=== PATIENT | male | born 1950 | race Caucasian/White ===

== ENCOUNTER → 2020-01-01 13:51 | Outpatient (BNVA) | payer MEDICARE, MEDICAID, SELFPAY | PROVIDERS: PCP Internal Medicine; Referring Provider Internal Medicine; Visit Provider Internal Medicine Cardiovascular Disease | DX: I25.10 Atherosclerotic heart disease of native coronary artery without angina pectoris (principal); I10 Essential (primary) hypertension; E78.5 Hyperlipidemia, unspecified; G89.29 Other chronic pain; R07.9 Chest pain, unspecified; Z95.1 Presence of aortocoronary bypass graft | CPT/HCPCS: 99204 ==

== ENCOUNTER → 2020-01-12 10:50 | Outpatient (BNVA) | payer MEDICARE, MEDICAID, SELFPAY | PROVIDERS: PCP Nurse Practitioner Family; Visit Provider Urology | DX: N40.1 Benign prostatic hyperplasia with lower urinary tract symptoms (principal); R35.1 Nocturia | CPT/HCPCS: 51798; 99213 ==

== ENCOUNTER → 2020-01-19 11:35 | Outpatient (REF) | payer MEDICARE, MEDICAID, SELFPAY ==
--- NOTE | 2020-01-19 11:40 | CA_ITS ---
Transthoracic Echocardiogram Patient (Last, First, Middle): Omar Pitts, Gender: Male Date of : 1950 Age: 69 Procedure Date: 01/19/2020 Procedure Type: Transthoracic Echocardiogram Location: OP Height: 177.8 cm Weight: 83.92 kg BSA: 2.02 m2 Heart Rate: bpm BP: 134 / 66 mmHg Airport Operations Officer: Referring MD: Jarvis Brown MD Symptoms: Essential hypertension Study Quality: Good ECG Rhythm: Sinus Conclusions: - The left ventricular systolic function is mildly decreased. The visually estimated ejection fraction is between 45-50%. - There is mildly decreased right ventricular systolic function. - No obvious valvular pathology seen on this study. Findings Left Ventricle Normal left ventricular cavity size. There is normal left ventricular wall thickness. The left ventricular systolic function is mildly decreased. The visually estimated ejection fraction is between 45-50%. There is mild global hypokinesis. E/E prime ratio is between 8 and 15 consistent with indeterminate filling pressures. Evidence suggests grade I (mild) diastolic dysfunction. Right Ventricle Normal right ventricular cavity size. There is mildly decreased right ventricular systolic function. Atria The left atrium is mildly dilated. The right atrium is normal in size. Aortic Valve There is a normal trileaflet aortic valve. There is no aortic valve stenosis. There is no aortic valve regurgitation. Mitral Valve The mitral valve appears normal. There is trace mitral valve regurgitation. There is no mitral valve stenosis. Pulmonic Valve The pulmonic valve was not well visualized. There is trace pulmonic valve regurgitation. Tricuspid Valve Normal tricuspid valve structure. There is mild tricuspid valve regurgitation. The pulmonary artery systolic pressure is normal. Great Vessels The aortic annulus, sinuses of valsalva, and asc aorta are normal in size. Venous The inferior vena cava is normal in size and collapses greater than 50% with inspiration. Pericardium/Pleural There is no evidence of pericardial effusion. Prior Study Comparison No prior study available for comparison. Recommendations, Care & Conclusions No obvious valvular pathology seen on this study. Measurements 2D Linear Measurements RVIDd: 3.67 RVIDd Index: 1.82 IVSd: 0.95 0.6-0.9/0.6-1.0 cm LVIDd: 5.83 3.9-5.3/4.2-5.9 cm LVIDd Index: 2.89 2.4-3.2/2.2-3.1 cm/m2 LVIDs: 4.38 2.0-3.6 cm LVPWd: 1.06 0.7-1.1 cm Ao Root: 4.10 2.1-3.5 cm LA Diam: 4.00 2.7-3.8/3.0-4.0 cm LAIDs Index: 1.98 1.5-2.3 cm/m2 LV Mass: 294.89 67-162/88-224 g LV Mass Index: 145.99 43-95/49-115 g/m2 LVOT Diam: 2.40 3.0+(-)1.3 cm 2D Systolic Function EF 4C: 49.80 >55% EF 2C: 48.90 >55% EF BiP: 50.20 >55% Mitral Valve MV Pk E: 0.76 MV PK A: 0.73 MV Decel Time: 254.00 E/A: 1.00 E'Lateral: 8.51 E'Medial: 7.06 E/E' Med: 10.80 E/E' Lat: 9.00 Aortic Valve AoV Pk Americo: 1.35 AoV Mn Americo: 1.10 AoV VTI: 0.33 AoV Pk Grad: 7.00 Aov Mn Grad: 5.00 DENNIS Cont.VTI: 2.46 LVOT LVOT Pk Americo: 0.73 LVOT Mn Americo: 0.51 LVOT VTI: 0.18 LVOT Pk Grad: 2.00 LVOT Mn Grad: 1.00 LVOT Diam: 2.40 LVOT Area: 4.52 Diastolic Function MV Pk E: 0.76 MV Pk A: 0.73 E/A: 1.00 E'Medial: 7.06 E/E' Med: 10.80 E' Laterial: 8.51 E/E' Lat: 9.00 Tricuspid Valve TR Pk Americo: 2.39 TR Pk Grad: 23.00 RA Press: 3.00 RVSP: 26.00 Great Vessels Aorta Ao Root-2D: 4.10 2.0-3.7 cm Ao Asc: 3.60 2.1-3.4 cm Ao Arch: 3.60 Updated in Other Vendor System with Status of Final Israel Purcell MD electronically signed on 01/21/2020 10:45:45 AM with status of Final
== END ==
LOC: HO.CARD 11:35
PROVIDERS: PCP Internal Medicine; Visit Provider Internal Medicine Cardiovascular Disease
DX: I10 Essential (primary) hypertension (principal)
CPT/HCPCS: 93306

== ENCOUNTER 2020-02-14 12:26 | Outpatient (REF) | payer MEDICARE, MEDICAID, SELFPAY | END 2020-02-14 12:27 | disposition home or self-care (01) | LOC: HO.LAB 12:26 | PROVIDERS: Visit Provider Internal Medicine | DX: Z20.828 Contact with and (suspected) exposure to other viral communicable diseases (principal) | CPT/HCPCS: C9803; U0003 ==

== ENCOUNTER 2020-03-05 12:14 | Outpatient (REF) | payer MEDICARE, MEDICAID, SELFPAY | END 2020-03-05 12:15 | disposition home or self-care (01) | LOC: HO.LAB 12:14 | PROVIDERS: PCP Internal Medicine; Visit Provider Internal Medicine | DX: Z20.828 Contact with and (suspected) exposure to other viral communicable diseases (principal) | CPT/HCPCS: C9803; U0003 ==

== ENCOUNTER → 2020-04-25 08:20 | Outpatient (BNVA) | payer MEDICARE, MEDICAID, SELFPAY | PROVIDERS: PCP Internal Medicine; Visit Provider Orthopaedic Surgery | DX: M17.11 Unilateral primary osteoarthritis, right knee (principal) | CPT/HCPCS: 99212 ==

== ENCOUNTER → 2020-05-06 12:46 | Outpatient (BNVA) | payer MEDICARE, MEDICAID, SELFPAY | PROVIDERS: PCP Internal Medicine; Visit Provider Internal Medicine Cardiovascular Disease | DX: I15.0 Renovascular hypertension (principal); R07.9 Chest pain, unspecified; Z95.1 Presence of aortocoronary bypass graft | CPT/HCPCS: 93005; 99212 ==

== ENCOUNTER → 2020-05-16 13:25 | Outpatient (BNVA) | payer MEDICARE, MEDICAID, SELFPAY | PROVIDERS: PCP Internal Medicine; Visit Provider Surgery Vascular Surgery | DX: I73.9 Peripheral vascular disease, unspecified (principal) | CPT/HCPCS: 99202 ==

== ENCOUNTER 2020-05-23 13:55 | Outpatient (REF) | payer MEDICARE, MEDICAID, SELFPAY ==
--- NOTE | ~2020-05-23 | US_ITS ---
EXAMINATION: US MISHA COMPLETE US BILATERAL LOWER EXTREMITY ARTERIAL DUPLEX CLINICAL INFORMATION: Peripheral vascular disease. COMPARISON: None TECHNIQUE: MISHA. Real-time ultrasound and Doppler techniques (integrating B-mode 2D vascular images, Doppler spectral analysis and color flow Doppler imaging) were utilized to interrogate the lower extremities bilaterally. FINDINGS: Arterial vascular calcifications are present bilaterally. MISHA: Right brachial artery pressure is 161 mmHg with left brachial artery pressure of 151 mmHg. Right posterior tibial artery pressure is 169 mmHg with dorsalis pedis pressure of 202 mmHg. Left posterior tibial artery pressure is 207 mmHg with left dorsalis pedis artery pressure of 205 mmHg. The above findings were given MISHA on the right of 1.25 and on the left of 1.29, however, these are likely artifactually elevated due to noncompressibility from calcified vessels at the ankle. The lower MISHA related to posterior tibial artery pressure in the right leg would give an index of 1.05 which would fall in the normal range. RIGHT LOWER EXTREMITY: Common femoral artery has a triphasic waveform with peak systolic velocity of 96 cm/s. Profunda femoral artery has a biphasic waveform with peak systolic velocity of 73 cm/s. Proximal superficial femoral artery has a biphasic waveform with peak systolic velocity of 86 cm/s. The mid superficial femoral artery has a triphasic waveform with peak systolic velocity of 77 cm/s. The distal superficial femoral artery has a triphasic waveform with peak systolic velocity of 65 cm/s. Popliteal artery has a triphasic waveform with peak systolic velocity 57 cm/s. The proximal peroneal artery has a triphasic waveform with peak systolic velocity of 96 cm/s. The mid and distal peroneal arteries have biphasic waveforms. The mid posterior tibial artery has a biphasic waveform with peak systolic velocity of 200 cm/s. The proximal posterior tibial artery has a biphasic waveform with peak systolic velocity of 48 cm/s. LEFT LOWER EXTREMITY: The common femoral artery has a biphasic waveform with peak systolic velocity of 89 cm/s. The profunda femoral artery has a biphasic waveform with peak systolic velocity of 58 cm/s. The proximal superficial femoral artery has a triphasic waveform with peak systolic velocity of 69 cm/s. The mid superficial femoral artery has a biphasic waveform with peak systolic velocity of 72 cm/s. The distal superficial femoral artery just proximal to what appears to be a metallic stent has a biphasic waveform with peak systolic velocity of 67 cm/s. The proximal popliteal artery has a triphasic waveform with peak systolic velocity of 50 cm/s. The proximal peroneal artery has a biphasic waveform with peak systolic velocity of 70 cm/s. The proximal posterior tibial artery has a biphasic waveform with peak systolic velocity of 49 cm/s. The mid peroneal artery has a biphasic waveform with peak systolic velocity of 76 cm/s. The mid posterior tibial artery has a biphasic waveform with peak systolic velocity of 73 cm/s. US/US arterial duplex LE BI IMPRESSION: Bilateral diffuse calcified plaque within the lower extremity arterial system. Probable inaccurate ABIs related to noncompressibility of the ankle vessels due to calcified vessels. Elevated velocity within the right mid posterior tibial artery consistent with hemodynamically significant stenosis. Biphasic or triphasic waveforms bilaterally as described.
== END 2020-05-23 13:56 | disposition home or self-care (01) ==
LOC: HO.US 13:55
PROVIDERS: PCP Internal Medicine; Visit Provider Surgery Vascular Surgery
DX: I70.213 Atherosclerosis of native arteries of extremities with intermittent claudication, bilateral legs (principal)
CPT/HCPCS: 93923; 93925

== ENCOUNTER → 2020-05-30 10:04 | Outpatient (BNVA) | payer MEDICARE, MEDICAID, SELFPAY | PROVIDERS: PCP Internal Medicine; Visit Provider Orthopaedic Surgery | DX: M17.11 Unilateral primary osteoarthritis, right knee (principal); M17.12 Unilateral primary osteoarthritis, left knee | CPT/HCPCS: 20610; 99212; J1100 ==

== ENCOUNTER → 2020-06-06 13:01 | Outpatient (BNVA) | payer MEDICARE, MEDICAID, SELFPAY | PROVIDERS: Visit Provider Surgery Vascular Surgery | DX: I73.9 Peripheral vascular disease, unspecified (principal) | CPT/HCPCS: 99212 ==

== ENCOUNTER 2020-06-26 11:32 | Outpatient (REF) | payer MEDICARE, MEDICAID, SELFPAY ==
[2020-06-26 13:45] LABS: PSA,Total (Free>4and<10) 0.39 ng/mL (0.00-4.00)
== END 2020-06-26 11:33 | disposition home or self-care (01) ==
LOC: HO.LAB 11:32
PROVIDERS: PCP Nurse Practitioner Family; Visit Provider Urology
DX: N40.1 Benign prostatic hyperplasia with lower urinary tract symptoms (principal); N13.8 Other obstructive and reflux uropathy; Z12.5 Encounter for screening for malignant neoplasm of prostate
CPT/HCPCS: 36415; 84153

== ENCOUNTER → 2020-09-11 12:42 | Outpatient (BNVA) | payer MEDICARE, MEDICAID, SELFPAY | PROVIDERS: PCP Nurse Practitioner Family; Visit Provider Internal Medicine Cardiovascular Disease | DX: Z01.810 Encounter for preprocedural cardiovascular examination (principal); I15.0 Renovascular hypertension; R07.9 Chest pain, unspecified; Z95.1 Presence of aortocoronary bypass graft | CPT/HCPCS: 93005; 99212 ==

== ENCOUNTER → 2020-09-18 12:46 | Outpatient (BNVA) | payer MEDICARE, MEDICAID, SELFPAY | PROVIDERS: PCP Nurse Practitioner Family; Visit Provider Urology ==

== ENCOUNTER 2020-11-13 11:58 | Outpatient (REF) | payer MEDICARE, MEDICAID, SELFPAY ==
--- NOTE | ~2020-11-13 | US_ITS ---
EXAMINATION: COLOR-FLOW DUPLEX IMAGING OF THE BILATERAL LOWER EXTREMITY ARTERIAL SYSTEM. VELOCITY MEASUREMENTS THROUGHOUT THE FEMORAL ARTERIES WITH ANKLE-BRACHIAL PERIPHERAL ARTERIAL TESTING. Interventional Radiologist: Jordi Rowell M.D., F.S.I.R., F.A.C.R. CLINICAL INFORMATION: This is a 70-year-old male with hypertension, hyperlipidemia, diabetes, vascular surgery Comparison: Comparison is made to a previous study dated May 23, 2020 RIGHT FEMORAL RUNOFF VELOCITIES: The right common femoral artery measures 104 cm/s and triphasic. The right profunda femoral artery is 67 cm/s and is biphasic. Right proximal superficial femoral artery measures 100 cm/s and biphasic. Mid superficial femoral artery is 101 cm/s and triphasic. Distal right superficial femoral artery measures 72 cm/s and is triphasic. Right popliteal velocity measures 54 cm/s and is triphasic. The posterior tibial artery velocity measures 101 cm/s and was triphasic. The right ankle-brachial index is 1.35. LEFT FEMORAL RUNOFF VELOCITIES: The left common femoral artery measures 92 cm/s and triphasic. The left profunda femoral artery is 62 cm/s and is biphasic. Left proximal superficial femoral artery measures 82 cm/s and biphasic. Mid superficial femoral artery is 91 cm/s and biphasic. Distal left superficial femoral artery measures 64 cm/s and is biphasic. Left popliteal velocity measures 47 cm/s and is triphasic. The posterior tibial artery velocity measures 60 cm/s and was biphasic. The left ankle-brachial index is 1.28. There is diffuse calcified atherosclerotic disease bilaterally. US/US arterial duplex LE BI IMPRESSION: 1. Normal bilateral peripheral arterial testing without evidence of focal hemodynamically significant stenosis.
== END 2020-11-13 11:59 | disposition home or self-care (01) ==
LOC: HO.US 11:58
PROVIDERS: PCP Nurse Practitioner Family; Visit Provider Surgery Vascular Surgery
DX: I70.213 Atherosclerosis of native arteries of extremities with intermittent claudication, bilateral legs (principal)
CPT/HCPCS: 93925

== ENCOUNTER 2020-11-14 08:24 | Outpatient (REF) | payer MEDICARE, MEDICAID, SELFPAY ==
--- NOTE | ~2020-11-14 | XR_ITS ---
EXAMINATION: XR KNEE AP STANDING CLINICAL INFORMATION: Pain COMPARISON: None TECHNIQUE: AP bilateral standing view of the knees was obtained. FINDINGS: Early medial compartment narrowing of both tibial femoral joint compartments symmetrically. Marginal osteophytes right greater than left. Mild intercondylar spurring. No other focal lesion. Monckeberg calcifications suggesting diabetes. XR/XR knee standing BI IMPRESSION: Osteoarthritis as above.
== END 2020-11-14 08:25 | disposition home or self-care (01) ==
LOC: HO.HOSX 08:24
PROVIDERS: Visit Provider Orthopaedic Surgery
DX: M17.11 Unilateral primary osteoarthritis, right knee (principal)
CPT/HCPCS: 20610; 73565; 99212; J1100

== ENCOUNTER 2020-11-20 09:19 | Outpatient (REF) | payer MEDICARE, MEDICAID, SELFPAY ==
[2020-11-20 09:47] LABS: COVID-19 Test Negative (Negative)
== END 2020-11-20 09:20 | disposition home or self-care (01) ==
LOC: HO.LAB 09:19
PROVIDERS: PCP Nurse Practitioner Family; Visit Provider Internal Medicine
DX: Z20.822 Contact with and (suspected) exposure to COVID-19 (principal)
CPT/HCPCS: 36415; 87635; C9803

== ENCOUNTER → 2020-12-05 12:53 | Outpatient (BNVA) | payer MEDICARE, MEDICAID, SELFPAY | PROVIDERS: PCP Family Medicine; Visit Provider Surgery Vascular Surgery | DX: I73.9 Peripheral vascular disease, unspecified (principal) | CPT/HCPCS: 99212 ==

== ENCOUNTER → 2020-12-11 13:20 | Outpatient (BNVA) | payer MEDICARE, MEDICAID, SELFPAY | PROVIDERS: PCP Nurse Practitioner Family; Referring Provider Family Medicine; Visit Provider Internal Medicine Cardiovascular Disease | DX: R07.9 Chest pain, unspecified (principal); G89.29 Other chronic pain | CPT/HCPCS: 93005; 99212 ==

== ENCOUNTER → 2020-12-27 10:42 | Outpatient (BNVA) | payer MEDICARE, MEDICAID, SELFPAY | PROVIDERS: PCP Nurse Practitioner Family; Visit Provider Nurse Practitioner Family | DX: M54.16 Radiculopathy, lumbar region (principal); M62.838 Other muscle spasm; R07.9 Chest pain, unspecified; G89.29 Other chronic pain | CPT/HCPCS: 99202 ==

== ENCOUNTER → 2021-01-24 13:39 | Outpatient (BNVA) | payer MEDICARE, MEDICAID, SELFPAY | PROVIDERS: Visit Provider Nurse Practitioner Family | DX: M54.16 Radiculopathy, lumbar region (principal); M62.838 Other muscle spasm; G89.29 Other chronic pain; R07.9 Chest pain, unspecified | CPT/HCPCS: 99212 ==

== ENCOUNTER 2021-01-28 09:34 | Outpatient (REF) | payer MEDICARE, MEDICAID, SELFPAY ==
--- NOTE | 2021-01-28 10:44 | ECG_ITS ---
Test Reason : preop Blood Pressure : / mmHG Vent. Rate : 063 BPM Atrial Rate : 063 BPM P-R Int : 192 ms QRS Dur : 092 ms QT Int : 406 ms P-R-T Axes : 056 039 065 degrees QTc Int : 415 ms Normal sinus rhythm Normal ECG No previous ECGs available Referred By: Neptali Wilkinson Electronically Signed By:ZACHERY MIMS MD
[2021-01-28 10:48] LABS: MANUAL DIFF FLAG NO
[2021-01-28 11:11] LABS: Basophils Percent Auto 0.2 % (0-2); Eosinophils Absolute Auto 0.1 X10*3/uL (0.0-0.4); Eosinophils Percent Auto 1.2 % (0-4); Hematocrit 37.8 % (42.0-52.0); Hemoglobin 12.5 g/dl (14.0-18.0); Imm Gran Abs Auto 0.02 X10*3/uL (0.00-0.03); Imm Gran Pct Auto 0.4 % (0.0-0.4); Lymphocytes Absolute Auto 1.7 X10*3/uL (1.2-4.9); Lymphocytes Percent Auto 35.6 % (20-40); Mean Corpuscular HGB Conc 33.1 g/dl (31.0-36.0); Mean Corpuscular Hemoglobin 29.9 pg (27.0-33.0); Mean Corpuscular Volume 90.4 fL (80.0-98.0); Mean Platelet Volume 10.9 fL (9.4-12.4); Monocytes Absolute Auto 0.5 X10*3/uL (0.1-1.2); Neutrophils Absolute Auto 2.52 x10*3/uL (2.0-8.3); Neutrophils Percent Auto 51.6 % (45-73); Platelet Count 174 X10*3/uL (160-400); Red Blood Count 4.18 X10*6/uL (4.60-5.80); Red Cell Distribution Width 14.6 % (11.0-16.0); White Blood Count 4.9 X10*3/uL (4.8-10.8)
[2021-01-28 12:26] LABS: Anion Gap 11 (12-20); Blood Urea Nitrogen 17 mg/dL (9-16); Calcium 8.8 mg/dL (8.4-10.2); Carbon Dioxide 30 mmol/L (22-29); Chloride 106 mmol/L (96-108); Estimated Glomerular Filt Rate > 60; Glucose Random 114 mg/dL (60-115); Potassium 4.9 mmol/L (3.3-5.1); Sodium 142 mmol/L (135-145)
== END 2021-01-28 09:35 | disposition home or self-care (01) ==
LOC: HO.XRAY 09:34
PROVIDERS: PCP Family Medicine; Visit Provider Orthopaedic Surgery
DX: Z01.810 Encounter for preprocedural cardiovascular examination (principal); Z01.812 Encounter for preprocedural laboratory examination
CPT/HCPCS: 36415; 80048; 85025; 93005

== ENCOUNTER → 2021-02-07 09:27 | Outpatient (BNVA) | payer MEDICARE, MEDICAID, SELFPAY | PROVIDERS: PCP Family Medicine; Visit Provider Internal Medicine | DX: R07.89 Other chest pain (principal); G89.18 Other acute postprocedural pain | CPT/HCPCS: 64450; J3300 ==

== ENCOUNTER 2021-02-19 08:00 | Outpatient (RCR) | payer MEDICARE, MEDICAID, SELFPAY ==
--- NOTE | 2021-02-12 16:16 | MHC.PT.EP ---
[facility] [place] Office [place] Office [place] Office [address] Vic Gonzalez [address] [phone] F: [phone] F: [phone] F: [phone] F: [phone] Physical Therapy Plan of Care Date of Evaluation: Date of Surgery: Diagnosis: This is a 70 yo male presenting to skilled PT with a script for R knee prehab, R OA Assessment: This is a 70 yo male presenting to skilled PT with a script for R knee prehab, R OA. This is a 70 yo male presenting to skilled PT with a script for R knee prehab, R OA. He is getting a knee replacement at [facility] on 03/04/21. He reports R sided hip pain and knee ongoing for many years now. He reports that he had a fall and had a lumbar fusion in 2013 which did not resolve his pain. Following this in 2014 he had surgery for R proximal hamstring rupture. Today he comes to [facility] reporting lateral R hip and groin pain, hamstring pain proximal to distal to the knee and medial knee pain. Pain is achy and stabbing. Reports 24-7 constant pain. The patient states that he has an increase in pain with sitting, standing and sleeping but the pain is always there. Due to this he lives a very sedentary lifestyle mainly watching TV in his recliner. He has attempted pain relief with cortisone injections and pain stimulator. Assessment reveals pain that ranges up to an 8/10. He demos decreased knee and hip ROM, decreased gross LE and core strength, impaired gait pattern with decreased full knee extension and heel strike, impaired transfer tolerance with decreased balance noted, impaired patella joint mobility (hypo) as well as gross functional decline with all functional resting postures as well as with walking, stairs and standing. He is a good candidate for skilled PT 2x/wk for 5wks. Frequency and Duration: The patient will be seen 2x/wk for 5wks Short Term Goals: I in HEP Demo understanding of rehab process following total knee Demo understanding of stairs, transfers and ambulation with walker s/p surgery [facility] Goals: Treatment Plan: Modalities to reduce pain, spasms and effusion. Manual therapy to restore motion and function. Therapeutic exercise to improve strength and flexibility. Neuromuscular re-education for posture and balance. Therapeutic activities to return to functional activities of daily living. Electronically signed by: Carlota Mcdermott PT Please sign and return to therapist. Thank you for your referral.
--- NOTE | 2021-02-28 15:44 | MHC.PT.DC ---
[facility] [place] Office [place] Office [place] Office [address] Vic Gonzalez [address] [phone] F: [phone] F: [phone] F: [phone] F: [phone] Physical Therapy Discharge Report Diagnosis: This is a 70 yo male presenting to skilled PT with a script for R knee prehab, R OA Date of Surgery: Date of Evaluation: 02/12/21 Date of Discharge: 02/28/21 Treatments to Date: 2 Cancellations to Date: 0 No Shows to Date: 1 Discharge Status: Achieved Goals Independent with HEP Discharge Summary: Patient educated on HEP prior to surgery. DC at at this time to HEP as patient had total knee replacement. Will evaluate once more when patient returns. DC to HEP Electronically signed by: Carlota Mcdermott PT Please sign and return to therapist. Thank you for your referral.
== END 2021-02-28 15:45 | disposition home or self-care (01) ==
LOC: HO.PTCHIC 08:00
PROVIDERS: PCP Family Medicine; Visit Provider Orthopaedic Surgery
DX: M17.11 Unilateral primary osteoarthritis, right knee (principal)
CPT/HCPCS: 97110; 97162

== ENCOUNTER → 2021-02-27 11:55 | Outpatient (BNVA) | payer MEDICARE, MEDICAID, SELFPAY | PROVIDERS: PCP Family Medicine; Visit Provider Physician Assistant | DX: M17.11 Unilateral primary osteoarthritis, right knee (principal) | CPT/HCPCS: 99212 ==

== ENCOUNTER 2021-03-04 05:55 | Day surgery (SDC) | payer MEDICARE, MEDICAID, SELFPAY ==
[2021-02-27 13:04] VITALS: BP 126/65; PULSE 75; RESP 16; O2SAT 97; BMI 25.1
--- NOTE | 2021-02-27 13:40 | HO.ANESPROP2 ---
Documented by User: America Rolon NP 02/28/21 14:39 HPI - Anesthesia Eval Consult details Narrative: 70yo M for Right Knee Replacement Total PCP Cleared Cardiac cleared: Preop for TKR. Hx CAD, CABG 2017. Has chronic atypical chest wall pain. Last echo 01/19/20 shows EF 45-50%. Reviewed with Dr Purcell. Intermediate cardiac risk to undergo TKR. Avoid fluid overload. Can hold aspirin if needed and restart when clear by surgeon to do so. Continue statin and BB. Call/ consult cardiology if needed Chronic MSK chest pain s/p CABG. Working with Pain clinic for pectoral blocks. [facility] Active Problems Active Problems: All Active Problems (Updated 02/27/21 @ 13:39 by Judy Lara RN) Hypertension (Acute) Chest pain of uncertain etiology (Acute) BPH loc w urin obs/LUTS (Acute) Nocturia (Acute) PAD (peripheral artery disease) (Acute) Preoperative cardiovascular examination (Acute) Lumbar radiculopathy, right (Acute) Muscle spasms of lower extremity (Acute) Chest wall pain following surgery (Acute) Chronic chest pain (Acute) Osteoarthritis of right knee (Acute) Deformity of right hand (Acute) Diabetes mellitus (Acute) Hyperlipidemia (Acute) S/P CABG (coronary artery bypass graft) (Acute) Past Medical History Medical History Barretts esophagus Chronic chest pain Deformity of right hand Diabetes Diabetes mellitus Environmental allergies Hyperlipidemia Hypertension Osteoarthritis of right knee Family History Family History Father Diabetes Hypertension Mother Diabetes Hypertension Son No problems noted. Son No problems noted. Son No problems noted. Daughter No problems noted. Daughter No problems noted. 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 If so, by whom?: No Are you DNR?: No Advance Directives: No Advance Directives Information Provided: Yes Advance Directives on File: No Recently lost weight without trying: No Poor oral hygiene: No Current occupational status: disabled Current occupation: rt handed Narrative Narrative: No recent illness No cardiac CP/SOB Meds Allergies Allergy/AdvReac Type Severity Reaction Status Date / Time naproxen [From Naprosyn] Allergy swelling Verified 02/27/21 13:04 Home Medications Medication Instructions Recorded Confirmed Last Taken Type aspirin 81 mg tablet,delayed 81 mg PO DAILY 01/01/20 02/27/21 Unknown History release (Adult Aspirin Regimen) insulin glargine 100 unit/mL (3 32 - 34 unit SUBCUT BEDTIME ml 04/08/20 02/27/21 Unknown History mL) subcutaneous pen (Lantus Solostar U-100 Insulin) lisinopril 2.5 mg tablet 2.5 mg PO DAILY 09/18/20 02/27/21 03/04/21 History pen needle, diabetic 31 gauge x #1200 ea 09/18/20 02/07/21 Unknown History 08/11 Exam Exam Date and Time: February 27, 2021 1340 Height,Weight and Vital Signs: Height 5 ft 10 in Weight 79.379 kg Last Vital Signs Pulse 75 02/27/21 13:04 Resp 16 02/27/21 13:04 BP 126/65 02/27/21 13:04 Pulse Ox 97 02/27/21 13:04 Pertinent Lab Results Pertinent Lab Results: Laboratory Tests 01/28/21 01/28/21 10:47 10:47 WBC 4.9 Hgb 12.5 L Hct 37.8 L Plt Count 174 Sodium 142 Potassium 4.9 Chloride 106 Carbon Dioxide 30 H BUN 17 H Creatinine 0.84 Calcium 8.8 A1C =6.6 (at pcp) Airway TM Dist: >3cm Neck ROM: Full Partial: Upper and Lower Heart: RRR Lungs: CTAB Assessment and Plan Assessment Anesthesia Assessment: Anesthesia Plan Discussed and PAT Visit Final Anesthetic Review Family History of Problems with Anesthesia: Yes (Mother passed in OR during hip repair, had increased risk based on health, no mention of MH) History of Problems with Anesthesia: No Documented by User: Ann Marie MD 03/04/21 07:48 PMFSH Past Medical History Medical History Barretts esophagus Chronic chest pain Deformity of right hand Diabetes Diabetes mellitus Environmental allergies Hyperlipidemia Hypertension Osteoarthritis of right knee Family History Family History Father Diabetes Hypertension Mother Diabetes Hypertension Son No problems noted. Son No problems noted. Son No problems noted. Daughter No problems noted. Daughter No problems noted. 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 If so, by whom?: No Are you DNR?: No Advance Directives: No Advance Directives Information Provided: Yes Advance Directives on File: No Recently lost weight without trying: No Poor oral hygiene: No Current occupational status: disabled Current occupation: rt handed Meds Allergies Allergy/AdvReac Type Severity Reaction Status Date / Time naproxen [From Naprosyn] Allergy swelling Verified 02/27/21 13:04 Home Medications Medication Instructions Recorded Confirmed Last Taken Type aspirin 81 mg tablet,delayed 81 mg PO DAILY 01/01/20 02/27/21 Unknown History release (Adult Aspirin Regimen) insulin glargine 100 unit/mL (3 32 - 34 unit SUBCUT BEDTIME ml 04/08/20 02/27/21 Unknown History mL) subcutaneous pen (Lantus Solostar U-100 Insulin) lisinopril 2.5 mg tablet 2.5 mg PO DAILY 09/18/20 02/27/21 03/04/21 History pen needle, diabetic 31 gauge x #1200 ea 09/18/20 02/07/21 Unknown History 08/11 Exam Airway Mallampati Class: II Assessment and Plan Final Anesthetic Review ASA Class: III Final Preanesthetic Review: Meds/Allgs Chart Reviewed, Consent Obtained/Reviewed and Anes Risks/Benef Reviewed Patient Risk: Intermediate Procedure Risk: Intermediate Anesthetic Plan Anesthetic Plan: Spinal and Regional Block Disposition: Standard PACU
[2021-02-28 08:53] LABS: MRSA Nasal PCR NEGATIVE (Negative); SA Nasal PCR NEGATIVE (Negative)
[2021-03-04] VITALS (28 sets, daily range): BP systolic 112–164; BP diastolic 53–94; PULSE 57–75; RESP 16–18; TEMP 35.9–36.8; O2SAT 95–100
--- NOTE | ~2021-03-04 | XR_ITS ---
EXAMINATION: XR KNEE, RIGHT CLINICAL INFORMATION: Right TKA COMPARISON: None TECHNIQUE: Four views of the right knee. FINDINGS: There is a total knee arthroplasty with prosthetic components in satisfactory alignment. There are surgical antonino along the anterior and soft tissue gas from surgery. No fracture seen. XR/XR knee RT 2V IMPRESSION: Postoperative changes right knee with total knee prosthesis in satisfactory alignment.
[2021-03-04 06:40] LABS: Glucose, Whole Blood 131 mg/dL (60-115)
[2021-03-04 06:52] LABS: COVID-19 Test Negative (Negative)
[2021-03-04] MEDS: Lactated Ringers 1,000 ML 100 ML IVCONT (07:00)
--- NOTE | 2021-03-04 07:29 | MHC.SHP ---
Pre-Procedural Eval Section A Date of Service: 03/04/21 The patient is an INPATIENT: No Changes since office visit: Yes Patient answered all questions; No Cold of Flu in the past 2 weeks, No New Medical Problems and No Changes in Medication The History & Physical has been completed within 30 days and I have reviewed it.: Yes Section B Chief Complaint: osteoarthritis Allergies: Allergies Allergy/AdvReac Type Severity Reaction Status Date / Time naproxen [From Naprosyn] Allergy swelling Verified 02/27/21 13:04 Plan I have reviewed the history and physical and performed a pertinent physical examination on my patient. No changes have occurred unless specified.
--- NOTE | 2021-03-04 09:08 | PM.OP ---
Brief Operative Note Date of Service: 03/04/21 Pre-op diagnosis: right knee OA Post-op diagnosis: same Procedure: Right TKA Implants: Gamaliel triathalon press fit cruciate retaining Surgeon: Neptali Wilkinson MD Anesthesia: regional and spinal Was an Psychology Department Chair used for this Procedure?: Yes Psychology Department Chair: Vincent Sanders Estimated blood loss (mL): 150 IV fluids (mL): 1,100 Pathology: other Condition: stable Disposition: PACU
--- NOTE | 2021-03-04 09:14 | P.OP_ITS ---
Operative Note Operative Note Date of Service: 03/04/21 Narrative: Pre-op diagnosis: right knee OA Post-op diagnosis: same Procedure: Right TKA Implants: [place] triathalon press fit cruciate retaining Surgeon: Neptali Wilkinson MD Anesthesia: regional and spinal Was an Returned Materials Inspector used for this Procedure?: Yes Returned Materials Inspector: Vincent Sanders Estimated blood loss (mL): 150 IV fluids (mL): 1,100 Pathology: other Condition: stable Disposition: PACU Procedure in detail: The patient was brought to the operating room and prepped and draped in standard sterile fashion. A time-out was called to identify proper site proper procedure proper surgeon and IV antibiotics were administered. 1 g of IV tranexamic acid was administered. On visual inspection he had an 8-10 deg flexion contracture. I began by making a midline incision to the retinaculum and performed a medial parapatellar arthrotomy. The patella was translated laterally and the knee was flexed up. The anterior and medial compartments were eburnated. I performed a small medial peel and resected the infrapatellar fat pad. [place]'s line was then used to drill my intramedullary femoral guide and made a 12mm distal femoral cut in 5 degrees of valgus while protecting the soft tissues. I then measured a # 5 femur and placed my cutting guide and made my anterior posterior and chamfer cuts ion 3 deg of valgus while protecting the soft tissues at all times. Once I was satisfied with my cuts I turned my attention to the tibia. I removed the meniscus and , using an external cutting guide, in line with the tibial crest and the third ray, I made my distal tibial cut in 3 deg slope of while protecting the PCL the posterior soft tissues at all times. An extension block was used to confirm appropriate amount of bony resection. I then sized a #6 tibia and once I was satisfied that there was complete tibial coverage I placed my trial and with the trial femur in place took the knee through range of motion. I was satisfied with the extension and flexion as well as the stability at 0, 30 and 90 degrees. I then turned my attention to the patella where I removed 1 cm from the undersurface of the patella and then trialed a 35a patellar button. Again the knee was taken through range of motion I was satisfied with the tracking. I then returned to the femur and drilled my femoral lug holes and prepared the tibia. A femoral bone plug was placed and the knee was irrigated copiously. I then press fit the patella, tibia and femur in standard fashion. I trialed different inserts until I selected a #9 insert. The final insert was placed and a 3 minutes iodine soak with local TXA was performed. The knee was then closed with a running Quill suture, a 3 0 Vicryl and antonino on the skin. Patient was then placed in sterile dressing and brought to recovery room in stable condition there were no known complications.
[2021-03-04] MEDS: oxyCODONE HCl Immed Release 5 MG TABLET 10 MG PO (12:23)
[2021-03-04] MEDS: Acetaminophen 325 MG TABLET 650 MG PO (12:24)
[2021-03-04] MEDS: fentaNYL citrate/PF 100 MCG/2 ML VIAL 50 MCG IVPUSH ×2 (12:25→15:53)
[2021-03-04] MEDS: Sodium Chloride 0.45 % 1,000 ML 80 ML IVCONT (13:35)
[2021-03-04] MEDS: ceFAZolin Sodium/Dextrose,Iso 2 GM/50 ML PIGGYBACK IV (14:10)
[2021-03-04] MEDS: oxyCODONE HCl Immed Release 5 MG TABLET PO (16:12)
[2021-03-04] MEDS: HYDROmorphone HCl 0.5 MG/0.5 ML SYRINGE 0.25 MG IVPUSH (18:05)
[2021-03-04] MEDS: 0.9 % Sodium Chloride Flush 3 ML SYRINGE IVFLUSH ×2 (18:12→20:43)
[2021-03-04 18:27] LABS: Glucose, Whole Blood 151 mg/dL (60-115)
[2021-03-04] MEDS: Docusate Sodium 100 MG CAPSULE PO (20:42)
[2021-03-04] MEDS: oxyCODONE HCl ER 10 MG TAB.ER.12H PO (20:42)
[2021-03-04 21:44] LABS: Glucose, Whole Blood 166 mg/dL (60-115)
[2021-03-04] MEDS: HYDROmorphone HCl 0.5 MG/0.5 ML SYRINGE IVPUSH (22:13)
[2021-03-05] VITALS (9 sets, daily range): BP systolic 90–143; BP diastolic 51–76; PULSE 68–77; RESP 16–18; TEMP 36.2–36.8; O2SAT 94–98
[2021-03-05] MEDS: oxyCODONE HCl Immed Release 5 MG TABLET 10 MG PO ×4 (01:39→15:42)
[2021-03-05] MEDS: Sodium Chloride 0.45 % 1,000 ML 80 ML IVCONT (01:45)
[2021-03-05] MEDS: HYDROmorphone HCl 0.5 MG/0.5 ML SYRINGE IVPUSH ×4 (02:58→17:07)
[2021-03-05 05:52] LABS: MANUAL DIFF FLAG NO
[2021-03-05] MEDS: ondansetron HCL 4 MG/2 ML VIAL IVPUSH ×2 (06:03→19:48)
[2021-03-05 06:07] LABS: Basophils Percent Auto 0.1 % (0-2); Hematocrit 31.8 % (42.0-52.0); Hemoglobin 10.9 g/dl (14.0-18.0); Imm Gran Abs Auto 0.04 X10*3/uL (0.00-0.03); Imm Gran Pct Auto 0.5 % (0.0-0.4); Lymphocytes Percent Auto 13.6 % (20-40); Mean Corpuscular HGB Conc 34.3 g/dl (31.0-36.0); Mean Corpuscular Hemoglobin 30.1 pg (27.0-33.0); Mean Corpuscular Volume 87.8 fL (80.0-98.0); Mean Platelet Volume 11.3 fL (9.4-12.4); Monocytes Percent Auto 13.2 % (2-11); Neutrophils Absolute Auto 5.5 x10*3/uL (2.0-8.3); Neutrophils Percent Auto 72.6 % (45-73); Platelet Count 166 X10*3/uL (160-400); Red Blood Count 3.62 X10*6/uL (4.60-5.80); White Blood Count 7.6 X10*3/uL (4.8-10.8)
[2021-03-05 06:11] LABS: Anion Gap 12 (12-20); Blood Urea Nitrogen 18 mg/dL (9-16); Calcium 8.4 mg/dL (8.4-10.2); Carbon Dioxide 28 mmol/L (22-29); Chloride 95 mmol/L (96-108); Creatinine Clr Calc Pharmacy 94.7; Estimated Glomerular Filt Rate > 60; Glucose Fasting 223 mg/dL (60-99); Potassium 4.2 mmol/L (3.3-5.1); Sodium 131 mmol/L (135-145)
[2021-03-05] MEDS: Metoprolol Tartrate 50 MG TABLET PO ×2 (07:22→19:48)
[2021-03-05] MEDS: Docusate Sodium 100 MG CAPSULE PO ×2 (07:23→19:48)
[2021-03-05] MEDS: oxyCODONE HCl ER 10 MG TAB.ER.12H PO ×2 (07:23→19:47)
[2021-03-05 07:45] LABS: Glucose, Whole Blood 208 mg/dL (60-115)
[2021-03-05] MEDS: Insulin Lispro 100 UNIT/ML 3 ML VIAL SUBCUT ×4 (07:51→21:22)
--- NOTE | 2021-03-05 08:19 | P.PNOP_ITS ---
Subjective Subjective Date of Service: 03/05/21 Interval history: POD 1 s/p RT TKA No overnight events resting in bed with some pain and also has pain in the back denies palpations , sob, cp Physical Exam Vital Signs: Vital Signs: Last Vital Signs Temp 97.8 F 03/05/21 07:37 Pulse 70 03/05/21 07:37 Resp 17 03/05/21 07:37 BP 143/62 H 03/05/21 07:37 Pulse Ox 97 03/05/21 07:37 BMI result Body Mass Index 25.1 Const: General: cooperative, healthy appearing and no acute distress Resp: Effort & Inspection: normal respiratory effort and able to speak in complete sentences Cardio: Rate: regular rate Peripheral pulses: Peripheral pulses 2+ throughout GI: Palpation (GI): Soft to palpation Skin: General skin exam: no rashes or lesions noted Extrem: Other: bandage clean dry and intact. [place] intact. No erythema or joint effusion. Calf supple nontender. Neurovascularly intact. Procedures Date of Service Date of Service: 03/05/21 Progress Note: A&P Assessment and plan (1) Status post total right knee replacement: Status: Acute Assessment and Plan: * Continue pain mgmnt * Begin Aspirin for dvt ppx * begin PT for RT TKA * Dispo planning-Pending PT eval, pain mgmnt Fall Risk Details Current Medications: Current Medications Acetaminophen (Acetaminophen 325 Mg Tablet) 650 mg PO Q6H PRN PRN Reason: Pain, Mild (Pain Scale 1-3) Aspirin (Aspirin 325 Mg Tablet) 325 mg PO BID [facility] Celecoxib (Celecoxib 200 Mg Capsule) 200 mg PO BID [facility] Dextrose (Dextrose 50 % 25 Gm/50 Ml Vial) 25 gm IVPUSH Q15M PRN; Protocol PRN Reason: per Hypoglycemia Standing Ord. Docusate Sodium (Docusate Sodium 100 Mg Capsule) 100 mg PO BID [facility] Last Admin: 03/05/21 07:23 Dose: 100 mg Documented by: Glucose (Glucose Gel 15 Gm Gel..Gram.) 15 gm PO Q15M PRN; Protocol PRN Reason: per Hypoglycemia Standing Ord. Hydromorphone HCl (Hydromorphone Hcl 0.5 Mg/0.5 Ml Syringe) 0.5 mg IVPUSH Q4H PRN; Protocol PRN Reason: Pain, Severe (Pain Scale 7-10) Last Admin: 03/05/21 07:43 Dose: 0.5 mg Documented by: Sodium Chloride () 1,000 mls @ 80 mls/hr IVCONT .[id number] [facility] Last Admin: 03/05/21 01:45 Dose: 80 mls/hr Documented by: Cefazolin Sodium/Dextrose (Ancef) 2 gm in 50 mls @ 100 mls/hr IV POSTOP [facility] Last Infusion: 03/04/21 18:21 Dose: Infused Documented by: Insulin Human Lispro (Insulin Lispro 100 Unit/Ml 3 Ml Vial) 0 unit SUBCUT QIDACHS [facility]; Protocol Last Admin: 03/05/21 07:51 Dose: 4 unit Documented by: Metoprolol Tartrate (Metoprolol Tartrate 50 Mg Tablet) 50 mg PO BID [facility]; Protocol Last Admin: 03/05/21 07:22 Dose: 50 mg Documented by: Ondansetron HCl (Ondansetron Hcl 4 Mg/2 Ml Vial) 4 mg IVPUSH Q8H PRN PRN Reason: Nausea and Vomiting Last Admin: 03/05/21 06:03 Dose: 4 mg Documented by: Oxycodone HCl (Oxycodone Hcl Immed Release 5 Mg Tablet) 10 mg PO Q4H PRN PRN Reason: Pain, Moderate (Pain Scale 4-6 Last Admin: 03/05/21 05:56 Dose: 10 mg Documented by: Oxycodone HCl (Oxycodone Hcl Er 10 Mg Tab.Er.12h) 10 mg PO BID [facility] Last Admin: 03/05/21 07:23 Dose: 10 mg Documented by: Sodium Chloride (0.9 % Sodium Chloride Flush 3 Ml Syringe) 3 ml IVFLUSH QSHIFT [facility] Last Admin: 03/05/21 07:23 Dose: Not Given Documented by: Time Spent With Patient Time: Total time spent is greater than 50% in coordination of care (as documented) at patient's floor/unit and/or counseling patient: Time with patient: less than 15 minutes Quality Stroke Does the patient have a stroke diagnosis?: No VTE Prior VTE?: No VTE Risk Level:: Surgical - very high VTE Device Contraindication: N/A - Device Ordered VTE Drug Contraindication: N/A - Med Ordered
[2021-03-05] MEDS: Aspirin 325 MG TABLET PO ×2 (09:31→19:48)
[2021-03-05] MEDS: Pregabalin 100 MG CAPSULE PO ×2 (09:31→19:47)
[2021-03-05] MEDS: Celecoxib 200 MG CAPSULE PO ×2 (09:32→19:48)
--- NOTE | 2021-03-05 09:35 | MHC.CM.PN ---
IMM 03/05/21, EMR REVIEWED, PT ADMITTED S/P R TKA, CM MET W/PT AND DTR WHO IS AT BEDSIDE, PT REPORTS HE LIVES W/ AND GDTR, PT IS INDEPENDENT AT BASELINE, HAS DIABETIC SUPPLIES AND TAKES BS EVERY AM. [T HAS NO WALKER OF YET GRAY WOULD NOT FILL SCRIPT FOR WALKER WHEN BROUGHT IN ON WEDNESDAY, PER PT PT/DTR THEY ARE WAITING FOR INSURANCE AUTH. PT VERIFIES PCP JESS KO AND HCP DTR AUSTIN GUAJARDO [phone]. CM SPOKE W/PT WHO RECOMMENDED ACUTE REHAB, PT REPORTS PREFERENCE IS [facility] AND CM HAS GIVEN FAMILY LIST OF SNF'S FOR ADDITIONAL PREFERENCES FEEDBACK FROM ACUTE REHABS HAS BEEN PT DOES NOT MEET FOR [place]. D/C PLAN: STR, SNF TBD, [facility] FOR BLS TRANSPORT
[2021-03-05] MEDS: Acetaminophen 325 MG TABLET 650 MG PO (09:42)
--- NOTE | 2021-03-05 10:52 | P.CONIM_ITS ---
History of Present Illness Data of Consult Service Date: 03/05/21 Primary Care Provider: Britney Henriquez MD HPI Reason for consult: Diabetes Management This is a 70 yo M with a PMH as outlined below who is admitted under the orthopedic services s/p RT TKA. Medical services consulted for management of his diabetes. Patient is seen and examined in his room. His daughter his bedside. He denies any complaints other than knee pain. Denies cp/sob/cough/abd pain/n/v/wang. Review of Systems Review of Systems: negative except HPI [facility] Medical History (Updated 03/05/21 @ 11:06 by Brodie Fisher MD) Barretts esophagus Chronic chest pain Deformity of right hand Diabetes Diabetes mellitus Environmental allergies Hyperlipidemia Hypertension Osteoarthritis of right knee Family History Father Diabetes Hypertension Mother Diabetes Hypertension Son No problems noted. Son No problems noted. Son No problems noted. Daughter No problems noted. Daughter No problems noted. Surgical History H/O neck surgery History of esophagogastroduodenoscopy (EGD) History of hand surgery History of lumbar fusion History of surgery Hx of CABG (~2016) S/P CABG (coronary artery bypass graft) Social History Household Members: Spouse and Family Housing: Apartment Are you a primary medical care evaluation specialist to a significant other at home: Yes ( disabled) Do you presently have visiting nurse or other home services: No Alcohol intake: former Patient Tobacco Use Status: Never used Tobacco Use of substances other than those prescribed or required for medical reasons: No Currently Displaying Signs/Symptoms of Drug Intoxication Withdrawal: No Have you been hit, kicked, punched, or otherwise hurt by someone within the past year? If so, by whom?: No Do you feel safe in your current relationship?: Yes Is there a partner from a previous relationship who is making you feel unsafe now?: No Are you made to feel afraid or neglected: No Spiritual Healthcare Practices: Muslim Are you DNR?: No Advance Directives: No Advance Directives Information Provided: Yes Advance Directives on File: No Do you have thoughts of harming others: None Do you have a plan to hurt others: No Plan Recently lost weight without trying: Yes How much weight loss: 2-13 pounds Eating poorly because of decreased appetite: No Nutrition screen score: 3 Nutrition Risks: No Nutritional Risk Poor oral hygiene: No service: No Current occupational status: disabled Current occupation: rt handed Meds Allergies Allergy/AdvReac Type Severity Reaction Status Date / Time naproxen [From Naprosyn] Allergy swelling Verified 03/04/21 18:28 Active Medications: Current Medications Acetaminophen (Acetaminophen 325 Mg Tablet) 650 mg PO Q6H PRN PRN Reason: Pain, Mild (Pain Scale 1-3) Last Admin: 03/05/21 09:42 Dose: 650 mg Documented by: Aspirin (Aspirin 325 Mg Tablet) 325 mg PO BID [facility] Last Admin: 03/05/21 09:31 Dose: 325 mg Documented by: Atorvastatin Calcium (Atorvastatin Calcium 80 Mg Tablet) 80 mg PO DAILY [facility] Last Admin: 03/05/21 09:34 Dose: Not Given Documented by: Celecoxib (Celecoxib 200 Mg Capsule) 200 mg PO BID [facility] Last Admin: 03/05/21 09:32 Dose: 200 mg Documented by: Dextrose (Dextrose 50 % 25 Gm/50 Ml Vial) 25 gm IVPUSH Q15M PRN; Protocol PRN Reason: per Hypoglycemia Standing Ord. Docusate Sodium (Docusate Sodium 100 Mg Capsule) 100 mg PO BID [facility] Last Admin: 03/05/21 07:23 Dose: 100 mg Documented by: Glucose (Glucose Gel 15 Gm Gel..Gram.) 15 gm PO Q15M PRN; Protocol PRN Reason: per Hypoglycemia Standing Ord. Hydromorphone HCl (Hydromorphone Hcl 0.5 Mg/0.5 Ml Syringe) 0.5 mg IVPUSH Q4H PRN; Protocol PRN Reason: Pain, Severe (Pain Scale 7-10) Last Admin: 03/05/21 07:43 Dose: 0.5 mg Documented by: Sodium Chloride () 1,000 mls @ 80 mls/hr IVCONT .[id number] [facility] Last Admin: 03/05/21 01:45 Dose: 80 mls/hr Documented by: Cefazolin Sodium/Dextrose (Ancef) 2 gm in 50 mls @ 100 mls/hr IV POSTOP [facility] Last Infusion: 03/04/21 18:21 Dose: Infused Documented by: Insulin Glargine (Insulin Glargine,Hum.Rec.Anlog 100 Unit/Ml 10 Ml Vial) 20 unit SUBCUT BEDTIME [facility] Insulin Human Lispro (Insulin Lispro 100 Unit/Ml 3 Ml Vial) 0 unit SUBCUT QIDACHS [facility]; Protocol Last Admin: 03/05/21 07:51 Dose: 4 unit Documented by: Metoprolol Tartrate (Metoprolol Tartrate 50 Mg Tablet) 50 mg PO BID [facility]; Protocol Last Admin: 03/05/21 07:22 Dose: 50 mg Documented by: Omeprazole (Omeprazole 40 Mg Capsule.Dr) 40 mg PO DAILY@0630 [facility] Ondansetron HCl (Ondansetron Hcl 4 Mg/2 Ml Vial) 4 mg IVPUSH Q8H PRN PRN Reason: Nausea and Vomiting Last Admin: 03/05/21 06:03 Dose: 4 mg Documented by: Oxycodone HCl (Oxycodone Hcl Immed Release 5 Mg Tablet) 10 mg PO Q4H PRN PRN Reason: Pain, Moderate (Pain Scale 4-6 Last Admin: 03/05/21 09:42 Dose: 10 mg Documented by: Oxycodone HCl (Oxycodone Hcl Er 10 Mg Tab.Er.12h) 10 mg PO BID [facility] Last Admin: 03/05/21 07:23 Dose: 10 mg Documented by: Pregabalin (Pregabalin 100 Mg Capsule) 100 mg PO BID [facility] Last Admin: 03/05/21 09:31 Dose: 100 mg Documented by: Sodium Chloride (0.9 % Sodium Chloride Flush 3 Ml Syringe) [facility] Last Admin: 03/05/21 07:23 Dose: Not Given Documented by: Tizanidine HCl (Tizanidine Hcl 4 Mg Tablet) 2 mg PO BEDTIME [facility] Home Medications Medication Instructions Recorded Confirmed Last Taken Type aspirin 81 mg tablet,delayed 81 mg PO DAILY 01/01/20 02/27/21 Unknown History release (Adult Aspirin Regimen) insulin glargine 100 unit/mL (3 32 - 34 unit SUBCUT BEDTIME ml 04/08/20 02/27/21 Unknown History mL) subcutaneous pen (Lantus Solostar U-100 Insulin) lisinopril 2.5 mg tablet 2.5 mg PO DAILY 09/18/20 02/27/2103/04/21 History pen needle, diabetic 31 gauge x #1200 ea 09/18/20 03/04/21 Unknown History 08/11 Physical Exam Vital Signs and Narrative: Vital Signs: Last Vital Signs Temp 97.8 F 03/05/21 07:37 Pulse 70 03/05/21 08:34 Resp 17 03/05/21 07:37 BP 143/62 H 03/05/21 08:34 Pulse Ox 97 03/05/21 08:34 BMI result Body Mass Index 25.1 Const: Other: Constitutional - Awake and Alert, No apparent distress Eyes - PERRLA, EOMI Cardiovascular - S1S2, RRR, No edema Respiratory - Normal lung expansion, Normal respiratory effort, No respiratory distress, CTA bilaterally Gastrointestinal - NT / ND; +BS; No rebound or guarding - No CVA tenderness Extremities - no calf tenderness bilaterally, no swelling Musculoskeletal - Normal inspection, normal ROM Skin - Warm/Dry Neurological - Alert & oriented x3, No focal deficit Psychological - Appropriate affect Results Labs CBC and Chem 7: 03/05/21 05:26 03/05/21 05:26 Labs: Laboratory Results - last 24 hr 03/04/21 03/04/21 03/05/21 18:21 21:38 05:26 MCV 87.8 MCH 30.1 MCHC 34.3 RDW 14.0 Plt Count 166 MPV 11.3 Immature Gran % (Auto) 0.5 H Neut % (Auto) 72.6 Lymph % (Auto) 13.6 L [place] % (Auto) 13.2 H Eos % (Auto) 0.0 Baso % (Auto) 0.1 Lymph # (Auto) 1.0 L [place] # (Auto) 1.0 Eos # (Auto) 0.0 Baso # (Auto) 0.0 Abs Immat Gran (auto) 0.04 H Absolute Neuts (auto) 5.5 Absolute Nucleated RBC 0.000 Nucleated RBC % (auto) 0.0 Anion Gap Estim Creat Clear Calc Estimated GFR POC Glucose 151 H 166 H Fasting Glucose Calcium 03/05/21 03/05/21 05:26 07:39 MCV MCH MCHC RDW Plt Count MPV Immature Gran % (Auto) Neut % (Auto) Lymph % (Auto) [place] % (Auto) Eos % (Auto) Baso % (Auto) Lymph # (Auto) [place] # (Auto) Eos # (Auto) Baso # (Auto) Abs Immat Gran (auto) Absolute Neuts (auto) Absolute Nucleated RBC Nucleated RBC % (auto) Anion Gap 12 Estim Creat Clear Calc 94.7 Estimated GFR > 60 POC Glucose 208 H Fasting Glucose 223 H Calcium 8.4 Assessment and Plan (1) Diabetes mellitus: Qualifiers: Diabetes mellitus type: type 2 Diabetes mellitus shelter insulin use: with terminal manager use Diabetes mellitus complication status: with hyperglycemia Qualified Code(s): E11.65 - Type 2 diabetes mellitus with hyperglycemia; Z79.4 - intermediate designer (current) use of insulin Status: Acute 70 yo M with a PMH of CAP - s/p CABG, CMP (Last echo in 12/2019 EF of 45-50), DM who is admitted under the orthopedic services s/p elective R TKA. Medical services consulted for management of his diabetes. 1. DM on Lantus + Truclicity (non-formularly) + Metfromin Lantus ordered - 20 units, uptitrate if sugars uncontrolled Hold trulicity and metformin; use sliding scale Diabetic Diet 2. CAD - s/p CABG continue BB + Statin + aspirin (resume when okay from surgical perspective) 3. HTN continue BB + BRANDY 4. GERD PPI Medical stable. Will sign off. Please reconsult with any questions.
[2021-03-05 11:34] LABS: Glucose, Whole Blood 260 mg/dL (60-115)
--- NOTE | 2021-03-05 12:08 | MHC.CLN ---
Addendum entered by Keyla Shrestha, DEONTE 03/05/21 12:09: REVIEW OF WEIGHT HX SHOWS WEIGHT LOSS X 6 MONTHS -6.4%, NOT A SIGNIFICANT CHANGE. Original Note: NUTRITION DIET CHANGED TO DIABETIC 2000 KCAL, CARDIAC DUE TO DX DM AND HX CARDIAC SURGERY.
--- NOTE | 2021-03-05 15:48 | HO.POSTANES ---
Post Anesthesia Evaluation Post Anesthesia Evaluation Vital Signs: Vital Signs Temp Pulse Resp BP Pulse Ox 03/05/21 15:34 97.1 F 69 18 135/71 97 03/05/21 14:07 68 143/76 H 98 03/05/21 11:31 97.6 F 68 16 143/76 H 98 03/05/21 08:34 70 143/62 H 97 03/05/21 07:37 97.8 F 70 17 143/62 H 97 03/05/21 03:52 97.8 F 75 17 131/65 97 Anesthesia: Spinal and Nerve Block Mental Status: Awake Pain Control: Satisfactory Nausea/Vomiting: None Hydration: Adequate Anesthesia-Related Issues: No Anes. Related Issues
[2021-03-05 16:08] LABS: Glucose, Whole Blood 265 mg/dL (60-115)
[2021-03-05] MEDS: 0.9 % Sodium Chloride Flush 3 ML SYRINGE IVFLUSH ×2 (17:08→19:49)
[2021-03-05] MEDS: Insulin Glargine,Hum.rec.anlog 100 UNIT/ML 10 ML VIAL 20 UNIT SUBCUT (19:48)
[2021-03-05 20:41] LABS: Glucose, Whole Blood 217 mg/dL (60-115)
[2021-03-05] MEDS: TiZANidine HCL 4 MG TABLET 2 MG PO (21:25)
[2021-03-06 04:00] VITALS: BP 117/55; PULSE 73; RESP 17; TEMP 36.6; O2SAT 97
[2021-03-06] MEDS: HYDROmorphone HCl 0.5 MG/0.5 ML SYRINGE IVPUSH (05:26)
[2021-03-06] MEDS: Omeprazole 40 MG CAPSULE.DR PO (05:28)
[2021-03-06 06:20] LABS: MANUAL DIFF FLAG NO
[2021-03-06 06:27] LABS: Eosinophils Percent Auto 0.2 % (0-4); Hematocrit 33.1 % (42.0-52.0); Hemoglobin 11.1 g/dl (14.0-18.0); Imm Gran Abs Auto 0.03 X10*3/uL (0.00-0.03); Imm Gran Pct Auto 0.5 % (0.0-0.4); Lymphocytes Percent Auto 15.2 % (20-40); Mean Corpuscular HGB Conc 33.5 g/dl (31.0-36.0); Mean Corpuscular Hemoglobin 29.6 pg (27.0-33.0); Mean Corpuscular Volume 88.3 fL (80.0-98.0); Mean Platelet Volume 11.2 fL (9.4-12.4); Monocytes Percent Auto 14.3 % (2-11); Neutrophils Absolute Auto 4.7 x10*3/uL (2.0-8.3); Neutrophils Percent Auto 69.8 % (45-73); Platelet Count 164 X10*3/uL (160-400); Red Blood Count 3.75 X10*6/uL (4.60-5.80); Red Cell Distribution Width 14.1 % (11.0-16.0); White Blood Count 6.7 X10*3/uL (4.8-10.8)
[2021-03-06 06:38] LABS: Anion Gap 14 (12-20); Blood Urea Nitrogen 15 mg/dL (9-16); Calcium 8.8 mg/dL (8.4-10.2); Carbon Dioxide 29 mmol/L (22-29); Chloride 98 mmol/L (96-108); Creatinine Clr Calc Pharmacy 87.7; Estimated Glomerular Filt Rate > 60; Glucose Fasting 163 mg/dL (60-99); Potassium 4.9 mmol/L (3.3-5.1); Sodium 136 mmol/L (135-145)
[2021-03-06 07:02] VITALS: BP 126/61; PULSE 75; RESP 18; TEMP 37.6; O2SAT 95
[2021-03-06 07:18] LABS: Glucose, Whole Blood 148 mg/dL (60-115)
[2021-03-06 08:41] VITALS: BP 126/61; PULSE 75; O2SAT 95
[2021-03-06] MEDS: Celecoxib 200 MG CAPSULE PO (08:53)
[2021-03-06] MEDS: Aspirin 325 MG TABLET PO (08:53)
[2021-03-06] MEDS: oxyCODONE HCl ER 10 MG TAB.ER.12H PO (08:53)
[2021-03-06] MEDS: Pregabalin 100 MG CAPSULE PO (08:53)
[2021-03-06] MEDS: Docusate Sodium 100 MG CAPSULE PO (08:53)
[2021-03-06] MEDS: Atorvastatin Calcium 80 MG TABLET PO (08:53)
[2021-03-06 08:54] VITALS: BP 126/61; PULSE 75
[2021-03-06] MEDS: Metoprolol Tartrate 50 MG TABLET PO (08:54)
[2021-03-06] MEDS: 0.9 % Sodium Chloride Flush 3 ML SYRINGE IVFLUSH (08:54)
--- NOTE | 2021-03-06 09:16 | PM.DS ---
DS: Providers Provider Date of Service: 03/06/21 Primary care physician: Britney Henriquez MD Consults: 03/04/21 17:09 Consult to Hospitalist Routine Consulting Provider: Hospitalist Reason For Exam: diabetes management DS: Diagnosis Discharge Diagnosis (1) Status post total right knee replacement: Status: Acute DS: Summary Hospital Course Hospital Course: The patient underwent a successful right total knee arthroplasty, was transferred to PACU and then to the floor to recover. During their stay, their vitals were stable, afebrile at 97.8. Labs were unremarkable, H/H 11.1/33.1. POD 1 he was started on ASA for DVT ppx, they also received services twice a day. Prior to discharge, their dressing was change, incision clean dry and intact, new Aquacel dressing applied and the plan was to be discharged to [facility] Time Spent with Patient Time attestation: Total time spent providing and/or coordinating discharge services: Discharge coordination time: Less than 30 minutes Quality: Stroke Does the patient have a stroke diagnosis?: No Physical Exam Vital Signs: Vital Signs: Last Vital Signs Temp 99.7 F 03/06/21 07:02 Pulse 75 03/06/21 08:54 Resp 18 03/06/21 07:02 BP 126/61 03/06/21 08:54 Pulse Ox 95 03/06/21 08:41 BMI result Body Mass Index 25.1 Extrem: Other: incision clean dry and intact. [place] intact. No erythema or joint effusion. Calf supple nontender. Neurovascularly intact. DS: Data Data Completed and Pending Pending studies at discharge: Pending at discharge 03/04/21 08:58 Surgical [PTH] Routine Labs on day of discharge: Laboratory Results - last 24 hr 03/05/21 03/05/21 03/05/21 11:28 15:41 20:37 WBC RBC Hgb Hct MCV MCH MCHC RDW Plt Count MPV Immature Gran % (Auto) Neut % (Auto) Lymph % (Auto) [place] % (Auto) Eos % (Auto) Baso % (Auto) Lymph # (Auto) [place] # (Auto) Eos # (Auto) Baso # (Auto) Abs Immat Gran (auto) Absolute Neuts (auto) Absolute Nucleated RBC Nucleated RBC % (auto) Sodium Potassium Chloride Carbon Dioxide Anion Gap BUN Creatinine Estim Creat Clear Calc Estimated GFR POC Glucose 260 H 265 H 217 H Fasting Glucose Calcium 03/06/21 03/06/21 03/06/21 05:46 05:46 07:08 WBC 6.7 RBC 3.75 L Hgb 11.1 L Hct 33.1 L MCV 88.3 MCH 29.6 MCHC 33.5 RDW 14.1 Plt Count 164 MPV 11.2 Immature Gran % (Auto) 0.5 H Neut % (Auto) 69.8 Lymph % (Auto) 15.2 L [place] % (Auto) 14.3 H Eos % (Auto) 0.2 Baso % (Auto) 0.0 Lymph # (Auto) 1.0 L [place] # (Auto) 1.0 Eos # (Auto) 0.0 Baso # (Auto) 0.0 Abs Immat Gran (auto) 0.03 Absolute Neuts (auto) 4.7 Absolute Nucleated RBC 0.000 Nucleated RBC % (auto) 0.0 Sodium 136 Potassium 4.9 Chloride 98 Carbon Dioxide 29 Anion Gap 14 BUN 15 Creatinine 0.82 Estim Creat Clear Calc 87.7 Estimated GFR > 60 POC Glucose 148 H Fasting Glucose 163 H Calcium 8.8 Discharge Plan Discharge Patient Disposition: Xfer SNF Referrals: Vernell Sin PA-C [Physician Work Adjustment Instructor] - 2 Weeks (03/17/21 12:45 [facility] Orthopedic Surgeons Vernell Sin PA-C) Discharge Medications: New docusate sodium 100 mg Capsule 100 mg PO BID 14 Days Qty: 28 RF: 0 oxycodone 10 mg tablet 10 mg PO Q4H PRN (Reason: Pain, Moderate (Pain Scale 4-6) 7 Days Qty: 42 RF: 0 celecoxib 200 mg Capsule 200 mg PO BID 30 Days Qty: 60 RF: 0 aspirin 325 mg Tablet 325 mg PO BID 42 Days Qty: 84 RF: 0 acetaminophen 325 mg Tablet 650 mg PO Q6H PRN (Reason: Pain, Mild (Pain Scale 1-3)) 30 Days Qty: 240 RF: 0 Continued omeprazole 40 mg capsule,delayed release(DR/EC) 40 mg PO DAILY 90 Days Qty: 90 RF: 4 (DME) pen needle, diabetic 31 gauge x 3/16 needle See Rx Instructions ea subcut .MEDSUPPLY Qty: 50 RF: 11 pregabalin 100 mg capsule 100 mg PO BID 30 Days Qty: 60 RF: 0 atorvastatin 80 mg tablet 80 mg PO DAILY Qty: 90 RF: 1 metformin 1,000 mg tablet 1,000 mg PO BID Qty: 180 RF: 3 metoprolol tartrate 50 mg tablet 50 mg PO BID 90 Days Qty: 180 RF: 1 dulaglutide 1.5 mg/0.5 mL pen injector 1.5 mg subcut QWEEK 30 Days Qty: 2.5 RF: 11 (DME) walker Misc See Rx Instructions .MEDSUPPLY Qty: 1 RF: 0 Lantus Solostar U-100 Insulin 100 unit/mL (3 mL) insulin pen 32 - 34 unit subcut BEDTIME RF: 0 (DME) pen needle, diabetic 31 gauge x 5/16 needle See Rx Instructions ea subcut .MEDSUPPLY Qty: 1200 RF: 0 lisinopril 2.5 mg tablet 2.5 mg PO DAILY RF: 0 tizanidine 2 mg tablet 2 mg PO BEDTIME Qty: 30 RF: 0 Discontinued aspirin [Adult Aspirin Regimen] 81 mg tablet,delayed release (DR/EC) 81 mg PO DAILY RF: 0 Discharge Orders: Discharge Order (Routine); Ordered 03/06/21 Ordered By: Vincent Sanders Activity Restrictions/Additional Instructions: Physical Therapy for Total knee arthroplasty: gait training, ROM 0-12, quad strength Limit stair climbing No showering, no tub bath-keep dressing clean, dry and intact No driving x6 weeks Continue Aspirin twice a day x 6 weeks Follow up with [facility] Orthopedics in 2 weeks
[2021-03-06 11:12] VITALS: BP 118/62; PULSE 74; RESP 18; TEMP 36.6; O2SAT 97
[2021-03-06 11:41] LABS: Glucose, Whole Blood 219 mg/dL (60-115)
[2021-03-06] MEDS: Insulin Lispro 100 UNIT/ML 3 ML VIAL SUBCUT (11:52)
--- NOTE | 2021-03-06 11:52 | MHC.CM.PN ---
PT DISCHARGING TO [facility] FOR STR W/[facility] FOR BLS TRANSPORT.
== END 2021-03-06 14:05 | disposition skilled nursing facility (03) ==
LOC: HO.SSS 05:55 → HO.S3 16:08
PROVIDERS: Physician Assistant; PCP Family Medicine; Visit Provider Orthopaedic Surgery
PROC: (CPT 27447; principal; 2021-03-04 07:30)
DX: M17.11 Unilateral primary osteoarthritis, right knee (principal); E11.9 Type 2 diabetes mellitus without complications; I10 Essential (primary) hypertension; E78.5 Hyperlipidemia, unspecified; G89.29 Other chronic pain; R07.9 Chest pain, unspecified; Z95.1 Presence of aortocoronary bypass graft; Z79.4 Long term (current) use of insulin; Z79.899 Other long term (current) drug therapy; Z88.8 Allergy status to other drugs, medicaments and biological substances; Z20.822 Contact with and (suspected) exposure to COVID-19
CPT/HCPCS: 27447; 36415; 73560; 80048; 82947; 85025; 86850; 86900; 86901; 87635; 87640; 87641; 88305; 88311; 97110; 97116; 97162; 97165; 97535; C1776; J0131; J0690; J1100; J1170; J2250; J2370; J2405; J3010

== ENCOUNTER → 2021-03-17 13:00 | Outpatient (BNVA) | payer MEDICARE, MEDICAID, SELFPAY | PROVIDERS: PCP Family Medicine; Visit Provider Physician Assistant | DX: Z47.1 Aftercare following joint replacement surgery (principal); Z96.651 Presence of right artificial knee joint | CPT/HCPCS: 99212 ==

== ENCOUNTER → 2021-03-27 12:04 | Outpatient (BNVA) | payer MEDICARE, MEDICAID, SELFPAY | PROVIDERS: PCP Family Medicine; Referring Provider Family Medicine; Visit Provider Internal Medicine Cardiovascular Disease | DX: R07.9 Chest pain, unspecified (principal); G89.29 Other chronic pain | CPT/HCPCS: 99212 ==

== ENCOUNTER → 2021-04-21 12:55 | Outpatient (BNVA) | payer MEDICARE, MEDICAID, SELFPAY | PROVIDERS: PCP Family Medicine; Visit Provider Physician Assistant | DX: Z47.1 Aftercare following joint replacement surgery (principal); Z96.651 Presence of right artificial knee joint | CPT/HCPCS: 99212 ==

== ENCOUNTER 2021-05-12 13:19 | Outpatient (REF) | payer MEDICARE, MEDICAID, SELFPAY ==
--- NOTE | ~2021-05-12 | XR_ITS ---
EXAMINATION: SR KNEES, STANDING AP XR KNEE, RIGHT CLINICAL INFORMATION: M25.569 - Pain in unspecified knee. Follow-up right arthroplasty. COMPARISON: Standing AP knees 11/14/2020, radiographs right knee 03/04/2021. TECHNIQUE: Standing AP view of both knees is performed. Lateral and axial patella views of the right knee are also included. FINDINGS: Right: There is prior total knee arthroplasty. The hardware is intact. There is no fracture or dislocation or destructive process. No osteolysis or periostitis. Probable suprapatellar effusion. There is some fine mineralization lateral side patellofemoral joint. No lateralization or tilting patella appreciated. There are scattered atherosclerotic calcifications vasculature. Left: Degenerative changes medial knee joint compartment with interval joint narrowing since prior exam 11/14/2018. There is borderline secondary genu varus. No erosive change or visible chondrocalcinosis. Normal bony mineralization. No destructive process. There are scattered atherosclerotic changes vasculature. XR/XR knee RT 2V IMPRESSION: Right: -Status post total knee arthroplasty. Hardware intact. -No fracture, dislocation, osteolysis, or destructive process. Left: -Degenerative changes medial compartment with joint narrowing and borderline secondary genu varus. No erosive change.
--- NOTE | ~2021-05-12 | XR_ITS ---
EXAMINATION: SR KNEES, STANDING AP XR KNEE, RIGHT CLINICAL INFORMATION: M25.569 - Pain in unspecified knee. Follow-up right arthroplasty. COMPARISON: Standing AP knees 11/14/2020, radiographs right knee 03/04/2021. TECHNIQUE: Standing AP view of both knees is performed. Lateral and axial patella views of the right knee are also included. FINDINGS: Right: There is prior total knee arthroplasty. The hardware is intact. There is no fracture or dislocation or destructive process. No osteolysis or periostitis. Probable suprapatellar effusion. There is some fine mineralization lateral side patellofemoral joint. No lateralization or tilting patella appreciated. There are scattered atherosclerotic calcifications vasculature. Left: Degenerative changes medial knee joint compartment with interval joint narrowing since prior exam 11/14/2018. There is borderline secondary genu varus. No erosive change or visible chondrocalcinosis. Normal bony mineralization. No destructive process. There are scattered atherosclerotic changes vasculature. XR/XR knee standing BI IMPRESSION: Right: -Status post total knee arthroplasty. Hardware intact. -No fracture, dislocation, osteolysis, or destructive process. Left: -Degenerative changes medial compartment with joint narrowing and borderline secondary genu varus. No erosive change.
== END 2021-05-12 13:20 | disposition home or self-care (01) ==
LOC: HO.HOSX 13:19
PROVIDERS: Visit Provider Physician Assistant
DX: Z47.1 Aftercare following joint replacement surgery (principal); Z96.651 Presence of right artificial knee joint
CPT/HCPCS: 73560; 73565; 99212

== ENCOUNTER → 2021-06-09 13:13 | Outpatient (BNVA) | payer MEDICARE, MEDICAID, SELFPAY | PROVIDERS: Visit Provider Physician Assistant | DX: T84.89XA Other specified complication of internal orthopedic prosthetic devices, implants and grafts, initial encounter (principal); Z96.651 Presence of right artificial knee joint | CPT/HCPCS: 99212 ==

== ENCOUNTER → 2021-07-18 10:43 | Outpatient (BNVA) | payer MEDICARE, MEDICAID, SELFPAY | PROVIDERS: PCP Family Medicine; Visit Provider Orthopaedic Surgery | DX: Z47.1 Aftercare following joint replacement surgery (principal); Z96.651 Presence of right artificial knee joint | CPT/HCPCS: 99212 ==

== ENCOUNTER 2021-07-21 13:00 | Outpatient (REF) | payer MEDICARE, MEDICAID, SELFPAY ==
[2021-07-21 14:04] LABS: Erythrocyte Sedimentation Rate 3 MM/HR (0-15)
[2021-07-21 14:27] LABS: C Reactive Protein 0.03 mg/dL (< or = 0.50)
== END 2021-07-21 13:01 | disposition home or self-care (01) ==
LOC: HO.LAB 13:00
PROVIDERS: PCP Family Medicine; Visit Provider Orthopaedic Surgery
DX: Z96.651 Presence of right artificial knee joint (principal)
CPT/HCPCS: 36415; 85652; 86140

== ENCOUNTER → 2021-08-22 10:28 | Outpatient (BNVA) | payer MEDICARE, MEDICAID, SELFPAY | PROVIDERS: PCP Family Medicine; Visit Provider Nurse Practitioner Family | DX: M25.561 Pain in right knee (principal); Z96.651 Presence of right artificial knee joint | CPT/HCPCS: 99212 ==

== ENCOUNTER 2021-09-05 14:00 | Outpatient (RCR) | payer MEDICARE, OTHER, MEDICAID, SELFPAY ==
--- NOTE | 2021-03-17 16:18 | MHC.PT.EP ---
[facility] [place] [facility] [place] Office [place] Office [address] [phone] F: [phone] F: [phone] F: [phone] F: [phone] Physical Therapy Plan of Care Date of Evaluation: Date of Surgery: 03/04/21 Diagnosis: S/P RIGHT TOTAL KNEE Assessment: VI IS A PLEASANT 70 YO GENTLEMAN WHO PRESENT S/P RIGHT TKA NOW READY FOR OUTPt REHAB. UPON EXAM HE DEMONSTRATES IMPAIRMENTS OF DECREASED ROM AND STRENGTH, ALTERED GAIT AND BALANCE, INCREASED PAIN AND EDEMA. FUNCTIONAL LIMITATIONS INCLUDE DECREASED ABILITY TO PERFORM NORMALIZED GAIT PATTERN, DECREASED ABILITY TO PERFORM TRANSFERS, DECREASED STAIR MANAGEMENT. HE REPORTS HE HAS DIFFICULTY WITH HOIMEMAKING AND ADL TASKS WELL DISRUPTED SLEEP AND DECREASED PARTICIPATION IN COMMUNITY ACTIVITIES. Frequency and Duration: The patient will be seen 2 X WEEK FOR 8 WEEKS Short Term Goals: IN 2 WEEKS INITIATE HEP AND PROMOTE SELF MANAGEMENT OF SYMPTOMS KNEE ROM 0-100 Prison Goals: IN 8 WEEKS: IN 6 WEEKS: TO DEMONSTRATE FULL KNEE ROM, EQUAL VICENTE TO DEMONSTRATE FULL LE STRENGTH, EQUAL VICENTE TO ASCEND AND DESCEND STAIRS WITHOUT PAIN GREATER THAN 2/10 TO AMBULATE AD ALYCE ON LEVEL AND UNEVEN SURFACES FOR FITNESS WITHOUT PAIN GREATER THAN 2/10 TO PERFORM FULL FUNCTIONAL SQUAT WITHOUT SUBSTITUTION Treatment Plan: Modalities to reduce pain, spasms and effusion. Manual therapy to restore motion and function. Therapeutic exercise to improve strength and flexibility. Neuromuscular re-education for posture and balance. Therapeutic activities to return to functional activities of daily living. Electronically signed by: BALDOMERO DUKE PT, DPT Please sign and return to therapist. Thank you for your referral.
== END 2021-10-30 07:40 | disposition home or self-care (01) ==
LOC: HO.PT 14:00
PROVIDERS: Visit Provider Physician Assistant
DX: Z96.651 Presence of right artificial knee joint (principal)
CPT/HCPCS: 97110; 97112; 97140; 97161; 97530

== ENCOUNTER → 2021-09-25 14:11 | Outpatient (BNVA) | payer MEDICARE, MEDICAID, SELFPAY | PROVIDERS: PCP Family Medicine; Visit Provider Orthopaedic Surgery | DX: Z47.1 Aftercare following joint replacement surgery (principal); Z96.651 Presence of right artificial knee joint | CPT/HCPCS: 99212 ==

== ENCOUNTER 2021-10-03 06:58 | Outpatient (REF) | payer MEDICARE, MEDICAID, SELFPAY | END 2021-10-03 06:59 | disposition home or self-care (01) | LOC: HO.RADIR 06:58 | PROVIDERS: Visit Provider Internal Medicine | DX: Z13.89 Encounter for screening for other disorder (principal) ==

== ENCOUNTER 2021-10-08 05:45 | Outpatient (REF) | payer MEDICARE, MEDICAID, SELFPAY | END 2021-10-08 05:46 | disposition home or self-care (01) | LOC: HO.RADIR 05:45 | PROVIDERS: Visit Provider Internal Medicine | DX: M17.11 Unilateral primary osteoarthritis, right knee (principal) | CPT/HCPCS: 64447; J2795; Q9967 ==

== ENCOUNTER → 2021-10-10 09:38 | Outpatient (BNVA) | payer MEDICARE, MEDICAID, SELFPAY | PROVIDERS: PCP Family Medicine; Visit Provider Nurse Practitioner Family | DX: Z96.651 Presence of right artificial knee joint (principal); M25.561 Pain in right knee; M17.11 Unilateral primary osteoarthritis, right knee | CPT/HCPCS: Q3014 ==

== ENCOUNTER → 2021-10-16 14:42 | Outpatient (BNVA) | payer MEDICARE, MEDICAID, SELFPAY | PROVIDERS: PCP Family Medicine; Referring Provider Family Medicine; Visit Provider Nurse Practitioner Family | DX: I25.10 Atherosclerotic heart disease of native coronary artery without angina pectoris (principal); R07.9 Chest pain, unspecified; I42.9 Cardiomyopathy, unspecified; I15.0 Renovascular hypertension; G89.29 Other chronic pain; E78.00 Pure hypercholesterolemia, unspecified; Z95.1 Presence of aortocoronary bypass graft; I10 Essential (primary) hypertension | CPT/HCPCS: 99212 ==

== ENCOUNTER 2021-12-03 06:24 | Outpatient (REF) | payer MEDICARE, MEDICAID, SELFPAY | END 2021-12-03 06:25 | disposition home or self-care (01) | LOC: HO.RADIR 06:24 | PROVIDERS: Visit Provider Internal Medicine | DX: Z13.89 Encounter for screening for other disorder (principal) ==

== ENCOUNTER → 2022-04-01 12:45 | Outpatient (REF) | payer MEDICARE, MEDICAID, SELFPAY ==
--- NOTE | 2022-04-01 12:51 | CA_ITS ---
Transthoracic Echocardiogram Amended Patient (Last, First, Middle): Omar Pitts, Gender: Male Date of : 1950 Age: 71 Procedure Date: 04/01/2022 Procedure Type: Transthoracic Echocardiogram Location: OP Height: 177.8 cm Weight: 83.92 kg BSA: 2.02 m2 Heart Rate: 66 bpm BP: 132 / 70 mmHg Fisheries Specialist: SB Referring MD: Francine Vitla LAB TECHBintaC Symptoms: I42.9 - Cardiomyopathy, unspecified Study Quality: Adequate ECG Rhythm: Sinus Conclusions: - The left ventricular systolic function is normal. The calculated ejection fraction is 56% by biplane method. - In some views, septum appears hypokinetic; basal inferior hypokinesis. - There is mild to moderately decreased right ventricular systolic function. - There is mild dilatation of the sinuses of Valsalva measuring 4.50 cm and no dilatation of the ascending aorta measuring 3.80 cm. Findings Left Ventricle Normal left ventricular cavity size. There is normal left ventricular wall thickness. The left ventricular systolic function is normal. The calculated ejection fraction is 56% by biplane method. Diastolic function is normal for age. In some views, septum appears hypokinetic; basal inferior hypokinesis. Right Ventricle Mildly increased right ventricular cavity size. There is mild to moderately decreased right ventricular systolic function. Atria Both atria are normal in size. Aortic Valve There is a normal trileaflet aortic valve. There is mild calcification of the aortic valve. There is no aortic valve stenosis. There is no aortic valve regurgitation. Mitral Valve The mitral valve appears normal. There is trace mitral valve regurgitation. There is no mitral valve stenosis. Pulmonic Valve The pulmonic valve is likely normal. Tricuspid Valve Normal tricuspid valve structure. There is trace tricuspid valve regurgitation. There is no evidence of pulmonary hypertension. Great Vessels There is mild dilatation of the sinuses of Valsalva measuring 4.50 cm and no dilatation of the ascending aorta measuring 3.80 cm. Venous The inferior vena cava is normal in size and collapses greater than 50% with inspiration. Pericardium/Pleural There is no evidence of pericardial effusion. Prior Study Comparison No significant change compared to prior study dated: 01/19/2020. Wall motion findings probably chronic. See comment on aorta. Measurements 2D Linear Measurements IVSd: 0.90 0.6-0.9/0.6-1.0 cm LVIDd: 5.21 3.9-5.3/4.2-5.9 cm LVIDd Index: 2.58 2.4-3.2/2.2-3.1 cm/m2 LVIDs: 3.79 2.0-3.6 cm LVPWd: 0.67 0.7-1.1 cm LA Diam: 4.30 2.7-3.8/3.0-4.0 cm LAIDs Index: 2.13 1.5-2.3 cm/m2 LV Mass: 177.77 67-162/88-224 g LV Mass Index: 88.01 43-95/49-115 g/m2 LVOT Diam: 2.50 3.0+(-)1.3 cm 2D Volumes LA Vol: 25.90 2D Systolic Function EF 4C: 66.20 >55% EF 2C: 39.40 >55% EF BiP: 56.30 >55% Mitral Valve MV Pk E: 0.69 MV PK A: 0.89 MV Decel Time: 203.00 E/A: 0.80 E'Lateral: 5.77 E'Medial: 6.09 E/E' Med: 11.30 E/E' Lat: 12.00 PHT: 60.00 MVA PHT: 3.67 Decel [place]: 3.39 Aortic Valve AoV Pk Americo: 1.31 AoV Mn Americo: 0.90 AoV VTI: 0.32 AoV Pk Grad: 7.00 Aov Mn Grad: 4.00 DENNIS Cont.VTI: 2.62 LVOT LVOT Pk Americo: 0.72 LVOT Mn Americo: 0.50 LVOT VTI: 0.17 LVOT Pk Grad: 2.00 LVOT Mn Grad: 1.00 LVOT Diam: 2.50 LVOT Area: 4.91 Diastolic Function MV Pk E: 0.69 MV Pk A: 0.89 E/A: 0.80 E'Medial: 6.09 E/E' Med: 11.30 E' Laterial: 5.77 E/E' Lat: 12.00 Right Ventricle TAPSE (mm): 12.90 TVS' Americo: 9.79 Tricuspid Valve TR Pk Americo: 2.35 TR Pk Grad: 22.00 RA Press: 3.00 RVSP: 25.00 Great Vessels Aorta Sinus of Valsalva: 4.50 2.0-3.5 cm Ao Asc: 3.80 2.1-3.4 cm Pulmonary Veins Pulm Vein S/D 1.20 Pulmonary Valve PV Pk Americo: 0.83 Peak PV Grad: 3.00 Updated in Other Vendor System with Status of Final Israel Purcell MD electronically signed on 04/03/2022 2:30:08 PM with status of Final
== END ==
LOC: HO.CARD 12:45
PROVIDERS: Visit Provider Nurse Practitioner Family
DX: I42.9 Cardiomyopathy, unspecified (principal); I10 Essential (primary) hypertension; Z95.1 Presence of aortocoronary bypass graft
CPT/HCPCS: 93306

== ENCOUNTER → 2022-04-16 12:36 | Outpatient (BNVA) | payer MEDICARE, MEDICAID, SELFPAY | PROVIDERS: PCP Family Medicine; Referring Provider Family Medicine; Visit Provider Internal Medicine Cardiovascular Disease | DX: R07.89 Other chest pain (principal); G89.29 Other chronic pain; I25.10 Atherosclerotic heart disease of native coronary artery without angina pectoris; I77.810 Thoracic aortic ectasia; Z95.1 Presence of aortocoronary bypass graft | CPT/HCPCS: 93005; 99212 ==

== ENCOUNTER 2022-04-23 12:09 | Outpatient (REF) | payer MEDICARE, MEDICAID, SELFPAY ==
--- NOTE | ~2022-04-23 | XR_ITS ---
EXAMINATION: XR KNEE AP STANDING, BILATERAL XR KNEE, BILATERAL CLINICAL INFORMATION: Pain in bilateral knee. COMPARISON: None TECHNIQUE: AP bilateral knee 1 view. 2 views each knee. FINDINGS: AP BILATERAL KNEE: There is a total right knee arthroplasty in satisfactory position. There is loss of medial compartment joint space right knee. No bony erosive changes seen. No soft tissue swelling. RIGHT KNEE: There is a total right knee arthroplasty with prosthetic components in satisfactory alignment. No periprosthetic fracture or loose bodies. The soft tissues are normal. LEFT KNEE: There is mild loss of patellofemoral compartment joint space with superior patellar spurring. No loose bodies or joint effusion seen. Mild prepatellar and suprapatellar soft tissue swelling is seen. XR/XR knee standing BI IMPRESSION: 1. Total right knee arthroplasty with prosthetic components in satisfactory alignment. No periprosthetic fracture or loose bodies. 2. Mild degenerative changes medial and patellofemoral compartment left knee. Mild prepatellar and suprapatellar superficial soft tissue swelling.
--- NOTE | ~2022-04-23 | XR_ITS ---
EXAMINATION: XR KNEE AP STANDING, BILATERAL XR KNEE, BILATERAL CLINICAL INFORMATION: Pain in bilateral knee. COMPARISON: None TECHNIQUE: AP bilateral knee 1 view. 2 views each knee. FINDINGS: AP BILATERAL KNEE: There is a total right knee arthroplasty in satisfactory position. There is loss of medial compartment joint space right knee. No bony erosive changes seen. No soft tissue swelling. RIGHT KNEE: There is a total right knee arthroplasty with prosthetic components in satisfactory alignment. No periprosthetic fracture or loose bodies. The soft tissues are normal. LEFT KNEE: There is mild loss of patellofemoral compartment joint space with superior patellar spurring. No loose bodies or joint effusion seen. Mild prepatellar and suprapatellar soft tissue swelling is seen. XR/XR knee LT 2V IMPRESSION: 1. Total right knee arthroplasty with prosthetic components in satisfactory alignment. No periprosthetic fracture or loose bodies. 2. Mild degenerative changes medial and patellofemoral compartment left knee. Mild prepatellar and suprapatellar superficial soft tissue swelling.
--- NOTE | ~2022-04-23 | XR_ITS ---
EXAMINATION: XR KNEE AP STANDING, BILATERAL XR KNEE, BILATERAL CLINICAL INFORMATION: Pain in bilateral knee. COMPARISON: None TECHNIQUE: AP bilateral knee 1 view. 2 views each knee. FINDINGS: AP BILATERAL KNEE: There is a total right knee arthroplasty in satisfactory position. There is loss of medial compartment joint space right knee. No bony erosive changes seen. No soft tissue swelling. RIGHT KNEE: There is a total right knee arthroplasty with prosthetic components in satisfactory alignment. No periprosthetic fracture or loose bodies. The soft tissues are normal. LEFT KNEE: There is mild loss of patellofemoral compartment joint space with superior patellar spurring. No loose bodies or joint effusion seen. Mild prepatellar and suprapatellar soft tissue swelling is seen. XR/XR knee RT 2V IMPRESSION: 1. Total right knee arthroplasty with prosthetic components in satisfactory alignment. No periprosthetic fracture or loose bodies. 2. Mild degenerative changes medial and patellofemoral compartment left knee. Mild prepatellar and suprapatellar superficial soft tissue swelling.
== END 2022-04-23 12:10 | disposition home or self-care (01) ==
LOC: HO.HOSX 12:09
PROVIDERS: Visit Provider Orthopaedic Surgery
DX: M17.12 Unilateral primary osteoarthritis, left knee (principal); Z96.651 Presence of right artificial knee joint
CPT/HCPCS: 20610; 73560; 73565; 99212; J1100

== ENCOUNTER 2022-05-04 09:38 | Outpatient (REF) | payer MEDICARE, MEDICAID, SELFPAY ==
--- NOTE | ~2022-05-04 | CT_ITS ---
EXAMINATION: CT ANGIOGRAM OF THE CHEST WITHOUT AND WITH CONTRAST CLINICAL INFORMATION: Thoracic aortic aneurysm COMPARISON: None. TECHNIQUE: Multidetector volumetric CT imaging of the chest was performed before and after the administration of 70 mL of Omnipaque 300 intravenous contrast without immediate adverse reactions. 3D POSTPROCESSING: Multiple 3-D angiographic images were processed from the initial data set by the medical technologist prn at the modality workstation under concurrent physician supervision. DOSE LOWERING TECHNIQUES: This CT examination was performed using dose optimization techniques as appropriate, variously including the following: - Automated exposure control - Adjustment of mA and/or kV according to patient size (this includes techniques or standardized protocols for targeted exams where dose is matched to indication/reason for exam; i.e. extremities or head) - Use of iterative reconstruction technique DLP: 148 mGy-cm. FINDINGS: VASCULAR: ASCENDING AORTA: The aortic sinuses measure 4.2 x 4.1 cm. The sinotubular junction measures 3.3 x 3.4 cm. The mid segment measures 3.4 x 3.5 cm. AORTIC ARCH: The mid aortic arch 2.7 x 2.4 cm. Three-vessel arch anatomy. The great vessels are patent. Mild atherosclerotic wall calcifications are seen. DESCENDING AORTA: The mid segment measures 2.3 x 2.5 cm. Scattered atherosclerotic wall calcifications ABDOMINAL AORTA: Visualized proximal abdominal aorta is normal in caliber. NONVASCULAR: LUNGS: The lungs are clear with no evidence of inflammation or nodules. MEDIASTINUM: Heart is normal in size. Pericardium is normal. Atherosclerotic calcifications are seen within the coronary arteries. No mediastinal or hilar lymphadenopathy PLEURA: There is no pleural effusion. No pleural mass or thickening. ABDOMINAL VISCERA: Unremarkable OSSEOUS STRUCTURES: Unremarkable. 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 Remainder of the thoracic aorta is normal in caliber with scattered atherosclerotic plaque Atherosclerotic calcifications of the coronary sinus
[2022-05-04 10:37] LABS: Anion Gap 13 (12-20); Blood Urea Nitrogen 19 mg/dL (9-16); Calcium 9.3 mg/dL (8.4-10.2); Carbon Dioxide 31 mmol/L (22-29); Chloride 102 mmol/L (96-108); Estimated Glomerular Filt Rate > 60; Glucose Random 124 mg/dL (60-115); Potassium 4.7 mmol/L (3.3-5.1); Sodium 141 mmol/L (135-145)
[2022-05-04] MEDS: iohexoL 350 MG/ML 75 ML INFUS..BTL 70 ML IV (11:15)
== END 2022-05-04 09:39 | disposition home or self-care (01) ==
LOC: HO.CT 09:38
PROVIDERS: Visit Provider Internal Medicine Cardiovascular Disease
DX: I77.810 Thoracic aortic ectasia (principal); I25.10 Atherosclerotic heart disease of native coronary artery without angina pectoris
CPT/HCPCS: 36415; 71275; 80048; Q9967

== ENCOUNTER → 2022-08-26 12:30 | Outpatient (BNVA) | payer MEDICARE, MEDICAID, SELFPAY | PROVIDERS: PCP Family Medicine; Referring Provider Family Medicine; Visit Provider Internal Medicine Cardiovascular Disease | DX: R07.9 Chest pain, unspecified (principal); I77.810 Thoracic aortic ectasia; I15.0 Renovascular hypertension | CPT/HCPCS: 99212 ==

== ENCOUNTER 2022-09-01 09:05 | Outpatient (REF) | payer MEDICARE, MEDICAID, SELFPAY ==
[2022-09-01 09:19] LABS: MANUAL DIFF FLAG NO
[2022-09-01 09:28] LABS: Basophils Percent Auto 0.4 % (0-2); Eosinophils Absolute Auto 0.1 X10*3/uL (0.0-0.4); Eosinophils Percent Auto 1.1 % (0-4); Hematocrit 39.9 % (42.0-52.0); Hemoglobin 13.1 g/dl (14.0-18.0); Imm Gran Abs Auto 0.02 X10*3/uL (0.00-0.03); Imm Gran Pct Auto 0.4 % (0.0-0.4); Lymphocytes Absolute Auto 1.8 X10*3/uL (1.2-4.9); Mean Corpuscular HGB Conc 32.8 g/dl (31.0-36.0); Mean Corpuscular Hemoglobin 29.5 pg (27.0-33.0); Mean Corpuscular Volume 89.9 fL (80.0-98.0); Mean Platelet Volume 10.7 fL (9.4-12.4); Monocytes Absolute Auto 0.5 X10*3/uL (0.1-1.2); Monocytes Percent Auto 10.3 % (2-11); Neutrophils Absolute Auto 2.8 x10*3/uL (2.0-8.3); Neutrophils Percent Auto 52.8 % (45-73); Platelet Count 187 X10*3/uL (160-400); Red Blood Count 4.44 X10*6/uL (4.60-5.80); Red Cell Distribution Width 14.6 % (11.0-16.0); White Blood Count 5.3 X10*3/uL (4.8-10.8)
[2022-09-01 09:44] LABS: Estimated Average Glucose 154 mg/dL
[2022-09-01 10:00] LABS: Alanine Aminotransferase 19 U/L (0-40); Albumin Level 4.5 g/dL (3.5-5.0); Alkaline Phosphatase 71 U/L (39-117); Anion Gap 12 (12-20); Aspartate Amino Transferase 22 U/L (5-37); Bilirubin Total 0.6 mg/dL (0.0-1.0); Blood Urea Nitrogen 16 mg/dL (9-16); Calcium 9.6 mg/dL (8.4-10.2); Carbon Dioxide 29 mmol/L (22-29); Chloride 104 mmol/L (96-108); Cholesterol 124 mg/dL; Estimated Glomerular Filt Rate > 60; Glucose Fasting 128 mg/dL (60-99); HDL Cholesterol 59 mg/dL; LDL Cholesterol Calculated 56 mg/dl; Sodium 140 mmol/L (135-145); Total Protein 6.8 g/dL (6.5-8.0); Triglycerides 45 mg/dL
[2022-09-01 10:12] LABS: PSA,Total (Free>4and<10) 0.33 ng/mL (0.00-4.00); TSH reflex Free T4 1.11 uIU/mL (0.32-4.0)
== END 2022-09-01 09:06 | disposition home or self-care (01) ==
LOC: HO.LAB 09:05
PROVIDERS: PCP Nurse Practitioner Family; Visit Provider Nurse Practitioner Family
DX: Z13.29 Encounter for screening for other suspected endocrine disorder (principal); Z12.5 Encounter for screening for malignant neoplasm of prostate; Z13.0 Encounter for screening for diseases of the blood and blood-forming organs and certain disorders involving the immune mechanism; E11.9 Type 2 diabetes mellitus without complications; E78.5 Hyperlipidemia, unspecified; I10 Essential (primary) hypertension
CPT/HCPCS: 36415; 80053; 80061; 83036; 84153; 84443; 85025

== ENCOUNTER 2023-03-19 09:38 | Outpatient (AMB) | payer MEDICARE, MEDICAID, SELFPAY ==
--- NOTE | 2023-03-19 09:42 | MHC.OFFVIS ---
Intake Vital Signs 03/19/23 09:43 Height 5 ft 10 in Weight 184 lb BMI 26.4 Intake Visit Reasons: ov- Right knee pain Intake Note: Omar is a 72 year old male who presents today for a follow up of his right knee, he is s/p Right TKA 03/04/21 Allergies naproxen [From Naprosyn] Allergy (Verified 08/26/22 12:46) swelling HPI ov- Right knee pain HPI Details Omar continues to be unhappy with his right knee. He does not have a lot of pain but he can't bend it more than 90 deg and gets very frustrated by this and has pain at night. He feels siomethiung is wrong with his knee. He is upset that the ADORE was cancelled as he had improving motion at that time. His TKA was performed 2 years ago. We have had this conversation many times. [facility] Medical History Environmental allergies Osteoarthritis of right knee Deformity of right hand Diabetes mellitus Barretts esophagus Hyperlipidemia Diabetes Chronic chest pain Hypertension Surgical History H/O right inguinal hernia repair Status post total knee replacement, left History of esophagogastroduodenoscopy (EGD) History of hand surgery History of surgery History of lumbar fusion S/P CABG (coronary artery bypass graft) H/O neck surgery Hx of CABG (~2017) Family History Father Diabetes Hypertension Mother Diabetes Hypertension Son No problems noted. Son No problems noted. Son No problems noted. Daughter No problems noted. Daughter No problems noted. 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) Do you presently have visiting nurse or other home services: No Alcohol intake: former Comment: new ice packs placed Patient Tobacco Use Status: Never used Tobacco service: No Current occupational status: disabled Current occupation: rt handed Cognitive needs: No Hearing needs: No Vision needs: No Physical Exam Vital Signs: BMI result Body Mass Index 26.4 Extrem Other: 0-95 right knee no effusion well healed inc nl gait Assessment & Plan Assessment & Plan (1) Postoperative stiffness of total knee replacement: Code(s): T84.89XA - Other specified complication of internal orthopedic prosthetic devices, implants and grafts, initial encounter; M25.669 - Stiffness of unspecified knee, not elsewhere classified; Z96.659 - Presence of unspecified artificial knee joint Plan: Ongoing displeasure with right TKA. He has seen pain and has had additional opinions. There is no surgical treament indicated in my opinion but he is free to seek alternative opinions. I continue to recommend pain mangement. He does not want a SPRINT device but maybe he should reconsider. He doesn't seem to be in severe pain and it seems that he is more unhappy with the stiffness than with the pain. His exam is notable for flesion stiffness only. He doesn't report functional difficulty ( he can navigate stairs). His pain is at at the end of the day when he is lying down. I have had this identical conversation with Mark at least 5 times. I am unsure of how to help him but am happy to continue to try. A referral to pain was ordered, (2) Status post total right knee replacement: Code(s): Z96.651 - Presence of right artificial knee joint Plan: see above Orders: Referrals Pain Management Referral M25.669 - Stiffness of unspecified knee, not elsewhere classified, T84.89XA - Other specified complication of internal orthopedic prosthetic devices, implants and grafts, initial encounter, Z96.651 - Presence of right artificial knee joint, Z96.659 - Presence of unspecified artificial knee joint Coding Level of Care Code Est Pt Level 4 (51393) Diagnoses Postoperative stiffness of total knee replacement T84.89XA; M25.669; Z96.659 Status post total right knee replacement Z96.651
[2023-03-19 09:43] VITALS: BMI 26.4
== END 2023-03-19 10:21 | disposition home or self-care (01) ==
PROVIDERS: PCP Nurse Practitioner Family; Visit Provider Orthopaedic Surgery
DX: M25.661 Stiffness of right knee, not elsewhere classified (principal); T84.89XA Other specified complication of internal orthopedic prosthetic devices, implants and grafts, initial encounter; Z96.651 Presence of right artificial knee joint
CPT/HCPCS: 99213

== ENCOUNTER → 2023-03-19 09:38 | Outpatient (BNVA) | payer MEDICARE, MEDICAID, SELFPAY | PROVIDERS: PCP Nurse Practitioner Family; Visit Provider Orthopaedic Surgery | DX: T84.89XD Other specified complication of internal orthopedic prosthetic devices, implants and grafts, subsequent encounter (principal); M25.669 Stiffness of unspecified knee, not elsewhere classified; Z96.659 Presence of unspecified artificial knee joint; Z96.651 Presence of right artificial knee joint | CPT/HCPCS: 99212 ==

== ENCOUNTER 2023-04-05 08:47 | Outpatient (AMB) | payer MEDICARE, MEDICAID, SELFPAY ==
[2023-04-05 09:06] VITALS: PULSE 64; RESP 12; O2SAT 97; BMI 27.1
--- NOTE | 2023-04-05 09:06 | MHC.OFFVIS ---
Intake Vital Signs 04/05/23 09:06 Height 5 ft 10 in Weight 189 lb BMI 27.1 Blood Pressure Location Lt brachial Position Sitting Respiration 12 Pulse 64 Pulse Source Pulse Oximeter Pulse Oximetry (%) 97 Oxygen Delivery Method Room Air Intake Visit Reasons: Follow Up/Presence of artificial knee joint/lvm Allergies naproxen [From Naprosyn] Allergy (Verified 04/05/23 09:08) swelling Medication List - Last Reconciled 04/05/23 by Indigo Bermeo LPN aspirin (Adult Low Dose Aspirin) 81 mg PO DAILY atorvastatin 80 mg PO DAILY dulaglutide 1.5 mg (0.5 mL) subcut QWEEK 30 days insulin glargine (Lantus Solostar U-100 Insulin) 34 units subcut DAILY lisinopril 2.5 mg PO DAILY metformin 1,000 mg PO BID metoprolol tartrate 50 mg PO BID 90 days omeprazole 40 mg PO DAILY 90 days pen needle, diabetic As directed pen needle, diabetic As directed pregabalin 100 mg PO BID 30 days walker Folding Front wheeled walker HPI Follow Up/Presence of artificial knee joint/lvm HPI Details 72-year-old male who presents today to the office for a follow-up. The patient reports low back pain. It is rated as 5 to 6/10 in intensity. He states that his pain is localized on right lower back and below the right buttock. He had lumbar spine fusion surgery in the past at [facility]. His right buttock pain is just below the right gluteal muscle. It is rated as 7 to 8/10 in intensity. He reports a previous surgery of some tendon insertion site in that region. He had two injections at [facility], which appear to be caudal epidural steroid injections based on descriptions, which provided minimal relief. He had a TKA performed about two years ago with subsequent knee contracture and inability to flex knee beyond 80 degrees. Past procedures: 02/07/21: Pectoralis plane block, ultrasound guided: No significant relief. 10/08/21: Right adductor canal saphenous nerve block, ultrasound-guided: 50 % relief. [facility] Medical History Environmental allergies Osteoarthritis of right knee Deformity of right hand Diabetes mellitus Barretts esophagus Hyperlipidemia Diabetes Chronic chest pain Hypertension Surgical History H/O right inguinal hernia repair Status post total knee replacement, left History of esophagogastroduodenoscopy (EGD) History of hand surgery History of surgery History of lumbar fusion S/P CABG (coronary artery bypass graft) H/O neck surgery Hx of CABG (~2017) Family History Father Diabetes Hypertension Mother Diabetes Hypertension Son No problems noted. Son No problems noted. Son No problems noted. Daughter No problems noted. Daughter No problems noted. 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 ( disabled) Do you presently have visiting nurse or other home services: No Alcohol intake: former Comment: new ice packs placed Patient Tobacco Use Status: Never used Tobacco service: No Current occupational status: disabled Current occupation: rt handed Cognitive needs: No Hearing needs: No Vision needs: No Review of Systems Const All systems reviewed & are unremarkable except as noted in HPI and below Physical Exam Vital Signs: Last Vital Signs Pulse 64 04/05/23 09:06 Resp 12 04/05/23 09:06 Pulse Ox 97 04/05/23 09:06 Oxygen Delivery Method Room Air 04/05/23 09:06 BMI result Body Mass Index 27.1 General: Appears afebrile. Alert and oriented. Mood and affect appropriate. Follows and participates in conversation appropriately. Respiratory effort is unlabored. Able to transition from sit to stand unassisted. Ambulates with bilaterally normal heel strike and toe off. There is a well-healed scar in the lumbar spine from a prior spinal fusion surgery. A well-healed scar under his right gluteal muscle could be possible from prior right gluteal tendon surgery in the past. There is tenderness to palpation overlying the right thigh scar. SIJ thrust and compression are positive. Moderate tenderness overlying right sacroiliac joint. Unable to perform the SRAVANTHI test due to limited ROM of the knee. Right thigh abduction also reproduces pain in the sacroiliac joint region. Results Reviewed Results Reviewed: No imaging is available for review. Assessment & Plan Assessment & Plan (1) Ischiogluteal bursitis of right side: Code(s): M70.71 - Other bursitis of hip, right hip (2) Postoperative stiffness of total knee replacement: Code(s): T84.89XA - Other specified complication of internal orthopedic prosthetic devices, implants and grafts, initial encounter; M25.669 - Stiffness of unspecified knee, not elsewhere classified; Z96.659 - Presence of unspecified artificial knee joint (3) Sacroiliac joint dysfunction: Code(s): M53.3 - Sacrococcygeal disorders, not elsewhere classified (4) Postlaminectomy syndrome: Code(s): M96.1 - Postlaminectomy syndrome, not elsewhere classified Plan For his low back pain like secondary to the right sacroiliac joint dysfunction, we will schedule him for the right diagnostic sacroiliac joint injection for potential cortisone injections vs. sacroiliac joint fusion vs. cluneal nerve stimulator, depending on the patient?s preference. For the right ischial bursa pain secondary to the prior surgery, I will schedule him for an US exam of the right ischial bursa and potentially do a diagnostic injection based on his response. Symptoms may also be secondary to post-laminectomy syndrome given history of prior lumbar spine surgery. We will target this further if the aforementioned interventions are not successful. Scribed for Dr. Grimaldo by Eliu Colon, electromedical service engineer, on 04/05/2022. I, Dr. Grimaldo, have personally reviewed and agree with the information entered by the scribe. Coding Level of Care Code Est Pt Level 4 (46546) Diagnoses Ischiogluteal bursitis of right side M70.71 Postoperative stiffness of total knee replacement T84.89XA; M25.669; Z96.659 Sacroiliac joint dysfunction M53.3 Postlaminectomy syndrome M96.1
== END 2023-04-05 09:41 | disposition home or self-care (01) ==
PROVIDERS: PCP Internal Medicine; Visit Provider Internal Medicine
DX: M70.71 Other bursitis of hip, right hip (principal); T84.89XA Other specified complication of internal orthopedic prosthetic devices, implants and grafts, initial encounter; M25.669 Stiffness of unspecified knee, not elsewhere classified; Z96.659 Presence of unspecified artificial knee joint; M53.3 Sacrococcygeal disorders, not elsewhere classified; M96.1 Postlaminectomy syndrome, not elsewhere classified
CPT/HCPCS: 99214

== ENCOUNTER → 2023-04-05 08:47 | Outpatient (BNVA) | payer MEDICARE, MEDICAID, SELFPAY | PROVIDERS: PCP Nurse Practitioner Family; Visit Provider Internal Medicine | DX: M25.669 Stiffness of unspecified knee, not elsewhere classified (principal); M53.3 Sacrococcygeal disorders, not elsewhere classified; M96.1 Postlaminectomy syndrome, not elsewhere classified; Z96.659 Presence of unspecified artificial knee joint; T84.89XD Other specified complication of internal orthopedic prosthetic devices, implants and grafts, subsequent encounter | CPT/HCPCS: 99212 ==

== ENCOUNTER 2023-04-12 13:15 | Outpatient (AMB) | payer MEDICARE, MEDICAID, SELFPAY ==
[2023-04-12 13:24] VITALS: BP 160/74; PULSE 67; RESP 12; O2SAT 99; BMI 27.1
--- NOTE | 2023-04-12 13:24 | A.OFFVIS_ITS ---
Intake Vital Signs 04/12/23 13:24 Height 5 ft 10 in Weight 189 lb BMI 27.1 BP 160/74 H Blood Pressure Location Lt brachial Position Sitting Respiration 12 Pulse 67 Pulse Source Pulse Oximeter Pulse Oximetry (%) 99 Oxygen Delivery Method Room Air Intake Visit Reasons: ULTRASOUND EXAM RT ICH BURSA Allergies naproxen [From Naprosyn] Allergy (Verified 04/12/23 13:26) swelling HPI ULTRASOUND EXAM RT ICH BURSA HPI Details 72-year-old male who presents today to t he office for an ultrasound exam of the right ischial bursa. Denies any recent cough, cold, infection, fever or other significant changes in medical history since last office visit. Past procedures: 02/07/21: Pectoralis plane block, ultras ound guided: No significant relief. 10/08/21: Right adductor canal saphenous nerve block, ultrasound-guided: 50 % relief. COUNTS INCLUDE 234 BEDS AT THE [facility] Medical History Environmental allergies Osteoarthritis of right knee Deformity of right hand Diabetes mellitus Barretts esophagus Hyperlipidemia Diabetes Chronic chest pain Hypertension Surgical History H/O right inguinal hernia repair Status post total knee replacement, left History of esophagogastroduodenoscopy (EGD) History of hand surgery History of surgery History of lumbar fusion S/P CABG (coronary artery bypass graft) H/O neck surgery Hx of CABG (~2016) Family History Father Diabetes Hypertension Mother Diabetes Hypertension Son No problems noted. Son No problems noted. Son No problems noted. Daughter No problems noted. Daughter No problems noted. Social History Household Members: Spouse and Family Housing: Apartment Are you a primary md do resident urgent care to a significant other at home: Yes ( disab led) Do you presently have visiting nurse or other home services: No Alcohol intake: former Comment: new ice packs placed Patient Tobacco Use Status: Never used Tobacco service: No Current occupational status: disabled Current occupation: rt handed Cognitive needs: No Hearing needs: No Vision needs: No Review of Systems Const All systems reviewed & are unremarkable except as noted in HPI and below Physical Exam Vital Signs: Last Vital Signs Pulse 67 04/12/23 13:24 Resp 12 04/12/23 13:24 BP 160/74 H 04/12/23 13:24 Pulse Ox 99 04/12/23 13:24 Oxygen Delivery Method Room Air 04/12/23 13:24 BMI result Body Mass Index 27.1 General: Appears afebrile. Alert and oriented. Mood and affect appropriate. Follows and participates in conversation appropriately. Respiratory effort is unlabored. Able to transition from sit to stand unassisted. Ambulates with bilaterally normal heel strike and toe off. No significant tenderness overlying the ischial bursa. No clear fluid collection overlying the ischial bursa on ultrasound exam. Significant tenderness to palpation overlying the right greater trochanter. Office Procedures Injection Trigger Point Multi Pre-procedure diagnosis: Myofascial pain Post-procedure diagnosis: Myofascial pain Site and number of trigger points: Right gluteus medius muscle Solution: Total volume administered 5 ml (5 ml lidocaine 1% + 5 ml bupivacaine 0.25%). The procedure, its benefits, and its risks were explained to the patient and all questions were answered. Prior to the start of the procedure, a ?time out? was performed to confirm correct patient, procedure, and laterality. Trigger points were identified by manual palpation and marked. The skin was cleaned with Chloraprep. A 1.5 inch 25 G needle was used. Each of the trigger points were approximated and elevated in the direction away from the body. Dry needling then took place for five seconds. Approximately 0.5 ml to 1 ml of injectate was delivered to the trigger point followed by dry needling for five seconds. This process was repeated at each trigger point site. The patient tolerated the procedure well. Post-procedure, breath sounds were equal at both sides of the chest. The patient tolerated the procedure well, without complication. The patient denied any numbness, paresthesias, or weakness. Post-procedure vitals were recorded as part of the nursing discharge note in electronic medical record. Following a period of observation, the patient was discharged in stable condition with written discharge instructions. Trigger Point Multiple: 37040- Trigger point injection =/>3 Joint Injection/Drain Joint Injection/Drain Details: Right GTB injection under ultrasound guidance Primary Site: other (Right greater trochanteric bursa) Prep: site was prepped using sterile technique Injected: 40 mg of, Kenalog, with 3 mL of (0.5% ropivacaine) and other (Around the right greater trochanter) Approach Used: other (Lateral approach under ultrasound guidance) Procedure: The patient tolerated the procedure well Coding Details: An ultrasound image of the injection was taken and stored in the permanent record. - Glenohumeral/Tronchanteric Bursa/Intraarticular (ultrasound guided) Procedure code (CPT) selection complete Results Reviewed Results Reviewed: No imaging is available for review. Assessment & Plan Assessment & Plan (1) Postlaminectomy syndrome: Code(s): M96.1 - Postlaminectomy syndrome, not elsewhere classified (2) Sacroiliac joint dysfunction: Code(s): M53.3 - Sacrococcygeal disorders, not elsewhere classified (3) Myofascial pain syndrome: Code(s): M79.18 - Myalgia, other site (4) Greater trochanteric pain syndrome: Code(s): M25.559 - Pain in unspecified hip Plan Patient is status post trigger point injection in the right gluteus medius muscle and a right GTB injection with ultrasound guidance. Patient tolerated procedure well and was discharged home in stable condition with discharge instructions. All questions were answered. We will follow-up in two weeks via telephone or in clinic to assess response to therapy. A follow-up appointment was made during today's visit. Scribed for Dr. Grimaldo by Eliu Colon, medical administrative, on 04/12/2023. I, Dr. Grimaldo, have personally reviewed and agree with the information entered by the scribe. Coding Level of Care Code Est Pt Level 3 (65539) Diagnoses Postlaminectomy syndrome M96.1 Sacroiliac joint dysfunction M53.3 Myofascial pain syndrome M79.18 Greater trochanteric pain syndrome M25.559 CPT Codes Details - Trigger Point Multiple: - Trigger point injection =/>3 ([id number]) Coding - Joint 7: - Glenohumeral/Tronchanteric Bursa/Intraarticular ([id number])
== END 2023-04-12 13:50 | disposition home or self-care (01) ==
PROVIDERS: PCP Internal Medicine; Visit Provider Internal Medicine
DX: M25.551 Pain in right hip (principal); M79.18 Myalgia, other site
CPT/HCPCS: 20552; 20611

== ENCOUNTER → 2023-04-12 13:15 | Outpatient (BNVA) | payer MEDICARE, MEDICAID, SELFPAY | PROVIDERS: PCP Internal Medicine; Visit Provider Internal Medicine | DX: M79.18 Myalgia, other site (principal); M96.1 Postlaminectomy syndrome, not elsewhere classified; M53.3 Sacrococcygeal disorders, not elsewhere classified; M25.559 Pain in unspecified hip | CPT/HCPCS: 20552; 20611; J0665; J3301 ==

== ENCOUNTER 2023-04-22 06:12 | Outpatient (REF) | payer MEDICARE, MEDICAID, SELFPAY ==
--- NOTE | ~2023-04-22 | FL_ITS ---
EXAMINATION: XR FLUOROSCOPY WITH IMAGES CLINICAL INFORMATION: Sacrococcygeal disorders, not otherwise classified. COMPARISON: None. TECHNIQUE: Fluoroscopy Supervised By: Dr. Tessa Worrell. Fluoroscopy Time: 18.2 seconds. Cumulative Dose: 7.54 mGy. Images: 1. FINDINGS: The submitted lateral view shows an injection needle projecting over the posterior elements of the sacrum. There has been a prior posterior fusion at L5-S1, incompletely covered in the [id number]. FL/FL guidance in treatment room IMPRESSION: Intraoperative fluoroscopic guidance is provided during sacral pain procedure. Please see the patient's Operative Report for full procedural details.
== END 2023-04-22 06:13 | disposition home or self-care (01) ==
LOC: CF 06:12
PROVIDERS: Visit Provider Internal Medicine
DX: M53.3 Sacrococcygeal disorders, not elsewhere classified (principal)
CPT/HCPCS: 27096; J2795; Q9967

== ENCOUNTER 2023-04-22 08:02 | Outpatient (AMB) | payer MEDICARE, MEDICAID, SELFPAY ==
[2023-04-22 08:14] VITALS: BP 132/60; PULSE 63; O2SAT 99
--- NOTE | 2023-04-22 08:14 | A.OFFVIS_ITS ---
Intake Vital Signs 04/22/23 08:14 04/22/23 09:14 Height 5 ft 10 in BP 132/60 132/60 Blood Pressure Location Rt brachial Rt brachial Position Sitting Pulse 63 63 Pulse Source Doppler Pulse Oximetry (%) 99 99 Oxygen Delivery Method Room Air Intake Visit Reasons: Right Dx SIJ inj Allergies naproxen [From Naprosyn] Allergy (Verified 04/12/23 13:26) swelling HPI Right Dx SIJ inj HPI Details Patient presents for scheduled procedure. Denies any recent cough, cold, infection, fever or other significant changes in medical history since last office visit. [facility] Medical History Environmental allergies Osteoarthritis of right knee Deformity of right hand Diabetes mellitus Barretts esophagus Hyperlipidemia Diabetes Chronic chest pain Hypertension Surgical History H/O right inguinal hernia repair Status post total knee replacement, left History of esophagogastroduodenoscopy (EGD) History of hand surgery History of surgery History of lumbar fusion S/P CABG (coronary artery bypass graft) H/O neck surgery Hx of CABG (~2017) Family History Father Diabetes Hypertension Mother Diabetes Hypertension Son No problems noted. Son No problems noted. Son No problems noted. Daughter No problems noted. Daughter No problems noted. Social History Household Members: Spouse and Family Housing: Apartment Are you a primary home care associate to a significant other at home: Yes ( disabled) Do you presently have visiting nurse or other home services: No Alcohol intake: former Comment: new ice packs placed Patient Tobacco Use Status: Never used Tobacco service: No Current occupational status: disabled Current occupation: rt handed Cognitive needs: No Hearing needs: No Vision needs: No Physical Exam Vital Signs: Last Vital Signs Pulse 63 04/22/23 08:14 BP 132/60 04/22/23 08:14 Pulse Ox 99 04/22/23 08:14 Office Procedures Joint Injection/Drain Joint Injection/Drain Details: Sacroiliac Joint Injection, Right The procedure, its benefits, and its risks were explained and written informed consent was obtained from the patient. Immediately prior to starting the procedure, a time-out safety check was conducted. The patient's identifica tion, procedure name, procedure site, and procedure laterality were confirmed with the patient. ? Patient was placed prone on the fluoroscopy table and the lumbosacral area was prepped using ChloraPrep and draped with sterile drapein standard fashion. The C-arm was rotated in a contralateral oblique fashion until the medial border of the iliac crest no longer foreshadowed the posterior sacroiliac joint line. The skin and subcutaneous tissue was anesthetized using 1 mL of 0.75% plain lidocaine with 1.5-inch 25-gauge needle in the middle region of the joint line.? A 3.5-inch 22-gauge spinal needle with small bend on the tip was slowly advanced towards the joint line, coaxial to the x-ray beam. Once bony content was obtained, the needle was easily slid into the intra-articular space.? Intra-a rticular needle position was confirmed using lateral fluoroscopy.? A total volume of 2.5mL of solution containing 0.5% of ropivacaine was injected intra- articularly. The stylet was reinserted and needle was removed. The patient tolerated the procedure well. Patient denied any lower extremity weakness or numbness. Patient was observed for 30 min and was discharged after fulfilling the standard discharge criteria. Coding 43983 - Sacroiliac Procedure code (CPT) selection complete Assessment & Plan Assessment & Plan (1) Sacroiliac joint dysfunction: Code(s): M53.3 - Sacrococcygeal disorders, not elsewhere classified Plan Patient is status post right diagnostic SIJ injection. Patient tolerated procedure well and was discharged home in stable condition with discharge instructions. All questions were answered. We will follow-up via telephone or in clinic to assess response to therapy. A follow-up appointment was made during today's visit. Orders: Orders FL guidance in treatment room Today M53.3 - Sacrococcygeal disorders, not elsewhere classified Coding Level of Care Code Procedure Only Diagnoses Sacroiliac joint dysfunction M53.3 CPT Codes Coding - Joint 9: 94769 - Sacroiliac ([id number])
[2023-04-22 09:14] VITALS: BP 132/60; PULSE 63; O2SAT 99
== END 2023-04-22 09:36 | disposition home or self-care (01) ==
LOC: HO.PMCPRC 08:02
PROVIDERS: PCP Internal Medicine; Visit Provider Internal Medicine
DX: M53.3 Sacrococcygeal disorders, not elsewhere classified (principal)
CPT/HCPCS: 27096

== ENCOUNTER 2023-04-23 11:08 | Outpatient (AMB) | payer MEDICARE, MEDICAID, SELFPAY ==
--- NOTE | 2023-04-23 11:18 | MHC.OFFVIS ---
Intake Vital Signs 04/23/23 11:20 Height 5 ft 10 in Weight 190 lb BMI 27.3 BP 133/63 Blood Pressure Location Rt brachial Position Sitting Respiration 12 Pulse 62 Pulse Source Pulse Oximeter Pulse Oximetry (%) 99 Oxygen Delivery Method Room Air Intake Visit Reasons: s/p right Dx SIJ inj/no answer Allergies naproxen [From Naprosyn] Allergy (Verified 04/23/23 11:21) swelling Medication List - Last Reconciled 04/23/23 by Indigo Bermeo LPN aspirin (Adult Low Dose Aspirin) 81 mg PO DAILY atorvastatin 80 mg PO DAILY dulaglutide 1.5 mg (0.5 mL) subcut QWEEK 30 days insulin glargine (Lantus Solostar U-100 Insulin) 34 units subcut DAILY lisinopril 2.5 mg PO DAILY metformin 1,000 mg PO BID metoprolol tartrate 50 mg PO BID 90 days omeprazole 40 mg PO DAILY 90 days pen needle, diabetic As directed pen needle, diabetic As directed pregabalin 100 mg PO BID 30 days walker Folding Front wheeled walker HPI s/p right Dx SIJ inj/no answer HPI Details 72-year-old male who presents today to the office for a status post right diagnostic SIJ injection. The patient reports 50-60% relief following the procedure. He still has difficulty sleeping on his sides. He will be visiting an orthopedic surgeon in [place] for his post-TKA knee pain. He is amenable to proceed with therapeutic injections. Past procedures: 04/22/23: Diagnostic Sacroiliac Joint Injection, Right: 50% relief. 04/12/23: Injection Trigger Point Multi: % relief. 04/12/23: Right GTB injection under ultrasound guidance: % relief. 02/07/21: Pectoralis plane block, ultrasound guided: No significant relief. 10/08/21: Right adductor canal saphenous nerve block, ultrasound-guided: 50 % relief. [facility] Medical History Environmental allergies Osteoarthritis of right knee Deformity of right hand Diabetes mellitus Barretts esophagus Hyperlipidemia Diabetes Chronic chest pain Hypertension Surgical History H/O right inguinal hernia repair Status post total knee replacement, left History of esophagogastroduodenoscopy (EGD) History of hand surgery History of surgery History of lumbar fusion S/P CABG (coronary artery bypass graft) H/O neck surgery Hx of CABG (~2017) Family History Father Diabetes Hypertension Mother Diabetes Hypertension Son No problems noted. Son No problems noted. Son No problems noted. Daughter No problems noted. Daughter No problems noted. 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 to a significant other at home: Yes ( disabled) Do you presently have visiting nurse or other home services: No Alcohol intake: former Comment: new ice packs placed Patient Tobacco Use Status: Never used Tobacco service: No Current occupational status: disabled Current occupation: rt handed Cognitive needs: No Hearing needs: No Vision needs: No Review of Systems Const All systems reviewed & are unremarkable except as noted in HPI and below Physical Exam Vital Signs: Last Vital Signs Pulse 62 04/23/23 11:20 Resp 12 04/23/23 11:20 BP 133/63 04/23/23 11:20 Pulse Ox 99 04/23/23 11:20 Oxygen Delivery Method Room Air 04/23/23 11:20 BMI result Body Mass Index 27.3 General: Appears afebrile. Alert and oriented. Mood and affect appropriate. Follows and participates in conversation appropriately. Respiratory effort is unlabored. Able to transition from sit to stand unassisted. Ambulates with bilaterally normal heel strike and toe off. Results Reviewed Results Reviewed: No imaging is available for review. Assessment & Plan Assessment & Plan (1) Sacroiliac joint dysfunction: Code(s): M53.3 - Sacrococcygeal disorders, not elsewhere classified Plan Will schedule him for a right therapeutic sacroiliac joint injection. Discussed the risks and benefits of the procedure with the patient in detail. All questions were answered. The patient is on board with the plan. Justification for interventional therapy: ? Patient with average pain > 6/10 ? Patient has exhausted conservative therapy ? Diagnostic injection provided 50% relief Scribed for Dr. Grimaldo by Eliu Colon, medical authorization specialist, on 04/23/2023. I, Dr. Grimaldo, have personally reviewed and agree with the information entered by the scribe. Coding Level of Care Code Est Pt Level 2 (80474) Diagnoses Sacroiliac joint dysfunction M53.3
[2023-04-23 11:20] VITALS: BP 133/63; PULSE 62; RESP 12; O2SAT 99; BMI 27.3
== END 2023-04-23 11:52 | disposition home or self-care (01) ==
PROVIDERS: PCP Internal Medicine; Visit Provider Internal Medicine
DX: M53.3 Sacrococcygeal disorders, not elsewhere classified (principal)
CPT/HCPCS: 99213

== ENCOUNTER → 2023-04-23 11:08 | Outpatient (BNVA) | payer MEDICARE, MEDICAID, SELFPAY | PROVIDERS: PCP Internal Medicine; Visit Provider Internal Medicine | DX: M53.3 Sacrococcygeal disorders, not elsewhere classified (principal) | CPT/HCPCS: 99212 ==

== ENCOUNTER 2023-09-01 14:34 | Outpatient (AMB) | payer MEDICARE, MEDICAID, SELFPAY ==
--- NOTE | 2023-09-01 14:47 | MHC.OFFVIS ---
Vital Signs 09/01/23 14:48 Height 5 ft 10 in Weight 187 lb 6.287 oz BMI 26.9 BP 130/52 L Blood Pressure Location Lt brachial Position Sitting Pulse 69 Intake Visit Reasons: 1yr f/up s/p echo Intake Note: pt state that he is having some sob, pt haven't been feeling well emotionally, but otherwise his doing fine. 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: Yes Deputy Sheriff Building Guard Name: [id number]/laracom/ Telugu Accompanied by: Self / Same As Patient Allergies naproxen [From Naprosyn] Allergy (Verified 04/23/23 11:21) swelling Medication List - Last Reconciled 09/01/23 by Jarvis Brown MD aspirin (Adult Low Dose Aspirin) 81 mg PO DAILY atorvastatin 80 mg PO DAILY dulaglutide 1.5 mg (0.5 mL) subcut QWEEK 30 days insulin glargine (Lantus Solostar U-100 Insulin) 34 units subcut DAILY lisinopril 2.5 mg PO DAILY metformin 1,000 mg PO BID metoprolol tartrate 50 mg PO BID 90 days omeprazole 40 mg PO DAILY 90 days pen needle, diabetic As directed pen needle, diabetic As directed pregabalin 100 mg PO BID 30 days walker Folding Front wheeled walker HPI Comments Details: Pleasant 72-year-old gentleman here for follow-up. He has history of bypass surgery. He has chronic chest wall pain which was present before bypass surgery and is persistent after surgery. Continues to have sharp left-sided chest pain. This is worse with lying on left or right-sided. He is again complaining of chest pain. I have reassured him that this is noncardiac chest pain. He was referred to pain management and had local injections done but this did not improve the pain. His echocardiogram has shown an aortic root dilatation. This is a new finding. He was referred for CTA of the chest which showed dilated sinus of Valsalva 4.2 cm. He returns for follow-up. He continues to get left-sided chest discomfort. This is again on laying down on the left side and is a persistent discomfort present all the time. Results of the CT scan were explained to the patient. 09/01/23: he returns for follow-up. He has been depressed because his son unfortunately had a stroke at age 44 and is under care in hospital in [facility]. He has chronic chest pains as before. He also gets some headaches with bending forward. It appears he has chronic sinusitis. [facility] Medical History Environmental allergies Osteoarthritis of right knee Deformity of right hand Diabetes mellitus Barretts esophagus Hyperlipidemia Diabetes Chronic chest pain Hypertension Surgical History H/O right inguinal hernia repair Status post total knee replacement, left History of esophagogastroduodenoscopy (EGD) History of hand surgery History of surgery History of lumbar fusion S/P CABG (coronary artery bypass graft) H/O neck surgery Hx of CABG (~2017) Family History Father Diabetes Hypertension Mother Diabetes Hypertension Son No problems noted. Son No problems noted. Son No problems noted. Daughter No problems noted. Daughter No problems noted. 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 a significant other at home: Yes ( disabled) Do you presently have visiting nurse or other home services: No Alcohol intake: former Comment: new ice packs placed Patient Tobacco Use Status: Never used Tobacco service: No Current occupational status: disabled Current occupation: rt handed Cognitive needs: No Hearing needs: No Vision needs: No Review of Systems Const Denies chills, Denies fatigue, Denies fever(s), Denies frequent falls, Denies weakness, Denies weight gain and Denies weight loss ENT Denies dizziness Card Denies chest pain, Denies leg edema, Denies lightheadedness, Denies palpitations, Denies dyspnea and Denies dyspnea on exertion Resp Denies cough, Denies dyspnea and Denies dyspnea on exertion GI Denies hematochezia Musc Denies abnormal gait, Denies muscle weakness, Denies numbness, Denies radiating pain into limb and Denies tingling Neuro Denies abnormal gait, Denies dizziness, Denies frequent falls, Denies numbness, Denies tingling and Denies weakness Endo Denies fatigue and Denies palpitations Physical Exam Vital Signs: Last Vital Signs Pulse 69 09/01/23 14:48 BP 130/52 L 09/01/23 14:48 BMI result Body Mass Index 26.9 GENERAL APPEARANCE: in no acute distress, well developed, well nourished. NECK/THYROID: no carotid bruit, no jugular venous distention. SKIN: no suspicious lesions, warm and dry. HEART: no murmurs, regular rate and rhythm, S1, S2 normal. LUNGS: clear to auscultation bilaterally. ABDOMEN: normal, bowel sounds present, soft, nontender, nondistended. EXTREMITIES: no clubbing, cyanosis, or edema. Dupuytren's contracture right hand PERIPHERAL PULSES: equal. NEUROLOGIC: nonfocal, alert and oriented. PSYCH: mood/affect full range. Office Procedures EKG Details: Sinus rhythm 69 beats per minute, normal ECG, QTC 400 milliseconds. [id number], Complete Assessment & Plan Assessment & Plan (1) Dilated aortic root: Code(s): I77.810 - Thoracic aortic ectasia Category: Medical (2) Hypertension: Comment: Blood pressure control is good Code(s): I10 - Essential (primary) hypertension Category: Medical Qualifiers: Hypertension type: renovascular hypertension Qualified Code(s): I15.0 - Renovascular hypertension (3) Chest pain of uncertain etiology: Code(s): R07.9 - Chest pain, unspecified Category: Medical Plan Pleasant 72-year-old gentleman with chronic chest wall pain. He has history of coronary artery bypass surgery but the chest pain preceded bypass and persisted even after bypass surgery. This is noncardiac pain. He has dilated sinus of Valsalva 4.2 cm by CTA. I have explained to him that this is mild it to moderate dilation right now. We will arrange echocardiography to reassess the aortic size. Blood pressure control is good. Same medications for now. Thank you for allowing me to participate in the care of your patient. Please feel free to contact me if you have any questions. Orders: Orders CA echo transthoracic complete Today I77.810 - Thoracic aortic ectasia Coding Level of Care Code Est Pt Level 4 (05958) Diagnoses Dilated aortic root I77.810 Renovascular hypertension I15.0 Hypertension type: renovascular hypertension Chest pain of uncertain etiology R07.9 CPT Codes EKG - CPT: 14462-[id number], Complete ([id number])
[2023-09-01 14:48] VITALS: BP 130/52; PULSE 69; BMI 26.9
== END 2023-09-01 15:17 | disposition home or self-care (01) ==
PROVIDERS: PCP Internal Medicine; Visit Provider Internal Medicine Cardiovascular Disease
DX: I77.810 Thoracic aortic ectasia (principal); I15.0 Renovascular hypertension; R07.9 Chest pain, unspecified
CPT/HCPCS: 93010; 99214

== ENCOUNTER → 2023-09-01 14:34 | Outpatient (BNVA) | payer MEDICARE, MEDICAID, SELFPAY | PROVIDERS: PCP Internal Medicine; Visit Provider Internal Medicine Cardiovascular Disease | DX: I77.810 Thoracic aortic ectasia (principal); I15.0 Renovascular hypertension; R07.9 Chest pain, unspecified | CPT/HCPCS: 93005; 99212 ==

== ENCOUNTER → 2023-09-17 13:42 | Outpatient (REF) | payer MEDICARE, MEDICAID, SELFPAY ==
--- NOTE | 2023-09-17 13:45 | CA_ITS ---
Transthoracic Echocardiogram Patient (Last, First, Middle): Omar Pitts, Gender: Male Date of : 1950 Age: 73 Procedure Date: 09/17/2023 Procedure Type: Transthoracic Echocardiogram Location: OP Height: 177.8 cm Weight: 83.46 kg BSA: 2.01 m2 Heart Rate: 68 bpm BP: 110 / 70 mmHg Site Foreman: TO Referring MD: Jarvis Brown MD Symptoms: I77.810 - Thoracic aortic ectasia Study Quality: Adequate w contrast ECG Rhythm: Sinus Conclusions: - Normal left ventricular size and systolic function. The visually estimated ejection fraction is between 55-60%. There is evidence of regional wall motion abnormalities. - The basal inferior segment is hypokinetic. - Normal right ventricular cavity size. There is mild to moderately decreased right ventricular systolic function. - There is moderate dilatation of the sinuses of Valsalva measuring 4.59 cm and mild dilatation of the ascending aorta measuring 3.90 cm. Findings Procedure Information Contrast agent, definity, is being given per protocol without apparent complications. Left Ventricle Normal left ventricular size and systolic function. The visually estimated ejection fraction is between 55-60%. There is evidence of regional wall motion abnormalities. Abnormal diastolic function is noted. Spectral Doppler is indicative of an impaired relaxation filling pattern. E/E prime ratio is between 8 and 15 consistent with indeterminate filling pressures. There is mild septal asymmetric hypertrophy. Wall Motion Rest Echo Findings The basal inferior segment is hypokinetic. Right Ventricle Normal right ventricular cavity size. There is mild to moderately decreased right ventricular systolic function. Atria The left atrium is likely dilated. The right atrium is normal in size. Aortic Valve There is a normal trileaflet aortic valve. There is no aortic valve stenosis. There is no aortic valve regurgitation. Mitral Valve The mitral valve appears normal. There is trace mitral valve regurgitation. There is no mitral valve stenosis. Pulmonic Valve The pulmonic valve is normal. There is no pulmonic valve regurgitation. Tricuspid Valve Normal tricuspid valve structure. There is no tricuspid valve regurgitation. Normal right atrial pressure. There is no evidence of pulmonary hypertension. Great Vessels There is moderate dilatation of the sinuses of Valsalva measuring 4.59 cm and mild dilatation of the ascending aorta measuring 3.90 cm. The visualized portions of the pulmonary artery and branches are normal. Venous The inferior vena cava is normal in size and collapses greater than 50% with inspiration. Pericardium/Pleural There is no evidence of pericardial effusion. Prior Study Comparison No significant change compared to prior study dated: 04/01/2022. Measurements 2D Linear Measurements IVSd: 1.26 0.6-0.9/0.6-1.0 cm LVIDd: 4.64 3.9-5.3/4.2-5.9 cm LVIDd Index: 2.31 2.4-3.2/2.2-3.1 cm/m2 LVIDs: 3.22 2.0-3.6 cm LVPWd: 0.83 0.7-1.1 cm LA Diam: 4.10 2.7-3.8/3.0-4.0 cm LAIDs Index: 2.04 1.5-2.3 cm/m2 LV Mass: 213.12 67-162/88-224 g LV Mass Index: 106.03 43-95/49-115 g/m2 LVOT Diam: 2.60 3.0+(-)1.3 cm 2D Systolic Function EF 4C: 65.50 >55% EF 2C: 54.70 >55% EF BiP: 60.90 >55% Mitral Valve MV Pk E: 0.49 MV PK A: 0.76 MV Decel Time: 233.00 E/A: 0.60 E'Lateral: 5.44 E'Medial: 5.00 E/E' Med: 9.90 E/E' Lat: 9.10 PHT: 68.00 MVA PHT: 3.24 Decel [place]: 2.12 Aortic Valve AoV Pk Americo: 1.40 AoV Mn Americo: 1.02 AoV VTI: 0.29 AoV Pk Grad: 8.00 Aov Mn Grad: 4.00 DENNIS Cont.VTI: 3.04 LVOT LVOT Pk Americo: 0.78 LVOT Mn Americo: 0.49 LVOT VTI: 0.17 LVOT Pk Grad: 2.00 LVOT Mn Grad: 1.00 LVOT Diam: 2.60 LVOT Area: 5.31 Diastolic Function MV Pk E: 0.49 MV Pk A: 0.76 E/A: 0.60 E'Medial: 5.00 E/E' Med: 9.90 E' Laterial: 5.44 E/E' Lat: 9.10 Right Ventricle TAPSE (mm): 16.10 TVS' Americo: 8.27 Tricuspid Valve TR Pk Americo: 1.98 TR Pk Grad: 16.00 RA Press: 3.00 RVSP: 19.00 Great Vessels Aorta Sinus of Valsalva: 4.59 2.0-3.5 cm Ao Asc: 3.90 2.1-3.4 cm Ao Arch: 2.80 Updated in Other Vendor System with Status of Final Jarvis Brown MD electronically signed on 09/18/2023 1:46:24 PM with status of Final
== END ==
LOC: HO.CARD 13:42
PROVIDERS: PCP Internal Medicine; Visit Provider Internal Medicine Cardiovascular Disease
DX: I77.810 Thoracic aortic ectasia (principal)
CPT/HCPCS: 93306; Q9957

== ENCOUNTER → 2023-09-17 13:45 | Outpatient (BNV) | payer MEDICARE, MEDICAID, SELFPAY | PROVIDERS: PCP Internal Medicine; Visit Provider Internal Medicine Cardiovascular Disease | DX: I42.2 Other hypertrophic cardiomyopathy (principal); R93.1 Abnormal findings on diagnostic imaging of heart and coronary circulation | CPT/HCPCS: 93306 ==

== ENCOUNTER 2024-01-28 11:20 | Outpatient (AMB) | payer MEDICARE, MEDICAID, SELFPAY ==
--- NOTE | 2024-01-28 11:21 | MHC.OFFVIS ---
Vital Signs 01/28/24 11:23 Height 5 ft 10 in Weight 174 lb BMI 25.0 BP 148/70 H Blood Pressure Location Lt brachial Position Sitting Respiration 15 Pulse 76 Pulse Source Pulse Oximeter Pulse Oximetry (%) 99 Oxygen Delivery Method Room Air Intake Visit Reasons: Patient presenting low back pain Allergies naproxen [From Naprosyn] Allergy (Verified 01/28/24 11:24) swelling Medication List - Last Reconciled 01/28/24 by Indigo Bermeo LPN aspirin (Adult Low Dose Aspirin) 81 mg PO DAILY atorvastatin 80 mg PO DAILY insulin glargine (Lantus Solostar U-100 Insulin) 34 units subcut DAILY losartan 25 mg PO DAILY metformin 1,000 mg PO BID metoprolol tartrate 50 mg PO BID 90 days omeprazole 40 mg PO DAILY 90 days pen needle, diabetic As directed pen needle, diabetic As directed pregabalin 100 mg PO BID 30 days tirzepatide (Mounjaro) mg subcut walker Folding Front wheeled walker HPI HPI Patient presenting low back pain: Details: 73-year-old male who presents today to the office for low back pain. He reports bilateral back pain and leg pain. He states that he received multiple back injections for the past 10 months in [place] He deferred any further injections for pain relief. He is interested in some type of permanent modality instead of repeated injections. Past procedures: 04/22/23: Diagnostic Sacroiliac Joint Injection, Right: 50% relief. 04/12/23: Injection Trigger Point Multi: % relief. 04/12/23: Right GTB injection under ultrasound guidance: % relief. 02/07/21: Pectoralis plane block, ultrasound guided: No significant relief. 10/08/21: Right adductor canal saphenous nerve block, ultrasound-guided: 50 % relief. [facility] Medical History Environmental allergies Osteoarthritis of right knee Deformity of right hand Diabetes mellitus Barretts esophagus Hyperlipidemia Diabetes Chronic chest pain Hypertension Surgical History H/O right inguinal hernia repair Status post total knee replacement, left History of esophagogastroduodenoscopy (EGD) History of hand surgery History of surgery History of lumbar fusion S/P CABG (coronary artery bypass graft) H/O neck surgery Hx of CABG (~2017) Family History Father Diabetes Hypertension Mother Diabetes Hypertension Son No problems noted. Son No problems noted. Son No problems noted. Daughter No problems noted. Daughter No problems noted. 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 ( disabled) Do you presently have visiting nurse or other home services: No Alcohol intake: former Comment: new ice packs placed Patient Tobacco Use Status: Never used Tobacco service: No Current occupational status: disabled Current occupation: rt handed Cognitive needs: No Hearing needs: No Vision needs: No Review of Systems Const All systems reviewed & are unremarkable except as noted in HPI and below Physical Exam Vital Signs: Last Vital Signs Pulse 76 01/28/24 11:23 Resp 15 01/28/24 11:23 BP 148/70 H 01/28/24 11:23 Pulse Ox 99 01/28/24 11:23 Oxygen Delivery Method Room Air 01/28/24 11:23 BMI result Body Mass Index 25.0 General: Appears afebrile. Alert and oriented. Mood and affect appropriate. Follows and participates in conversation appropriately. Respiratory effort is unlabored. Able to transition from sit to stand unassisted. Ambulates with bilaterally normal heel strike and toe off. Results Reviewed Results Reviewed: No imaging is available for review. Assessment & Plan Assessment & Plan (1) Sacroiliac joint dysfunction: Code(s): M53.3 - Sacrococcygeal disorders, not elsewhere classified Category: Medical (2) Right knee pain: Code(s): M25.561 - Pain in right knee Category: Medical (3) Status post total right knee replacement: Code(s): Z96.651 - Presence of right artificial knee joint Category: Surgical (4) Postoperative stiffness of total knee replacement: Code(s): T84.89XA - Other specified complication of internal orthopedic prosthetic devices, implants and grafts, initial encounter; M25.669 - Stiffness of unspecified knee, not elsewhere classified; Z96.659 - Presence of unspecified artificial knee joint Category: Medical Plan Discussed temporary right saphenous peripheral nerve stimulator as a possible treatment option for intractable knee pain in the right knee following TKR. A device brochure was provided to the patient today.? We will schedule him for a right saphenous nerve stimulator placement. Discussed the risks and benefits of the procedure with the patient in detail. All questions were answered. The patient is on board with the plan. He also has pain in his back that has not responded to multiple rounds of injections, including facet blocks and sacroiliac joint injections. After the temporary right saphenous nerve stimulator, we will potentially consider stimulator of the lumbar medial branches for his intractable low back pain.? Justification for interventional therapy: ? Patient with average pain > 6/10 ? Patient has exhausted conservative and surgical therapies . Patient has a good understanding of their pain condition and has appropriate mental and social support. Scribed for Dr. Grimaldo by Eliu Colon, medical coordinator pesticide use, on 01/28/2024. I, Dr. Grimaldo, have personally reviewed and agree with the information entered by the scribe. Coding Level of Care Code Est Pt Level 4 (88804) Diagnoses Sacroiliac joint dysfunction M53.3 Right knee pain M25.561 Status post total right knee replacement Z96.651 Postoperative stiffness of total knee replacement T84.89XA; M25.669; Z96.659
[2024-01-28 11:23] VITALS: BP 148/70; PULSE 76; RESP 15; O2SAT 99; BMI 25.0
== END 2024-01-28 11:57 | disposition home or self-care (01) ==
LOC: HO.PMC 11:21
PROVIDERS: PCP Internal Medicine; Visit Provider Internal Medicine
DX: M53.3 Sacrococcygeal disorders, not elsewhere classified (principal); M25.561 Pain in right knee; Z96.651 Presence of right artificial knee joint; T84.89XA Other specified complication of internal orthopedic prosthetic devices, implants and grafts, initial encounter; M25.669 Stiffness of unspecified knee, not elsewhere classified; Z96.659 Presence of unspecified artificial knee joint
CPT/HCPCS: 99214

== ENCOUNTER → 2024-01-28 11:20 | Outpatient (BNVA) | payer MEDICARE, MEDICAID, SELFPAY | PROVIDERS: PCP Internal Medicine; Visit Provider Internal Medicine | DX: M54.50 Low back pain, unspecified (principal); M53.3 Sacrococcygeal disorders, not elsewhere classified; M25.561 Pain in right knee; M25.661 Stiffness of right knee, not elsewhere classified; T84.89XA Other specified complication of internal orthopedic prosthetic devices, implants and grafts, initial encounter; Z96.651 Presence of right artificial knee joint | CPT/HCPCS: 99212 ==

== ENCOUNTER 2024-02-02 13:26 | Outpatient (AMB) | payer MEDICARE, MEDICAID, SELFPAY ==
[2024-02-02 14:55] VITALS: BP 120/60; PULSE 68; BMI 25.9
--- NOTE | 2024-02-02 14:55 | A.OFFVIS_ITS ---
Vital Signs 02/02/24 14:55 Height 5 ft 10 in Weight 180 lb 12.465 oz BMI 25.9 BP 120/60 Blood Pressure Location Lt brachial Position Sitting Pulse 68 Pulse Source Pulse Oximeter Intake Visit Reasons: 6 month follow-up Allergies naproxen [From Naprosyn] Allergy (Verified 01/28/24 11:24) swelling Medication List - Last Reconciled 02/02/24 by Jarvis Brown MD aspirin (Adult Low Dose Aspirin) 81 mg PO DAILY atorvastatin 80 mg PO DAILY losartan 25 mg PO DAILY metformin 1,000 mg PO BID metoprolol tartrate 50 mg PO BID 90 days omeprazole 40 mg PO DAILY 90 days pen needle, diabetic As directed pen needle, diabetic As directed pregabalin 100 mg PO BID 30 days tirzepatide (Mounjaro) mg subcut walker Folding Front wheeled walker HPI Comments Details: Pleasant 73-year-old gentleman here for follow-up. He has history of bypass surgery. He has chronic chest wall pain which was present before bypass surgery and is persistent after surgery. Continues to have sharp left-sided chest pain. This is worse with lying on left or right-sided. He is again complaining of chest pain. I have reassured him that this is noncardiac chest pain. He was referred to pain management and had local injections done but this did not improve the pain. His echocardiogram has shown an aortic root dilatation. He was referred for CTA of the chest which showed dilated sinus of Valsalva 4.2 cm. 09/01/23: he returns for follow-up. He has been depressed because his son unfortunately had a stroke at age 44 and is under care in hospital in [facility]. He has chronic chest pains as before. He also gets some headaches with bending forward. It appears he has chronic sinusitis 02/02/2024: He is here for follow-up. He continues to have left-sided chest pain. He also had knee surgery and continues to have knee pain. Seems quite frustrated by pain in the knee and ability to walk. He has echocardiography has shown moderate aortic root dilatation. This is something to monitor for now. Blood pressure is well controlled. [facility] Medical History Environmental allergies Osteoarthritis of right knee Deformity of right hand Diabetes mellitus Barretts esophagus Hyperlipidemia Diabetes Chronic chest pain Hypertension Surgical History H/O right inguinal hernia repair Status post total knee replacement, left History of esophagogastroduodenoscopy (EGD) History of hand surgery History of surgery History of lumbar fusion S/P CABG (coronary artery bypass graft) H/O neck surgery Hx of CABG (~2017) Family History Father Diabetes Hypertension Mother Diabetes Hypertension Son No problems noted. Son No problems noted. Son No problems noted. Daughter No problems noted. Daughter No problems noted. 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 ( disabled) Do you presently have visiting nurse or other home services: No Alcohol intake: former Comment: new ice packs placed Patient Tobacco Use Status: Never used Tobacco service: No Current occupational status: disabled Current occupation: rt handed Cognitive needs: No Hearing needs: No Vision needs: No Review of Systems Const Denies weakness ENT Denies dizziness Card Denies chest pain, Denies chest pain with activity, Denies syncope, Denies rapid heart rate, Denies pedal edema, Denies edema, Denies leg edema, Denies lightheadedness, Denies palpitations, Denies dyspnea, Denies dyspnea on exertion and Denies orthopnea Resp Denies cough, Denies dyspnea and Denies dyspnea on exertion GI Denies hematochezia and Denies change in stool character Musc Denies abnormal gait, Denies muscle cramps, Denies muscle weakness, Denies numbness, Denies radiating pain into limb and Denies tingling Neuro Denies abnormal gait, Denies dizziness, Denies syncope, Denies numbness, Denies tingling and Denies weakness Endo Denies palpitations Physical Exam Vital Signs: Last Vital Signs Pulse 68 02/02/24 14:55 BP 120/60 02/02/24 14:55 BMI result Body Mass Index 25.9 GENERAL APPEARANCE: in no acute distress, well developed, well nourished. NECK/THYROID: no carotid bruit, no jugular venous distention. SKIN: no suspicious lesions, warm and dry. HEART: no murmurs, regular rate and rhythm, S1, S2 normal. LUNGS: clear to auscultation bilaterally. ABDOMEN: normal, bowel sounds present, soft, nontender, nondistended. EXTREMITIES: no clubbing, cyanosis, or edema. Dupuytren's contracture right hand PERIPHERAL PULSES: equal. NEUROLOGIC: nonfocal, alert and oriented. PSYCH: mood/affect full range. Assessment & Plan Assessment & Plan (1) S/P CABG (coronary artery bypass graft): Code(s): Z95.1 - Presence of aortocoronary bypass graft Category: Medical (2) Non-cardiac chest pain: Code(s): R07.89 - Other chest pain Category: Medical (3) Dilated aortic root: Code(s): I77.810 - Thoracic aortic ectasia Category: Medical Plan 73 year gentleman with previous bypass surgery and chronic chest pain which is noncardiac in origin. We have referred him to pain management but he continues to have pain which is present day and night and has been present for years. He had this even before bypass surgery and unfortunately continued to have after surgery 2. I have reassured him about the pain again. In terms of his echocardiography-he has moderate aortic root dilatation at 4.59 cm. He has mild ascending aortic dilatation at 3.9 cm. We will continue to monitor this with echocardiography. Follow-up in 6 months. Thank you for allowing me to participate in the care of your patient. Please feel free to contact me if you have any questions. Coding Level of Care Code Est Pt Level 4 (74302) Diagnoses S/P CABG (coronary artery bypass graft) Z95.1 Non-cardiac chest pain R07.89 Dilated aortic root I77.810
== END 2024-02-02 15:18 | disposition home or self-care (01) ==
LOC: HO.HCS 13:27
PROVIDERS: PCP Internal Medicine; Visit Provider Internal Medicine Cardiovascular Disease
DX: Z95.1 Presence of aortocoronary bypass graft (principal); R07.89 Other chest pain; I77.810 Thoracic aortic ectasia
CPT/HCPCS: 99214

== ENCOUNTER → 2024-02-02 13:26 | Outpatient (BNVA) | payer MEDICARE, MEDICAID, SELFPAY | PROVIDERS: PCP Internal Medicine; Visit Provider Internal Medicine Cardiovascular Disease | DX: I77.810 Thoracic aortic ectasia (principal); R07.89 Other chest pain; Z95.1 Presence of aortocoronary bypass graft | CPT/HCPCS: 99212 ==

== ENCOUNTER 2024-02-17 08:01 | Outpatient (REF) | payer MEDICARE, MEDICAID, SELFPAY | END 2024-02-17 08:02 | disposition home or self-care (01) | LOC: CF 08:01 | PROVIDERS: Visit Provider Internal Medicine | DX: T84.89XA Other specified complication of internal orthopedic prosthetic devices, implants and grafts, initial encounter (principal); M25.661 Stiffness of right knee, not elsewhere classified; Z96.651 Presence of right artificial knee joint | CPT/HCPCS: 64555; C1778; J2003 ==

== ENCOUNTER 2024-02-17 09:52 | Outpatient (AMB) | payer MEDICARE, MEDICAID, SELFPAY ==
[2024-02-17 10:27] VITALS: BP 131/67; PULSE 76; O2SAT 98
--- NOTE | 2024-02-17 10:27 | A.OFFVIS_ITS ---
Vital Signs 02/17/24 10:27 02/17/24 11:01 BP 131/67 141/68 H Blood Pressure Location Lt brachial Lt brachial Position Sitting Sitting Pulse 76 76 Pulse Source Pulse Oximeter Pulse Oximeter Pulse Oximetry (%) 98 96 Oxygen Delivery Method Room Air Room Air Intake Visit Reasons: Right saphenous Sprint Allergies naproxen [From Naprosyn] Allergy (Verified 02/21/24 10:08) swelling HPI HPI Right saphenous Sprint: Details: Patient presents for scheduled procedure. Denies any recent cough, cold, infection, fever or other significant changes in medical history since last office visit. [facility] Medical History Environmental allergies Osteoarthritis of right knee Deformity of right hand Diabetes mellitus Barretts esophagus Hyperlipidemia Diabetes Chronic chest pain Hypertension Surgical History H/O right inguinal hernia repair Status post total knee replacement, left History of esophagogastroduodenoscopy (EGD) History of hand surgery History of surgery History of lumbar fusion S/P CABG (coronary artery bypass graft) H/O neck surgery Hx of CABG (~2017) Family History Father Diabetes Hypertension Mother Diabetes Hypertension Son No problems noted. Son No problems noted. Son No problems noted. Daughter No problems noted. Daughter No problems noted. 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 ( disabled) Do you presently have visiting nurse or other home services: No Alcohol intake: former Comment: new ice packs placed Patient Tobacco Use Status: Never used Tobacco service: No Current occupational status: disabled Current occupation: rt handed Cognitive needs: No Hearing needs: No Vision needs: No Physical Exam Vital Signs: Last Vital Signs Pulse 76 02/17/24 11:01 BP 141/68 H 02/17/24 11:01 Pulse Ox 96 02/17/24 11:01 Oxygen Delivery Method Room Air 02/17/24 11:01 Office Procedures Details: Peripheral Nerve Stimulation Temporary Lead Placement, Ultrasound-Guided, Saphenous Nerve, Right ? After the risks, benefits and alternatives were discussed with the patient and informed consentwas obtained, patient was placed in the supine position and padded to foster comfort. Appropriate skin and bony landmarks were identified, and pertinent vascular structures were located. The skin overlying the needle entry site was prepped and draped in sterile fashion. Ultrasound was used to identify the femoral artery, the femoral vein and the saphenous nerve. After identifying and marking the intended target along the course of the saphenous nerve, the skin around the planned entry point and the subcutaneous tissues were injected with local anesthetic. An introducer needle and stimulating probe were assembled, inserted and advanced along the intended course of the saphenous; nerve, taking care to maintain the proper depth of insertion as the introducer was advanced under ultrasound guidance. The introducer needle was delivered to a location in proximity to the nerve taking care not to puncture the femoral artery or the vein. Multiple stimulation parameters were used to deliver stimulation to the saphenous nerve in concert with stimulating at multiple positions around the nerve. Nerve target acquisition was confirmed noting generation of sensory and mild motor effects (paresthesia, muscle tension, etc) in the medial knee, leg and ankle; corresponding to the distribution of the saphenous nerve. Various electrical parameter combinations were tested, and the lead location was adjusted (physica lly relocated under ultrasound guidance) until the patient indicated medial knee paresthesia and tension overlapping the distribution of the patient?s typical region of pain. The stimulating probe was removed from the introducer and a percutaneous lead was guided through the needle and delivered to a location in similar proximity to the nerve. Final location was verified with electrical stimulation and documented. The introducer needle was removed, and the exposed end of the percutaneous lead was attached to an external stimulator unit. Various electrical parameter combinations were again tested until the patient indicated paresthesia and muscle tension overlapping the distribution of the patient?s typical region of pain. After confirming that lead impedance was in the normal range, the external unit was detached, the needle was removed, and the lead was anchored at the skin. The lead was threaded into the connector block and electrical continuity and desired patient response was confirmed. The connector block was attached to the external stimulator unit. The site was covered with a sterile occlusive dressing. A final ultrasound image was taken to document final placement. The patient was observed for stability of vital signs and comfort. Sprint PNS Device: Sprint PNS Device [id number] Percutaneous Peripheral Neuroelectrode Procedure: 46002 - Percutaneous Peripheral Neuroelectrode Procedure code (CPT) selection complete Office Meds lidocaine HCl 10 mg/mL (1 %) injection solution Performing Provider: Tessa Worrell APRN, ED Performing Location: [facility] [place] [facility] Administered by: Indigo Bermeo LPN on 02/17/24 10:31 Dose Route Admin Location Dispensed Lot Number Expiration Date NDC Eating Disorder Specialist 5 mL subcut 5 mL Assessment & Plan Assessment & Plan (1) Status post total right knee replacement: Code(s): Z96.651 - Presence of right artificial knee joint Category: Surgical (2) Postoperative stiffness of total knee replacement: Code(s): T84.89XA - Other specified complication of internal orthopedic prosthetic devices, implants and grafts, initial encounter; M25.669 - Stiffness of unspecified knee, not elsewhere classified; Z96.659 - Presence of unspecified artificial knee joint Category: Medical (3) Right knee pain: Code(s): M25.561 - Pain in right knee Category: Medical Plan Patient is status post temporary right saphenous nerve stimulator placement. Patient tolerated procedure well and was discharged home in stable condition with discharge instructions. All questions were answered. We will follow-up via telephone or in clinic to assess response to therapy. A follow-up appointment was made during today's visit. Orders: Orders US guide needle placement 02/17/24 M25.561 - Pain in right knee AMB Sprint PNS 02/17/24 M25.561 - Pain in right knee Coding Level of Care Code Procedure Only Diagnoses Status post total right knee replacement Z96.651 Postoperative stiffness of total knee replacement T84.89XA; M25.669; Z96.659 Right knee pain M25.561 CPT Codes Sprint PNS - Sprint PNS Device: Sprint PNS Device ([id number]) Sprint PNS - SPRINT: 62362 - Percutaneous Peripheral Neuroelectrode ([id number]) Implantable Device Implantable Device Implantable Devices Qty Eating Disorder Specialist Implant Date Expiration Date Analgesic PENS system 1 [employer] 02/17/24 03/01/25 Coated knee femur prosthesis 1 [employer] 03/04/21 06/05/23 Coated knee tibia prosthesis 1 [employer] 03/04/21 12/05/25 Metal-backed patella prosthesis [facility] [employer] 03/04/21 10/02/25 Tibial insert 1 [facility] [employer] 03/04/21 11/25/25
[2024-02-17 11:01] VITALS: BP 141/68; PULSE 76; O2SAT 96
--- OUTSIDE RECORDS SUMMARY | 2024-02-18 14:37 | XMS_ITS | Continuity of Care Document ---
Author Organization [facility] Address [address] [place] [address]- Care Team Providers Care Zinc Furnace Charger Name Role Phone Fadumo RUSSELL, Britney Daniel Primary Care Physic nicola [place] [facility] [place] - 08/29/22 [facility] [address] [address]- Attending Physician: Admtr, Ar8 Admitting Physician: Admtr, Ar8 Referring Physician: Admtr, Ar8 Allergies, Adverse Reactions, Alerts Substance Reaction Severity Status naproxen Active Immunizations Given and Recorded Vaccine Date Status Refusal Reason SARS-CoV-2 mRNA (tzzuvot-byxf-kvrey) vax 1 07/28/21 Given SARS-CoV-2 (COVID-19) mRNA BNT-162b2 vac 2 02/03/21 Given SARS-CoV-2 (COVID-19) mRNA BNT-162b2 vac 06/24/20 Recorded SARS-CoV-2 (COVID-19) mRNA BNT-162b2 vac 06/03/20 Recorded influenza virus vaccine, inactivated 3 02/03/21 Gi farooq influenza virus vaccine, inactivated 01/23/20 Ryan rded influenza virus vaccine, inactivated 4 02/08/19 Gi farooq influenza virus vaccine, inactivated 02/25/17 Ryan rded influenza virus vaccine, inactivated 01/24/16 Ryan rded influenza virus vaccine, inactivated 12/25/14 Ryan rded influenza virus vaccine, inactivated 02/05/14 Ryan rded influenza virus vaccine, inactivated 01/03/13 Ryan rded zoster vaccine, inactivated 03/21/18 Recorded zoster vaccine, inactivated 03/14/17 Recorded hepatitis B adult vaccine 03/21/18 Recorded hepatitis B adult vaccine 03/21/18 Recorded hepatitis B adult vaccine 11/12/16 Recorded hepatitis B adult vaccine 01/24/16 Recorded Influenza Virus Vaccine (oldterm) 12/30/17 Recorde d pneumococcal 23-valent vaccine 11/12/16 Recorded pneumococcal 13-valent vaccine 12/25/14 Recorded tetanus/diphtheria/pertussis, acel(Tdap) 02/05/14 Recorded Flu Vaccine 12/22/10 Recorded Flu Vaccine 02/02/02 Recorded influ virus vac, H1N1, inactive(oldterm) 5 03/25/09 Given 1Result Comment: [facility]: [address]-1 2Result Comment: [facility]: 31716-818-8 3Result Comment: [facility]: 69042-763-87 4Result Comment: Flu High Dose [facility] 86611-820-80 5Admin Note: SANOFI-PASTEUR VIS 09/25/2008 Medications aspirin 81 mg oral delayed release tablet 81 mg, 1, tablet, By Mouth, Daily, # 30 tablet, Refills 0, Maintenance, 10/10/18 10:08:15 EDT Start Date: 10/10/18 Status: Ordered atorvastatin 80 mg oral tablet 1 tablet, By Mouth, Daily, # 90 tablet, 1 Refills, Maintenance, 05/14/22 9:43:00 EST, [facility] #[id number], 176, cm, 03/02/22 13:43:00 EST, Height, 83.1, kg, 07/10/21 8:54:00 EDT, Dry Weight Start Date: 05/14/22 Status: Ordered azelastine 137 mcg/inh (0.1%) nasal spray 2 sprays, Nares, Both, Daily, PRN Other Allergies, # 30 mL, 1 Refills, Maintenance, 10/02/20 10:16:00 EDT, [place], [facility] #[id number], Partial fill upon patient request if the prescription is for a schedule II opioid drug., 2 sprays Nares, B... Start Date: 10/02/20 Status: Ordered Blood Pressure Monitor See Instructions, # 1 each, Maintenance, Check BP once daily; ; ICD10: I10; Length of neede: Lifetime, 07/01/20 12:08:00 EDT, Check BP once daily; ; ICD10: I10; Length of neede: Lifetime, Supply Start Date: 07/01/20 Status: Ordered celecoxib 200 mg oral capsule 0 Refills, Maintenance, 04/03/21 9:21:00 EST, Partial fill upon patient request if the prescriptionis for a schedule II opioid drug. Start Date: 04/03/21 Status: Ordered FreeStyle [place] 2 Monitor See Instructions, # 1 each, Maintenance, Use to test daily for Diabetes Type 2 DX: E11.9, 01/19/22 12:11:00 EDT, Supply Start Date: 01/19/22 Status: Ordered Golytely - oral powder for reconstitution 240 mL, By Mouth, Every 15 minutes, Start prep at 5 pm the night before the procedure. Take 1/2 of the prep Take the othe 1/2 6 hours before the procedure, # 1 each, 0 Refills, Maintenance, 08/26/22 16:59:00 EDT, REC Powder, [facility] #[id number]... Start Date: 08/26/22 Status: Ordered Lantus Solostar Pen 100 units/mL subcutaneous solution = 34 units, Subcutaneous Injection, Daily at bedtime, # 15 mL, 1 Refills, Maintenance, 07/14/22 13:00:00 EDT, Solution, [facility] #[id number], 176, cm, 03/02/22 13:43:00 EST, Height, 83.1, kg, 07/10/21 8:54:00 EDT, Dry Weight Start Date: 07/14/22 Status: Ordered lisinopril 2.5 mg oral tablet 1, tablet, By Mouth, Daily, # 30 tablet, Refills 5, Maintenance, 03/11/22 19:46:00 EST, Route to Pharmacy Electronically, [facility] #[id number], 176, cm, 03/02/22 13:43:00 EST, Height, 83.1, kg, 07/10/21 8:54:00 EDT, Dry Weight Start Date: 03/11/22 Status: Ordered Lyrica 100 mg oral capsule 1 capsule = 100 mg, By Mouth, 2 times a day, # 56 capsule, 1 Refills, Maintenance, 08/10/22 13:31:00 EDT, Capsule, [facility] #[id number], 176, cm, 07/30/22 9:38:00 EDT, Height, 83.1, kg, 07/10/21 8:54:00 EDT, Dry Weight Start Date: 08/10/22 Stop Date: 10/05/22 Status: Ordered Lyrica 100 mg oral capsule 1 capsule = 100 mg, By Mouth, 2 times a day, for 28 days, # 56 capsule, 1 Refills, Hard Stop 09/04/22 8:38:00 EDT, 07/10/22 8:38:00 EDT, Capsule, [facility] #[id number], 176, cm, 03/02/22 13:43:00 EST, Height, 83.1, kg, 07/10/21 8:54:00 EDT, Dry... Start Date: 07/10/22 Stop Date: 09/04/22 Status: Ordered metoprolol 50 mg oral tablet 50 mg, 1, tablet, By Mouth, 2 times a day, # 180 tablet, Refills 1, Tot. Refills 1, Maintenance, 07/28/19 16:25:00 EDT, Route to Pharmacy Electronically, [facility] #[id number], 176, cm, 07/14/19 9:19:00 EDT, Height Start Date: 07/28/19 Stop Date: 01/24/20 Status: Ordered omeprazole 40 mg oral enteric coated capsule TAKE 1 CAPSULE BY MOUTH DAILY Start Date: 03/02/22 Status: Ordered PEG-3350 with Electrolytes (Eqv-NuLYTELY) oral powder for reconstitution See Instructions, as directed, # 1 each, 0 Refills, Maintenance, 06/02/21 12:52:00 EST, [facility] #[id number], ok to sub for any gallon prep, as directed, 176, cm, 06/02/21 10:53:00 EST, Height, 83.6, kg, 07/01/20 11:06:00 EDT, Dry Weight Start Date: 06/02/21 Status: Ordered Pen [place], 31 G x 5 mm BD Ultra Fine III See Instructions, # 1 box, Refills 11, Tot. Refills 11, Maintenance, Use to inject insulin daily for DM2, E11.9, 10/14/18 12:32:54 EDT, Compound Start Date: 10/14/18 Status: Ordered Pen [place], 31 G x 8 mm BD Ultra Fine III See Instructions, # 100 each, Refills 1, Tot. Refills 1, Maintenance, Use with lantus to test once daily and Trulicity to test once weekly insulins as instructed Dx: Type 2 DM ICD 10 : E11.9, 08/16/20 13:40:00 EDT, Compound, 176, cm, 07/01/20 11:06... Start Date: 08/16/20 Status: Ordered terbinafine 250 mg oral tablet TAKE 1 TABLET BY MOUTH DAILY Start Date: 03/02/22 Status: Ordered Trulicity Pen 1.5 mg/0.5 mL subcutaneous solution See Instructions, ADMINISTER 1.5 MG UNDER THE SKIN EVERY WEEK, # 2 mL, 1 Refills, Maintenance, 06/30/22 11:06:00 EDT, [facility] #[id number], 176, cm, 03/02/22 13:43:00 EST, Height, 83.1, kg, 07/10/21 8:54:00 EDT, Dry Weight Start Date: 06/30/22 Status: Ordered Problem List Condition Confirmation Course Effective Dates Status H ealth Status Informant ABDOMINAL PAIN Confirmed 11/09/08 Active Anemia Confirmed Active Atherosclerosis Confirmed Active Robles's esophagus Confirmed Active CAD - Coronary artery disease Confirmed 11/09/08 Active Chronic pain syndrome Confirmed 11/09/08 Active Atherosclerotic heart disease of [place] coronary artery without angina pectoris Confirmed Active 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/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 Diabetes mellitus - adult onset Confirmed 11/09/08 Active Dilated cardiomyopathy Confirmed 11/09/08 Active Dyspepsia Confirmed 11/09/08 Active Family history of cancer of colon Confirmed 11/09/08 Active Gastroesophageal reflux disease Confirmed 11/09/08 Active Hiatal hernia Confirmed Active Hyperlipidemia Confirmed 11/09/08 Active HYPERTENSION Confirmed 11/09/08 Active Skin lesion of face Confirmed Active Low back pain Confirmed Active Type II diabetes mellitus, well controlled Confirmed Active Social History Social History Type Response Smoking Status Never (less than 100 in lifetime) entered on: 12/30/18 Sex Patient Care team information Care Team Personnel Name: Fadumo RUSSELL, Britney Daniel Position: S Physician - Primary Care Member Role: PCP Address: Address: [address] [place] [address]- Care Team Related Persons Name: SCOTT WEIR Address: [address] [place] [address] Name: AUSTIN GUAJARDO Address: home [address] [place] [address]
--- OUTSIDE RECORDS SUMMARY | 2024-02-18 14:37 | XMS_ITS | Continuity of Care Document ---
Author Organization [facility] Address [address] [place] [address]- Care Team Providers Care Quality Control Inspector Name Role Phone Antwan Ramirez MD Primary Care Physician [phone] [place] [facility] [place] [facility] [address] [place], [place] [address] Allergies, Adverse Reactions, Alerts Substance Reaction Severity Status naproxen Active Immunizations Given and Recorded Vaccine Date Status Refusal Reason SARS-CoV-2(COVID-19)mRNA-LNP vac([id number]) 01/28/23 Recorded influenza virus vaccine, inactivated 1 01/06/23 Gi farooq influenza virus vaccine, inactivated 2 02/03/21 Gi farooq influenza virus vaccine, inactivated 01/23/20 Ryan rded influenza virus vaccine, inactivated 3 02/08/19 Gi farooq influenza virus vaccine, inactivated 02/25/17 Ryan rded influenza virus vaccine, inactivated 01/24/16 Ryan rded influenza virus vaccine, inactivated 12/25/14 Ryan rded influenza virus vaccine, inactivated 02/05/14 Ryan rded influenza virus vaccine, inactivated 01/03/13 Ryan rded SARS-CoV-2 mRNA (pibavvb-arhl-eyzaw) vax 4 07/28/21 Given SARS-CoV-2 (COVID-19) mRNA BNT-162b2 vac 5 02/03/21 Given SARS-CoV-2 (COVID-19) mRNA BNT-162b2 vac 06/24/20 Recorded SARS-CoV-2 (COVID-19) mRNA BNT-162b2 vac 06/03/20 Recorded zoster vaccine, inactivated 03/21/18 Recorded zoster vaccine, [...] 02/02/02 Recorded influ virus vac, H1N1, inactive(oldterm) 6 03/25/09 Given 1Result Comment: [facility] [id number] 2Result Comment: [facility]: [id number] 3Result Comment: Flu High Dose [facility] 85889-172-30 4Result Comment: [facility]: [address]-7 5Result Comment: [facility]: 22903-193-8 6Admin Note: SANOFI-PASTEUR VIS 09/25/2008 Medications aspirin 81 mg oral delayed release tablet 81 mg, 1, tablet, By Mouth, Daily, # 30 tablet, Refills 0, Maintenance, 10/10/18 10:08:15 EDT Start Date: 10/10/18 Status: Ordered atorvastatin 80 mg oral tablet 1 tablet, By Mouth, Daily, # 90 tablet, 1 Refills, Maintenance, 02/22/23 19:45:00 EST, [facility] #[id number], 176, cm, 01/22/23 15:09:00 EDT, Height, 83.6, kg, 09/10/22 9:14:00 EDT, Dry Weight Start Date: 02/22/23 Status: Ordered B 100 Complex oral tablet 1 tablet, By Mouth, Daily, # 100 tablet, 3 Refills, Maintenance, 09/22/23 12:13:00 EDT, Tablet, [facility] #[id number], Partial fill upon patient request if the prescription is for a schedule IIopioid drug., 1 tablet By Mouth Daily, 176, cm, ... Start Date: 09/22/23 Status: Ordered Basaglar KwikPen 100 units/mL subcutaneous solution = 40 units, Subcutaneous Infusion, Daily, # 45 mL, 1 Refills, Maintenance, 07/15/23 17:18:00 EDT, [facility] #[id number], Partial fill upon patient request if the prescription is for a schedule II opioid drug., 176, cm, 06/23/23 9:08:00 EDT, [place]... Start Date: 07/15/23 Status: Ordered FreeStyle [place]ora[place] 2 Monitor See Instructions, # 1 each, Maintenance, Use to test daily for Diabetes Type 2 DX: E11.9, 01/19/22 12:11:00 EDT, Supply Start Date: 01/19/22 Status: Ordered Freestyle [place] Sensor See Instructions, # 6 each, Refills 1, Tot. Refills 1, Maintenance, Apply every 14 days. use as directed for Type 2 Diabetes Mellitus, 04/10/23 9:21:00 EST, 14 days, Supply, 176, cm, 01/22/23 15:09:00 EDT, Height, 83.6, kg, 09/10/22 9:14:00 EDT, Dry W... Start Date: 04/10/23 Stop Date: 06/09/23 Status: Ordered lisinopril 10 mg oral tablet 10 mg, 1, tablet, By Mouth, Daily, # 90 tablet, Refills 1, Tot. Refills 1, Maintenance, 09/28/23 15:12:00 EDT, Route to Pharmacy Electronically, [facility] #[id number], Partial fill upon patientrequest if the prescription is for a schedule II op... Start Date: 09/28/23 Status: Ordered Lyrica 100 mg oral capsule 1 capsule = 100 mg, By Mouth, 2 times a day, # 180 capsule, 1 Refills, Maintenance, 08/30/23 13:09:00 EDT, Capsule, [facility] #[id number], 176, cm, 06/23/23 9:08:00 EDT, Height, 83.6, kg, 09/10/22 9:14:00 EDT, Dry Weight Start Date: 08/30/23 Status: Ordered metFORMIN 1000 mg oral tablet 1 tablet = 1,000 mg, By Mouth, 2 times a day, # 180 tablet, 0 Refills, Maintenance, 09/22/23 12:04:00 EDT, Tablet, Partial fill upon patient request if the prescription is for a schedule II opioid drug. Start Date: 09/22/23 Status: Ordered metoprolol 50 mg oral tablet 50 mg, 1, tablet, By Mouth, 2 times a day, # 180 tablet, Refills 1, Tot. Refills 1, Maintenance, 07/28/19 16:25:00 EDT, Route to Pharmacy Electronically, [id number], 176, cm, 07/14/19 9:19:00 EDT, Height Start Date: 07/28/19 Stop Date: 01/24/20 Status: Ordered Mounjaro Subcutaneous Infusion, 0 Refills, Maintenance, 09/22/23 12:03:00 EDT, Partial fill upon patient request if the prescription is for a schedule II opioid drug. Start Date: 09/22/23 Status: Ordered omeprazole 40 mg oral enteric coated capsule TAKE 1 CAPSULE BY MOUTH DAILY Start Date: 03/02/22 Status: Ordered Pen [place], 32 G x 4 mm BD Ultra Fine III See Instructions, # 300 each, Refills 3, Tot. Refills 3, Maintenance, Use to inject insulin TID Dx E11.65, 08/13/23 13:46:00 EDT, Supply, 176, cm, 06/23/23 9:08:00 EDT, Height, 83.6, kg, 09/10/22 9:14:00 EDT, Dry Weight Start Date: 08/13/23 Status: Ordered Problem List Condition Confirmation Course Effective Dates Status H ealth Status Informant Anemia Confirmed Active Robles's esophagus, 2009; not on EGD 2021 Confirmed Active CAD; s/p CABG; [facility] Confirmed 11/09/08 Active Dilated cardiomyopathy Confirmed 11/09/08 Active Dyspepsia Confirmed 11/09/08 Active Family history of cancer of colon Confirmed 11/09/08 Active Functional abdominal pain syndrome Confirmed 11/09/08 Active Gastroesophageal reflux disease Confirmed 11/09/08 Active Hiatal hernia Confirmed Active Hyperlipidemia Confirmed 11/09/08 Active HYPERTENSION Confirmed 11/09/08 Active Low back pain; [facility] Confirmed Active Chronic knee pain Confirmed Active Diabetes mellitus, type II; Dr Aguilar Confirmed Active Social History Social History Type Response Smoking Status Never (less than 100 in lifetime) entered on: 12/30/18 Sex Patient Care team information Care Team Personnel Name: Antwan Ramirez MD Position: [facility] Physician - Primary Care Member Role: PCP Address: Address: [address] [place] [address]- Care Team Related Persons Name: SCOTT WEIR Address: home [address] [place] [address] Name: AUSTIN GUAJARDO Address: [address] [place] [address]
--- OUTSIDE RECORDS SUMMARY | 2024-02-18 14:37 | XMS_ITS | Continuity of Care Document ---
Author Organization [facility] Address [address] [place] [address]- Care Team Providers Care Cook Seafood Name Role Phone Fadumo RUSSELL, Britney Daniel Primary Care Physic nicola Encounter [facility] Date(s): 10/15/22 - 11/14/22 [facility] [address] [place] [address]- [place] Allergies, Adverse Reactions, Alerts Substance Reaction Severity Status naproxen Active Immunizations Given and Recorded Vaccine Date Status Refusal Reason SARS-CoV-2 mRNA (quiammi-lbtg-ogobz) vax 1 07/28/21 Given SARS-CoV-2 (COVID-19) mRNA [...] H1N1, inactive(oldterm) 5 03/25/09 Given 1Result Comment: [facility]: [id number] 2Result Comment: [facility]: 34978-293-8 3Result Comment: [facility]: 39060-701-75 4Result Comment: Flu High Dose [facility] 78004-675-33 5Admin Note: SANOFI-PASTEUR VIS 09/25/2008 Medications aspirin 81 mg oral delayed release tablet 81 mg, 1, tablet, By Mouth, Daily, # 30 tablet, Refills 0, Maintenance, 10/10/18 10:08:15 EDT Start Date: 10/10/18 Status: Ordered atorvastatin 80 mg oral tablet 1 tablet, By Mouth, Daily, # 90 tablet, 1 Refills, Maintenance, 09/02/22 13:05:00 EDT, [facility] #[id number], 176, cm, 07/30/22 9:38:00 EDT, Height, 83.1, kg, 07/10/21 8:54:00 EDT, Dry Weight Start Date: 09/02/22 Status: Ordered azelastine 137 mcg/inh (0.1%) nasal spray 2 sprays, Nares, Both, Daily, PRN Other Allergies, # 30 mL, 1 Refills, Maintenance, 10/02/20 10:16:00 EDT, [place], [facility] #[id number], Partial fill upon patient request if the [...] Refills, Maintenance, 08/26/22 16:59:00 EDT, REC Powder, [facility] #[id number]... Start Date: 08/26/22 Status: Ordered Lantus Solostar Pen 100 units/mL subcutaneous solution = 34 units, Subcutaneous Injection, Daily at bedtime, # 15 mL, 1 Refills, Maintenance, 10/15/22 15:46:00 EDT, Solution, [facility] #[id number], 176, cm, 07/30/22 9:38:00 EDT, Height, 83.6, kg, 09/10/22 9:14:00 EDT, Dry Weight Start Date: 10/15/22 Status: Ordered lisinopril 2.5 mg oral tablet 1, tablet, By Mouth, Daily, # 90 tablet, Refills 0, Tot. Refills 0, Maintenance, 10/16/22 9:14:00 EDT, Route to Pharmacy Electronically, [facility] #[id number], 176, cm, 07/30/22 9:38:00 EDT, Height, 83.6, kg, 09/10/22 9:14:00 EDT, Dry Weight Start Date: 10/16/22 Status: Ordered Lyrica 100 mg oral capsule 1 capsule = 100 mg, By Mouth, 2 times a day, # 56 capsule, 0 Refills, Maintenance, 10/15/22 17:35:00 EDT, Capsule, [facility] #[id number], 176, cm, 07/30/22 9:38:00 EDT, Height, 83.6, kg, 09/10/22 9:14:00 EDT, Dry Weight Start Date: 10/15/22 Stop Date: 11/12/22 Status: Ordered metoprolol 50 mg oral tablet 50 mg, 1, tablet, By Mouth, 2 times a day, # 180 tablet, Refills 1, Tot. Refills 1, Maintenance, 07/28/19 16:25:00 EDT, Route to Pharmacy Electronically, [facility] #[id number], 176, cm, 07/14/19 9:19:00 EDT, Height Start Date: 07/28/19 Stop Date: 01/24/20 Status: Ordered omeprazole 40 mg oral enteric coated capsule TAKE 1 CAPSULE BY MOUTH DAILY Start Date: 03/02/22 Status: Ordered PEG-3350 with Electrolytes (Eqv-NuLYTELY) oral powder for reconstitution See Instructions, as directed, # 1 each, 0 Refills, Maintenance, 06/02/21 12:52:00 EST, [facility] #[id number], ok to sub for any gallon prep, as directed, 176, cm, 06/02/21 10:53:00 EST, Height, 83.6, kg, 07/01/20 11:06:00 EDT, Dry Weight Start Date: 06/02/21 Status: Ordered Pen [place], 31 G x 5 mm BD Ultra Fine III See Instructions, # 1 box, Refills 11, Tot. Refills 11, Maintenance, Use to inject insulin daily for DM2, E11.9, 10/14/18 12:32:54 EDT, Compound Start Date: 10/14/18 Status: Ordered Pen [place], 31 G x 8 mm BD Ultra [...] mL, 1 Refills, Maintenance, 06/30/22 11:06:00 EDT, [facility] #[id number], 176, cm, 03/02/22 13:43:00 EST, Height, 83.1, kg, 07/10/21 8:54:00 EDT, Dry Weight Start Date: 06/30/22 Status: Ordered Problem List Condition Confirmation Course Effective Dates Status H ealth Status Informant ABDOMINAL PAIN Confirmed 11/09/08 Active Anemia Confirmed Active Atherosclerosis Confirmed Active Robles's esophagus Confirmed Active CAD - Coronary artery disease Confirmed 11/09/08 Active Chronic pain syndrome Confirmed 11/09/08 Active Atherosclerotic heart disease of [place] coronary artery without angina pectoris Confirmed Active [...] Primary Care Member Role: PCP Address: Address: [address] [place] [address]- Care Team Related Persons Name: SCOTT WEIR Address: [address] [place] [address] Name: AUSTIN GUAJARDO Address: [address] [place] [address]
--- OUTSIDE RECORDS SUMMARY | 2024-02-18 14:37 | XMS_ITS | Continuity of Care Document ---
Author Organization [facility] Address [address] [place] [address]- Care Team Providers Care Contract Recruiter Name Role Phone Antwan Ramirez MD Primary Care Physician [phone] Encounter [facility] Date(s): 09/15/23 - 10/16/[address] [address] Attending Physician: Belia Lee MD Admitting Physician: Belia Lee MD Referring Physician: Antwan Ramirez MD Allergies, Adverse Reactions, Alerts Substance Reaction Severity Status naproxen Active Immunizations Given and Recorded Vaccine Date Status Refusal Reason SARS-CoV-2(COVID-19)mRNA-LNP vac([id number]) 01/28/23 Recorded influenza virus vaccine, inactivated 1 [...] vaccine, inactivated 01/03/13 Ryan rded SARS-CoV-2 mRNA (cmlsvat-czmr-qzolj) vax 4 07/28/21 Given SARS-CoV-2 (COVID-19) mRNA [...] H1N1, inactive(oldterm) 6 03/25/09 Given 1Result Comment: [facility] [id number] 2Result Comment: [facility]: [id number] 3Result Comment: Flu High Dose [facility] 48956-781-75 4Result Comment: [facility]: [id number] 5Result Comment: [facility]: [id number] 6Admin Note: SANOFI-PASTEUR VIS 09/25/2008 Medications aspirin 81 mg oral delayed release tablet 81 mg, 1, tablet, By Mouth, Daily, # 30 tablet, Refills 0, Maintenance, 10/10/18 10:08:15 EDT Start Date: 10/10/18 Status: Ordered atorvastatin 80 mg oral tablet 1 tablet, By Mouth, Daily, # 90 tablet, 1 Refills, Maintenance, 02/22/23 19:45:00 EST, [facility] #[id number], 176, cm, 01/22/23 15:09:00 EDT, Height, 83.6, kg, 09/10/22 9:14:00 EDT, Dry Weight Start Date: 02/22/23 Status: Ordered B 100 Complex oral tablet 1 tablet, By Mouth, Daily, # 100 tablet, 3 Refills, Maintenance, 09/22/23 12:13:00 EDT, Tablet, [facility] #[id number], Partial fill upon patient request if the prescription is for a schedule IIopioid drug., 1 tablet By Mouth Daily, 176, cm, ... Start Date: 09/22/23 Status: Ordered Basaglar KwikPen 100 units/mL subcutaneous solution = 40 units, Subcutaneous Infusion, Daily, # 45 mL, 1 Refills, Maintenance, 07/15/23 17:18:00 EDT, [facility] #[id number], Partial fill upon patient request if the [...] 09/28/23 15:12:00 EDT, Route to Pharmacy Electronically, [facility] #[id number], Partial fill upon patientrequest if the prescription is for a schedule II op... Start Date: 09/28/23 Status: Ordered Lyrica 100 mg oral capsule 1 capsule = 100 mg, By Mouth, 2 times a day, # 180 capsule, 1 Refills, Maintenance, 08/30/23 13:09:00 EDT, Capsule, [facility] #[id number], 176, cm, 06/23/23 9:08:00 EDT, Height, 83.6, [...] 07/28/19 16:25:00 EDT, Route to Pharmacy Electronically, [facility] #[id number], 176, cm, 07/14/19 9:19:00 EDT, Height Start Date: 07/28/19 Stop Date: 01/24/20 Status: Ordered Mounjaro Subcutaneous Infusion, 0 Refills, Maintenance, 09/22/23 12:03:00 EDT, Partial fill upon patient request if the prescription is for a schedule II opioid drug. Start Date: 09/22/23 Status: Ordered omeprazole 40 mg oral enteric coated capsule TAKE 1 CAPSULE BY MOUTH DAILY Start Date: 03/02/22 Status: Ordered Pen [place], 32 G x 4 mm BD Ultra [...] EGD 2021 Confirmed Active CAD; s/p CABG; [facility] Confirmed 11/09/08 Active Dilated cardiomyopathy Confirmed 11/09/08 Active Dyspepsia Confirmed 11/09/08 Active Family history of cancer of colon Confirmed 11/09/08 Active Functional abdominal pain syndrome Confirmed 11/09/08 Active Gastroesophageal reflux disease Confirmed 11/09/08 Active Hiatal hernia Confirmed Active Hyperlipidemia Confirmed 11/09/08 Active HYPERTENSION Confirmed 11/09/08 Active Low back pain; [facility] Confirmed Active Chronic knee pain Confirmed Active Diabetes mellitus, type II; Dr Aguilar Confirmed Active Social History Social History Type Response Smoking Status Never (less than 100 in lifetime) entered on: 12/30/18 Sex Patient Care team information Care Team Personnel Name: Antwan Ramirez MD Position: [facility] Physician - Primary Care Member Role: PCP Address: Address: [address] [place] [address]- Care Team Related Persons Name: SCOTT WEIR Address: [address] [place] [address] Name: AUSTIN GUAJARDO Address: [address] [place] [address]
--- OUTSIDE RECORDS SUMMARY | 2024-02-18 14:37 | XMS_ITS | Continuity of Care Document ---
Author Organization [facility] Address [address] [place] [address]- Care Team Providers Care Boomswing Operator Name Role Phone Antwan Ramirez MD Primary Care Physician [phone] Encounter [facility] [place] Date(s): 08/13/23 - 09/12/23 [facility] [address] [place], [place] [address] Allergies, Adverse Reactions, Alerts Substance Reaction Severity Status naproxen Active Immunizations Given and Recorded Vaccine Date Status Refusal Reason SARS-CoV-2(COVID-19)mRNA-LNP vac([id number]) 01/28/23 Recorded influenza virus vaccine, inactivated 1 [...] vaccine, inactivated 01/03/13 Ryan rded SARS-CoV-2 mRNA (czzcaix-jsxa-uhzox) vax 4 07/28/21 Given SARS-CoV-2 (COVID-19) mRNA [...] H1N1, inactive(oldterm) 6 03/25/09 Given 1Result Comment: [facility] [id number] 2Result Comment: [facility]: [id number] 3Result Comment: Flu High Dose [facility] [id number] 4Result Comment: [facility]: [id number] 5Result Comment: [facility]: [id number] 6Admin Note: SANOFI-PASTEUR VIS 09/25/2008 Medications aspirin 81 mg oral delayed release tablet 81 mg, 1, tablet, By Mouth, Daily, # 30 tablet, Refills 0, Maintenance, 10/10/18 10:08:15 EDT Start Date: 10/10/18 Status: Ordered atorvastatin 80 mg oral tablet 1 tablet, By Mouth, Daily, # 90 tablet, 1 Refills, Maintenance, 02/22/23 19:45:00 EST, [facility] #[id number], 176, cm, 01/22/23 15:09:00 EDT, Height, 83.6, kg, 09/10/22 9:14:00 EDT, Dry Weight Start Date: 02/22/23 Status: Ordered Basaglar KwikPen 100 units/mL subcutaneous solution = 40 units, Subcutaneous Infusion, Daily, # 45 mL, 1 Refills, Maintenance, 07/15/23 17:18:00 EDT, [facility] #[id number], Partial fill upon patient request if the [...] tablet, Refills 0, Tot. Refills 0, Maintenance, 06/23/23 9:14:00 EDT, Route to Pharmacy Electronically, [facility] #[id number], Partial fill upon patient request if the prescription is for a schedule II opi... Start Date: 06/23/23 Status: Ordered Lyrica 100 mg oral capsule 1 capsule = 100 mg, By Mouth, 2 times a day, # 180 capsule, 1 Refills, Maintenance, 08/30/23 13:09:00 EDT, Capsule, [facility] #[id number], 176, cm, 06/23/23 9:08:00 EDT, Height, 83.6, kg, 09/10/22 9:14:00 EDT, Dry Weight Start Date: 08/30/23 Status: Ordered MetFORMIN (Eqv-Glucophage XR) 500 mg oral tablet, extended release 2 tablet = 1,000 mg, By Mouth, Daily, # 60 tablet, 0 Refills, Maintenance, 08/17/23 8:22:00 EDT, [facility] #[id number], Partial fill upon patient request if the prescription is for a schedule II opioid drug., 176, cm, 06/23/23 9:08:00 EDT, Heigh... Start Date: 08/17/23 Status: Ordered metoprolol 50 mg oral tablet 50 mg, 1, tablet, By Mouth, 2 times a day, # 180 tablet, Refills 1, Tot. Refills 1, Maintenance, 07/28/19 16:25:00 EDT, Route to Pharmacy Electronically, [facility] #[id number], 176, cm, 07/14/19 9:19:00 EDT, Height Start Date: 07/28/19 Stop Date: 01/24/20 Status: Ordered omeprazole 40 mg oral enteric coated capsule TAKE 1 CAPSULE BY MOUTH DAILY Start Date: 03/02/22 Status: Ordered Pen [place], 32 G x 4 mm BD Ultra Fine III See Instructions, # 300 each, Refills 3, Tot. Refills 3, Maintenance, Use to inject insulin TID Dx E11.65, 08/13/23 13:46:00 EDT, Supply, 176, cm, 06/23/23 9:08:00 EDT, Height, 83.6, kg, 09/10/22 9:14:00 EDT, Dry Weight Start Date: 08/13/23 Status: Ordered Trulicity Pen 3 mg/0.5 mL subcutaneous solution 0.5 mL = 3 mg, Subcutaneous Injection, Every week, rotate injection sites, # 6.5 mL, 3 Refills, Maintenance, 08/31/23 14:04:00 EDT, Solution, [facility] #[id number], Partial fill upon patient request if the prescription is for a schedule II opioi... 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 Confirmed Active CAD; s/p CABG; [facility] Confirmed 11/09/08 Active Dilated cardiomyopathy Confirmed 11/09/08 Active Dyspepsia Confirmed 11/09/08 Active Family history of cancer of colon Confirmed 11/09/08 Active Functional abdominal pain syndrome Confirmed 11/09/08 Active Gastroesophageal reflux disease Confirmed 11/09/08 Active Hiatal hernia Confirmed Active Hyperlipidemia Confirmed 11/09/08 Active HYPERTENSION Confirmed 11/09/08 Active Low back pain; [facility] Confirmed Active Chronic knee pain Confirmed Active Type II diabetes mellitus, well controlled Confirmed Active Social History Social History Type Response Smoking Status Never (less than 100 in lifetime) entered on: 12/30/18 Sex Patient Care team information Care Team Personnel Name: Antwan Ramirez MD Position: S Physician - Primary Care Member Role: PCP Address: Address: [address] [facility] [place] [address]- Care Team Related Persons Name: SCOTT WEIR Address: [address] [place] [address] Name: AUSTIN GUAJARDO Address: [address] [place] [address]
--- OUTSIDE RECORDS SUMMARY | 2024-02-18 14:37 | XMS_ITS | Continuity of Care Document ---
Author Organization [facility] Address [address] [place] [address]- Care Team Providers Care Sewage Disposal Engineer Name Role Phone Fadumo RUSSELL, Britney Daniel Primary Care Physic nicola Encounter [facility] Date(s): 10/09/22 - 11/08/22 [facility] [address] [place] [address]- Allergies, Adverse Reactions, Alerts Substance Reaction Severity Status naproxen Active Immunizations Given and Recorded Vaccine Date Status Refusal Reason SARS-CoV-2 mRNA (jeugcrf-iqxi-ywucc) vax 1 07/28/21 Given SARS-CoV-2 (COVID-19) mRNA [...] H1N1, inactive(oldterm) 5 03/25/09 Given 1Result Comment: [facility]: [id number] 2Result Comment: [facility]: 06702-213-3 3Result Comment: [facility]: [id number] 4Result Comment: Flu High Dose [facility] 32685-236-48 5Admin Note: SANOFI-PASTEUR VIS 09/25/2008 Medications aspirin 81 mg oral delayed release tablet 81 mg, 1, tablet, By Mouth, Daily, # 30 tablet, Refills 0, Maintenance, 10/10/18 10:08:15 EDT Start Date: 10/10/18 Status: Ordered atorvastatin 80 mg oral tablet 1 tablet, By Mouth, Daily, # 90 tablet, 1 Refills, Maintenance, 09/02/22 13:05:00 EDT, [facility] #[id number], 176, cm, 07/30/22 9:38:00 EDT, Height, 83.1, kg, 07/10/21 8:54:00 EDT, Dry Weight Start Date: 09/02/22 Status: Ordered azelastine 137 mcg/inh (0.1%) nasal spray 2 sprays, Nares, Both, Daily, PRN Other Allergies, # 30 mL, 1 Refills, Maintenance, 10/02/20 10:16:00 EDT, [place], [facility] #[id number], Partial fill upon patient request if the [...] Refills, Maintenance, 08/26/22 16:59:00 EDT, REC Powder, [facility] #[id number]... Start Date: 08/26/22 Status: Ordered Lantus Solostar Pen 100 units/mL subcutaneous solution = 34 units, Subcutaneous Injection, Daily at bedtime, # 15 mL, 1 Refills, Maintenance, 10/15/22 15:46:00 EDT, Solution, [facility] #[id number], 176, cm, 07/30/22 9:38:00 EDT, Height, 83.6, kg, 09/10/22 9:14:00 EDT, Dry Weight Start Date: 10/15/22 Status: Ordered lisinopril 2.5 mg oral tablet 1, tablet, By Mouth, Daily, # 90 tablet, Refills 0, Tot. Refills 0, Maintenance, 10/16/22 9:14:00 EDT, Route to Pharmacy Electronically, [facility] #[id number], 176, cm, 07/30/22 9:38:00 EDT, Height, 83.6, kg, 09/10/22 9:14:00 EDT, Dry Weight Start Date: 10/16/22 Status: Ordered Lyrica 100 mg oral capsule 1 capsule = 100 mg, By Mouth, 2 times a day, # 56 capsule, 0 Refills, Maintenance, 10/15/22 17:35:00 EDT, Capsule, [facility] #[id number], 176, cm, 07/30/22 9:38:00 EDT, Height, 83.6, kg, 09/10/22 9:14:00 EDT, Dry Weight Start Date: 10/15/22 Stop Date: 11/12/22 Status: Ordered metoprolol 50 mg oral tablet 50 mg, 1, tablet, By Mouth, 2 times a day, # 180 tablet, Refills 1, Tot. Refills 1, Maintenance, 07/28/19 16:25:00 EDT, Route to Pharmacy Electronically, [facility] #[id number], 176, cm, 07/14/19 9:19:00 EDT, Height Start Date: 07/28/19 Stop Date: 01/24/20 Status: Ordered omeprazole 40 mg oral enteric coated capsule TAKE 1 CAPSULE BY MOUTH DAILY Start Date: 03/02/22 Status: Ordered PEG-3350 with Electrolytes (Eqv-NuLYTELY) oral powder for reconstitution See Instructions, as directed, # 1 each, 0 Refills, Maintenance, 06/02/21 12:52:00 EST, [facility] #[id number], ok to sub for any gallon prep, as directed, 176, cm, 06/02/21 10:53:00 EST, Height, 83.6, kg, 07/01/20 11:06:00 EDT, Dry Weight Start Date: 06/02/21 Status: Ordered Pen [place], 31 G x 5 mm BD Ultra Fine III See Instructions, # 1 box, Refills 11, Tot. Refills 11, Maintenance, Use to inject insulin daily for DM2, E11.9, 10/14/18 12:32:54 EDT, Compound Start Date: 10/14/18 Status: Ordered Pen [place], 31 G x 8 mm BD Ultra [...] mL, 1 Refills, Maintenance, 06/30/22 11:06:00 EDT, [facility] #[id number], 176, cm, 03/02/22 13:43:00 EST, Height, 83.1, kg, 07/10/21 8:54:00 EDT, Dry Weight Start Date: 06/30/22 Status: Ordered Problem List Condition Confirmation Course Effective Dates Status H ealth Status Informant ABDOMINAL PAIN Confirmed 11/09/08 Active Anemia Confirmed Active Atherosclerosis Confirmed Active Robles's esophagus Confirmed Active CAD - Coronary artery disease Confirmed 11/09/08 Active Chronic pain syndrome Confirmed 11/09/08 Active Atherosclerotic heart disease of [place] coronary artery without angina pectoris Confirmed Active [...] Primary Care Member Role: PCP Address: Address: [address] [place] [address]- Care Team Related Persons Name: SCOTT WEIR Address: [address] [place] [address] Name: AUSTIN GUAJARDO Address: [address] [place] [address]
--- OUTSIDE RECORDS SUMMARY | 2024-02-18 14:37 | XMS_ITS | Continuity of Care Document ---
Author Organization [facility] Address [address] [place] [address]- Care Team Providers Care Embedded Engineer Name Role Phone Antwan Ramirez MD Primary Care Physician Encounter [facility] Date(s): 01/25/23 - 02/24/23 [facility] [address] [place], [place] [address] Allergies, Adverse Reactions, Alerts Substance Reaction Severity Status naproxen Active Immunizations Given and Recorded Vaccine Date Status Refusal Reason SARS-CoV-2(COVID-19)mRNA-LNP vac([id number]) 01/28/23 Recorded influenza virus vaccine, inactivated 1 [...] vaccine, inactivated 01/03/13 Ryan rded SARS-CoV-2 mRNA (rxewnmt-rddc-vkqna) vax 4 07/28/21 Given SARS-CoV-2 (COVID-19) mRNA [...] H1N1, inactive(oldterm) 6 03/25/09 Given 1Result Comment: [facility] [id number] 2Result Comment: [facility]: [phone] 3Result Comment: Flu High Dose [facility] [id number] 4Result Comment: [facility]: [id number] 5Result Comment: [facility]: [id number] 6Admin Note: SANOFI-PASTEUR VIS 09/25/2008 Medications aspirin 81 mg oral delayed release tablet 81 mg, 1, tablet, By Mouth, Daily, # 30 tablet, Refills 0, Maintenance, 10/10/18 10:08:15 EDT Start Date: 10/10/18 Status: Ordered atorvastatin 80 mg oral tablet 1 tablet, By Mouth, Daily, # 90 tablet, 1 Refills, Maintenance, 02/22/23 19:45:00 EST, [facility] #[id number], 176, cm, 01/22/23 15:09:00 EDT, Height, 83.6, kg, 09/10/22 9:14:00 EDT, Dry Weight Start Date: 02/22/23 Status: Ordered Blood Pressure Monitor See Instructions, # 1 each, Maintenance, Check BP once daily; ; ICD10: I10; Length of neede: Lifetime, 07/01/20 12:08:00 EDT, Check BP once daily; ; ICD10: I10; Length of neede: Lifetime, Supply Start Date: 07/01/20 Status: Ordered FreeStyle [place] 2 Monitor See Instructions, # 1 each, Maintenance, Use to test daily for Diabetes Type 2 DX: E11.9, 01/19/22 12:11:00 EDT, Supply Start Date: 01/19/22 Status: Ordered Freestyle [place] Sensor See Instructions, # 1 each, Refills 1, Tot. Refills 1, Maintenance, use as directed for Type 2 Diabetes Mellitus, 11/25/22 12:27:00 EDT, 14 days, Supply, 176, cm, 07/30/22 9:38:00 EDT, Height, 83.6, kg, 09/10/22 9:14:00 EDT, Dry Weight Start Date: 11/25/22 Stop Date: 01/24/23 Status: Ordered Lantus Solostar Pen 100 units/mL subcutaneous solution See Instructions, ADMINISTER 34 UNITS UNDER THE SKIN DAILY AT BEDTIME, # 15 mL, 1 Refills, Maintenance, 01/25/23 15:31:00 EDT, [facility] #[id number], 176, cm, 01/22/23 15:09:00 EDT, Height, 83.6, kg, 09/10/22 9:14:00 EDT, Dry Weight Start Date: 01/25/23 Status: Ordered lisinopril 2.5 mg oral tablet See Instructions, TAKE 1 TABLET BY MOUTH DAILY, # 90 tablet, Refills 0, Maintenance, 01/12/23 14:37:00 EDT, Instructions Replace Required Details, Route to Pharmacy Electronically, [facility] #[id number], 176, cm, 01/06/23 8:41:00 EDT, Height, 83... Start Date: 01/12/23 Status: Ordered Lyrica 100 mg oral capsule 1 capsule = 100 mg, By Mouth, 2 times a day, # 180 capsule, 1 Refills, Maintenance, 02/17/23 22:48:00 EST, Capsule, [facility] #[id number], 176, cm, 01/22/23 15:09:00 EDT, Height, 83.6, kg, 09/10/22 9:14:00 EDT, Dry Weight Start Date: 02/17/23 Status: Ordered metoprolol 50 mg oral tablet 50 mg, 1, tablet, By Mouth, 2 times a day, # 180 tablet, Refills 1, Tot. Refills 1, Maintenance, 07/28/19 16:25:00 EDT, Route to Pharmacy Electronically, [facility] #[id number], 176, cm, 07/14/19 9:19:00 EDT, Height Start Date: 07/28/19 Stop Date: 01/24/20 Status: Ordered omeprazole 40 mg oral enteric coated capsule TAKE 1 CAPSULE BY MOUTH DAILY Start Date: 03/02/22 Status: Ordered Pen [place], 31 G x 5 mm BD Ultra Fine III See Instructions, # 1 box, Refills 11, Tot. Refills 11, Maintenance, Use to inject insulin daily for DM2, E11.9, 10/14/18 12:32:54 EDT, Compound Start Date: 10/14/18 Status: Ordered Pen [place], 31 G x 8 mm BD Ultra Fine III See Instructions, # 100 each, Refills 1, Tot. Refills 1, Maintenance, Use with lantus to test once daily and Trulicity to test once weekly insulins as instructed Dx: Type 2 DM ICD 10 : E11.9, 08/16/20 13:40:00 EDT, Compound, 176, cm, 07/01/20 11:06... 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 Confirmed Active CAD; s/p CABG; [facility] Confirmed 11/09/08 Active Chronic pain syndrome Confirmed 11/09/08 Active Dilated cardiomyopathy Confirmed 11/09/08 Active Dyspepsia Confirmed 11/09/08 Active Family history of cancer of colon Confirmed 11/09/08 Active Functional abdominal pain syndrome Confirmed 11/09/08 Active Gastroesophageal reflux disease Confirmed 11/09/08 Active Hiatal hernia Confirmed Active Hyperlipidemia Confirmed 11/09/08 Active HYPERTENSION Confirmed 11/09/08 Active Low back pain Confirmed Active Chronic knee pain Confirmed Active Type II diabetes mellitus, well controlled Confirmed Active Social History Social History Type Response Smoking Status Never (less than 100 in lifetime) entered on: 12/30/18 Sex Patient Care team information Care Team Personnel Name: Antwan Ramirez MD Position: [facility] Physician - Primary Care Member Role: PCP Address: Address: [address] [place] [address]- Care Team Related Persons Name: SCOTT WEIR Address: [address] [place] [address] Name: AUSTIN GUAJARDO Address: [address] [place] [address]
--- OUTSIDE RECORDS SUMMARY | 2024-02-18 14:38 | XMS_ITS | Continuity of Care Document ---
Author Organization [facility] Address [address] [place] [address]- Care Team Providers Care Cardiovascular Surgical Tech Name Role Phone Antwan Ramirez MD Primary Care Physician [phone] [id number]): [facility] - 01/13/23 [facility] [address] [place], [place] [address] Encounter Diagnosis Chronic knee pain(Discharge Diagnosis) - 01/06/23 Attending Physician: Antwan Ramirez MD Allergies, Adverse Reactions, Alerts Substance Reaction Severity Status naproxen Active Immunizations Given and Recorded Vaccine Date Status Refusal Reason influenza virus vaccine, inactivated 1 01/06/23 Gi [...] vaccine, inactivated 01/03/13 Ryan rded SARS-CoV-2 mRNA ([id number]) vax 4 07/28/21 Given SARS-CoV-2 (COVID-19) mRNA [...] H1N1, inactive(oldterm) 6 03/25/09 Given 1Result Comment: [facility][NOTE 3] 10423-624-26 2Result Comment: [facility][NOTE 3]: 42679-926-63 3Result Comment: Flu High Dose [facility][NOTE 3] 26711-621-67 4Result Comment: [facility][NOTE 3]: [address]-4 5Result Comment: [facility][NOTE 3]: 48389-088-8 6Admin Note: SANOFI-PASTEUR VIS 09/25/2008 Medications aspirin 81 mg oral delayed release tablet 81 mg, 1, tablet, By Mouth, Daily, # 30 tablet, Refills 0, Maintenance, 10/10/18 10:08:15 EDT Start Date: 10/10/18 Status: Ordered atorvastatin 80 mg oral tablet 1 tablet, By Mouth, Daily, # 90 tablet, 1 Refills, Maintenance, 09/02/22 13:05:00 EDT, [facility] #[id number], 176, cm, 07/30/22 9:38:00 EDT, Height, 83.1, kg, 07/10/21 8:54:00 EDT, Dry Weight Start Date: 09/02/22 Status: Ordered Blood Pressure Monitor See Instructions, [...] 1 Refills, Maintenance, 10/15/22 15:46:00 EDT, Solution, [facility] #[id number], 176, cm, 07/30/22 9:38:00 EDT, Height, 83.6, kg, 09/10/22 9:14:00 EDT, Dry Weight Start Date: 10/15/22 Status: Ordered lisinopril 2.5 mg oral tablet See Instructions, TAKE 1 TABLET BY MOUTH DAILY, # 90 tablet, Refills 0, Maintenance, 01/12/23 14:37:00 EDT, Instructions Replace Required Details, Route to Pharmacy Electronically, [facility] #[id number], 176, cm, 01/06/23 8:41:00 EDT, Height, 83... Start Date: 01/12/23 Status: Ordered Lyrica 100 mg oral capsule 1 capsule = 100 mg, By Mouth, 2 times a day, # 56 capsule, 0 Refills, Maintenance, 12/15/22 9:16:00EDT, Capsule, [facility] #[id number], 176, cm, 07/30/22 9:38:00 EDT, Height, 83.6, kg, 09/10/22 9:14:00 EDT, Dry Weight Start Date: 12/15/22 Stop Date: 01/12/23 Status: Ordered metoprolol 50 mg oral tablet 50 mg, 1, tablet, By Mouth, 2 times a day, # 180 tablet, Refills 1, Tot. Refills 1, Maintenance, 07/28/19 16:25:00 EDT, Route to Pharmacy Electronically, [facility] #[id number], 176, cm, 07/14/19 9:19:00 EDT, Height Start Date: 07/28/19 Stop Date: 01/24/20 Status: Ordered omeprazole 40 mg oral enteric coated capsule TAKE 1 CAPSULE BY MOUTH DAILY Start Date: 03/02/22 Status: Ordered Pen [place], 31 G x 5 mm BD Ultra Fine III See Instructions, # 1 box, Refills 11, Tot. 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 Confirmed Active CAD; s/p CABG; [facility] Confirmed 11/09/08 Active Chronic pain syndrome [...] II diabetes mellitus, well controlled Confirmed Active Diagnosis Diagnosis Type Effective Dates Health Status Cl inical Service Informant Chronic knee pain Discharge Diagnosis 01/06/23 Procedures Procedure Date Related Diagnosis Body Site Status Total replacement of right knee joint 2017 Completed Hernia repair Completed Operation on lumbar spine Completed Vital Signs Most recent to oldest [Reference Range]: 1 Height 176 cm (01/06/23 8:41 AM) Weight 83.0 kg (01/06/23 8:41 AM) Oxygen Saturation [94-100 %] 100 % (01/06/23 8:41 AM) Pulse Rate [55-90 bpm] 71 bpm (01/06/23 8:41 AM) Body Mass Index [18.5-24.99 kg/m2] 26.79 kg/m2 *H* (01/06/23 8:41 AM) Blood Pressure [90-138/55-84 mm Hg] 129/ 75mm Hg (01/06/23 8:41 AM) Blood pressure sites Arm, right (01/06/23 8:41 AM) Social History Social History Type Response Smoking Status Never (less than 100 in lifetime) entered on: 12/30/18 Sex Note * Kajal Gallego: PERFORM, SIGN, VERIFY Event Display: Patient Education/Instruction Authored Date: [id number] [facility] *[facility] Clinical Summary Name VI GUAJARDO Age 72 Years 1950 PCP Antwan Ramirez MD PCP Visit Date 01/06/2023 08:27:00 Additional Instructions: Scheduled Appointments?? Future Appointments ?*[facility] ?[address] ?[place],??[place],??[address] ?Phone:??--?Fax:??-- ?Appt. Date:??01/22/2023?3:00 PM ?Scheduled Provider:??Belia Lee MD Follow-Up Instructions ?? Diagnosis Medications: Please continue your medications until treatment is completed or stopped by your provider. Discuss any questions related to medications with your provider. Medications to Continue with No Changes These medications were not printed or sent to your pharmacy Aspirin (aspirin 81 mg oral delayed release tablet) 1 tab(s) Oral Daily. Next Dose: Atorvastatin (atorvastatin 80 mg oral tablet) 1 tab(s) Oral Daily. Refills: 1. Next Dose: dulaglutide (Trulicity Pen 1.5 mg/0.5 mL subcutaneous solution) ADMINISTER 1.5 MG UNDER THE SKIN EVERY WEEK. Refills: 1. Next Dose: Durable Medical Equipment (Blood Pressure Monitor) Check BP once daily; ; ICD10: I10; Length of neede: Lifetime. Refills: 0. Next Dose: Durable Medical Equipment (FreeStyle Soraida 2 Monitor) Use to test daily for Diabetes Type 2 DX: E11.9. Refills: 0. Next Dose: Durable Medical Equipment (Freestyle Soraida Sensor) use as directed for Type 2 Diabetes Mellitus. Refills: 1. Next Dose: Durable Medical Equipment (Pen Reagan, 31 G x 5 mm BD Ultra Fine III) Use to inject insulin daily for DM2, E11.9. Refills: 11. Next Dose: Durable Medical Equipment (Pen [place], 31 G x 8 mm BD Ultra Fine III) Use with lantus to test oncedaily and Trulicity to test once weekly insulins as instructed Dx: Type 2 DM ICD 10 : E11.9. Refills: 1. Next Dose: Insulin Glargine (Lantus Solostar Pen 100 units/mL subcutaneous solution) 34 unit(s) Subcutaneous Injection Daily at Bedtime. Refills: 1. Next Dose: Lisinopril (lisinopril 2.5 mg oral tablet) 1 tab(s) Oral Daily. Refills: 0. Next Dose: Metoprolol (metoprolol 50 mg oral tablet) 1 tab(s) Oral twice a day for 90 Days. Refills: 1. Next Dose: Omeprazole (omeprazole 40 mg oral enteric coated capsule) TAKE 1 CAPSULE BY MOUTH DAILY. Next Dose: Pregabalin (Lyrica 100 mg oral capsule) 1 capsule Oral twice a day for 28 Days. Refills: 0. Next Dose: No Longer Take the Following Medications Azelastine Nasal (azelastine 137 mcg/inh (0.1%) nasal spray) 2 spray(s) Nares, Both Daily as neededOther Allergies. Refills: 1. Celecoxib (celecoxib 200 mg oral capsule) PEG Electrolyte Solution (Golytely - oral powder for reconstitution) 240 Milliliter Oral every 15 minutes. Start prep at 5 pm the night before the procedure. Take 1/2 of the prep Take the othe 1/2 6 hours before the procedure. Refills: 0. PEG Electrolyte Solution (PEG-3350 with Electrolytes (Eqv-NuLYTELY) oral powder for reconstitution)as directed. Refills: 0. Terbinafine (terbinafine 250 mg oral tablet) TAKE 1 TABLET BY MOUTH DAILY. Allergy Info:?? naproxen Medications Given This Visit Medication Dose Route influenza virus vaccine, inactivated (influenza virus, inactivated vacc (High Dose)) 0.7 mL Intramuscular Future Orders ?No future orders Vital Signs Height 176 cm Weight 83.0 kg BMI 26.79 kg/m2 Blood Pressure 129 mm Hg/75 mm Hg Temperature Pulse Rate 71 bpm Respiratory Rate 02 Sat Mode of Delivery 100 %/ You can now view a summary of your hospital visit from the comfort of your home through a free online portal called [employer]. [employer] is a website that allows you to securely view your medical information including discharge summary, medications and follow-up visits. ??You can alsosend a secure electronic message to your doctor???s office to request appointments, renew medications or just ask a question. You can enroll at [email or web address] or register during your next office visit. Disclaimer:?? The information provided is of a general nature and is intended to be used in conjunction with the recommendations and advice of your health care practitioner. ??Every effort has been made to ensure that the information provided is accurate and complete at the time it is provided to you however, as your needs change, or, as new ??information becomes available, different or additional instructions may be required. If you have questions, please consult with your primary care provider or pharmacist, as appropriate. ??This information is not intended to serve as substitution for assessment and evaluation by a qualified health care provider. If you do not have a primary care provider, you may find a [facility] provider by calling [facility] [employer] at [phone]. [facility], in keeping with [facility] guidance, no longer requires face masks for staff, patientsor visitors in most situations. Similar to time spent indoors at other locations, there is the chance that you were exposed to respiratory viruses during your time with us (such as flu or COVID-19).? If you develop symptoms concerning for a viral respiratory infection, please seek testing (and treatment if indicated) from your medical provider or home test kit. For information about the plan of care including goals and instructions for your diagnosis, please see the patient education orders section of this document. Patient Education Materials?? The content of this educational material or handout may have been modified, supplemented, or adapted from its original content and format to support your individualized medical care. Patient Care team information Care Team Personnel Name: Antwan Ramirez MD Position: S Physician - Primary Care Member Role: PCP Address: Address: [address] [place] [address]- Care Team Related Persons Name: SCOTT WEIR Address: home [address] [place] [address] Name: AUSTIN GUAJARDO Address: [address] [place] [address]
--- OUTSIDE RECORDS SUMMARY | 2024-02-18 14:38 | XMS_ITS | Continuity of Care Document ---
Author Organization [facility] Address [address] [place] [address]- Care Team Providers Care Fire Protection Inspector Name Role Phone Antwan Ramirez MD Primary Care Physician Encounter [facility] Date(s): 06/16/23 - 07/16/23 [facility] [address] [place] [address]- Allergies, Adverse Reactions, Alerts Substance Reaction Severity Status naproxen Active Immunizations Given and Recorded Vaccine Date Status Refusal Reason SARS-CoV-2(COVID-19)mRNA-LNP vac([id number]) 01/28/23 Recorded influenza virus vaccine, inactivated 1 [...] vaccine, inactivated 01/03/13 Ryan rded SARS-CoV-2 mRNA ([id number]-[id number]) vax 4 07/28/21 Given SARS-CoV-2 (COVID-19) mRNA [...] H1N1, inactive(oldterm) 6 03/25/09 Given 1Result Comment: [facility] 98471-395-91 2Result Comment: [facility]: [phone] 3Result Comment: Flu High Dose [facility] [id number] 4Result Comment: [facility]: [id number] 5Result Comment: [facility]: 45076-255-0 6Admin Note: SANOFI-PASTEUR VIS 09/25/2008 Medications aspirin 81 mg oral delayed release tablet 81 mg, 1, tablet, By Mouth, Daily, # 30 tablet, Refills 0, Maintenance, 10/10/18 10:08:15 EDT Start Date: 10/10/18 Status: Ordered atorvastatin 80 mg oral tablet 1 tablet, By Mouth, Daily, # 90 tablet, 1 Refills, Maintenance, 02/22/23 19:45:00 EST, [facility] #[id number], 176, cm, 01/22/23 15:09:00 EDT, Height, 83.6, kg, 09/10/22 9:14:00 EDT, Dry Weight Start Date: 02/22/23 Status: Ordered Basaglar KwikPen 100 units/mL subcutaneous solution = 40 units, Subcutaneous Infusion, Daily, # 45 mL, 1 Refills, Maintenance, 07/15/23 17:18:00 EDT, [facility] #[id number], Partial fill upon patient request if the [...] 06/23/23 9:14:00 EDT, Route to Pharmacy Electronically, [facility] #[id number], Partial fill upon patient request if the prescription is for a schedule II opi... Start Date: 06/23/23 Status: Ordered Lyrica 100 mg oral capsule 1 capsule = 100 mg, By Mouth, 2 times a day, # 180 capsule, 1 Refills, Maintenance, 02/17/23 22:48:00 EST, Capsule, [facility] #[id number], 176, cm, 01/22/23 15:09:00 EDT, Height, 83.6, kg, 09/10/22 9:14:00 EDT, Dry Weight Start Date: 02/17/23 Status: Ordered metoprolol 50 mg oral tablet 50 mg, 1, tablet, By Mouth, 2 times a day, # 180 tablet, Refills 1, Tot. Refills 1, Maintenance, 07/28/19 16:25:00 EDT, Route to Pharmacy Electronically, [facility] #[id number], 176, cm, 07/14/19 9:19:00 EDT, Height Start Date: 07/28/19 Stop Date: 01/24/20 Status: Ordered omeprazole 40 mg oral enteric coated capsule TAKE 1 CAPSULE BY MOUTH DAILY Start Date: 03/02/22 Status: Ordered Pen [place], 31 G x 8 mm BD Ultra Fine III See Instructions, # 100 each, Refills 1, Tot. Refills 1, Maintenance, Use with lantus to test once daily and Trulicity to test once weekly insulins as instructed Dx: Type 2 DM ICD 10 : E11.9, 08/16/20 13:40:00 EDT, Compound, 176, cm, 07/01/20 11:06... Start Date: 08/16/20 Status: Ordered Trulicity Pen 0.75 mg/0.5 mL subcutaneous solution = 0.75 mg, Subcutaneous Injection, Every week, 2 PENS PER WEEK DUE TO SHORTAGE, # 5 mL, 0 Refills, Maintenance, 06/12/23 21:45:00 EDT, Solution, [facility] #[id number], Partial fill upon patient request if the prescription is for a schedule I... 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 Confirmed Active CAD; s/p CABG; [facility] Confirmed 11/09/08 Active Dilated cardiomyopathy Confirmed 11/09/08 Active Dyspepsia Confirmed 11/09/08 Active Family history of cancer of colon Confirmed 11/09/08 Active Functional abdominal pain syndrome Confirmed 11/09/08 Active Gastroesophageal reflux disease Confirmed 11/09/08 Active Hiatal hernia Confirmed Active Hyperlipidemia Confirmed 11/09/08 Active HYPERTENSION Confirmed 11/09/08 Active Low back pain; [facility] Confirmed Active Chronic knee pain Confirmed Active Type II diabetes mellitus, well controlled Confirmed Active Social History Social History Type Response Smoking Status Never (less than 100 in lifetime) entered on: 12/30/18 Sex Patient Care team information Care Team Personnel Name: Antwan Ramirez MD Position: [facility] Physician - Primary Care Member Role: PCP Address: Address: [address] [place] [address]- Care Team Related Persons Name: SCOTT WEIR Address: home [address] [place] [address] Name: AUSTIN GUAJARDO Address: [address] [place] [address]
--- OUTSIDE RECORDS SUMMARY | 2024-02-18 14:38 | XMS_ITS | Continuity of Care Document ---
Author Organization [facility] Address [address] [place] [address]- Care Team Providers Care Investment Underwriter Name Role Phone Antwan Ramirez MD Primary Care Physician [phone] Encounter [facility] Date(s): 06/10/23 - 07/10/23 [facility] [address] [place] [address]- Allergies, Adverse Reactions, Alerts Substance Reaction Severity Status naproxen Active Immunizations Given and Recorded Vaccine Date Status Refusal Reason SARS-CoV-2(COVID-19)mRNA-LNP vac([id number]) 01/28/23 Recorded influenza virus vaccine, inactivated 1 [...] vaccine, inactivated 01/03/13 Ryan rded SARS-CoV-2 mRNA ([id number]) vax 4 07/28/21 Given SARS-CoV-2 (COVID-19) mRNA [...] inactive(oldterm) 6 03/25/09 Given 1Result Comment: [facility] [id number] 2Result Comment: [facility]: [id number] 3Result Comment: Flu High Dose [facility] 48806-544-92 4Result Comment: [facility]: [id number] 5Result Comment: [facility]: [id number] 6Admin Note: SANOFI-PASTEUR VIS 09/25/2008 Medications aspirin 81 mg oral delayed release tablet 81 mg, 1, tablet, By Mouth, Daily, # 30 tablet, Refills 0, Maintenance, 10/10/18 10:08:15 EDT Start Date: 10/10/18 Status: Ordered atorvastatin 80 mg oral tablet 1 tablet, By Mouth, Daily, # 90 tablet, 1 Refills, Maintenance, 02/22/23 19:45:00 [facility] #[id number], 176, cm, 01/22/23 15:09:00 EDT, Height, 83.6, kg, 09/10/22 9:14:00 EDT, Dry Weight Start Date: 02/22/23 Status: Ordered Basaglar KwikPen 100 units/mL subcutaneous solution = 34 units, Subcutaneous Infusion, Daily, PLEASE INFORM PATIENT OF CHANGE FROM LANTUS DUE TO INSURANCE , # 45 mL, 1 Refills, Maintenance, 05/05/23 13:25:00 [facility] #[id number], Partial fill upon patient request if the prescription is... Start Date: 05/05/23 Status: Ordered FreeStyle Soraida 2 Monitor See [...] 06/23/23 9:14:00 EDT, Route to Pharmacy Electronically, [facility] #[id number], Partial fill upon patient request if the prescription is for a schedule II opi... Start Date: 06/23/23 Status: Ordered Lyrica 100 mg oral capsule 1 capsule = 100 mg, By Mouth, 2 times a day, # 180 capsule, 1 Refills, Maintenance, 02/17/23 22:48:00 EST, Capsule, [facility] #[id number], 176, cm, 01/22/23 15:09:00 EDT, Height, 83.6, kg, 09/10/22 9:14:00 EDT, Dry Weight Start Date: 02/17/23 Status: Ordered metoprolol 50 mg oral tablet 50 mg, 1, tablet, By Mouth, 2 times a day, # 180 tablet, Refills 1, Tot. Refills 1, Maintenance, 07/28/19 16:25:00 EDT, Route to Pharmacy Electronically, [facility] #[id number], 176, cm, 07/14/19 9:19:00 EDT, Height Start Date: 07/28/19 Stop Date: 01/24/20 Status: Ordered omeprazole 40 mg oral enteric coated capsule TAKE 1 CAPSULE BY MOUTH DAILY Start Date: 03/02/22 Status: Ordered Pen [place], 31 G x 8 mm BD Ultra [...] 0 Refills, Maintenance, 06/12/23 21:45:00 EDT, Solution, [facility] #[id number], Partial fill upon patient request if the prescription is for a schedule I... 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 Confirmed Active CAD; s/p CABG; [facility] Confirmed 11/09/08 Active Dilated cardiomyopathy Confirmed 11/09/08 Active Dyspepsia Confirmed 11/09/08 Active Family history of cancer of colon Confirmed 11/09/08 Active Functional abdominal pain syndrome Confirmed 11/09/08 Active Gastroesophageal reflux disease Confirmed 11/09/08 Active Hiatal hernia Confirmed Active Hyperlipidemia Confirmed 11/09/08 Active HYPERTENSION Confirmed 11/09/08 Active Low back pain; [facility] Confirmed Active Chronic knee pain Confirmed Active Type II diabetes mellitus, well controlled Confirmed Active Social History Social History Type Response Smoking Status Never (less than 100 in lifetime) entered on: 12/30/18 Sex Patient Care team information Care Team Personnel Name: Antwan Ramirez MD Position: [facility] Physician - Primary Care Member Role: PCP Address: Address: [address] [place] [address] Care Team Related Persons Name: SCOTT WEIR Address: [address] [place] [address] Name: AUSTIN GUAJARDO Address: home [address] [place] [address]
--- OUTSIDE RECORDS SUMMARY | 2024-02-18 14:38 | XMS_ITS | Continuity of Care Document ---
Author Organization [facility] Address [address] [place] [address]- Care Team Providers Care Lay Out Technician Name Role Phone Fadumo RUSSELL, Britney Daniel Primary Care Physic nicola [facility]counter [facility] Date([facility]): 10/15/22 - 11/14/22 [facility] [address] [place] [address]- Allergies, Adverse Reactions, Alerts Substance Reaction Severity Status naproxen Active Immunizations Given and Recorded Vaccine Date Status Refusal Reason SARS-CoV-2 mRNA (wgwthjn-ngss-heuhl) vax 1 07/28/21 Given SARS-CoV-2 (COVID-19) mRNA [...] inactive(oldterm) 5 03/25/09 Given 1Result Comment: [facility]: [id number] 2Result Comment: [facility]: [id number] 3Result Comment: [facility]: [id number] 4Result Comment: Flu High Dose [facility] [id number] 5Admin Note: SANOFI-PASTEUR VIS 09/25/2008 Medications aspirin 81 mg oral delayed release tablet 81 mg, 1, tablet, By Mouth, Daily, # 30 tablet, Refills 0, Maintenance, 10/10/18 10:08:15 EDT Start Date: 10/10/18 Status: Ordered atorvastatin 80 mg oral tablet 1 tablet, By Mouth, Daily, # 90 tablet, 1 Refills, Maintenance, 09/02/22 13:05:00 EDT, [facility] #[id number], 176, cm, 07/30/22 9:38:00 EDT, Height, 83.1, kg, 07/10/21 8:54:00 EDT, Dry Weight Start Date: 09/02/22 Status: Ordered azelastine 137 mcg/inh (0.1%) nasal spray 2 sprays, Nares, Both, Daily, PRN Other Allergies, # 30 mL, 1 Refills, Maintenance, 10/02/20 10:16:00 EDT, [place], [facility] #[id number], Partial fill upon patient request if the [...] Refills, Maintenance, 08/26/22 16:59:00 EDT, REC Powder, [facility] #[id number]... Start Date: 08/26/22 Status: Ordered Lantus Solostar Pen 100 units/mL subcutaneous solution = 34 units, Subcutaneous Injection, Daily at bedtime, # 15 mL, 1 Refills, Maintenance, 10/15/22 15:46:00 EDT, Solution, [facility] #[id number], 176, cm, 07/30/22 9:38:00 EDT, Height, 83.6, kg, 09/10/22 9:14:00 EDT, Dry Weight Start Date: 10/15/22 Status: Ordered lisinopril 2.5 mg oral tablet 1, tablet, By Mouth, Daily, # 90 tablet, Refills 0, Tot. Refills 0, Maintenance, 10/16/22 9:14:00 EDT, Route to Pharmacy Electronically, [facility] #[id number], 176, cm, 07/30/22 9:38:00 EDT, Height, 83.6, kg, 09/10/22 9:14:00 EDT, Dry Weight Start Date: 10/16/22 Status: Ordered Lyrica 100 mg oral capsule 1 capsule = 100 mg, By Mouth, 2 times a day, # 56 capsule, 0 Refills, Maintenance, 10/15/22 17:35:00 EDT, Capsule, [facility] #[id number], 176, cm, 07/30/22 9:38:00 EDT, Height, 83.6, kg, 09/10/22 9:14:00 EDT, Dry Weight Start Date: 10/15/22 Stop Date: 11/12/22 Status: Ordered metoprolol 50 mg oral tablet 50 mg, 1, tablet, By Mouth, 2 times a day, # 180 tablet, Refills 1, Tot. Refills 1, Maintenance, 07/28/19 16:25:00 EDT, Route to Pharmacy Electronically, [facility] #[id number], 176, cm, 07/14/19 9:19:00 EDT, Height Start Date: 07/28/19 Stop Date: 01/24/20 Status: Ordered omeprazole 40 mg oral enteric coated capsule TAKE 1 CAPSULE BY MOUTH DAILY Start Date: 03/02/22 Status: Ordered PEG-3350 with Electrolytes (Eqv-NuLYTELY) oral powder for reconstitution See Instructions, as directed, # 1 each, 0 Refills, Maintenance, 06/02/21 12:52:00 EST, [facility] #[id number], ok to sub for any gallon prep, as directed, 176, cm, 06/02/21 10:53:00 EST, Height, 83.6, kg, 07/01/20 11:06:00 EDT, Dry Weight Start Date: 06/02/21 Status: Ordered Pen [place], 31 G x 5 mm BD Ultra Fine III See Instructions, # 1 box, Refills 11, Tot. Refills 11, Maintenance, Use to inject insulin daily for DM2, E11.9, 10/14/18 12:32:54 EDT, Compound Start Date: 10/14/18 Status: Ordered Pen [place], 31 G x 8 mm BD Ultra [...] mL, 1 Refills, Maintenance, 06/30/22 11:06:00 EDT, [facility] #[id number], 176, cm, 03/02/22 13:43:00 EST, Height, 83.1, kg, 07/10/21 8:54:00 EDT, Dry Weight Start Date: 06/30/22 Status: Ordered Problem List Condition Confirmation Course Effective Dates Status H ealth Status Informant ABDOMINAL PAIN Confirmed 11/09/08 Active Anemia Confirmed Active Atherosclerosis Confirmed Active Robles's esophagus Confirmed Active CAD - Coronary artery disease Confirmed 11/09/08 Active Chronic pain syndrome Confirmed 11/09/08 Active Atherosclerotic heart disease of inupiat coronary artery without angina pectoris Confirmed Active [...] Primary Care Member Role: PCP Address: Address: [address] [place] [address]- Care Team Related Persons Name: SCOTT WEIR Address: [address] [place] [address] Name: AUSTIN GUAJARDO Address: [address] [place] [address]
--- OUTSIDE RECORDS SUMMARY | 2024-02-18 14:38 | XMS_ITS | Continuity of Care Document ---
Author Organization [facility] Address [address] [place] [address]- Care Team Providers Care Auditor In Charge Name Role Phone Antwan Ramirez MD Primary Care Physician [phone] [place] [facility] [place] - 06/17/23 [facility] [address] [address] [[email or web address] Attending Physician: AdmBarbara calhoun Admitting Physician: AdmtrBarbara Referring Physician: Admtr, Ar8 Allergies, Adverse Reactions, Alerts Substance Reaction Severity Status naproxen Active Immunizations Given and Recorded Vaccine Date Status Refusal Reason SARS-CoV-2(COVID-19)mRNA-LNP vac([id number]) 01/28/23 Recorded influenza virus vaccine, inactivated 1 [...] vaccine, inactivated 01/03/13 Ryan rded SARS-CoV-2 mRNA (tjwplnx-ovik-dewdb) vax 4 07/28/21 Given SARS-CoV-2 (COVID-19) mRNA [...] H1N1, inactive(oldterm) 6 03/25/09 Given 1Result Comment: [facility] [phone] 2Result Comment: [facility]: [id number] 3Result Comment: Flu High Dose [facility] [id number] 4Result Comment: [facility]: [id number] 5Result Comment: [facility]: [id number] 6Admin Note: SANOFI-PASTEUR VIS 09/25/2008 Medications aspirin 81 mg oral delayed release tablet 81 mg, 1, tablet, By Mouth, Daily, # 30 tablet, Refills 0, Maintenance, 10/10/18 10:08:15 EDT Start Date: 10/10/18 Status: Ordered atorvastatin 80 mg oral tablet 1 tablet, By Mouth, Daily, # 90 tablet, 1 Refills, Maintenance, 02/22/23 19:45:00 [facility] #[id number], 176, cm, 01/22/23 15:09:00 EDT, Height, 83.6, kg, 09/10/22 9:14:00 EDT, Dry Weight Start Date: 02/22/23 Status: Ordered Basaglar KwikPen 100 units/mL subcutaneous solution = 34 units, Subcutaneous Infusion, Daily, PLEASE INFORM PATIENT OF CHANGE FROM LANTUS DUE TO INSURANCE , # 45 mL, 1 Refills, Maintenance, 05/05/23 13:25:00 [facility] #[id number], Partial fill upon patient request if the prescription is... Start Date: 05/05/23 Status: Ordered Blood Pressure Monitor See Instructions, [...] Date: 04/10/23 Stop Date: 06/09/23 Status: Ordered Lantus Solostar Pen 100 units/mL subcutaneous solution See Instructions, ADMINISTER 34 UNITS UNDER THE SKIN DAILY AT BEDTIME, # 15 mL, 1 Refills, Maintenance, 04/17/23 15:43:00 EST, [facility] #[id number], 176, cm, 01/22/23 15:09:00 EDT, Height, 83.6, kg, 09/10/22 9:14:00 EDT, Dry Weight Start Date: 04/17/23 Status: Ordered lisinopril 2.5 mg oral tablet 1, tablet, By Mouth, Daily, # 90 tablet, Refills 0, Maintenance, 04/15/23 8:20:00 EST, Route to Pharmacy Electronically, [facility] #[id number], 176, cm, 01/22/23 15:09:00 EDT, Height, 83.6, kg,09/10/22 9:14:00 EDT, Dry Weight Start Date: 04/15/23 Status: Ordered Lyrica 100 mg oral capsule 1 capsule = 100 mg, By Mouth, 2 times a day, # 180 capsule, 1 Refills, Maintenance, 02/17/23 22:48:00 EST, Capsule, [facility] #[id number], 176, cm, 01/22/23 15:09:00 EDT, Height, 83.6, kg, 09/10/22 9:14:00 EDT, Dry Weight Start Date: 02/17/23 Status: Ordered metoprolol 50 mg oral tablet 50 mg, 1, tablet, By Mouth, 2 times a day, # 180 tablet, Refills 1, Tot. Refills 1, Maintenance, 07/28/19 16:25:00 EDT, Route to Pharmacy Electronically, [facility] #[id number], 176, cm, 07/14/19 9:19:00 EDT, Height Start Date: 07/28/19 Stop Date: 01/24/20 Status: Ordered omeprazole 40 mg oral enteric coated capsule TAKE 1 CAPSULE BY MOUTH DAILY Start Date: 03/02/22 Status: Ordered Pen [place], 31 G x 5 mm BD Ultra Fine III See Instructions, # 1 box, Refills 11, Tot. Refills 11, Maintenance, Use to inject insulin daily for DM2, E11.9, 10/14/18 12:32:54 EDT, Compound Start Date: 10/14/18 Status: Ordered Pen [place], 31 G x 8 mm BD Ultra [...] Trulicity Pen 0.75 mg/0.5 mL subcutaneous solution 1 mL = 1.5 mg, Subcutaneous Injection, Every week, 2 PENS PER WEEK DUE TO SHORTAGE, # 5 mL, 0 Refills, Maintenance, 06/12/23 21:45:00 EDT, Solution, [facility] #[id number], Partial fill uponpatient request if the prescription is for a schedu... 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 Confirmed Active CAD; s/p CABG; [facility] Confirmed 11/09/08 Active Dilated cardiomyopathy Confirmed 11/09/08 Active Dyspepsia Confirmed 11/09/08 Active Family history of cancer of colon Confirmed 11/09/08 Active Functional abdominal pain syndrome Confirmed 11/09/08 Active Gastroesophageal reflux disease Confirmed 11/09/08 Active Hiatal hernia Confirmed Active Hyperlipidemia Confirmed 11/09/08 Active HYPERTENSION Confirmed 11/09/08 Active Low back pain; [facility] Confirmed Active Chronic knee pain Confirmed Active Type II diabetes mellitus, well controlled Confirmed Active Social History Social History Type Response Smoking Status Never (less than 100 in lifetime) entered on: 12/30/18 Sex Patient Care team information Care Team Personnel Name: Antwan Ramirez MD Position: [facility] Physician - Primary Care Member Role: PCP Address: Address: [address] [place] [address]- Care Team Related Persons Name: SCOTT WEIR Address: home [address] [place] [address] Name: AUSTIN GUAJARDO Address: [address] [place] [address]
--- OUTSIDE RECORDS SUMMARY | 2024-02-18 14:38 | XMS_ITS | Continuity of Care Document ---
Author Organization [facility] Address [address] [place] [address]- Care Team Providers Care Video Recorder Mechanic Name Role Phone Antwan Ramirez MD Primary Care Physician Encounter [facility] Date(s): 02/17/23 - 03/19/23 [facility] [address] [place], [place] [address] Allergies, Adverse Reactions, Alerts Substance Reaction Severity Status naproxen Active Immunizations Given and Recorded Vaccine Date Status Refusal Reason SARS-CoV-2(COVID-19)mRNA-LNP vac([id number]) 01/28/23 Recorded influenza virus vaccine, inactivated 1 [...] vaccine, inactivated 01/03/13 Ryan rded SARS-CoV-2 mRNA (wizmapg-bzsd-etirm) vax 4 07/28/21 Given SARS-CoV-2 (COVID-19) mRNA [...] H1N1, inactive(oldterm) 6 03/25/09 Given 1Result Comment: [facility] [id number] 2Result Comment: [facility]: 14890-611-90 3Result Comment: Flu High Dose [facility] 48140-068-36 4Result Comment: [facility]: [id number] 5Result Comment: [facility]: [id number] 6Admin Note: SANOFI-PASTEUR VIS 09/25/2008 Medications aspirin 81 mg oral delayed release tablet 81 mg, 1, tablet, By Mouth, Daily, # 30 tablet, Refills 0, Maintenance, 10/10/18 10:08:15 EDT Start Date: 10/10/18 Status: Ordered atorvastatin 80 mg oral tablet 1 tablet, By Mouth, Daily, # 90 tablet, 1 Refills, Maintenance, 02/22/23 19:45:00 EST, [facility] #[id number], 176, cm, 01/22/23 15:09:00 EDT, Height, 83.6, kg, 09/10/22 9:14:00 EDT, Dry Weight Start Date: 02/22/23 Status: Ordered Blood Pressure Monitor See Instructions, # 1 each, Maintenance, Check BP once daily; ; ICD10: I10; Length of neede: Lifetime, 07/01/20 12:08:00 EDT, Check BP once daily; ; ICD10: I10; Length of neede: Lifetime, Supply Start Date: 07/01/20 Status: Ordered FreeStyle Soraiad 2 Monitor See Instructions, # 1 each, Maintenance, Use to test daily for Diabetes Type 2 DX: E11.9, 01/19/22 12:11:00 EDT, Supply Start Date: 01/19/22 Status: Ordered Freestyle [place] Sensor See Instructions, # 1 each, Refills [...] mL, 1 Refills, Maintenance, 01/25/23 15:31:00 EDT, [facility] #[id number], 176, cm, 01/22/23 15:09:00 EDT, Height, 83.6, kg, 09/10/22 9:14:00 EDT, Dry Weight Start Date: 01/25/23 Status: Ordered lisinopril 2.5 mg oral tablet See Instructions, TAKE 1 TABLET BY MOUTH DAILY, # 90 tablet, Refills 0, Maintenance, 01/12/23 14:37:00 EDT, Instructions Replace Required Details, Route to Pharmacy Electronically, [facility] #[id number], 176, cm, 01/06/23 8:41:00 EDT, Height, 83... Start Date: 01/12/23 Status: Ordered Lyrica 100 mg oral capsule 1 capsule = 100 mg, By Mouth, 2 times a day, # 180 capsule, 1 Refills, Maintenance, 02/17/23 22:48:00 EST, Capsule, [facility] #[id number], 176, cm, 01/22/23 15:09:00 EDT, Height, 83.6, kg, 09/10/22 9:14:00 EDT, Dry Weight Start Date: 02/17/23 Status: Ordered metoprolol 50 mg oral tablet 50 mg, 1, tablet, By Mouth, 2 times a day, # 180 tablet, Refills 1, Tot. Refills 1, Maintenance, 07/28/19 16:25:00 EDT, Route to Pharmacy Electronically, [facility] #[id number], 176, cm, 07/14/19 9:19:00 EDT, Height Start Date: 07/28/19 Stop Date: 01/24/20 Status: Ordered omeprazole 40 mg oral enteric coated capsule TAKE 1 CAPSULE BY MOUTH DAILY Start Date: 03/02/22 Status: Ordered Pen [place], 31 G x 5 mm BD Ultra Fine III See Instructions, # 1 box, Refills 11, Tot. 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
--- OUTSIDE RECORDS SUMMARY | 2024-02-18 14:38 | XMS_ITS | Continuity of Care Document ---
Author Organization [facility] Address [address] [place] [address]- Care Team Providers Care Registered Nurse Teacher Name Role Phone Antwan Ramirez MD Primary Care Physician [phone] [place] [facility] Date(s): 09/16/23 - 10/16/[address] [address] Attending Physician: Barbara Tapia Admitting Physician: Barbara Tapia Referring Physician: AdmtrBarbara Allergies, Adverse Reactions, Alerts Substance Reaction Severity Status naproxen Active Immunizations Given and Recorded Vaccine Date Status Refusal Reason SARS-CoV-2(COVID-19)mRNA-LNP vac([id number]) 01/28/23 Recorded influenza virus vaccine, inactivated 1 [...] vaccine, inactivated 01/03/13 Ryan rded SARS-CoV-2 mRNA (jvvchdi-umij-lnlhg) vax 4 07/28/21 Given SARS-CoV-2 (COVID-19) mRNA [...] H1N1, inactive(oldterm) 6 03/25/09 Given 1Result Comment: [facility] [id number] 2Result Comment: [facility]: [id number] 3Result Comment: Flu High Dose [facility] [phone] 4Result Comment: [facility]: [address]-9 5Result Comment: [facility]: 06163-615-8 6Admin Note: SANOFI-PASTEUR VIS 09/25/2008 Medications aspirin 81 mg oral delayed release tablet 81 mg, 1, tablet, By Mouth, Daily, # 30 tablet, Refills 0, Maintenance, 10/10/18 10:08:15 EDT Start Date: 10/10/18 Status: Ordered atorvastatin 80 mg oral tablet 1 tablet, By Mouth, Daily, # 90 tablet, 1 Refills, Maintenance, 02/22/23 19:45:00 EST, [facility] #[id number], 176, cm, 01/22/23 15:09:00 EDT, Height, 83.6, kg, 09/10/22 9:14:00 EDT, Dry Weight Start Date: 02/22/23 Status: Ordered B 100 Complex oral tablet 1 tablet, By Mouth, Daily, # 100 tablet, 3 Refills, Maintenance, 09/22/23 12:13:00 EDT, Tablet, [facility] #00693, Partial fill upon patient request if the prescription is for a schedule IIopioid drug., 1 tablet By Mouth Daily, 176, cm, ... Start Date: 09/22/23 Status: Ordered Basaglar KwikPen 100 units/mL subcutaneous solution = 40 units, Subcutaneous Infusion, Daily, # 45 mL, 1 Refills, Maintenance, 07/15/23 17:18:00 EDT, [facility] #[id number], Partial fill upon patient request if the [...] 09/28/23 15:12:00 EDT, Route to Pharmacy Electronically, [facility] #[id number], Partial fill upon patientrequest if the prescription is for a schedule II op... Start Date: 09/28/23 Status: Ordered Lyrica 100 mg oral capsule 1 capsule = 100 mg, By Mouth, 2 times a day, # 180 capsule, 1 Refills, Maintenance, 08/30/23 13:09:00 EDT, Capsule, [facility] #[id number], 176, cm, 06/23/23 9:08:00 EDT, Height, 83.6, [...] 07/28/19 16:25:00 EDT, Route to Pharmacy Electronically, [facility] #[id number], 176, cm, 07/14/19 9:19:00 EDT, Height Start Date: 07/28/19 Stop Date: 01/24/20 Status: Ordered Mounjaro Subcutaneous Infusion, 0 Refills, Maintenance, 09/22/23 12:03:00 EDT, Partial fill upon patient request if the prescription is for a schedule II opioid drug. Start Date: 09/22/23 Status: Ordered omeprazole 40 mg oral enteric coated capsule TAKE 1 CAPSULE BY MOUTH DAILY Start Date: 03/02/22 Status: Ordered Pen [place], 32 G x 4 mm BD Ultra [...] EGD 2021 Confirmed Active CAD; s/p CABG; [facility] Confirmed 11/09/08 Active Dilated cardiomyopathy Confirmed 11/09/08 Active Dyspepsia Confirmed 11/09/08 Active Family history of cancer of colon Confirmed 11/09/08 Active Functional abdominal pain syndrome Confirmed 11/09/08 Active Gastroesophageal reflux disease Confirmed 11/09/08 Active Hiatal hernia Confirmed Active Hyperlipidemia Confirmed 11/09/08 Active HYPERTENSION Confirmed 11/09/08 Active Low back pain; [facility] Confirmed Active Chronic knee pain Confirmed Active Diabetes mellitus, type II; Dr Aguilar Confirmed Active Social History Social History Type Response Smoking Status Never (less than 100 in lifetime) entered on: 12/30/18 Sex Patient Care team information Care Team Personnel Name: Antwan Ramirez MD Position: [facility] Physician - Primary Care Member Role: PCP Address: Address: [address] [place] [address]- Care Team Related Persons Name: SCOTT WEIR Address: [address] [place] [address] Name: AUSTIN GUAJARDO Address: [address] [place] [address]
--- OUTSIDE RECORDS SUMMARY | 2024-02-18 14:38 | XMS_ITS | Continuity of Care Document ---
Author Organization [facility] Address [address] [place] [address]- Care Team Providers Care Messenger Copy Name Role Phone Antwan Ramirez MD Primary Care Physician En[place] [facility] Date(s): 12/07/22 - 01/06/23 [facility] [address] [place], [place] [address] Allergies, Adverse Reactions, Alerts Substance Reaction [...] vaccine, inactivated 01/03/13 Ryan rded SARS-CoV-2 mRNA (utdxnup-mvfi-oymoo) vax 4 07/28/21 Given SARS-CoV-2 (COVID-19) mRNA [...] H1N1, inactive(oldterm) 6 03/25/09 Given 1Result Comment: [facility] [id number] 2Result Comment: [facility]: [id number] 3Result Comment: Flu High Dose [facility] [id number] 4Result Comment: [facility]: [id number] 5Result Comment: [facility]: [id number] 6Admin Note: SANOFI-PASTEUR VIS 09/25/2008 Medications aspirin 81 mg oral delayed release tablet 81 mg, 1, tablet, By Mouth, Daily, # 30 tablet, Refills 0, Maintenance, 10/10/18 10:08:15 EDT Start Date: 10/10/18 Status: Ordered atorvastatin 80 mg oral tablet 1 tablet, By Mouth, Daily, # 90 tablet, 1 Refills, Maintenance, 09/02/22 13:05:00 EDT, [facility] #[id number], 176, cm, 07/30/22 9:38:00 EDT, Height, 83.1, [...] 1 Refills, Maintenance, 10/15/22 15:46:00 EDT, Solution, [facility] #[id number], 176, cm, 07/30/22 9:38:00 EDT, Height, 83.6, kg, 09/10/22 9:14:00 EDT, Dry Weight Start Date: 10/15/22 Status: Ordered lisinopril 2.5 mg oral tablet 1, tablet, By Mouth, Daily, # 90 tablet, Refills 0, Tot. Refills 0, Maintenance, 10/16/22 9:14:00 EDT, Route to Pharmacy Electronically, [facility] #[id number], 176, cm, 07/30/22 9:38:00 EDT, Height, 83.6, kg, 09/10/22 9:14:00 EDT, Dry Weight Start Date: 10/16/22 Status: Ordered Lyrica 100 mg oral capsule 1 capsule = 100 mg, By Mouth, 2 times a day, # 56 capsule, 0 Refills, Maintenance, 12/15/22 9:16:00EDT, Capsule, [facility] #22533, 176, cm, 07/30/22 9:38:00 EDT, Height, 83.6, kg, 09/10/22 9:14:00 EDT, Dry Weight Start Date: 12/15/22 Stop Date: 01/12/23 Status: Ordered metoprolol 50 mg oral tablet 50 mg, 1, tablet, By Mouth, 2 times a day, # 180 tablet, Refills 1, Tot. Refills 1, Maintenance, 07/28/19 16:25:00 EDT, Route to Pharmacy Electronically, [facility] #[id number], 176, cm, 07/14/19 9:19:00 EDT, Height Start Date: 07/28/19 Stop Date: 01/24/20 Status: Ordered omeprazole 40 mg oral enteric coated capsule TAKE 1 CAPSULE BY MOUTH DAILY Start Date: 03/02/22 Status: Ordered Pen [place], 31 G x 5 mm BD Ultra Fine III See Instructions, # 1 box, Refills 11, Tot. 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
--- OUTSIDE RECORDS SUMMARY | 2024-02-18 14:38 | XMS_ITS | Continuity of Care Document ---
Author Organization [facility] Address [address] [place] [address]- Care Team Providers Care Commercial Maintenance Technician Name Role Phone Antwan Ramirez MD Primary Care Physician En[place] [facility] [place] Date(s): 07/23/23 - 08/22/23 [facility] [address] [place], [place] [address] Allergies, Adverse Reactions, Alerts Substance Reaction Severity Status naproxen Active Immunizations Given and Recorded Vaccine Date Status Refusal Reason SARS-CoV-2(COVID-19)mRNA-LNP vac([id number]) 01/28/23 Recorded influenza virus vaccine, inactivated 1 [...] vaccine, inactivated 01/03/13 Ryan rded SARS-CoV-2 mRNA (mtradql-tdna-imiop) vax 4 07/28/21 Given SARS-CoV-2 (COVID-19) mRNA [...] H1N1, inactive(oldterm) 6 03/25/09 Given 1Result Comment: [facility] [id number] 2Result Comment: [facility]: [id number] 3Result Comment: Flu High Dose [facility] [id number] 4Result Comment: [facility]: [id number] 5Result Comment: [facility]: [id number] 6Admin Note: SANOFI-PASTEUR VIS 09/25/2008 Medications aspirin 81 mg oral delayed release tablet 81 mg, 1, tablet, By Mouth, Daily, # 30 tablet, Refills 0, Maintenance, 10/10/18 10:08:15 EDT Start Date: 10/10/18 Status: Ordered atorvastatin 80 mg oral tablet 1 tablet, By Mouth, Daily, # 90 tablet, 1 Refills, Maintenance, 02/22/23 19:45:00 EST, [facility] #[id number], 176, cm, 01/22/23 15:09:00 EDT, Height, 83.6, kg, 09/10/22 9:14:00 EDT, Dry Weight Start Date: 02/22/23 Status: Ordered Basaglar KwikPen 100 units/mL subcutaneous solution = 40 units, Subcutaneous Infusion, Daily, # 45 mL, 1 Refills, Maintenance, 07/15/23 17:18:00 EDT, [facility] #[id number], Partial fill upon patient request if the [...] 06/23/23 9:14:00 EDT, Route to Pharmacy Electronically, [facility] #[id number], Partial fill upon patient request if the prescription is for a schedule II opi... Start Date: 06/23/23 Status: Ordered Lyrica 100 mg oral capsule 1 capsule = 100 mg, By Mouth, 2 times a day, # 180 capsule, 1 Refills, Maintenance, 02/17/23 22:48:00 EST, Capsule, [facility] #[id number], 176, cm, 01/22/23 15:09:00 EDT, Height, 83.6, kg, 09/10/22 9:14:00 EDT, Dry Weight Start Date: 02/17/23 Status: Ordered MetFORMIN (Eqv-Glucophage XR) 500 mg oral tablet, extended release 2 tablet = 1,000 mg, By Mouth, Daily, # 60 tablet, 0 Refills, Maintenance, 08/17/23 8:22:00 EDT, [facility] #[id number], Partial fill upon patient request if the prescription is for a schedule II opioid drug., 176, cm, 06/23/23 9:08:00 EDT, Heigh... Start Date: 08/17/23 Status: Ordered metoprolol 50 mg oral tablet 50 mg, 1, tablet, By Mouth, 2 times a day, # 180 tablet, Refills 1, Tot. Refills 1, Maintenance, 07/28/19 16:25:00 EDT, Route to Pharmacy Electronically, [facility] #[id number], 176, cm, 07/14/19 9:19:00 EDT, Height Start Date: 07/28/19 Stop Date: 01/24/20 Status: Ordered omeprazole 40 mg oral enteric coated capsule TAKE 1 CAPSULE BY MOUTH DAILY Start Date: 03/02/22 Status: Ordered Pen [place], 32 G x 4 mm BD Ultra [...] Injection, Every week, rotate injection sites, # 2 mL, 1 Refills, Maintenance, 07/23/23 21:15:00 EDT, Solution, [facility] #[id number], Partial fill upon patient request if the prescription is for a schedule II opioid... 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 Confirmed Active CAD; s/p CABG; [facility] Confirmed 11/09/08 Active Dilated cardiomyopathy Confirmed 11/09/08 Active Dyspepsia Confirmed 11/09/08 Active Family history of cancer of colon Confirmed 11/09/08 Active Functional abdominal pain syndrome Confirmed 11/09/08 Active Gastroesophageal reflux disease Confirmed 11/09/08 Active Hiatal hernia Confirmed Active Hyperlipidemia Confirmed 11/09/08 Active HYPERTENSION Confirmed 11/09/08 Active Low back pain; [facility] Confirmed Active Chronic knee pain Confirmed Active Type II diabetes mellitus, well controlled Confirmed Active Social History Social History Type Response Smoking Status Never (less than 100 in lifetime) entered on: 12/30/18 Sex Patient Care team information Care Team Personnel Name: Antwan Ramirez MD Position: S Physician - Primary Care Member Role: PCP Address: Address: [address] [address]- Care Team Related Persons Name: SCOTT WEIR Address: home [address] [place] [address] Name: AUSTIN GUAJARDO Address: [address] [place] [address]
--- OUTSIDE RECORDS SUMMARY | 2024-02-18 14:38 | XMS_ITS | Continuity of Care Document ---
Author Organization [facility] Address [address] [place] [address]- Care Team Providers Care Senior Care Assistant Name Role Phone Antwan Ramirez MD Primary Care Physician [place] [facility] [place](s): 07/23/23 - 08/22/23 [facility] [address] [place], [place] [address] Allergies, Adverse Reactions, Alerts Substance Reaction Severity Status naproxen Active Immunizations Given and Recorded Vaccine Date Status Refusal Reason SARS-CoV-2(COVID-19)mRNA-LNP vac([id number]) 01/28/23 Recorded influenza virus vaccine, inactivated 1 [...] vaccine, inactivated 01/03/13 Ryan rded SARS-CoV-2 mRNA (rntyfbk-kujk-wrazx) vax 4 07/28/21 Given SARS-CoV-2 (COVID-19) mRNA [...] H1N1, inactive(oldterm) 6 03/25/09 Given 1Result Comment: [facility] [id number] 2Result Comment: [facility]: [id number] 3Result Comment: Flu High Dose [facility] [id number] 4Result Comment: [facility]: [id number] 5Result Comment: [facility]: [id number] 6Admin Note: SANOFI-PASTEUR VIS 09/25/2008 Medications aspirin 81 mg oral delayed release tablet 81 mg, 1, tablet, By Mouth, Daily, # 30 tablet, Refills 0, Maintenance, 10/10/18 10:08:15 EDT Start Date: 10/10/18 Status: Ordered atorvastatin 80 mg oral tablet 1 tablet, By Mouth, Daily, # 90 tablet, 1 Refills, Maintenance, 02/22/23 19:45:00 EST, [facility] #[id number], 176, cm, 01/22/23 15:09:00 EDT, Height, 83.6, kg, 09/10/22 9:14:00 EDT, Dry Weight Start Date: 02/22/23 Status: Ordered Basaglar KwikPen 100 units/mL subcutaneous solution = 40 units, Subcutaneous Infusion, Daily, # 45 mL, 1 Refills, Maintenance, 07/15/23 17:18:00 EDT, [facility] #[id number], Partial fill upon patient request if the [...] 06/23/23 9:14:00 EDT, Route to Pharmacy Electronically, [facility] #[id number], Partial fill upon patient request if the prescription is for a schedule II opi... Start Date: 06/23/23 Status: Ordered Lyrica 100 mg oral capsule 1 capsule = 100 mg, By Mouth, 2 times a day, # 180 capsule, 1 Refills, Maintenance, 02/17/23 22:48:00 EST, Capsule, [facility] #[id number], 176, cm, 01/22/23 15:09:00 EDT, Height, 83.6, kg, 09/10/22 9:14:00 EDT, Dry Weight Start Date: 02/17/23 Status: Ordered MetFORMIN (Eqv-Glucophage XR) 500 mg oral tablet, extended release 2 tablet = 1,000 mg, By Mouth, Daily, # 60 tablet, 0 Refills, Maintenance, 08/17/23 8:22:00 EDT, [facility] #[id number], Partial fill upon patient request if the prescription is for a schedule II opioid drug., 176, cm, 06/23/23 9:08:00 EDT, Heigh... Start Date: 08/17/23 Status: Ordered metoprolol 50 mg oral tablet 50 mg, 1, tablet, By Mouth, 2 times a day, # 180 tablet, Refills 1, Tot. Refills 1, Maintenance, 07/28/19 16:25:00 EDT, Route to Pharmacy Electronically, [facility] #[id number], 176, cm, 07/14/19 9:19:00 EDT, Height Start Date: 07/28/19 Stop Date: 01/24/20 Status: Ordered omeprazole 40 mg oral enteric coated capsule TAKE 1 CAPSULE BY MOUTH DAILY Start Date: 03/02/22 Status: Ordered Pen [place], 32 G x 4 mm BD Ultra [...] 1 Refills, Maintenance, 07/23/23 21:15:00 EDT, Solution, [facility] #[id number], Partial fill upon patient request if the prescription is for a schedule II opioid... 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 Confirmed Active CAD; s/p CABG; [facility] Confirmed 11/09/08 Active Dilated cardiomyopathy Confirmed 11/09/08 Active Dyspepsia Confirmed 11/09/08 Active Family history of cancer of colon Confirmed 11/09/08 Active Functional abdominal pain syndrome Confirmed 11/09/08 Active Gastroesophageal reflux disease Confirmed 11/09/08 Active Hiatal hernia Confirmed Active Hyperlipidemia Confirmed 11/09/08 Active HYPERTENSION Confirmed 11/09/08 Active Low back pain; [facility] Confirmed Active Chronic knee pain Confirmed Active Type II diabetes mellitus, well controlled Confirmed Active Social History Social History Type Response Smoking Status Never (less than 100 in lifetime) entered on: 12/30/18 Sex Patient Care team information Care Team Personnel Name: Antwan Ramirez MD Position: S Physician - Primary Care Member Role: PCP Address: Address: [address] [address]- Care Team Related Persons Name: SCOTT WEIR Address: [address] [place] [address] Name: AUSTIN GUAJARDO Address: [address] [place] [address]
--- OUTSIDE RECORDS SUMMARY | 2024-02-18 14:38 | XMS_ITS | Continuity of Care Document ---
Author Organization [facility] Address [address] [place] [address]- Care Team Providers Care Cream Tester Name Role Phone Antwan Ramirez MD Primary Care Physician [phone] Encounter [facility] Date(s): 01/10/23 - 02/09/23 [facility] [address] [place], [place] [address] Allergies, Adverse Reactions, Alerts Substance Reaction Severity [...] vaccine, inactivated 01/03/13 Ryan rded SARS-CoV-2 mRNA (aacjmci-prad-widgc) vax 4 07/28/21 Given SARS-CoV-2 (COVID-19) mRNA [...] vaccine 01/24/16 Recorded Influenza Virus Vaccine (oldterm) 10/4/18 Recorde d pneumococcal 23-valent vaccine 11/12/16 Recorded pneumococcal 13-valent vaccine 12/25/14 Recorded tetanus/diphtheria/pertussis, acel(Tdap) 02/05/14 Recorded Flu Vaccine 12/22/10 Recorded Flu Vaccine 02/02/02 Recorded influ virus vac, H1N1, inactive(oldterm) 6 03/25/09 Given 1Result Comment: [facility] 74199-963-80 2Result Comment: [facility]: 69800-431-87 3Result Comment: Flu High Dose [facility] 78325-387-45 4Result Comment: [facility]: [address]-6 5Result Comment: [facility]: 93647-395-4 6Admin Note: SANOFI-PASTEUR VIS 09/25/2008 Medications aspirin 81 mg oral delayed release tablet 81 mg, 1, tablet, By Mouth, Daily, # 30 tablet, Refills 0, Maintenance, 10/10/18 10:08:15 EDT Start Date: 10/10/18 Status: Ordered atorvastatin 80 mg oral tablet 1 tablet, By Mouth, Daily, # 90 tablet, 1 Refills, Maintenance, 09/02/22 13:05:00 EDT, [facility] #[id number], 176, cm, 07/30/22 9:38:00 EDT, Height, 83.1, [...] mL, 1 Refills, Maintenance, 01/25/23 15:31:00 EDT, [facility] #[id number], 176, cm, 01/22/23 15:09:00 EDT, Height, 83.6, kg, 09/10/22 9:14:00 EDT, Dry Weight Start Date: 01/25/23 Status: Ordered lisinopril 2.5 mg oral tablet See Instructions, TAKE 1 TABLET BY MOUTH DAILY, # 90 tablet, Refills 0, Maintenance, 01/12/23 14:37:00 EDT, Instructions Replace Required Details, Route to Pharmacy Electronically, [facility] #[id number], 176, cm, 01/06/23 8:41:00 EDT, Height, 83... Start Date: 01/12/23 Status: Ordered Lyrica 100 mg oral capsule 1 capsule = 100 mg, By Mouth, 2 times a day, # 56 capsule, 0 Refills, Maintenance, 12/15/22 9:16:00EDT, Capsule, [facility] #[id number], 176, cm, 07/30/22 9:38:00 EDT, Height, 83.6, kg, 09/10/22 9:14:00 EDT, Dry Weight Start Date: 12/15/22 Stop Date: 01/12/23 Status: Ordered metoprolol 50 mg oral tablet 50 mg, 1, tablet, By Mouth, 2 times a day, # 180 tablet, Refills 1, Tot. Refills 1, Maintenance, 07/28/19 16:25:00 EDT, Route to Pharmacy Electronically, [facility] #[id number], 176, cm, 07/14/19 9:19:00 EDT, Height Start Date: 07/28/19 Stop Date: 01/24/20 Status: Ordered omeprazole 40 mg oral enteric coated capsule TAKE 1 CAPSULE BY MOUTH DAILY Start Date: 03/02/22 Status: Ordered Pen [place], 31 G x 5 mm BD Ultra Fine III See Instructions, # 1 box, Refills 11, Tot. 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
--- OUTSIDE RECORDS SUMMARY | 2024-02-18 14:38 | XMS_ITS | Continuity of Care Document ---
Author Organization [facility] Address [address] [place] [address]- Care Team Providers Care Cash Reconciliation Specialist Name Role Phone Antwan Ramirez MD Primary Care Physician Encounter [facility] [place] Date(s): 06/25/23 - 07/25/23 [facility] [address] [place] [address]- Allergies, Adverse Reactions, Alerts Substance Reaction Severity Status naproxen Active Immunizations Given and Recorded Vaccine Date Status Refusal Reason SARS-CoV-2(COVID-19)mRNA-LNP vac([id number]) 01/28/23 Recorded influenza virus vaccine, inactivated 1 [...] vaccine, inactivated 01/03/13 Ryan rded SARS-CoV-2 mRNA (gjksaux-gwyi-wtqaj) vax 4 07/28/21 Given SARS-CoV-2 (COVID-19) mRNA [...] H1N1, inactive(oldterm) 6 03/25/09 Given 1Result Comment: [facility] 06407-780-29 2Result Comment: [facility]: 59752-650-89 3Result Comment: Flu High Dose [facility] 18168-647-09 4Result Comment: [facility]: [id number] 5Result Comment: [facility]: 04155-568-1 6Admin Note: SANOFI-PASTEUR VIS 09/25/2008 Medications aspirin 81 mg oral delayed release tablet 81 mg, 1, tablet, By Mouth, Daily, # 30 tablet, Refills 0, Maintenance, 10/10/18 10:08:15 EDT Start Date: 10/10/18 Status: Ordered atorvastatin 80 mg oral tablet 1 tablet, By Mouth, Daily, # 90 tablet, 1 Refills, Maintenance, 02/22/23 19:45:00 EST, [facility] #[id number], 176, cm, 01/22/23 15:09:00 EDT, Height, 83.6, kg, 09/10/22 9:14:00 EDT, Dry Weight Start Date: 02/22/23 Status: Ordered Basaglar KwikPen 100 units/mL subcutaneous solution = 40 units, Subcutaneous Infusion, Daily, # 45 mL, 1 Refills, Maintenance, 07/15/23 17:18:00 EDT, [facility] #[id number], Partial fill upon patient request if the [...] 06/23/23 9:14:00 EDT, Route to Pharmacy Electronically, [facility] #[id number], Partial fill upon patient request if the prescription is for a schedule II opi... Start Date: 06/23/23 Status: Ordered Lyrica 100 mg oral capsule 1 capsule = 100 mg, By Mouth, 2 times a day, # 180 capsule, 1 Refills, Maintenance, 02/17/23 22:48:00 EST, Capsule, [facility] #[id number], 176, cm, 01/22/23 15:09:00 EDT, Height, 83.6, kg, 09/10/22 9:14:00 EDT, Dry Weight Start Date: 02/17/23 Status: Ordered metoprolol 50 mg oral tablet 50 mg, 1, tablet, By Mouth, 2 times a day, # 180 tablet, Refills 1, Tot. Refills 1, Maintenance, 07/28/19 16:25:00 EDT, Route to Pharmacy Electronically, [facility] #[id number], 176, cm, 07/14/19 9:19:00 EDT, Height Start Date: 07/28/19 Stop Date: 01/24/20 Status: Ordered omeprazole 40 mg oral enteric coated capsule TAKE 1 CAPSULE BY MOUTH DAILY Start Date: 03/02/22 Status: Ordered Pen [place], 31 G x 8 mm BD Ultra Fine III See Instructions, # 100 each, Refills 1, Tot. Refills 1, Maintenance, Use with lantus to test once daily and Trulicity to test once weekly insulins as instructed Dx: Type 2 DM ICD 10 : E11.9, 08/16/20 13:40:00 EDT, Compound, 176, cm, 07/01/20 11:06... Start Date: 08/16/20 Status: Ordered Trulicity Pen 3 mg/0.5 mL subcutaneous solution 0.5 mL = 3 mg, Subcutaneous Injection, Every week, rotate injection sites, # 2 mL, 1 Refills, Maintenance, 07/23/23 21:15:00 EDT, Solution, [facility] #[id number], Partial fill upon patient request if the prescription is for a schedule II opioid... 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 Confirmed Active CAD; s/p CABG; [facility] Confirmed 11/09/08 Active Dilated cardiomyopathy Confirmed 11/09/08 Active Dyspepsia Confirmed 11/09/08 Active Family history of cancer of colon Confirmed 11/09/08 Active Functional abdominal pain syndrome Confirmed 11/09/08 Active Gastroesophageal reflux disease Confirmed 11/09/08 Active Hiatal hernia Confirmed Active Hyperlipidemia Confirmed 11/09/08 Active HYPERTENSION Confirmed 11/09/08 Active Low back pain; [facility] Confirmed Active Chronic knee pain Confirmed Active Type II diabetes mellitus, well controlled Confirmed Active Social History Social History Type Response Smoking Status Never (less than 100 in lifetime) entered on: 12/30/18 Sex Patient Care team information Care Team Personnel Name: Antwan Ramirez MD Position: [facility] Physician - Primary Care Member Role: PCP Address: Address: [address] [place] [address]- Care Team Related Persons Name: SCOTT WEIR Address: [address] [place] [address] Name: AUSTIN GUAJARDO Address: [address] [place] [address]
--- OUTSIDE RECORDS SUMMARY | 2024-02-18 14:38 | XMS_ITS | Continuity of Care Document ---
Author Organization [facility] Address [address] [place] [address]- Care Team Providers Care Wire Coiler Machine Operator Name Role Phone Antwan Ramirez MD Primary Care Physician [place] [facility] [place](s): 12/08/22 - 01/07/23 [facility] [address] [place], [place] [address] Allergies, Adverse Reactions, Alerts Substance Reaction Severity [...] vaccine, inactivated 01/03/13 Ryan rded SARS-CoV-2 mRNA (vavzquo-xkka-unnfn) vax 4 07/28/21 Given SARS-CoV-2 (COVID-19) mRNA [...] inactive(oldterm) 6 03/25/09 Given 1Result Comment: [facility] [id number] 2Result Comment: [facility]: [id number] 3Result Comment: Flu High Dose [facility] 67500-930-66 4Result Comment: [facility]: [id number] 5Result Comment: [facility]: [id number] 6Admin Note: SANOFI-PASTEUR VIS 09/25/2008 Medications aspirin 81 mg oral delayed release tablet 81 mg, 1, tablet, By Mouth, Daily, # 30 tablet, Refills 0, Maintenance, 10/10/18 10:08:15 EDT Start Date: 10/10/18 Status: Ordered atorvastatin 80 mg oral tablet 1 tablet, By Mouth, Daily, # 90 tablet, 1 Refills, Maintenance, 09/02/22 13:05:00 EDT, [facility] #[id number], 176, cm, 07/30/22 9:38:00 EDT, Height, 83.1, [...] 1 Refills, Maintenance, 10/15/22 15:46:00 EDT, Solution, [facility] #[id number], 176, cm, 07/30/22 9:38:00 EDT, Height, 83.6, kg, 09/10/22 9:14:00 EDT, Dry Weight Start Date: 10/15/22 Status: Ordered lisinopril 2.5 mg oral tablet 1, tablet, By Mouth, Daily, # 90 tablet, Refills 0, Tot. Refills 0, Maintenance, 10/16/22 9:14:00 EDT, Route to Pharmacy Electronically, [facility] #[id number], 176, cm, 07/30/22 9:38:00 EDT, Height, 83.6, kg, 09/10/22 9:14:00 EDT, Dry Weight Start Date: 10/16/22 Status: Ordered Lyrica 100 mg oral capsule 1 capsule = 100 mg, By Mouth, 2 times a day, # 56 capsule, 0 Refills, Maintenance, 12/15/22 9:16:00EDT, Capsule, [facility] #[id number], 176, cm, 07/30/22 9:38:00 EDT, Height, 83.6, kg, 09/10/22 9:14:00 EDT, Dry Weight Start Date: 12/15/22 Stop Date: 01/12/23 Status: Ordered metoprolol 50 mg oral tablet 50 mg, 1, tablet, By Mouth, 2 times a day, # 180 tablet, Refills 1, Tot. Refills 1, Maintenance, 07/28/19 16:25:00 EDT, Route to Pharmacy Electronically, [facility] #[id number], 176, cm, 07/14/19 9:19:00 EDT, Height Start Date: 07/28/19 Stop Date: 01/24/20 Status: Ordered omeprazole 40 mg oral enteric coated capsule TAKE 1 CAPSULE BY MOUTH DAILY Start Date: 03/02/22 Status: Ordered Pen [place], 31 G x 5 mm BD Ultra Fine III See Instructions, # 1 box, Refills 11, Tot. 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
--- OUTSIDE RECORDS SUMMARY | 2024-02-18 14:38 | XMS_ITS | Continuity of Care Document ---
Author Organization [facility] Address [address] [place] [address]- Care Team Providers Care Steam Shovel Oiler Name Role Phone Antwan Ramirez MD Primary Care Physician Encounter [facility] Date(s): 05/24/23 - 06/23/23 [facility] [address] [place], [place] [address] Allergies, Adverse Reactions, Alerts Substance Reaction Severity Status naproxen Active Immunizations Given and Recorded Vaccine Date Status Refusal Reason SARS-CoV-2(COVID-19)mRNA-LNP vac([id number]) 01/28/23 Recorded influenza virus vaccine, inactivated 1 [...] vaccine, inactivated 01/03/13 Ryan rded SARS-CoV-2 mRNA ([id number]) vax 4 07/28/21 Given SARS-CoV-2 (COVID-19) mRNA BNT-162b2 vac 5 02/03/21 Given SARS-CoV-2 (COVID-19) mRNA BNT-162b2 vac 06/24/20 Recorded SARS-CoV-2 (COVID-19) mRNA BNT-162b2 vac 06/03/20 Recorded zoster vaccine, inactivated 03/21/18 Recorded zoster vaccine, inactivated 03/14/17 Recorded hepatitis B adult vaccine 12/24/18 Recorded hepatitis B adult vaccine 03/21/18 Recorded [...] Comment: [facility] 24898-003-73 2Result Comment: [facility]: 51338-988-75 3Result Comment: Flu High Dose [facility] 26768-766-52 4Result Comment: [facility]: [address]-7 5Result Comment: [facility]: 79703-020-3 6Admin Note: SANOFI-PASTEUR VIS 09/25/2008 Medications aspirin 81 mg oral delayed release tablet 81 mg, 1, tablet, By Mouth, Daily, # 30 tablet, Refills 0, Maintenance, 10/10/18 10:08:15 EDT Start Date: 10/10/18 Status: Ordered atorvastatin 80 mg oral tablet 1 tablet, By Mouth, Daily, # 90 tablet, 1 Refills, Maintenance, 02/22/23 19:45:00 [facility] #[id number], 176, cm, 01/22/23 15:09:00 EDT, Height, 83.6, kg, 09/10/22 9:14:00 EDT, Dry Weight Start Date: 02/22/23 Status: Ordered Basaglar KwikPen 100 units/mL subcutaneous solution = 34 units, Subcutaneous Infusion, Daily, PLEASE INFORM PATIENT OF CHANGE FROM [facility] DUE TO INSURANCE , # 45 mL, 1 Refills, Maintenance, 05/05/23 13:25:00 [facility] #[id number], Partial fill upon patient request if the [...] 06/23/23 9:14:00 EDT, Route to Pharmacy Electronically, [facility] #[id number], Partial fill upon patient request if the prescription is for a schedule II opi... Start Date: 06/23/23 Status: Ordered Lyrica 100 mg oral capsule 1 capsule = 100 mg, By Mouth, 2 times a day, # 180 capsule, 1 Refills, Maintenance, 02/17/23 22:48:00 EST, Capsule, [facility] #[id number], 176, cm, 01/22/23 15:09:00 EDT, Height, 83.6, kg, 09/10/22 9:14:00 EDT, Dry Weight Start Date: 02/17/23 Status: Ordered metoprolol 50 mg oral tablet 50 mg, 1, tablet, By Mouth, 2 times a day, # 180 tablet, Refills 1, Tot. Refills 1, Maintenance, 07/28/19 16:25:00 EDT, Route to Pharmacy Electronically, [facility] #[id number], 176, cm, 07/14/19 9:19:00 EDT, Height Start Date: 07/28/19 Stop Date: 01/24/20 Status: Ordered omeprazole 40 mg oral enteric coated capsule TAKE 1 CAPSULE BY MOUTH DAILY Start Date: 03/02/22 Status: Ordered Pen [place], 31 G x 8 mm BD Ultra [...] 0 Refills, Maintenance, 06/12/23 21:45:00 EDT, Solution, [facility] #[id number], Partial fill upon patient request if the prescription is for a schedule I... 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 Confirmed Active CAD; s/p CABG; [facility] Confirmed 11/09/08 Active Dilated cardiomyopathy Confirmed 11/09/08 Active Dyspepsia Confirmed 11/09/08 Active Family history of cancer of colon Confirmed 11/09/08 Active Functional abdominal pain syndrome Confirmed 11/09/08 Active Gastroesophageal reflux disease Confirmed 11/09/08 Active Hiatal hernia Confirmed Active Hyperlipidemia Confirmed 11/09/08 Active HYPERTENSION Confirmed 11/09/08 Active Low back pain; [facility] Confirmed Active Chronic knee pain Confirmed Active Type II diabetes mellitus, well controlled Confirmed Active Social History Social History Type Response Smoking Status Never (less than 100 in lifetime) entered on: 12/30/18 Sex Patient Care team information Care Team Personnel Name: Antwan Ramirez MD Position: [facility] Physician - Primary Care Member Role: PCP Address: Address: [address] [place] [id number] Care Team Related Persons Name: SCOTT WEIR Address: home [address] [place] [address] Name: AUSTIN GUAJARDO Address: home [address] [place] [address]
--- OUTSIDE RECORDS SUMMARY | 2024-02-18 14:38 | XMS_ITS | Continuity of Care Document ---
Author Organization [facility] Address [address] [place] [address]- Care Team Providers Care Safety Lamp Keeper Name Role Phone Ke PAROLE HEARING OFFICER, Florina Cheatham Primary Care Physi erica Encounter [facility] Date(s): 09/10/22 - 09/10/[address] [address] Discharge Disposition: A-D/C Home Attending Physician: Edi Fisher MD Admitting Physician: Edi Fisher MD Referring Physician: Edi Fisher MD Allergies, Adverse Reactions, Alerts Substance Reaction Severity Status naproxen Active Immunizations Given and Recorded Vaccine Date Status Refusal Reason SARS-CoV-2 mRNA (louveqx-hjvf-votyj) vax 1 07/28/21 Given SARS-CoV-2 (COVID-19) mRNA [...] H1N1, inactive(oldterm) 5 03/25/09 Given 1Result Comment: [facility]: [id number] 2Result Comment: [facility]: 47862-691-7 3Result Comment: [facility]: 56398-732-96 4Result Comment: Flu High Dose [facility] [id number] 5Admin Note: SANOFI-PASTEUR VIS 09/25/2008 Medications aspirin 81 mg oral delayed release tablet 81 mg, 1, tablet, By Mouth, Daily, # 30 tablet, Refills 0, Maintenance, 10/10/18 10:08:15 EDT Start Date: 10/10/18 Status: Ordered atorvastatin 80 mg oral tablet 1 tablet, By Mouth, Daily, # 90 tablet, 1 Refills, Maintenance, 09/02/22 13:05:00 EDT, [facility] #[id number], 176, cm, 07/30/22 9:38:00 EDT, Height, 83.1, kg, 07/10/21 8:54:00 EDT, Dry Weight Start Date: 09/02/22 Status: Ordered azelastine 137 mcg/inh (0.1%) nasal spray 2 sprays, Nares, Both, Daily, PRN Other Allergies, # 30 mL, 1 Refills, Maintenance, 10/02/20 10:16:00 EDT, [place], [facility] #[id number], Partial fill upon patient request if the [...] Refills, Maintenance, 08/26/22 16:59:00 EDT, REC Powder, [facility] #[id number]... Start Date: 08/26/22 Status: Ordered Lantus Solostar Pen 100 units/mL subcutaneous solution = 34 units, Subcutaneous Injection, Daily at bedtime, # 15 mL, 1 Refills, Maintenance, 07/14/22 13:00:00 EDT, Solution, [facility] #[id number], 176, cm, 03/02/22 13:43:00 EST, Height, 83.1, kg, 07/10/21 8:54:00 EDT, Dry Weight Start Date: 07/14/22 Status: Ordered lisinopril 2.5 mg oral tablet 1, tablet, By Mouth, Daily, # 30 tablet, Refills 3, Maintenance, 09/08/22 16:35:00 EDT, Route to Pharmacy Electronically, [facility] #[id number], 176, cm, 07/30/22 9:38:00 EDT, Height, 83.1, kg,07/10/21 8:54:00 EDT, Dry Weight Start Date: 09/08/22 Status: Ordered Lyrica 100 mg oral capsule 1 capsule = 100 mg, By Mouth, 2 times a day, # 56 capsule, 1 Refills, Maintenance, 08/10/22 13:31:00 EDT, Capsule, [facility] #[id number], 176, cm, 07/30/22 9:38:00 EDT, Height, 83.1, kg, 07/10/21 8:54:00 EDT, Dry Weight Start Date: 08/10/22 Stop Date: 10/05/22 Status: Ordered metoprolol 50 mg oral tablet 50 mg, 1, tablet, By Mouth, 2 times a day, # 180 tablet, Refills 1, Tot. Refills 1, Maintenance, 07/28/19 16:25:00 EDT, Route to Pharmacy Electronically, [facility] #[id number], 176, cm, 07/14/19 9:19:00 EDT, Height Start Date: 07/28/19 Stop Date: 01/24/20 Status: Ordered omeprazole 40 mg oral enteric coated capsule TAKE 1 CAPSULE BY MOUTH DAILY Start Date: 03/02/22 Status: Ordered PEG-3350 with Electrolytes (Eqv-NuLYTELY) oral powder for reconstitution See Instructions, as directed, # 1 each, 0 Refills, Maintenance, 06/02/21 12:52:00 EST, [facility] #[id number], ok to sub for any gallon prep, as directed, 176, cm, 06/02/21 10:53:00 EST, Height, 83.6, kg, 07/01/20 11:06:00 EDT, Dry Weight Start Date: 06/02/21 Status: Ordered Pen [place], 31 G x 5 mm BD Ultra Fine III See Instructions, # 1 box, Refills 11, Tot. Refills 11, Maintenance, Use to inject insulin daily for DM2, E11.9, 10/14/18 12:32:54 EDT, Compound Start Date: 10/14/18 Status: Ordered Pen [place], 31 G x 8 mm BD Ultra [...] mL, 1 Refills, Maintenance, 06/30/22 11:06:00 EDT, [facility] #[id number], 176, cm, 03/02/22 13:43:00 EST, Height, 83.1, kg, 07/10/21 8:54:00 EDT, Dry Weight Start Date: 06/30/22 Status: Ordered Problem List Condition Confirmation Course Effective Dates Status H ealth Status Informant ABDOMINAL PAIN Confirmed 11/09/08 Active Anemia Confirmed Active Atherosclerosis Confirmed Active Robles's esophagus Confirmed Active CAD - Coronary artery disease Confirmed 11/09/08 Active Chronic pain syndrome Confirmed 11/09/08 Active Atherosclerotic heart disease of [place] coronary artery without angina pectoris Confirmed Active [...] II diabetes mellitus, well controlled Confirmed Active Vital Signs Most recent to oldest [Reference Range]: 1 2 3 Weight 83.6 kg (09/10/22 9:14 AM) Oxygen Saturation [94-100 %] 97 % (09/10/22 10:15 AM) 100 % (09/10/22 10:10 AM) 100 % (09/10/22 10:05 AM) Pulse Rate [55-90 bpm] 62 bpm (09/10/22 9:14 AM) Blood Pressure [90-138/55-84 mm Hg] 167/70mm Hg *H* (09/10/22 10:15 AM) 161/76mm Hg *H* (09/10/22 10:10 AM) 161/76mm Hg *H* (09/10/22 10:05 AM) Respiratory Rate [16-30 br/min] 13 br/min *L* (09/10/22 10:15 AM) 11 br/min *L* (09/10/22 10:10 AM) 15 br/min *L* (09/10/22 10:05 AM) Mode of Delivery (Oxygen) Room air (09/10/22 10:15 AM) Room air (09/10/22 10:10 AM) Room air (09/10/22 10:05 AM) Blood pressure sites Arm, left (09/10/22 9:14 AM) Dry Weight 83.6 kg (09/10/22 9:14 AM) Weight Obtained Via Standing scale (09/10/22 9:14 AM) Dry Weight Obtained Via Standing scale (09/10/22 9:14 AM) Social History Social History Type Response Smoking Status Never (less than 100 in lifetime) entered on: 12/30/18 Sex Patient Care team information Care Team Personnel Name: Ke MANZANO, Florina Cheatham Position: Reference Physician Member Role: PCP Address: Address: [address] [place] [address] [address] [place] [address]- Care Team Related Persons Name: SCOTT WEIR Address: [address] [place] [address] Name: AUSTIN GUAJARDO Address: [address] [place] [address]
--- OUTSIDE RECORDS SUMMARY | 2024-02-18 14:39 | XMS_ITS | Continuity of Care Document ---
Author Organization [facility] Address [address] [place] [address]- Care Team Providers Care Bathhouse Keeper Name Role Phone Fadumo RUSSELL, Britney Daniel Primary Care Physic nicola Encounter [facility] Date(s): 10/12/22 - 11/11/22 [facility] [address] [place] [address]- Attending Physician: Admtr, Ar8 Admitting Physician: Admtr, Ar8 Referring Physician: Admtr, Ar8 Allergies, Adverse Reactions, Alerts Substance Reaction Severity Status naproxen Active Immunizations Given and Recorded Vaccine Date Status Refusal Reason SARS-CoV-2 mRNA ([id number]-fskin) vax 1 07/28/21 Given SARS-CoV-2 (COVID-19) mRNA [...] H1N1, inactive(oldterm) 5 03/25/09 Given 1Result Comment: [facility]: [id number] 2Result Comment: [facility]: 51674-795-8 3Result Comment: [facility]: [id number] 4Result Comment: Flu High Dose [facility] [id number] 5Admin Note: SANOFI-PASTEUR VIS 09/25/2008 Medications aspirin 81 mg oral delayed release tablet 81 mg, 1, tablet, By Mouth, Daily, # 30 tablet, Refills 0, Maintenance, 10/10/18 10:08:15 EDT Start Date: 10/10/18 Status: Ordered atorvastatin 80 mg oral tablet 1 tablet, By Mouth, Daily, # 90 tablet, 1 Refills, Maintenance, 09/02/22 13:05:00 EDT, [facility] #[id number], 176, cm, 07/30/22 9:38:00 EDT, Height, 83.1, kg, 07/10/21 8:54:00 EDT, Dry Weight Start Date: 09/02/22 Status: Ordered azelastine 137 mcg/inh (0.1%) nasal spray 2 sprays, Nares, Both, Daily, PRN Other Allergies, # 30 mL, 1 Refills, Maintenance, 10/02/20 10:16:00 EDT, [place], [facility] #[id number], Partial fill upon patient request if the [...] Refills, Maintenance, 08/26/22 16:59:00 EDT, REC Powder, [facility] #[id number]... Start Date: 08/26/22 Status: Ordered Lantus Solostar Pen 100 units/mL subcutaneous solution = 34 units, Subcutaneous Injection, Daily at bedtime, # 15 mL, 1 Refills, Maintenance, 10/15/22 15:46:00 EDT, Solution, [facility] #[id number], 176, cm, 07/30/22 9:38:00 EDT, Height, 83.6, kg, 09/10/22 9:14:00 EDT, Dry Weight Start Date: 10/15/22 Status: Ordered lisinopril 2.5 mg oral tablet 1, tablet, By Mouth, Daily, # 90 tablet, Refills 0, Tot. Refills 0, Maintenance, 10/16/22 9:14:00 EDT, Route to Pharmacy Electronically, [facility] #[id number], 176, cm, 07/30/22 9:38:00 EDT, Height, 83.6, kg, 09/10/22 9:14:00 EDT, Dry Weight Start Date: 10/16/22 Status: Ordered Lyrica 100 mg oral capsule 1 capsule = 100 mg, By Mouth, 2 times a day, # 56 capsule, 0 Refills, Maintenance, 10/15/22 17:35:00 EDT, Capsule, [facility] #[id number], 176, cm, 07/30/22 9:38:00 EDT, Height, 83.6, kg, 09/10/22 9:14:00 EDT, Dry Weight Start Date: 10/15/22 Stop Date: 11/12/22 Status: Ordered metoprolol 50 mg oral tablet 50 mg, 1, tablet, By Mouth, 2 times a day, # 180 tablet, Refills 1, Tot. Refills 1, Maintenance, 07/28/19 16:25:00 EDT, Route to Pharmacy Electronically, [facility] #[id number], 176, cm, 07/14/19 9:19:00 EDT, Height Start Date: 07/28/19 Stop Date: 01/24/20 Status: Ordered omeprazole 40 mg oral enteric coated capsule TAKE 1 CAPSULE BY MOUTH DAILY Start Date: 03/02/22 Status: Ordered PEG-3350 with Electrolytes (Eqv-NuLYTELY) oral powder for reconstitution See Instructions, as directed, # 1 each, 0 Refills, Maintenance, 06/02/21 12:52:00 EST, [facility] #[id number], ok to sub for any gallon prep, as directed, 176, cm, 06/02/21 10:53:00 EST, Height, 83.6, kg, 07/01/20 11:06:00 EDT, Dry Weight Start Date: 06/02/21 Status: Ordered Pen [place], 31 G x 5 mm BD Ultra Fine III See Instructions, # 1 box, Refills 11, Tot. Refills 11, Maintenance, Use to inject insulin daily for DM2, E11.9, 10/14/18 12:32:54 EDT, Compound Start Date: 10/14/18 Status: Ordered Pen [place], 31 G x 8 mm BD Ultra [...] mL, 1 Refills, Maintenance, 06/30/22 11:06:00 EDT, [facility] #[id number], 176, cm, 03/02/22 13:43:00 EST, Height, 83.1, kg, 07/10/21 8:54:00 EDT, Dry Weight Start Date: 06/30/22 Status: Ordered Problem List Condition Confirmation Course Effective Dates Status H ealth Status Informant ABDOMINAL PAIN Confirmed 11/09/08 Active Anemia Confirmed Active Atherosclerosis Confirmed Active Robles's esophagus Confirmed Active CAD - Coronary artery disease Confirmed 11/09/08 Active Chronic pain syndrome Confirmed 11/09/08 Active Atherosclerotic heart disease of [place] coronary artery without angina pectoris Confirmed Active [...] 100 in lifetime) entered on: 12/30/18 Sex Cardiology * Event Display: Cardiovascular Result Scanned Authored Date: * Event Display: Non BH Cardiovascular Results Authored Date: * Event Display: Cardiovascular Result Scanned Authored Date: * Event Display: Cardiology Office Note, Non-BH Authored Date: Laboratory * Event Display: Non BH Lab Results Authored Date: * Event Display: Non BH Lab Results Authored Date: * Event Display: Non BH Lab Results Authored Date: Cardiology Consult note * Event Display: Consult Note Cardiology Authored Date: * Event Display: Consult Note Cardiology Authored Date: Radiology * Event Display: X-Ray Knee, Non- BH Authored Date: Patient Care team information Care Team Personnel Name: Fadumo RUSSELL, Britney Daniel Position: S Physician - Primary Care Member Role: PCP Address: Address: [address] [place] [address]- Care Team Related Persons Name: SCOTT WEIR Address: [address] [place] [address] Name: AUSTIN GUAJARDO Address: [address] [place] [address]
--- OUTSIDE RECORDS SUMMARY | 2024-02-18 14:39 | XMS_ITS | Continuity of Care Document ---
Author Organization [facility] Address [address] [place] [address]- Care Team Providers Care Customer Service Representative Name Role Phone Antwan Ramirez MD Primary Care Physician [phone] Encounter [facility] Date(s): 12/24/23 - 12/31/23 [facility] [address] [place] [address]- Encounter Diagnosis Chronic cough(Discharge Diagnosis) - 12/24/23 Dysphagia(Discharge Diagnosis) - 12/24/23 Cervicalgia(Discharge Diagnosis) - 12/24/23 HYPERTENSION(Discharge Diagnosis) - 12/24/23 Attending Physician: Antwan Ramirez MD Allergies, Adverse Reactions, Alerts Substance Reaction Severity Status naproxen Active Immunizations Given and Recorded Vaccine Date Status Refusal Reason SARS-CoV-2(COVID-19)mRNA-LNP vac([id number]) 01/28/23 Recorded influenza virus vaccine, inactivated 1 [...] vaccine, inactivated 01/03/13 Ryan rded SARS-CoV-2 mRNA ([id number]) vax 4 07/28/21 Given SARS-CoV-2 (COVID-19) mRNA [...] H1N1, inactive(oldterm) 6 03/25/09 Given 1Result Comment: [facility] [id number] 2Result Comment: [facility]: [phone] 3Result Comment: Flu High Dose [facility] [phone] 4Result Comment: [facility]: [id number] 5Result Comment: [facility]: [id number] 6Admin Note: SANOFI-PASTEUR VIS 09/25/2008 Medications aspirin 81 mg oral delayed release tablet 81 mg, 1, tablet, By Mouth, Daily, # 30 tablet, Refills 0, Maintenance, 10/10/18 10:08:15 EDT Start Date: 10/10/18 Status: Ordered atorvastatin 80 mg oral tablet 1 tablet, By Mouth, Daily, # 90 tablet, 1 Refills, Maintenance, 02/22/23 19:45:00 EST, [facility] #[id number], 176, cm, 01/22/23 15:09:00 EDT, Height, 83.6, kg, 09/10/22 9:14:00 EDT, Dry Weight Start Date: 02/22/23 Status: Ordered B 100 Complex oral tablet 1 tablet, By Mouth, Daily, # 100 tablet, 3 Refills, Maintenance, 09/22/23 12:13:00 EDT, Tablet, [facility] #[id number], Partial fill upon patient request if the prescription is for a schedule IIopioid drug., 1 tablet By Mouth Daily, 176, cm, ... Start Date: 09/22/23 Status: Ordered Basaglar KwikPen 100 units/mL subcutaneous solution = 30 units, Subcutaneous Infusion, Daily, # 45 mL, 1 Refills, Maintenance, 07/15/23 17:18:00 EDT, [facility] #[id number], Partial fill upon patient request if the [...] Date: 04/10/23 Stop Date: 06/09/23 Status: Ordered losartan 25 mg oral tablet 25 mg, 1, tablet, By Mouth, Daily, # 90 tablet, Refills 0, Tot. Refills 0, Maintenance, 12/24/23 16:40:00 EDT, Route to Pharmacy Electronically, [facility] #[id number], Partial fill upon patientrequest if the prescription is for a schedule II op... Start Date: 12/24/23 Status: Ordered Lyrica 100 mg oral capsule 1 capsule = 100 mg, By Mouth, 2 times a day, # 180 capsule, 1 Refills, Maintenance, 08/30/23 13:09:00 EDT, Capsule, [facility] #[id number], 176, cm, 06/23/23 9:08:00 EDT, Height, 83.6, kg, 09/10/22 9:14:00 EDT, Dry Weight Start Date: 08/30/23 Status: Ordered metFORMIN 500 mg oral tablet 1 tablet = 500 mg, By Mouth, 2 times a day, # 60 tablet, 0 Refills, Maintenance, 12/24/23 16:48:00 EDT, Tablet, Partial fill upon patient request if the prescription is for a schedule II opioid drug. Start Date: 12/24/23 Status: Ordered metoprolol 50 mg oral tablet 50 mg, 1, tablet, By Mouth, 2 times a day, # 180 tablet, Refills 1, Tot. Refills 1, Maintenance, 07/28/19 16:25:00 EDT, Route to Pharmacy Electronically, [facility] #[id number], 176, cm, 07/14/19 9:19:00 EDT, Height Start Date: 07/28/19 Stop Date: 01/24/20 Status: Ordered Mounjaro Subcutaneous Infusion, 0 Refills, Maintenance, 09/22/23 12:03:00 EDT, Partial fill upon patient request if the prescription is for a schedule II opioid drug. Start Date: 09/22/23 Status: Ordered omeprazole 40 mg oral enteric coated capsule TAKE 1 CAPSULE BY MOUTH DAILY Start Date: 03/02/22 Status: Ordered Pen [place], 32 G x 4 mm BD Ultra [...] EGD 2021 Confirmed Active CAD; s/p CABG; [facility] Confirmed 11/09/08 Active Dilated cardiomyopathy Confirmed 11/09/08 Active Dyspepsia Confirmed 11/09/08 Active Family history of cancer of colon Confirmed 11/09/08 Active Functional abdominal pain syndrome Confirmed 11/09/08 Active Gastroesophageal reflux disease Confirmed 11/09/08 Active Hiatal hernia Confirmed Active Hyperlipidemia Confirmed 11/09/08 Active HYPERTENSION Confirmed 11/09/08 Active Low back pain; [facility] Confirmed Active Chronic knee pain Confirmed Active Diabetes mellitus, type II; Dr Aguilar Confirmed Active Diagnosis Diagnosis Type Effective Dates Health Status Cl inical Service Informant Chronic cough Discharge Diagnosis 12/24/23 Dysphagia Discharge Diagnosis 12/24/23 Cervicalgia Discharge Diagnosis 12/24/23 HYPERTENSION Discharge Diagnosis 12/24/23 Vital Signs Most recent to oldest [Reference Range]: 1 Height 176 cm (12/24/23 4:25 PM) Weight 83.8 kg (12/24/23 4:25 PM) Oxygen Saturation [94-100 %] 99 % (12/24/23 4:25 PM) Pulse Rate [55-90 bpm] 71 bpm (12/24/23 4:25 PM) Body Mass Index [18.5-24.99 kg/m2] 27.05 kg/m2 *H* (12/24/23 4:25 PM) Blood Pressure [90-138/55-84 mm Hg] 125/ 69mm Hg (12/24/23 4:25 PM) Mode of Delivery (Oxygen) Room air (12/24/23 4:25 PM) Blood pressure sites Arm, left (12/24/23 4:25 PM) Social History Social History Type Response Smoking Status Never (less than 100 in lifetime) entered on: 12/30/18 Sex Note * Ann Gonzalez: PERFORM Event Display: Patient Education/Instruction Authored Date: [id number] Ambulatory Adult Visit Summary [facility] [address] [place] [address] Name: VI GUAJARDO : 1950?? Visit: 12/24/2023 16:16?? Ambulatory Visit Instructions ?? Your Care Team Primary Care Provider Antwan Ramirez MD? This Visit Provider Antwan Ramirez MD Your Diagnosis Chronic cough Dysphagia Cervicalgia HYPERTENSION Vitals Signs Pulse Rate: 71 bpm Height: 176 cm Systolic Blood Pressure: 125 mm Hg Weight: 83.8 kg Diastolic Blood Pressure: 69 mm Hg Body Mass Index:??27.05 kg/m2??High Oxygen Saturation: 99 % Body surface area: 2.02 What to do next Future Orders XR Modified Barium Swallow W/ Speech RAD, Routine, Reason for Exam: Dysphagia, Once, *Est. 12/24/23, Order for Today Medications The list below reflects the information in our records and provided by you today along with any changes made during this visit. Please continue your medications until treatment is completed or stopped by your provider. If this is different from the information you have or there are other questions,please contact the prescribing provider. What How Much When Instructions New Losartan (losartan 25 mg oral tablet) 1 tab(s) Oral Daily Pickup at [facility] #[id number] Changed Insulin Glargine (Basaglar KwikPen 100 units/ mL subcutaneous solution) 30 unit(s) Subcutaneous Infusion Daily Changed Metformin (metFORMIN 500 mg oral tablet) 1 tab(s) Oral Twice a day Unchanged Aspirin (aspirin 81 mg oral delayed release tablet) 1 tab(s) Oral Daily Unchanged Atorvastatin (atorvastatin 80 mg oral tablet) 1 tab(s) Oral Daily Unchanged Durable Medical Equipment (FreeStyle Soraida 2 Monitor) See instructions Use to test daily for Diabetes Type 2 DX: E11.9 ?? Unchanged Durable Medical Equipment (Freestyle Soraida Sensor) See instructions Duration: 30 Days Apply every 14 days. use as directed for Type 2 Diabetes Mellitus ?? Unchanged Durable Medical Equipment (Pen [place], 32 G x 4 mm BD Ultra Fine III) See instructions Use to inject insulin TID ?? Dx E11.65 ?? Unchanged Metoprolol (metoprolol 50 mg oral tablet) 1 tab(s) Oral Twice a day Duration: 90 Days Unchanged Multivitamin (B 100 Complex oral tablet) 1 tab(s) Oral Daily Unchanged Omeprazole (omeprazole 40 mg oral enteric coated capsule) TAKE 1 CAPSULE BY MOUTH DAILY ?? Unchanged Pregabalin (Lyrica 100 mg oral capsule) 1 capsule Oral Twice a day Unchanged tirzepatide (Mounjaro) Subcutaneous Infusion Pharmacy Information [facility] #[id number]: [address] [place], [place] [phone] Medications and Immunizations Administered Medications Given During Visit No medications given during this visit.?? Allergies (NKA means No Known Allergies) naproxen Common Emergency Awareness Tips IS IT A STROKE? Act FAST and Check for these signs: FACE Does the face look uneven? ARM Does one arm drift down? SPEECH Does their speech sound strange? TIME Call at any sign of stroke ?? Heart Attack Signs Chest discomfort: Most heart attacks involve discomfort in the center of the chest and lasts more than a few minutes, or goes away and comes back. It can feel like uncomfortable pressure, squeezing, fullness or pain. Discomfort in upper body: Symptoms can include pain or discomfort in one or both arms, back, neck, jaw or stomach. Shortness of breath: With or without discomfort. Other signs: Breaking out in a cold sweat, nausea, or lightheaded. Remember, MINUTES DO MATTER. If you experience any of these heart attack warning signs, call to get immediate medical attention! ?? Smoking can increase your chances of developing chronic health problems and can cause harmful effects to other family members in your house. If you smoke, you are strongly encouraged to quit. Please call [facility] at [phone] or [phone] ([phone]) or log in to [email or web address] for referrals to smoking cessation programs. ?? The National Suicide Prevention Hotline is available 19/10 if you or someone you know needs to find a reason to keep living. By calling 9-016-095-WireOver (2932) you'll be connected to a skilled, trained counselor at a crisis center in your area. [facility] Portal You can view and manage your care through the patient portal or by using a health care chris of your choosing. [employer] is a website that allows you to securely view your medical information including your hospital discharge summary, office visit summaries, medications and follow-up visits. You can also request appointments, renew medications, and request access to your medical information using a health care chris of your choosing, or just ask a question. You can enroll at [email or web address] or register during your next office visit. [facility], in keeping with [facility] guidance, no longer requires face masks for staff, patientsor visitors in most situations. Similiar to time spent indoors at other locations, there is the chance that you were exposed to repiratory viruses during your time with us (such as flu or COVID-19). If you develop symptoms concerning for a viral respiratory infection, please seek testing (and treatment if indicated) from your medical provider or home test kit. ?? Disclaimer: The information provided is of a general nature and is intended to be used in conjunction with the recommendations and advice of your health care practitioner. Every effort has been made to ensure that the information provided is accurate and complete at the time it is provided to you however, as your needs change, or, as new information becomes available, different or additional instructions may be required. ?? If you have questions, please consult with your primary care provider or pharmacist, as appropriate. This information is not intended to serve as substitution for assessment and evaluation by a qualified health care provider. If you do not have a primary care provider, you may find a [facility] provider by calling [facility] at [phone]. Patient Care team information Care Team Personnel Name: Antwan Ramirez MD Position: [facility] Physician - Primary Care Member Role: PCP Address: Address: [address] [place] [address]- Care Team Related Persons Name: SCOTT WEIR Address: home [address] [place] [address] Name: AUSTIN GUAJARDO Address: [address] [place] [address]
--- OUTSIDE RECORDS SUMMARY | 2024-02-18 14:39 | XMS_ITS | Continuity of Care Document ---
Author Organization [facility] Address [address] [place] [address]- Care Team Providers Care Manager Poker Name Role Phone Fadumo RUSSELL, Britney Daniel Primary Care Physic nicola Encounter [facility] Date(s): 12/03/22 - 01/02/23 [facility] [address] [place] [address]- Allergies, Adverse Reactions, Alerts Substance Reaction Severity Status naproxen Active Immunizations Given and Recorded Vaccine Date Status Refusal Reason SARS-CoV-2 mRNA (xxmwxak-udka-tvsbe) vax 1 07/28/21 Given SARS-CoV-2 (COVID-19) mRNA BNT-162b2 vac 2 02/03/21 Given SARS-CoV-2 (COVID-19) mRNA BNT-162b2 vac 06/24/20 Recorded SARS-CoV-2 (COVID-19) mRNA BNT-162b2 vac 06/03/20 Recorded influenza virus vaccine, inactivated 3 02/03/21 Gi farooq influenza virus vaccine, inactivated 01/23/20 Ryan rded influenza virus vaccine, inactivated 02/08/19 Gi farooq influenza virus vaccine, inactivated [...] 1Result Comment: [facility]: [id number] 2Result Comment: [facility]: [id number] 3Result Comment: [facility]: [id number] 4Result Comment: Flu High Dose [facility] [phone] 5Admin Note: SANOFI-PASTEUR VIS 09/25/2008 Medications aspirin 81 mg oral delayed release tablet 81 mg, 1, tablet, By Mouth, Daily, # 30 tablet, Refills 0, Maintenance, 10/10/18 10:08:15 EDT Start Date: 10/10/18 Status: Ordered atorvastatin 80 mg oral tablet 1 tablet, By Mouth, Daily, # 90 tablet, 1 Refills, Maintenance, 09/02/22 13:05:00 EDT, [facility] #[id number], 176, cm, 07/30/22 9:38:00 EDT, Height, 83.1, kg, 07/10/21 8:54:00 EDT, Dry Weight Start Date: 09/02/22 Status: Ordered azelastine 137 mcg/inh (0.1%) nasal spray 2 sprays, Nares, Both, Daily, PRN Other Allergies, # 30 mL, 1 Refills, Maintenance, 10/02/20 10:16:00 EDT, [place], [facility] #[id number], Partial fill upon patient request if the [...] Date: 11/25/22 Stop Date: 01/24/23 Status: Ordered Golytely - oral powder for reconstitution 240 mL, By Mouth, Every 15 minutes, Start prep at 5 pm the night before the procedure. Take 1/2 of the prep Take the othe 1/2 6 hours before the procedure, # 1 each, 0 Refills, Maintenance, 08/26/22 16:59:00 EDT, REC Powder, [facility] #[id number]... Start Date: 08/26/22 Status: Ordered Lantus Solostar Pen 100 units/mL subcutaneous solution = 34 units, Subcutaneous Injection, Daily at bedtime, # 15 mL, 1 Refills, Maintenance, 10/15/22 15:46:00 EDT, Solution, [facility] #[id number], 176, cm, 07/30/22 9:38:00 EDT, Height, 83.6, kg, 09/10/22 9:14:00 EDT, Dry Weight Start Date: 10/15/22 Status: Ordered lisinopril 2.5 mg oral tablet 1, tablet, By Mouth, Daily, # 90 tablet, Refills 0, Tot. Refills 0, Maintenance, 10/16/22 9:14:00 EDT, Route to Pharmacy Electronically, [facility] #[id number], 176, cm, 07/30/22 9:38:00 EDT, Height, 83.6, kg, 09/10/22 9:14:00 EDT, Dry Weight Start Date: 10/16/22 Status: Ordered Lyrica 100 mg oral capsule 1 capsule = 100 mg, By Mouth, 2 times a day, # 56 capsule, 0 Refills, Maintenance, 12/15/22 9:16:00EDT, Capsule, [facility] #[id number], 176, cm, 07/30/22 9:38:00 EDT, Height, 83.6, kg, 09/10/22 9:14:00 EDT, Dry Weight Start Date: 12/15/22 Stop Date: 01/12/23 Status: Ordered metoprolol 50 mg oral tablet 50 mg, 1, tablet, By Mouth, 2 times a day, # 180 tablet, Refills 1, Tot. Refills 1, Maintenance, 07/28/19 16:25:00 EDT, Route to Pharmacy Electronically, [facility] #[id number], 176, cm, 07/14/19 9:19:00 EDT, Height Start Date: 07/28/19 Stop Date: 01/24/20 Status: Ordered omeprazole 40 mg oral enteric coated capsule TAKE 1 CAPSULE BY MOUTH DAILY Start Date: 03/02/22 Status: Ordered PEG-3350 with Electrolytes (Eqv-NuLYTELY) oral powder for reconstitution See Instructions, as directed, # 1 each, 0 Refills, Maintenance, 06/02/21 12:52:00 EST, [facility] #[id number], ok to sub for any gallon prep, as directed, 176, cm, 06/02/21 10:53:00 EST, Height, 83.6, kg, 07/01/20 11:06:00 EDT, Dry Weight Start Date: 06/02/21 Status: Ordered Pen [place], 31 G x 5 mm BD Ultra Fine III See Instructions, # 1 box, Refills 11, Tot. Refills 11, Maintenance, Use to inject insulin daily for DM2, E11.9, 10/14/18 12:32:54 EDT, Compound Start Date: 10/14/18 Status: Ordered Pen [place], 31 G x 8 mm BD Ultra [...] mL, 1 Refills, Maintenance, 06/30/22 11:06:00 EDT, [facility] #[id number], 176, cm, 03/02/22 13:43:00 EST, Height, 83.1, kg, 07/10/21 8:54:00 EDT, Dry Weight Start Date: 06/30/22 Status: Ordered Problem List Condition Confirmation Course Effective Dates Status H ealth Status Informant ABDOMINAL PAIN Confirmed 11/09/08 Active Anemia Confirmed Active Atherosclerosis Confirmed Active Robles's esophagus Confirmed Active CAD - Coronary artery disease Confirmed 11/09/08 Active Chronic pain syndrome Confirmed 11/09/08 Active Atherosclerotic heart disease of [place] coronary artery without angina pectoris Confirmed Active [...] Care Member Role: PCP Address: Address: [address] [place] [id number]- Care Team Related Persons Name: SCOTT WEIR Address: [address] [place] [address] Name: AUSTIN GUAJARDO Address: [address] [place] [address]
--- OUTSIDE RECORDS SUMMARY | 2024-02-18 14:39 | XMS_ITS | Continuity of Care Document ---
Author Organization [facility] Address [address] [place] [address]- Care Team Providers Care Electrical Controls Assembler Name Role Phone Antwan Ramirez MD Primary Care Physician [phone] [facility] Date(s): 09/28/23 - 10/28/23 [facility] [address] [place], [place] [address] Allergies, Adverse Reactions, Alerts Substance Reaction Severity Status naproxen Active Immunizations Given and Recorded Vaccine Date Status Refusal Reason SARS-CoV-2(COVID-19)mRNA-LNP vac([id number]) 01/28/23 Recorded influenza virus vaccine, inactivated 1 [...] vaccine, inactivated 01/03/13 Ryan rded SARS-CoV-2 mRNA (yfcwonh-rhrn-ssofa) vax 4 07/28/21 Given SARS-CoV-2 (COVID-19) mRNA [...] H1N1, inactive(oldterm) 6 03/25/09 Given 1Result Comment: [facility] [id number] 2Result Comment: [facility]: [phone] 3Result Comment: Flu High Dose [facility] [phone] 4Result Comment: [facility]: [id number] 5Result Comment: [facility]: [phone] 6Admin Note: SANOFI-PASTEUR VIS 09/25/2008 Medications aspirin 81 mg oral delayed release tablet 81 mg, 1, tablet, By Mouth, Daily, # 30 tablet, Refills 0, Maintenance, 10/10/18 10:08:15 EDT Start Date: 10/10/18 Status: Ordered atorvastatin 80 mg oral tablet 1 tablet, By Mouth, Daily, # 90 tablet, 1 Refills, Maintenance, 02/22/23 19:45:00 EST, [facility] #[id number], 176, cm, 01/22/23 15:09:00 EDT, Height, 83.6, kg, 09/10/22 9:14:00 EDT, Dry Weight Start Date: 02/22/23 Status: Ordered B 100 Complex oral tablet 1 tablet, By Mouth, Daily, # 100 tablet, 3 Refills, Maintenance, 09/22/23 12:13:00 EDT, Tablet, [facility] #[id number], Partial fill upon patient request if the prescription is for a schedule IIopioid drug., 1 tablet By Mouth Daily, 176, cm, ... Start Date: 09/22/23 Status: Ordered Basaglar KwikPen 100 units/mL subcutaneous solution = 40 units, Subcutaneous Infusion, Daily, # 45 mL, 1 Refills, Maintenance, 07/15/23 17:18:00 EDT, [facility] #[id number], Partial fill upon patient request if the [...] 09/28/23 15:12:00 EDT, Route to Pharmacy Electronically, [facility] #[id number], Partial fill upon patientrequest if the prescription is for a schedule II op... Start Date: 09/28/23 Status: Ordered Lyrica 100 mg oral capsule 1 capsule = 100 mg, By Mouth, 2 times a day, # 180 capsule, 1 Refills, Maintenance, 08/30/23 13:09:00 EDT, Capsule, [facility] #[id number], 176, cm, 06/23/23 9:08:00 EDT, Height, 83.6, [...] 07/28/19 16:25:00 EDT, [facility] to Pharm[facility], [facility][id number], 176, cm, 07/14/19 9:19:00 EDT, Height Start Date: 07/28/19 Stop Date: 01/24/20 Status: Ordered Mounjaro Subcutaneous Infusion, 0 Refills, Maintenance, 09/22/23 12:03:00 EDT, Partial fill upon patient request if the prescription is for a schedule II opioid drug. Start Date: 09/22/23 Status: Ordered omeprazole 40 mg oral enteric coated capsule TAKE 1 CAPSULE BY MOUTH DAILY Start Date: 03/02/22 Status: Ordered Pen [place], 32 G x 4 mm BD Ultra [...] EGD 2021 Confirmed Active CAD; s/p CABG; [facility] Confirmed 11/09/08 Active Dilated cardiomyopathy Confirmed 11/09/08 Active Dyspepsia Confirmed 11/09/08 Active Family history of cancer of colon Confirmed 11/09/08 Active Functional abdominal pain syndrome Confirmed 11/09/08 Active Gastroesophageal reflux disease Confirmed 11/09/08 Active Hiatal hernia Confirmed Active Hyperlipidemia Confirmed 11/09/08 Active HYPERTENSION Confirmed 11/09/08 Active Low back pain; [facility] Confirmed Active Chronic knee pain Confirmed Active Diabetes mellitus, type II; Dr Aguilar Confirmed Active Social History Social History Type Response Smoking Status Never (less than 100 in lifetime) entered on: 12/30/18 Sex Patient Care team information Care Team Personnel Name: Antwan Ramirez MD Position: [facility] Physician - Primary Care Member Role: PCP Address: Address: [address] [place] [address]- Care Team Related Persons Name: SCOTT WEIR Address: [address] [place] [address] Name: AUSTIN GUAJARDO Address: [address] [place] [address]
--- OUTSIDE RECORDS SUMMARY | 2024-02-18 14:40 | XMS_ITS | Continuity of Care Document ---
Author Organization [facility] Address [address] [place] [address]- Care Team Providers Care Wire Inspector Name Role Phone Antwan Ramirez MD Primary Care Physician Encounter [facility] [place] [place] Date(s): 06/07/23 - 07/07/23 [facility] [address] [place] [address]- Allergies, Adverse Reactions, Alerts Substance Reaction Severity Status naproxen Active Immunizations Given and Recorded Vaccine Date Status Refusal Reason SARS-CoV-2(COVID-19)mRNA-LNP vac([id number]) 01/28/23 Recorded influenza virus vaccine, inactivated 1 [...] vaccine, inactivated 01/03/13 Ryan rded SARS-CoV-2 mRNA ([id number]) vax 4 07/28/21 Given SARS-CoV-2 (COVID-19) mRNA [...] [facility] 65310-469-65 2Result Comment: [facility]: [phone] 3Result Comment: Flu High Dose [facility] 18651-018-68 4Result Comment: [facility]: [address]-2 5Result Comment: [facility]: 76004-314-9 6Admin Note: SANOFI-PASTEUR VIS 09/25/2008 Medications aspirin 81 mg oral delayed release tablet 81 mg, 1, tablet, By Mouth, Daily, # 30 tablet, Refills 0, Maintenance, 10/10/18 10:08:15 EDT Start Date: 10/10/18 Status: Ordered atorvastatin 80 mg oral tablet 1 tablet, By Mouth, Daily, # 90 tablet, 1 Refills, Maintenance, 02/22/23 19:45:00 [facility] #[id number], 176, cm, 01/22/23 15:09:00 EDT, Height, 83.6, kg, 09/10/22 9:14:00 EDT, Dry Weight Start Date: 02/22/23 Status: Ordered Basaglar KwikPen 100 units/mL subcutaneous solution = 34 units, Subcutaneous Infusion, Daily, PLEASE INFORM PATIENT OF CHANGE FROM LANTUS DUE TO INSURANCE , # 45 mL, 1 Refills, Maintenance, 05/05/23 13:25:00 [facility] #[id number], Partial fill upon patient request if the [...] 06/23/23 9:14:00 EDT, Route to Pharmacy Electronically, [facility] #[id number], Partial fill upon patient request if the prescription is for a schedule II opi... Start Date: 06/23/23 Status: Ordered Lyrica 100 mg oral capsule 1 capsule = 100 mg, By Mouth, 2 times a day, # 180 capsule, 1 Refills, Maintenance, 02/17/23 22:48:00 EST, Capsule, [facility] #[id number], 176, cm, 01/22/23 15:09:00 EDT, Height, 83.6, kg, 09/10/22 9:14:00 EDT, Dry Weight Start Date: 02/17/23 Status: Ordered metoprolol 50 mg oral tablet 50 mg, 1, tablet, By Mouth, 2 times a day, # 180 tablet, Refills 1, Tot. Refills 1, Maintenance, 07/28/19 16:25:00 EDT, Route to Pharmacy Electronically, [facility] #[id number], 176, cm, 07/14/19 9:19:00 EDT, Height Start Date: 07/28/19 Stop Date: 01/24/20 Status: Ordered omeprazole 40 mg oral enteric coated capsule TAKE 1 CAPSULE BY MOUTH DAILY Start Date: 03/02/22 Status: Ordered Pen [place], 31 G x 8 mm BD Ultra [...] 0 Refills, Maintenance, 06/12/23 21:45:00 EDT, Solution, [facility] #[id number], Partial fill upon patient request if the prescription is for a schedule I... 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 Confirmed Active CAD; s/p CABG; [facility] Confirmed 11/09/08 Active Dilated cardiomyopathy Confirmed 11/09/08 Active Dyspepsia Confirmed 11/09/08 Active Family history of cancer of colon Confirmed 11/09/08 Active Functional abdominal pain syndrome Confirmed 11/09/08 Active Gastroesophageal reflux disease Confirmed 11/09/08 Active Hiatal hernia Confirmed Active Hyperlipidemia Confirmed 11/09/08 Active HYPERTENSION Confirmed 11/09/08 Active Low back pain; [facility] Confirmed Active Chronic knee pain Confirmed Active Type II diabetes mellitus, well controlled Confirmed Active Social History Social History Type Response Smoking Status Never (less than 100 in lifetime) entered on: 12/30/18 Sex Patient Care team information Care Team Personnel Name: Antwan Ramirez MD Position: [facility] Physician - Primary Care Member Role: PCP Address: Address: [address] [place] [id number] Care Team Related Persons Name: SCOTT WEIR Address: [address] [place] [address] Name: AUSTIN GUAJARDO Address: home [address] [place] [address]
--- OUTSIDE RECORDS SUMMARY | 2024-02-18 14:40 | XMS_ITS | Continuity of Care Document ---
Author Organization [facility] Address [address] [place] [address]- Care Team Providers Care Wrecking Supervisor Name Role Phone Antwan Ramirez MD Primary Care Physician Encounter [facility] [place] Date(s): 08/16/23 - 09/15/23 [facility] [address] [place] [address]- Allergies, Adverse Reactions, Alerts Substance Reaction Severity Status naproxen Active Immunizations Given and Recorded Vaccine Date Status Refusal Reason SARS-CoV-2(COVID-19)mRNA-LNP vac([id number]) 01/28/23 Recorded influenza virus vaccine, inactivated 1 [...] vaccine, inactivated 01/03/13 Ryan rded SARS-CoV-2 mRNA ([id number]-[id number]-fwbgm) vax 4 07/28/21 Given SARS-CoV-2 (COVID-19) mRNA [...] inactive(oldterm) 6 03/25/09 Given 1Result Comment: [facility] [id number] 2Result Comment: [facility]: 94178-194-96 3Result Comment: Flu High Dose [facility] 69231-934-19 4Result Comment: [facility]: [id number] 5Result Comment: [facility]: 52355-638-1 6Admin Note: SANOFI-PASTEUR VIS 09/25/2008 Medications aspirin 81 mg oral delayed release tablet 81 mg, 1, tablet, By Mouth, Daily, # 30 tablet, Refills 0, Maintenance, 10/10/18 10:08:15 EDT Start Date: 10/10/18 Status: Ordered atorvastatin 80 mg oral tablet 1 tablet, By Mouth, Daily, # 90 tablet, 1 Refills, Maintenance, 02/22/23 19:45:00 EST, [facility] #[id number], 176, cm, 01/22/23 15:09:00 EDT, Height, 83.6, kg, 09/10/22 9:14:00 EDT, Dry Weight Start Date: 02/22/23 Status: Ordered Basaglar KwikPen 100 units/mL subcutaneous solution = 40 units, Subcutaneous Infusion, Daily, # 45 mL, 1 Refills, Maintenance, 07/15/23 17:18:00 EDT, [facility] #[id number], Partial fill upon patient request if the [...] 06/23/23 9:14:00 EDT, Route to Pharmacy Electronically, [facility] #[id number], Partial fill upon patient request if the prescription is for a schedule II opi... Start Date: 06/23/23 Status: Ordered Lyrica 100 mg oral capsule 1 capsule = 100 mg, By Mouth, 2 times a day, # 180 capsule, 1 Refills, Maintenance, 08/30/23 13:09:00 EDT, Capsule, [facility] #[id number], 176, cm, 06/23/23 9:08:00 EDT, Height, 83.6, kg, 09/10/22 9:14:00 EDT, Dry Weight Start Date: 08/30/23 Status: Ordered MetFORMIN (Eqv-Glucophage XR) 500 mg oral tablet, extended release 2 tablet = 1,000 mg, By Mouth, Daily, # 60 tablet, 0 Refills, Maintenance, 08/17/23 8:22:00 EDT, [facility] #[id number], Partial fill upon patient request if the prescription is for a schedule II opioid drug., 176, cm, 06/23/23 9:08:00 EDT, Heigh... Start Date: 08/17/23 Status: Ordered metoprolol 50 mg oral tablet 50 mg, 1, tablet, By Mouth, 2 times a day, # 180 tablet, Refills 1, Tot. Refills 1, Maintenance, 07/28/19 16:25:00 EDT, Route to Pharmacy Electronically, [facility] #[id number], 176, cm, 07/14/19 9:19:00 EDT, Height Start Date: 07/28/19 Stop Date: 01/24/20 Status: Ordered omeprazole 40 mg oral enteric coated capsule TAKE 1 CAPSULE BY MOUTH DAILY Start Date: 03/02/22 Status: Ordered Pen [place], 32 G x 4 mm BD Ultra [...] 3 Refills, Maintenance, 08/31/23 14:04:00 EDT, Solution, [facility] #[id number], Partial fill upon patient request if the prescription is for a schedule II opioi... 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 Confirmed Active CAD; s/p CABG; [facility] Confirmed 11/09/08 Active Dilated cardiomyopathy Confirmed 11/09/08 Active Dyspepsia Confirmed 11/09/08 Active Family history of cancer of colon Confirmed 11/09/08 Active Functional abdominal pain syndrome Confirmed 11/09/08 Active Gastroesophageal reflux disease Confirmed 11/09/08 Active Hiatal hernia Confirmed Active Hyperlipidemia Confirmed 11/09/08 Active HYPERTENSION Confirmed 11/09/08 Active Low back pain; [facility] Confirmed Active Chronic knee pain Confirmed Active Type II diabetes mellitus, well controlled Confirmed Active Social History Social History Type Response Smoking Status Never (less than 100 in lifetime) entered on: 12/30/18 Sex Patient Care team information Care Team Personnel Name: Antwan Ramirez MD Position: S Physician - Primary Care Member Role: PCP Address: Address: [address] [facility] [place] [address]- Care Team Related Persons Name: SCOTT WEIR Address: [address] [place] [address] Name: AUSTIN GUAJARDO Address: [address] [place] [address]
--- OUTSIDE RECORDS SUMMARY | 2024-02-18 14:40 | XMS_ITS | Continuity of Care Document ---
Author Organization [facility] Address [address] [place] [address]- Care Team Providers Care Browning Processor Name Role Phone Antwan Ramirez MD Primary Care Physician Encounter [facility] Date(s): 04/09/23 - 05/09/23 [facility] [address] [place], [place] [address] Allergies, Adverse Reactions, Alerts Substance Reaction Severity Status naproxen Active Immunizations Given and Recorded Vaccine Date Status Refusal Reason SARS-CoV-2(COVID-19)mRNA-LNP vac([id number]) 01/28/23 Recorded influenza virus vaccine, inactivated 1 01/06/23 Gi farooq influenza virus vaccine, inactivated 2 02/03/21 Gi farooq influenza virus vaccine, inactivated 01/23/20 Ryan rded influenza virus vaccine, inactivated 3 02/08/19 Gi farooq influenza virus vaccine, inactivated 02/25/17 Rayn rded influenza virus vaccine, inactivated 01/24/16 Ryan rded influenza virus vaccine, inactivated 12/25/14 Ryan rded influenza virus vaccine, inactivated 02/05/14 Ryan rded influenza virus vaccine, inactivated 01/03/13 Ryan rded SARS-CoV-2 mRNA ([id number]-[id number]) vax 4 07/28/21 Given SARS-CoV-2 (COVID-19) mRNA [...] H1N1, inactive(oldterm) 6 03/25/09 Given 1Result Comment: [facility] 59092-218-93 2Result Comment: [facility]: [phone] 3Result Comment: Flu High Dose [facility] 53967-732-80 4Result Comment: [facility]: [address]-6 5Result Comment: [facility]: [phone] 6Admin Note: SANOFI-PASTEUR VIS 09/25/2008 Medications aspirin 81 mg oral delayed release tablet 81 mg, 1, tablet, By Mouth, Daily, # 30 tablet, Refills 0, Maintenance, 10/10/18 10:08:15 EDT Start Date: 10/10/18 Status: Ordered atorvastatin 80 mg oral tablet 1 tablet, By Mouth, Daily, # 90 tablet, 1 Refills, Maintenance, 02/22/23 19:45:00 [facility][id number], 176, cm, 01/22/23 15:09:00 EDT, Height, 83.6, kg, 09/10/22 9:14:00 EDT, Dry Weight Start Date: 02/22/23 Status: Ordered Basaglar KwikPen 100 units/mL subcutaneous solution = 34 units, Subcutaneous Infusion, Daily, PLEASE INFORM PATIENT OF CHANGE FROM LANTUS DUE TO INSURANCE , # 45 mL, 1 Refills, Maintenance, 05/05/23 13:25:00 [facility] #[id number], Partial fill upon patient request if the [...] mL, 1 Refills, Maintenance, 04/17/23 15:43:00 EST, [facility] #[id number], 176, cm, 01/22/23 15:09:00 EDT, Height, 83.6, kg, 09/10/22 9:14:00 EDT, Dry Weight Start Date: 04/17/23 Status: Ordered lisinopril 2.5 mg oral tablet 1, tablet, By Mouth, Daily, # 90 tablet, Refills 0, Maintenance, 04/15/23 8:20:00 EST, Route to Pharmacy Electronically, [facility] #[id number], 176, cm, 01/22/23 15:09:00 EDT, Height, 83.6, kg,09/10/22 9:14:00 EDT, Dry Weight Start Date: 04/15/23 Status: Ordered Lyrica 100 mg oral capsule 1 capsule = 100 mg, By Mouth, 2 times a day, # 180 capsule, 1 Refills, Maintenance, 02/17/23 22:48:00 EST, Capsule, [facility] #[id number], 176, cm, 01/22/23 15:09:00 EDT, Height, 83.6, kg, 09/10/22 9:14:00 EDT, Dry Weight Start Date: 02/17/23 Status: Ordered metoprolol 50 mg oral tablet 50 mg, 1, tablet, By Mouth, 2 times a day, # 180 tablet, Refills 1, Tot. Refills 1, Maintenance, 07/28/19 16:25:00 EDT, Route to Pharmacy Electronically, [facility] #[id number], 176, cm, 07/14/19 9:19:00 EDT, Height Start Date: 07/28/19 Stop Date: 01/24/20 Status: Ordered omeprazole 40 mg oral enteric coated capsule TAKE 1 CAPSULE BY MOUTH DAILY Start Date: 03/02/22 Status: Ordered Pen [place], 31 G x 5 mm BD Ultra Fine III See Instructions, # 1 box, Refills 11, Tot. Refills 11, Maintenance, Use to inject insulin daily for DM2, E11.9, 10/14/18 12:32:54 EDT, Compound Start Date: 10/14/18 Status: Ordered Pen [place], 31 G x 8 mm BD Ultra [...] mL, 1 Refills, Maintenance, 06/30/22 11:06:00 EDT, [facility] #[id number], 176, cm, 03/02/22 13:43:00 EST, Height, 83.1, kg, 07/10/21 8:54:00 EDT, Dry Weight Start Date: 06/30/22 Status: Ordered Problem List Condition Confirmation Course Effective Dates Status H ealth Status Informant Anemia Confirmed Active Robles's esophagus, 2009; not on EGD 2021 Confirmed Active CAD; s/p CABG; [facility] Confirmed 11/09/08 Active Dilated cardiomyopathy Confirmed 11/09/08 Active Dyspepsia Confirmed 11/09/08 Active Family history of cancer of colon Confirmed 11/09/08 Active Functional abdominal pain syndrome Confirmed 11/09/08 Active Gastroesophageal reflux disease Confirmed 11/09/08 Active Hiatal hernia Confirmed Active Hyperlipidemia Confirmed 11/09/08 Active HYPERTENSION Confirmed 11/09/08 Active Low back pain; [facility] Confirmed Active Chronic knee pain Confirmed Active Type II diabetes mellitus, well controlled Confirmed Active Social History Social History Type Response Smoking Status Never (less than 100 in lifetime) entered on: 12/30/18 Sex Patient Care team information Care Team Personnel Name: Antwan Ramirez MD Position: [facility] Physician - Primary Care Member Role: PCP Address: Address: [address] [place] [address]- Care Team Related Persons Name: SCOTT WEIR Address: [address] [place] [address] Name: AUSTIN GUAJARDO Address: [address] [place] [address]
--- OUTSIDE RECORDS SUMMARY | 2024-02-18 14:40 | XMS_ITS | Continuity of Care Document ---
Author Organization [facility] Address [address] [place] [address]- Care Team Providers Care Hazardous Waste Remover Name Role Phone Antwan Ramirez MD Primary Care Physician [phone] Encounter [facility] [place] Date(s): 08/30/23 - 09/29/23 [facility] [address] [place], [place] [address] Allergies, Adverse Reactions, Alerts Substance Reaction Severity Status naproxen Active Immunizations Given and Recorded Vaccine Date Status Refusal Reason SARS-CoV-2(COVID-19)mRNA-LNP vac([id number]) 01/28/23 Recorded influenza virus vaccine, inactivated 1 [...] vaccine, inactivated 01/03/13 Ryan rded SARS-CoV-2 mRNA ([id number]-swew-npiix) vax 4 07/28/21 Given SARS-CoV-2 (COVID-19) mRNA [...] H1N1, inactive(oldterm) 6 03/25/09 Given 1Result Comment: [facility] 59296-898-95 2Result Comment: [facility]: 79347-281-61 3Result Comment: Flu High Dose [facility] 36062-996-61 4Result Comment: [facility]: [id number] 5Result Comment: [facility]: [id number] 6Admin Note: SANOFI-PASTEUR VIS 09/25/2008 Medications aspirin 81 mg oral delayed release tablet 81 mg, 1, tablet, By Mouth, Daily, # 30 tablet, Refills 0, Maintenance, 10/10/18 10:08:15 EDT Start Date: 10/10/18 Status: Ordered atorvastatin 80 mg oral tablet 1 tablet, By Mouth, Daily, # 90 tablet, 1 Refills, Maintenance, 02/22/23 19:45:00 EST, [facility] #[id number], 176, cm, 01/22/23 15:09:00 EDT, Height, 83.6, kg, 09/10/22 9:14:00 EDT, Dry Weight Start Date: 02/22/23 Status: Ordered B 100 Complex oral tablet 1 tablet, By Mouth, Daily, # 100 tablet, 3 Refills, Maintenance, 09/22/23 12:13:00 EDT, Tablet, [facility] #[id number], Partial fill upon patient request if the prescription is for a schedule IIopioid drug., 1 tablet By Mouth Daily, 176, cm, ... Start Date: 09/22/23 Status: Ordered Basaglar KwikPen 100 units/mL subcutaneous solution = 40 units, Subcutaneous Infusion, Daily, # 45 mL, 1 Refills, Maintenance, 07/15/23 17:18:00 EDT, [facility] #[id number], Partial fill upon patient request if the [...] 09/28/23 15:12:00 EDT, Route to Pharmacy Electronically, [facility] #[id number], Partial fill upon patientrequest if the prescription is for a schedule II op... Start Date: 09/28/23 Status: Ordered Lyrica 100 mg oral capsule 1 capsule = 100 mg, By Mouth, 2 times a day, # 180 capsule, 1 Refills, Maintenance, 08/30/23 13:09:00 EDT, Capsule, [facility] #[id number], 176, cm, 06/23/23 9:08:00 EDT, Height, 83.6, [...] 07/28/19 16:25:00 EDT, Route to Pharmacy Electronically, [id number], 176, cm, 07/14/19 9:19:00 EDT, Height Start Date: 07/28/19 Stop Date: 01/24/20 Status: Ordered [place] Subcutaneous Infusion, 0 Refills, Maintenance, 09/22/23 12:03:00 EDT, Partial fill upon patient request if the prescription is for a schedule II opioid drug. Start Date: 09/22/23 Status: Ordered omeprazole 40 mg oral enteric coated capsule TAKE 1 CAPSULE BY MOUTH DAILY Start Date: 03/02/22 Status: Ordered Pen [place], 32 G x 4 mm BD Ultra [...] EGD 2021 Confirmed Active CAD; s/p CABG; [facility] Confirmed 11/09/08 Active Dilated cardiomyopathy Confirmed 11/09/08 Active Dyspepsia Confirmed 11/09/08 Active Family history of cancer of colon Confirmed 11/09/08 Active Functional abdominal pain syndrome Confirmed 11/09/08 Active Gastroesophageal reflux disease Confirmed 11/09/08 Active Hiatal hernia Confirmed Active Hyperlipidemia Confirmed 11/09/08 Active HYPERTENSION Confirmed 11/09/08 Active Low back pain; [facility] Confirmed Active Chronic knee pain Confirmed Active Diabetes mellitus, type II; Dr Aguilar Confirmed Active Social History Social History Type Response Smoking Status Never (less than 100 in lifetime) entered on: 12/30/18 Sex Patient Care team information Care Team Personnel Name: Antwan Ramirez MD Position: [facility] Physician - Primary Care Member Role: PCP Address: Address: [address] [place] [address]- Care Team Related Persons Name: SCOTT WEIR Address: home [address] [place] [address] Name: AUSTIN GUAJARDO Address: [address] [place] [address]
--- OUTSIDE RECORDS SUMMARY | 2024-02-18 14:40 | XMS_ITS | Continuity of Care Document ---
Author Organization [facility] Address [address] [place] [address]- Care Team Providers Care Liquid Center Assembler Name Role Phone Antwan Ramirez MD Primary Care Physician [phone] Encounter [facility] [place] Date(s): 09/22/23 - 09/29/23 [facility] [address] [place] [address]- Encounter Diagnosis Hyperlipidemia(Discharge Diagnosis) - 09/22/23 CAD; s/p CABG; [facility](Discharge Diagnosis) - 09/22/23 Dilated cardiomyopathy(Discharge Diagnosis) - 09/22/23 HYPERTENSION(Discharge Diagnosis) - 09/22/23 Chronic knee pain(Discharge Diagnosis) - 09/22/23 Leg cramps(Discharge Diagnosis) - 09/23/23 Attending Physician: Antwan Ramirez MD Allergies, Adverse Reactions, Alerts Substance Reaction Severity Status naproxen Active Immunizations Given and Recorded Vaccine Date Status Refusal Reason SARS-CoV-2(COVID-19)mRNA-LNP vac([id number]) 01/28/23 Recorded influenza virus vaccine, inactivated 1 [...] vaccine, inactivated 01/03/13 Ryan rded SARS-CoV-2 mRNA ([id number]-pbes-celhd) vax 4 07/28/21 Given SARS-CoV-2 (COVID-19) mRNA [...] H1N1, inactive(oldterm) 6 03/25/09 Given 1Result Comment: [facility] [id number] 2Result Comment: [facility]: [id number] 3Result Comment: Flu High Dose [facility] [id number] 4Result Comment: [facility]: [id number] 5Result Comment: [facility]: [id number] 6Admin Note: SANOFI-PASTEUR VIS 09/25/2008 Medications aspirin 81 mg oral delayed release tablet 81 mg, 1, tablet, By Mouth, Daily, # 30 tablet, Refills 0, Maintenance, 10/10/18 10:08:15 EDT Start Date: 10/10/18 Status: Ordered atorvastatin 80 mg oral tablet 1 tablet, By Mouth, Daily, # 90 tablet, 1 Refills, Maintenance, 02/22/23 19:45:00 EST, [facility] #[id number], 176, cm, 01/22/23 15:09:00 EDT, Height, 83.6, kg, 09/10/22 9:14:00 EDT, Dry Weight Start Date: 02/22/23 Status: Ordered B 100 Complex oral tablet 1 tablet, By Mouth, Daily, # 100 tablet, 3 Refills, Maintenance, 09/22/23 12:13:00 EDT, Tablet, [facility] #[id number], Partial fill upon patient request if the prescription is for a schedule IIopioid drug., 1 tablet By Mouth Daily, 176, cm, ... Start Date: 09/22/23 Status: Ordered Basaglar KwikPen 100 units/mL subcutaneous solution = 40 units, Subcutaneous Infusion, Daily, # 45 mL, 1 Refills, Maintenance, 07/15/23 17:18:00 EDT, [facility] #[id number], Partial fill upon patient request if the [...] 09/28/23 15:12:00 EDT, Route to Pharmacy Electronically, [facility] #[id number], Partial fill upon patientrequest if the prescription is for a schedule II op... Start Date: 09/28/23 Status: Ordered Lyrica 100 mg oral capsule 1 capsule = 100 mg, By Mouth, 2 times a day, # 180 capsule, 1 Refills, Maintenance, 08/30/23 13:09:00 EDT, Capsule, [facility] #[id number], 176, cm, 06/23/23 9:08:00 EDT, Height, 83.6, [...] 07/28/19 16:25:00 EDT, Route to Pharmacy Electronically, [facility] #[id number], 176, cm, 07/14/19 9:19:00 EDT, Height Start Date: 07/28/19 Stop Date: 01/24/20 Status: Ordered Mounjaro Subcutaneous Infusion, 0 Refills, Maintenance, 09/22/23 12:03:00 EDT, Partial fill upon patient request if the prescription is for a schedule II opioid drug. Start Date: 09/22/23 Status: Ordered omeprazole 40 mg oral enteric coated capsule TAKE 1 CAPSULE BY MOUTH DAILY Start Date: 03/02/22 Status: Ordered Pen Tranquillity, 32 G x 4 mm BD Ultra [...] EGD 2021 Confirmed Active CAD; s/p CABG; [facility] Confirmed 11/09/08 Active Dilated cardiomyopathy Confirmed 11/09/08 Active Dyspepsia Confirmed 11/09/08 Active Family history of cancer of colon Confirmed 11/09/08 Active Functional abdominal pain syndrome Confirmed 11/09/08 Active Gastroesophageal reflux disease Confirmed 11/09/08 Active Hiatal hernia Confirmed Active Hyperlipidemia Confirmed 11/09/08 Active HYPERTENSION Confirmed 11/09/08 Active Low back pain; [facility] Confirmed Active Chronic knee pain Confirmed Active Diabetes mellitus, type II; Dr Aguilar Confirmed Active Diagnosis Diagnosis Type Effective Dates Health Status Clinical Service Informant Hyperlipidemia Discharge Diagnosis 09/22/23 CAD; s/p CABG; [facility] Discharge Diagnosis 09/22/23 Dilated cardiomyopathy Discharge Diagnosis 09/22/23 HYPERTENSION Discharge Diagnosis 09/22/23 Chronic knee pain Discharge Diagnosis 09/22/23 Leg cramps Discharge Diagnosis 09/23/23 Vital Signs Most recent to oldest [Reference Range]: 1 Height 176 cm (09/22/23 11:34 AM) Weight 83.5 kg (09/22/23 11:34 AM) Oxygen Saturation [94-100 %] 99 % (09/22/23 11:34 AM) Pulse Rate [55-90 bpm] 68 bpm (09/22/23 11:34 AM) Body Mass Index [18.5-24.99 kg/m2] 26.96 kg/m2 *H* (09/22/23 11:34 AM) Blood Pressure [90-138/55-84 mm Hg] 132/ 80mm Hg (09/22/23 11:34 AM) Mode of Delivery (Oxygen) Room air (09/22/23 11:34 AM) Blood pressure sites Arm, left (09/22/23 11:34 AM) Social History Social History Type Response Smoking Status Never (less than 100 in lifetime) entered on: 12/30/18 Sex Note * Ira Trejo: PERFORM Event Display: Patient Education/Instruction Authored Date: Ambulatory Adult Visit Summary [facility] [address] [place] [address] Name: VI GUAJARDO : 1950?? Visit: 09/22/2023 11:20?? Ambulatory Visit Instructions ?? Your Care Team Primary Care Provider Antwan Ramirez MD? This Visit Provider Antwan Ramirez MD Your Diagnosis Hyperlipidemia CAD; s/p CABG; [facility] Dilated cardiomyopathy HYPERTENSION Chronic knee pain Vitals Signs Pulse Rate: 68 bpm Height: 176 cm Systolic Blood Pressure: 132 mm Hg Weight: 83.5 kg Diastolic Blood Pressure: 80 mm Hg Body Mass Index:??26.96 kg/m2??High Oxygen Saturation: 99 % Body surface area: 2.02 What to do next Follow-Up Appointments Follow Up with??Antwan Ramirez MD When:??12/24/2023 04:20 PM EDT Where: [address] [place] [address]- Future Orders CBC - Routine, Once, 06/23/23 9:23:00 EDT, Order for Today, [facility], Blood?? Medications The list below reflects the information in our records and provided by you today along with any changes made during this visit. Please continue your medications until treatment is completed or stopped by your provider. If this is different from the information you have or there are other questions,please contact the prescribing provider. What How Much When Instructions New Multivitamin (B 100 Complex oral tablet) 1 tab(s) Oral Daily Refills: 3 Pickup at [facility] #[id number] Unchanged Aspirin (aspirin 81 mg oral delayed [...] Mellitus ?? Unchanged Durable Medical Equipment (Pen Tranquillity, 32 G x 4 mm BD Ultra Fine III) See instructions Use to inject insulin TID ?? Dx E11.65 ?? Unchanged Insulin Glargine (Basaglar KwikPen 100 units/ mL subcutaneous solution) 40 unit(s) Subcutaneous Infusion Daily Unchanged Lisinopril (lisinopril 10 mg oral tablet) 1 tab(s) Oral Daily Unchanged Metformin (metFORMIN 1000 mg oral tablet) 1 tab(s) Oral Twice a day Unchanged Metoprolol (metoprolol 50 mg oral tablet) 1 tab(s) Oral Twice a day Duration: 90 Days Unchanged Omeprazole (omeprazole 40 mg oral enteric coated capsule) TAKE 1 CAPSULE BY MOUTH DAILY ?? Unchanged Pregabalin (Lyrica 100 mg oral capsule) 1 capsule Oral Twice a day Unchanged tirzepatide (Mounjaro) Subcutaneous Infusion Pharmacy Information [facility] #[id number]: [address], [place] [id number] [phone] Medications and Immunizations Administered Medications Given During [...] are strongly encouraged to quit. Please call [employer] at [phone] or [phone] Portals ([phone]) or log in to [email or web address] for referrals to smoking cessation programs. ?? The National Suicide Prevention Hotline is available 19/10 if you or someone you know needs to find a reason to keep living. By calling 4-028-770-Booodl (8355) you'll be connected to a skilled, trained counselor at a crisis center in your area. [facility] Portal You can view and manage your care through the patient portal or by using a health care chris of your choosing. Grow is a website that allows you to securely view your medical information including your hospital discharge summary, office visit summaries, medications and follow-up visits. You can also request appointments, renew medications, and request access to your medical information using a health care chris of your choosing, or just ask a question. You can enroll at [email or web address] or register during your next office visit. [facility], in keeping with [facility] guidance, no longer requires face masks [...] primary care provider, you may find a [facility] provider by calling [facility] Link at [phone]. Patient Care team information Care Team Personnel Name: Antwan Ramirez MD Position: S Physician - Primary Care Member Role: PCP Address: Address: [address] [place] [address]- Care Team Related Persons Name: SCOTT WEIR Address: [address] [place] [address] Name: AUSTIN GUAJARDO Address: home [address] [place] [address]
--- OUTSIDE RECORDS SUMMARY | 2024-02-18 14:40 | XMS_ITS | Continuity of Care Document ---
Author Organization [facility] Address [address] [place] [address]- Care Team Providers Care Venetian Blind Maker Name Role Phone Antwan Ramirez MD Primary Care Physician [place] [facility] [place] Date(s): 08/30/23 - 09/29/23 [facility] [address] [place], [place] [address] Allergies, Adverse Reactions, Alerts Substance Reaction Severity Status naproxen Active Immunizations Given and Recorded Vaccine Date Status Refusal Reason SARS-CoV-2(COVID-19)mRNA-LNP vac([id number]) 01/28/23 Recorded influenza virus vaccine, inactivated 1 [...] vaccine, inactivated 01/03/13 Ryan rded SARS-CoV-2 mRNA (treuffr-kpkf-onpzi) vax 4 07/28/21 Given SARS-CoV-2 (COVID-19) mRNA [...] H1N1, inactive(oldterm) 6 03/25/09 Given 1Result Comment: [facility] [phone] 2Result Comment: [facility]: [id number] 3Result Comment: Flu High Dose [facility] [phone] 4Result Comment: [facility]: [phone] 5Result Comment: [facility]: [phone] 6Admin Note: SANOFI-PASTEUR VIS 09/25/2008 Medications aspirin 81 mg oral delayed release tablet 81 mg, 1, tablet, By Mouth, Daily, # 30 tablet, Refills 0, Maintenance, 10/10/18 10:08:15 EDT Start Date: 10/10/18 Status: Ordered atorvastatin 80 mg oral tablet 1 tablet, By Mouth, Daily, # 90 tablet, 1 Refills, Maintenance, 02/22/23 19:45:00 EST, [facility] #[id number], 176, cm, 01/22/23 15:09:00 EDT, Height, 83.6, kg, 09/10/22 9:14:00 EDT, Dry Weight Start Date: 02/22/23 Status: Ordered B 100 Complex oral tablet 1 tablet, By Mouth, Daily, # 100 tablet, 3 Refills, Maintenance, 09/22/23 12:13:00 EDT, Tablet, [facility] #[id number], Partial fill upon patient request if the prescription is for a schedule IIopioid drug., 1 tablet By Mouth Daily, 176, cm, ... Start Date: 09/22/23 Status: Ordered Basaglar KwikPen 100 units/mL subcutaneous solution = 40 units, Subcutaneous Infusion, Daily, # 45 mL, 1 Refills, Maintenance, 07/15/23 17:18:00 EDT, [facility] #[id number], Partial fill upon patient request if the [...] 09/28/23 15:12:00 EDT, Route to Pharmacy Electronically, [facility] #[id number], Partial fill upon patientrequest if the prescription is for a schedule II op... Start Date: 09/28/23 Status: Ordered Lyrica 100 mg oral capsule 1 capsule = 100 mg, By Mouth, 2 times a day, # 180 capsule, 1 Refills, Maintenance, 08/30/23 13:09:00 EDT, Capsule, [facility] #[id number], 176, cm, 06/23/23 9:08:00 EDT, Height, 83.6, [...] 07/28/19 16:25:00 EDT, [id number], 176, cm, 07/14/19 9:19:00 EDT, Height Start Date: 07/28/19 Stop Date: 01/24/20 Status: Ordered Mounjaro Subcutaneous Infusion, 0 Refills, Maintenance, 09/22/23 12:03:00 EDT, Partial fill upon patient request if the prescription is for a schedule II opioid drug. Start Date: 09/22/23 Status: Ordered omeprazole 40 mg oral enteric coated capsule TAKE 1 CAPSULE BY MOUTH DAILY Start Date: 03/02/22 Status: Ordered Pen [place], 32 G x 4 mm BD Ultra [...] EGD 2021 Confirmed Active CAD; s/p CABG; [facility] Confirmed 11/09/08 Active Dilated cardiomyopathy Confirmed 11/09/08 Active Dyspepsia Confirmed 11/09/08 Active Family history of cancer of colon Confirmed 11/09/08 Active Functional abdominal pain syndrome Confirmed 11/09/08 Active Gastroesophageal reflux disease Confirmed 11/09/08 Active Hiatal hernia Confirmed Active Hyperlipidemia Confirmed 11/09/08 Active HYPERTENSION Confirmed 11/09/08 Active Low back pain; [facility] Confirmed Active Chronic knee pain Confirmed Active Diabetes mellitus, type II; Dr Aguilar Confirmed Active Social History Social History Type Response Smoking Status Never (less than 100 in lifetime) entered on: 12/30/18 Sex Patient Care team information Care Team Personnel Name: Antwan Ramirez MD Position: [facility] Physician - Primary Care Member Role: PCP Address: Address: [address] [place] [address]- Care Team Related Persons Name: SCOTT WEIR Address: home [address] [place] [address] Name: AUSTIN GUAJARDO Address: [address] [place] [address]"
--- OUTSIDE RECORDS SUMMARY | 2024-02-18 14:41 | XMS_ITS | Continuity of Care Document ---
Author Organization [facility] Address [address] [place] [address]- Care Team Providers Care Thumb Sewer Name Role Phone Atnwan Ramirez MD Primary Care Physician Encounter [facility] [place] Date(s): 06/23/23 - 06/30/23 [facility] [address] [place] [address]- Encounter Diagnosis HYPERTENSION(Discharge Diagnosis) - 06/23/23 Type II diabetes mellitus, well controlled(Discharge Diagnosis) - 06/23/23 Chronic knee pain(Discharge Diagnosis) - 06/23/23 Gastroesophageal reflux disease(Discharge Diagnosis) - 06/23/23 CAD; s/p CABG; [facility](Discharge Diagnosis) - 06/23/23 Attending Physician: Antwan Ramirez MD Allergies, Adverse Reactions, Alerts Substance Reaction Severity Status naproxen Active Immunizations Given and Recorded Vaccine Date Status Refusal Reason SARS-CoV-2(COVID-19)mRNA-LNP vac([id number]) 01/28/23 Recorded influenza virus vaccine, inactivated 1 [...] vaccine, inactivated 01/03/13 Ryan rded SARS-CoV-2 mRNA (fzybllc-yhsk-myhir) vax 4 07/28/21 Given SARS-CoV-2 (COVID-19) mRNA [...] H1N1, inactive(oldterm) 6 03/25/09 Given 1Result Comment: [facility] [phone] 2Result Comment: [facility]: [phone] 3Result Comment: Flu High Dose [facility] [phone] 4Result Comment: [facility]: [id number] 5Result Comment: [facility]: [phone] 6Admin Note: SANOFI-PASTEUR VIS 09/25/2008 Medications aspirin 81 mg oral delayed release tablet 81 mg, 1, tablet, By Mouth, Daily, # 30 tablet, Refills 0, Maintenance, 10/10/18 10:08:15 EDT Start Date: 10/10/18 Status: Ordered atorvastatin 80 mg oral tablet 1 tablet, By Mouth, Daily, # 90 tablet, 1 Refills, Maintenance, 02/22/23 19:45:00 [facility] #[id number], 176, cm, 01/22/23 15:09:00 EDT, Height, 83.6, kg, 09/10/22 9:14:00 EDT, Dry Weight Start Date: 02/22/23 Status: Ordered Basaglar KwikPen 100 units/mL subcutaneous solution = 34 units, Subcutaneous Infusion, Daily, PLEASE INFORM PATIENT OF CHANGE FROM LANTUS DUE TO INSURANCE , # 45 mL, 1 Refills, Maintenance, 05/05/23 13:25:00 EST, [facility] #[id number], Partial fill upon patient request if the [...] 06/23/23 9:14:00 EDT, Route to Pharmacy Electronically, [facility] #[id number], Partial fill upon patient request if the prescription is for a schedule II opi... Start Date: 06/23/23 Status: Ordered Lyrica 100 mg oral capsule 1 capsule = 100 mg, By Mouth, 2 times a day, # 180 capsule, 1 Refills, Maintenance, 02/17/23 22:48:00 EST, Capsule, [facility] #[id number], 176, cm, 01/22/23 15:09:00 EDT, Height, 83.6, kg, 09/10/22 9:14:00 EDT, Dry Weight Start Date: 02/17/23 Status: Ordered metoprolol 50 mg oral tablet 50 mg, 1, tablet, By Mouth, 2 times a day, # 180 tablet, Refills 1, Tot. Refills 1, Maintenance, 07/28/19 16:25:00 EDT, Route to Pharmacy Electronically, [facility] #[id number], 176, cm, 07/14/19 9:19:00 EDT, Height Start Date: 07/28/19 Stop Date: 01/24/20 Status: Ordered omeprazole 40 mg oral enteric coated capsule TAKE 1 CAPSULE BY MOUTH DAILY Start Date: 03/02/22 Status: Ordered Pen [place], 31 G x 8 mm BD Ultra [...] 0 Refills, Maintenance, 06/12/23 21:45:00 EDT, Solution, [facility] #[id number], Partial fill upon patient request if the prescription is for a schedule I... 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 Confirmed Active CAD; s/p CABG; [facility] Confirmed 11/09/08 Active Dilated cardiomyopathy Confirmed 11/09/08 Active Dyspepsia Confirmed 11/09/08 Active Family history of cancer of colon Confirmed 11/09/08 Active Functional abdominal pain syndrome Confirmed 11/09/08 Active Gastroesophageal reflux disease Confirmed 11/09/08 Active Hiatal hernia Confirmed Active Hyperlipidemia Confirmed 11/09/08 Active HYPERTENSION Confirmed 11/09/08 Active Low back pain; [facility] Confirmed Active Chronic knee pain Confirmed Active Type II diabetes mellitus, well controlled Confirmed Active Diagnosis Diagnosis Type Effective Dates Health Status Clinical Service Informant HYPERTENSION Discharge Diagnosis 06/23/23 Type II diabetes mellitus, well controlled Discharge Diagnosis 06/23/23 Chronic knee pain Discharge Diagnosis 06/23/23 Gastroesophageal reflux disease Discharge Diagnosis 06/23/23 CAD; s/p CABG; [facility] Discharge Diagnosis 06/23/23 Vital Signs Most recent to oldest [Reference Range]: 1 2 3 Height 176 cm (06/23/23 9:08 AM) 176 cm (06/23/23 8:45 AM) 176 cm (06/23/23 8:42 AM) Weight 85.3 kg (06/23/23 8:42 AM) Oxygen Saturation [94-100 %] 100 % (06/23/23 8:42 AM) Pulse Rate [55-90 bpm] 61 bpm (06/23/23 8:42 AM) Body Mass Index [18.5-24.99 kg/m2] 27.54 kg/m2 *H* (06/23/23 8:42 AM) Blood Pressure [90-138/55-84 mm Hg] 148/68mm Hg *H* (06/23/23 9:08 AM) 158/78mm Hg *H* (06/23/23 8:45 AM) 158/79mm Hg *H* (06/23/23 8:42 AM) Blood pressure sites Arm, right (06/23/23 9:08 AM) Arm, right (06/23/23 8:45 AM) Arm, right (06/23/23 8:42 AM) Social History Social History Type Response Smoking Status Never (less than 100 in lifetime) entered on: 12/30/18 Sex Note * Rebecca Flores: PERFORM, SIGN, VERIFY Event Display: Patient Education/Instruction Authored Date: [id number] [facility] *[facility] Clinical Summary Name VI GUAJARDO Age 72 Years 1950 PCP Ashley RUSSELL, Antwan PCP Visit Date 06/23/2023 08:26:00 Additional Instructions: Scheduled Appointments?? Future Appointments ?No Future Appointments Scheduled Follow-Up Instructions ?? Diagnosis Pain in unspecified knee; Essential (primary) hypertension; Type 2 diabetes mellitus without complications; Gastro-esophageal reflux disease without esophagitis; Atherosclerotic heart disease of [place] coronary artery without angina pectoris Medications: Please continue your medications until treatment is completed or stopped by your provider. Discuss any questions related to medications with your provider. New Medications [facility] #[id number], [address], [place] [id number], [phone] Lisinopril (lisinopril 10 mg oral tablet) 1 tab(s) Oral Daily. Refills: 0. Next Dose: Medications to Continue with No Changes These medications were not printed or sent to your pharmacy Aspirin (aspirin 81 mg oral delayed release tablet) 1 tab(s) Oral Daily. Next Dose: Atorvastatin (atorvastatin 80 mg oral tablet) 1 tab(s) Oral Daily. Refills: 1. Next Dose: dulaglutide (Trulicity Pen 0.75 mg/0.5 mL subcutaneous solution) 1 Milliliter Subcutaneous Injection every week. 2 PENS PER WEEK DUE TO SHORTAGE. Refills: 0. Next Dose: Durable Medical Equipment (Blood Pressure Monitor) Check BP once daily; ; ICD10: I10; Length of neede: Lifetime. Refills: 0. Next Dose: Durable Medical Equipment (FreeStyle Soraida 2 Monitor) Use to test daily for Diabetes Type 2 DX: E11.9. Refills: 0. Next Dose: Durable Medical Equipment (Freestyle Soraida Sensor) Apply every 14 days. use as directed for Type 2 Diabetes Mellitus. Refills: 1. Next Dose: Durable Medical Equipment (Pen [place], 31 G x 5 mm BD Ultra Fine III) Use to inject insulin daily for DM2, E11.9. Refills: 11. Next Dose: Durable Medical Equipment (Pen [place], 31 G x 8 mm BD Ultra Fine III) Use with lantus to test oncedaily and Trulicity to test once weekly insulins as instructed Dx: Type 2 DM ICD 10 : E11.9. Refills: 1. Next Dose: Insulin Glargine (Basaglar KwikPen 100 units/mL subcutaneous solution) 34 unit(s) Subcutaneous Infusion Daily. PLEASE INFORM PATIENT OF CHANGE FROM LANTUS DUE TO INSURANCE . Refills: 1. Next Dose: Insulin Glargine (Lantus Solostar Pen 100 units/mL subcutaneous solution) ADMINISTER 34 UNITS UNDERTHE SKIN DAILY AT BEDTIME. Refills: 1. Next Dose: Metoprolol (metoprolol 50 mg oral tablet) 1 tab(s) Oral twice a day for 90 Days. Refills: 1. Next Dose: Omeprazole (omeprazole 40 mg oral enteric coated capsule) TAKE 1 CAPSULE BY MOUTH DAILY. Next Dose: Pregabalin (Lyrica 100 mg oral capsule) 1 capsule Oral twice a day. Refills: 1. Next Dose: Allergy Info:?? naproxen Medications Given This Visit Future Orders ?No future orders Future Orders ?Hemoglobin A1C (Monitoring)? Order Date:06/23/23?- Complete within?Comprehensive Metabolic Panel? Order Date:06/23/23?- Complete within?CBC? Order Date:06/23/23?- Complete within? Vital Signs Height 176 cm Weight 85.3 kg BMI 27.54 kg/m2 Blood Pressure 148 mm Hg/68 mm Hg Temperature Pulse Rate 61 bpm Respiratory Rate 02 Sat Mode of Delivery 100 %/ You can now view a summary of your hospital visit from the comfort of your home through a free online portal called [employer]. [employer] is a website that allows you to securely view your medical information including discharge summary, medications and follow-up visits. ??You can alsosend a secure electronic message to your doctor???s office to request appointments, renew medications or just ask a question. You can enroll at [email or web address] or register during your next office [...] [facility] provider by calling [facility] Link at [phone]. [facility], in keeping with [facility] guidance, no longer requires face masks [...] Primary Care Member Role: PCP Address: Address: [address] [place] [address]- Care Team Related Persons Name: SCOTT WEIR Address: home [address] [place] [id number] Name: AUSTIN GUAJARDO Address: home [address] [place] [address]
--- OUTSIDE RECORDS SUMMARY | 2024-02-18 14:41 | XMS_ITS | Continuity of Care Document ---
Author Organization [facility] Address [address] [place] [address]- Care Team Providers Care Box Liner Name Role Phone Antwan Ramirez MD Primary Care Physician [facility]counter [facility] Date(s): 02/22/23 - 03/24/23 [facility] [address] [place], [place] [address] Allergies, Adverse Reactions, Alerts Substance Reaction Severity Status naproxen Active Immunizations Given and Recorded Vaccine Date Status Refusal Reason SARS-CoV-2(COVID-19)mRNA-LNP vac([id number]) 01/28/23 Recorded influenza virus vaccine, inactivated 1 [...] vaccine, inactivated 01/03/13 Ryan rded SARS-CoV-2 mRNA (xfrkipk-lsdt-zzbev) vax 4 07/28/21 Given SARS-CoV-2 (COVID-19) mRNA [...] H1N1, inactive(oldterm) 6 03/25/09 Given 1Result Comment: [facility] 52052-410-62 2Result Comment: [facility]: 56739-976-41 3Result Comment: Flu High Dose [facility] [phone] 4Result Comment: [facility]: [address]-4 5Result Comment: [facility]: 74408-432-4 6Admin Note: SANOFI-PASTEUR VIS 09/25/2008 Medications aspirin 81 mg oral delayed release tablet 81 mg, 1, tablet, By Mouth, Daily, # 30 tablet, Refills 0, Maintenance, 10/10/18 10:08:15 EDT Start Date: 10/10/18 Status: Ordered atorvastatin 80 mg oral tablet 1 tablet, By Mouth, Daily, # 90 tablet, 1 Refills, Maintenance, 02/22/23 19:45:00 EST, [facility] #[id number], 176, cm, 01/22/23 15:09:00 EDT, Height, 83.6, [...] mL, 1 Refills, Maintenance, 01/25/23 15:31:00 EDT, [facility] #[id number], 176, cm, 01/22/23 15:09:00 EDT, Height, 83.6, kg, 09/10/22 9:14:00 EDT, Dry Weight Start Date: 01/25/23 Status: Ordered lisinopril 2.5 mg oral tablet See Instructions, TAKE 1 TABLET BY MOUTH DAILY, # 90 tablet, Refills 0, Maintenance, 01/12/23 14:37:00 EDT, Instructions Replace Required Details, Route to Pharmacy Electronically, [facility] #[id number], 176, cm, 01/06/23 8:41:00 EDT, Height, 83... Start Date: 01/12/23 Status: Ordered Lyrica 100 mg oral capsule 1 capsule = 100 mg, By Mouth, 2 times a day, # 180 capsule, 1 Refills, Maintenance, 02/17/23 22:48:00 EST, Capsule, [facility] #[id number], 176, cm, 01/22/23 15:09:00 EDT, Height, 83.6, kg, 09/10/22 9:14:00 EDT, Dry Weight Start Date: 02/17/23 Status: Ordered metoprolol 50 mg oral tablet 50 mg, 1, tablet, By Mouth, 2 times a day, # 180 tablet, Refills 1, Tot. Refills 1, Maintenance, 07/28/19 16:25:00 EDT, Route to Pharmacy Electronically, [facility] #[id number], 176, cm, 07/14/19 9:19:00 EDT, Height Start Date: 07/28/19 Stop Date: 01/24/20 Status: Ordered omeprazole 40 mg oral enteric coated capsule TAKE 1 CAPSULE BY MOUTH DAILY Start Date: 03/02/22 Status: Ordered Pen [place], 31 G x 5 mm BD Ultra Fine III See Instructions, # 1 box, Refills 11, Tot. 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
--- OUTSIDE RECORDS SUMMARY | 2024-02-18 14:41 | XMS_ITS | Continuity of Care Document ---
Author Organization [facility] Address [address] [place] [address]- Care Team Providers Care Disposal Man Name Role Phone Antwan Ramirez MD Primary Care Physician [phone] Encounter [facility] Date(s): 12/31/23 - 01/30/24 [facility] [address] [place], [place] [address] Allergies, Adverse Reactions, Alerts Substance Reaction Severity Status naproxen Active Immunizations Given and Recorded Vaccine Date Status Refusal Reason SARS-CoV-2(COVID-19)mRNA-LNP vac([id number]) 01/28/23 Recorded influenza virus vaccine, inactivated 1 [...] vaccine, inactivated 01/03/13 Ryan rded SARS-CoV-2 mRNA (tiegxof-pisb-qtbcc) vax 4 07/28/21 Given SARS-CoV-2 (COVID-19) mRNA [...] Given 1Result Comment: [facility] [phone] 2Result Comment: [facility]: [phone] 3Result Comment: Flu High Dose [facility] [phone] 4Result Comment: [facility]: [phone] 5Result Comment: [facility]: [phone] 6Admin Note: SANOFI-PASTEUR VIS 09/25/2008 Medications aspirin 81 mg oral delayed release tablet 81 mg, 1, tablet, By Mouth, Daily, # 30 tablet, Refills 0, Maintenance, 10/10/18 10:08:15 EDT Start Date: 10/10/18 Status: Ordered atorvastatin 80 mg oral tablet 1 tablet, By Mouth, Daily, # 90 tablet, 3 Refills, Maintenance, 01/03/24 13:33:00 EDT, [email or web address] #[id number], 176, cm, 12/24/23 16:25:00 EDT, Height, 83.6, kg, 09/10/22 9:14:00 EDT, Dry Weight Start Date: 01/03/24 Status: Ordered B 100 Complex oral tablet 1 tablet, By Mouth, Daily, # 100 tablet, 3 Refills, Maintenance, 09/22/23 12:13:00 EDT, Tablet, [facility] #[id number], Partial fill upon patient request if the prescription is for a schedule IIopioid drug., 1 tablet By Mouth Daily, 176, cm, ... Start Date: 09/22/23 Status: Ordered Basaglar KwikPen 100 units/mL subcutaneous solution = 30 units, Subcutaneous Infusion, Daily, # 45 mL, 1 Refills, Maintenance, 07/15/23 17:18:00 EDT, [facility] #[id number], Partial fill upon patient request if the [...] 12/24/23 16:40:00 EDT, Route to Pharmacy Electronically, [facility] #[id number], Partial fill upon patientrequest if the prescription is for a schedule II op... Start Date: 12/24/23 Status: Ordered Lyrica 100 mg oral capsule 1 capsule = 100 mg, By Mouth, 2 times a day, # 180 capsule, 1 Refills, Maintenance, 08/30/23 13:09:00 EDT, Capsule, [facility] #[id number], 176, cm, 06/23/23 9:08:00 EDT, Height, 83.6, [...] 07/28/19 16:25:00 EDT, Route to Pharmacy Electronically, [facility] #[id number], 176, cm, 07/14/19 9:19:00 EDT, Height Start Date: 07/28/19 Stop Date: 01/24/20 Status: Ordered Mounjaro Subcutaneous Infusion, 0 Refills, Maintenance, 09/22/23 12:03:00 EDT, Partial fill upon patient request if the prescription is for a schedule II opioid drug. Start Date: 09/22/23 Status: Ordered omeprazole 40 mg oral enteric coated capsule TAKE 1 CAPSULE BY MOUTH DAILY Start Date: 03/02/22 Status: Ordered Pen [place], 32 G x 4 mm BD Ultra [...] EGD 2021 Confirmed Active CAD; s/p CABG; [facility] Confirmed 11/09/08 Active Dilated cardiomyopathy Confirmed 11/09/08 Active Dyspepsia Confirmed 11/09/08 Active Family history of cancer of colon Confirmed 11/09/08 Active Functional abdominal pain syndrome Confirmed 11/09/08 Active Gastroesophageal reflux disease Confirmed 11/09/08 Active Hiatal hernia Confirmed Active Hyperlipidemia Confirmed 11/09/08 Active HYPERTENSION Confirmed 11/09/08 Active Low back pain; [facility] Confirmed Active Chronic knee pain Confirmed Active Diabetes mellitus, type II; Dr Aguilar Confirmed Active Social History Social History Type Response Smoking Status Never (less than 100 in lifetime) entered on: 12/30/18 Sex Patient Care team information Care Team Personnel Name: Antwan Ramirez MD Position: [facility] Physician - Primary Care Member Role: PCP Address: Address: [address] [place] [address]- Care Team Related Persons Name: SCOTT WEIR Address: [address] [place] [address] Name: AUSTIN GUAJARDO Address: [address] [place] [address]
--- OUTSIDE RECORDS SUMMARY | 2024-02-18 14:41 | XMS_ITS | Continuity of Care Document ---
Author Organization [facility] Address [address] [place] [address]- Care Team Providers Care Health Careers Instructor Name Role Phone Antwan Ramirez MD Primary Care Physician Encounter [facility] Date(s): 12/15/22 - 01/14/23 [facility] [address] [place], [place] [address] Allergies, Adverse Reactions, Alerts Substance [...] vaccine, inactivated 01/03/13 Ryan rded SARS-CoV-2 mRNA (cncqfik-vyat-vlstz) vax 4 07/28/21 Given SARS-CoV-2 (COVID-19) mRNA [...] H1N1, inactive(oldterm) 6 03/25/09 Given 1Result Comment: [facility] [id number] 2Result Comment: [facility]: [phone] 3Result Comment: Flu High Dose [facility] [phone] 4Result Comment: [facility] [id number] 5Result Comment: [facility]: [phone] 6Admin Note: SANOFI-PASTEUR VIS 09/25/2008 Medications aspirin 81 mg oral delayed release tablet 81 mg, 1, tablet, By Mouth, Daily, # 30 tablet, Refills 0, Maintenance, 10/10/18 10:08:15 EDT Start Date: 10/10/18 Status: Ordered atorvastatin 80 mg oral tablet 1 tablet, By Mouth, Daily, # 90 tablet, 1 Refills, Maintenance, 09/02/22 13:05:00 EDT, [facility] #[id number], 176, cm, 07/30/22 9:38:00 EDT, Height, 83.1, [...] 1 Refills, Maintenance, 10/15/22 15:46:00 EDT, Solution, [facility] #[id number], 176, cm, 07/30/22 9:38:00 EDT, Height, 83.6, kg, 09/10/22 9:14:00 EDT, Dry Weight Start Date: 10/15/22 Status: Ordered lisinopril 2.5 mg oral tablet See Instructions, TAKE 1 TABLET BY MOUTH DAILY, # 90 tablet, Refills 0, Maintenance, 01/12/23 14:37:00 EDT, Instructions Replace Required Details, Route to Pharmacy Electronically, [facility] #[id number], 176, cm, 01/06/23 8:41:00 EDT, Height, 83... Start Date: 01/12/23 Status: Ordered Lyrica 100 mg oral capsule 1 capsule = 100 mg, By Mouth, 2 times a day, # 56 capsule, 0 Refills, Maintenance, 12/15/22 9:16:00EDT, Capsule, [facility] #[id number], 176, cm, 07/30/22 9:38:00 EDT, Height, 83.6, kg, 09/10/22 9:14:00 EDT, Dry Weight Start Date: 12/15/22 Stop Date: 01/12/23 Status: Ordered metoprolol 50 mg oral tablet 50 mg, 1, tablet, By Mouth, 2 times a day, # 180 tablet, Refills 1, Tot. Refills 1, Maintenance, 07/28/19 16:25:00 EDT, Route to Pharmacy Electronically, [facility] #[id number], 176, cm, 07/14/19 9:19:00 EDT, Height Start Date: 07/28/19 Stop Date: 01/24/20 Status: Ordered omeprazole 40 mg oral enteric coated capsule TAKE 1 CAPSULE BY MOUTH DAILY Start Date: 03/02/22 Status: Ordered Pen [place], 31 G x 5 mm BD Ultra Fine III See Instructions, # 1 box, Refills 11, Tot. 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
--- OUTSIDE RECORDS SUMMARY | 2024-02-18 14:41 | XMS_ITS | Continuity of Care Document ---
Author Organization [facility] Address [address] [place] [address]- Care Team Providers Care Cathode Maker Name Role Phone Antwan Ramirez MD Primary Care Physician [phone] Encounter [facility] Date(s): 01/12/23 - 02/11/23 [facility] [address] [place], [place] [address] Allergies, Adverse Reactions, Alerts Substance Reaction Severity [...] vaccine, inactivated 01/03/13 Ryan rded SARS-CoV-2 mRNA ([id number]-zyqc-uudfx) vax 4 07/28/21 Given SARS-CoV-2 (COVID-19) mRNA [...] H1N1, inactive(oldterm) 6 03/25/09 Given 1Result Comment: [facility] [id number] 2Result Comment: [facility]: [id number] 3Result Comment: Flu High Dose [facility] 30323-314-21 4Result Comment: [facility]: [address]-4 5Result Comment: [facility]: 36933-517-8 6Admin Note: SANOFI-PASTEUR VIS 09/25/2008 Medications aspirin 81 mg oral delayed release tablet 81 mg, 1, tablet, By Mouth, Daily, # 30 tablet, Refills 0, Maintenance, 10/10/18 10:08:15 EDT Start Date: 10/10/18 Status: Ordered atorvastatin 80 mg oral tablet 1 tablet, By Mouth, Daily, # 90 tablet, 1 Refills, Maintenance, 09/02/22 13:05:00 EDT, [facility] #[id number], 176, cm, 07/30/22 9:38:00 EDT, Height, 83.1, [...] mL, 1 Refills, Maintenance, 01/25/23 15:31:00 EDT, [facility] #[id number], 176, cm, 01/22/23 15:09:00 EDT, Height, 83.6, kg, 09/10/22 9:14:00 EDT, Dry Weight Start Date: 01/25/23 Status: Ordered lisinopril 2.5 mg oral tablet See Instructions, TAKE 1 TABLET BY MOUTH DAILY, # 90 tablet, Refills 0, Maintenance, 01/12/23 14:37:00 EDT, Instructions Replace Required Details, Route to Pharmacy Electronically, [facility] #[id number], 176, cm, 01/06/23 8:41:00 EDT, Height, 83... Start Date: 01/12/23 Status: Ordered Lyrica 100 mg oral capsule 1 capsule = 100 mg, By Mouth, 2 times a day, # 56 capsule, 0 Refills, Maintenance, 12/15/22 9:16:00EDT, Capsule, [facility] #[id number], 176, cm, 07/30/22 9:38:00 EDT, Height, 83.6, kg, 09/10/22 9:14:00 EDT, Dry Weight Start Date: 12/15/22 Stop Date: 01/12/23 Status: Ordered metoprolol 50 mg oral tablet 50 mg, 1, tablet, By Mouth, 2 times a day, # 180 tablet, Refills 1, Tot. Refills 1, Maintenance, 07/28/19 16:25:00 EDT, Route to Pharmacy Electronically, [facility] #[id number], 176, cm, 07/14/19 9:19:00 EDT, Height Start Date: 07/28/19 Stop Date: 01/24/20 Status: Ordered omeprazole 40 mg oral enteric coated capsule TAKE 1 CAPSULE BY MOUTH DAILY Start Date: 03/02/22 Status: Ordered Pen [place], 31 G x 5 mm BD Ultra Fine III See Instructions, # 1 box, Refills 11, Tot. 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
--- OUTSIDE RECORDS SUMMARY | 2024-02-18 14:41 | XMS_ITS | Continuity of Care Document ---
Author Organization [facility] Address [address] [place] [address]- Care Team Providers Care Blood Collector Name Role Phone Fadumo RSUSELL, Britney Daniel Primary Care Physic nicola [facility] Date(s): 11/23/22 - 12/23/22 [facility] [address] [place] [address]- [place] Allergies, Adverse Reactions, Alerts Substance Reaction Severity Status naproxen Active Immunizations Given and Recorded Vaccine Date Status Refusal Reason SARS-CoV-2 mRNA (adfmecu-zpoq-begam) vax 1 07/28/21 Given SARS-CoV-2 (COVID-19) mRNA [...] inactive(oldterm) 5 03/25/09 Given 1Result Comment: [facility]: [id number] 2Result Comment: [facility]: 17232-375-8 3Result Comment: [facility]: [id number] 4Result Comment: Flu High Dose [facility] 17374-201-96 5Admin Note: SANOFI-PASTEUR VIS 09/25/2008 Medications aspirin 81 mg oral delayed release tablet 81 mg, 1, tablet, By Mouth, Daily, # 30 tablet, Refills 0, Maintenance, 10/10/18 10:08:15 EDT Start Date: 10/10/18 Status: Ordered atorvastatin 80 mg oral tablet 1 tablet, By Mouth, Daily, # 90 tablet, 1 Refills, Maintenance, 09/02/22 13:05:00 EDT, [facility] #[id number], 176, cm, 07/30/22 9:38:00 EDT, Height, 83.1, kg, 07/10/21 8:54:00 EDT, Dry Weight Start Date: 09/02/22 Status: Ordered azelastine 137 mcg/inh (0.1%) nasal spray 2 sprays, Nares, Both, Daily, PRN Other Allergies, # 30 mL, 1 Refills, Maintenance, 10/02/20 10:16:00 EDT, [place], [facility] #[id number], Partial fill upon patient request if the [...] Refills, Maintenance, 08/26/22 16:59:00 EDT, REC Powder, [facility] #[id number]... Start Date: 08/26/22 Status: Ordered Lantus Solostar Pen 100 units/mL subcutaneous solution = 34 units, Subcutaneous Injection, Daily at bedtime, # 15 mL, 1 Refills, Maintenance, 10/15/22 15:46:00 EDT, Solution, [facility] #[id number], 176, cm, 07/30/22 9:38:00 EDT, Height, 83.6, kg, 09/10/22 9:14:00 EDT, Dry Weight Start Date: 10/15/22 Status: Ordered lisinopril 2.5 mg oral tablet 1, tablet, By Mouth, Daily, # 90 tablet, Refills 0, Tot. Refills 0, Maintenance, 10/16/22 9:14:00 EDT, Route to Pharmacy Electronically, [facility] #[id number], 176, cm, 07/30/22 9:38:00 EDT, Height, 83.6, kg, 09/10/22 9:14:00 EDT, Dry Weight Start Date: 10/16/22 Status: Ordered Lyrica 100 mg oral capsule 1 capsule = 100 mg, By Mouth, 2 times a day, # 56 capsule, 0 Refills, Maintenance, 12/15/22 9:16:00EDT, Capsule, [facility] #[id number], 176, cm, 07/30/22 9:38:00 EDT, Height, 83.6, kg, 09/10/22 9:14:00 EDT, Dry Weight Start Date: 12/15/22 Stop Date: 01/12/23 Status: Ordered metoprolol 50 mg oral tablet 50 mg, 1, tablet, By Mouth, 2 times a day, # 180 tablet, Refills 1, Tot. Refills 1, Maintenance, 07/28/19 16:25:00 EDT, Route to Pharmacy Electronically, [facility] #[id number], 176, cm, 07/14/19 9:19:00 EDT, Height Start Date: 07/28/19 Stop Date: 01/24/20 Status: Ordered omeprazole 40 mg oral enteric coated capsule TAKE 1 CAPSULE BY MOUTH DAILY Start Date: 03/02/22 Status: Ordered PEG-3350 with Electrolytes (Eqv-NuLYTELY) oral powder for reconstitution See Instructions, as directed, # 1 each, 0 Refills, Maintenance, 06/02/21 12:52:00 EST, [facility] #[id number], ok to sub for any gallon prep, as directed, 176, cm, 06/02/21 10:53:00 EST, Height, 83.6, kg, 07/01/20 11:06:00 EDT, Dry Weight Start Date: 06/02/21 Status: Ordered Pen [place], 31 G x 5 mm BD Ultra Fine III See Instructions, # 1 box, Refills 11, Tot. Refills 11, Maintenance, Use to inject insulin daily for DM2, E11.9, 10/14/18 12:32:54 EDT, Compound Start Date: 10/14/18 Status: Ordered Pen [place], 31 G x 8 mm BD Ultra [...] mL, 1 Refills, Maintenance, 06/30/22 11:06:00 EDT, [facility] #[id number], 176, cm, 03/02/22 13:43:00 EST, Height, 83.1, kg, 07/10/21 8:54:00 EDT, Dry Weight Start Date: 06/30/22 Status: Ordered Problem List Condition Confirmation Course Effective Dates Status H ealth Status Informant ABDOMINAL PAIN Confirmed 11/09/08 Active Anemia Confirmed Active Atherosclerosis Confirmed Active Robles's esophagus Confirmed Active CAD - Coronary artery disease Confirmed 11/09/08 Active Chronic pain syndrome Confirmed 11/09/08 Active Atherosclerotic heart disease of [place] coronary artery without angina pectoris Confirmed Active [...] Primary Care Member Role: PCP Address: Address: [address] [place] [address]- Care Team Related Persons Name: SCOTT WEIR Address: [address] [place] [address] Name: AUSTIN GUAJARDO Address: [address] [place] [address]
--- OUTSIDE RECORDS SUMMARY | 2024-02-18 14:41 | XMS_ITS | Continuity of Care Document ---
Author Organization [facility] Address [address] [place] [address]- Care Team Providers Care Hand Singer Name Role Phone Antwan Ramirez MD Primary Care Physician [phone] Encounter [facility] Date(s): 07/14/23 - 08/13/23 [facility] [address] [place], [place] [address] Allergies, Adverse Reactions, Alerts Substance Reaction Severity Status naproxen Active Immunizations Given and Recorded Vaccine Date Status Refusal Reason SARS-CoV-2(COVID-19)mRNA-LNP vac([id number]) 01/28/23 Recorded influenza virus vaccine, inactivated 1 [...] vaccine, inactivated 01/03/13 Ryan rded SARS-CoV-2 mRNA (xqrsklo-szrz-[id number]) vax 4 07/28/21 Given SARS-CoV-2 (COVID-19) mRNA [...] Comment: [facility] [place] [id number] 2Result Comment: [facility] [place]: [id number] 3Result Comment: Flu High Dose [facility] [place] [id number] 4Result Comment: [facility] [place] [id number] 5Result Comment: [facility] [place]: [id number] 6Admin Note: SANOFI-PASTEUR VIS 09/25/2008 Medications aspirin 81 mg oral delayed release tablet 81 mg, 1, tablet, By Mouth, Daily, # 30 tablet, Refills 0, Maintenance, 10/10/18 10:08:15 EDT Start Date: 10/10/18 Status: Ordered atorvastatin 80 mg oral tablet 1 tablet, By Mouth, Daily, # 90 tablet, 1 Refills, Maintenance, 02/22/23 19:45:00 EST, [facility][id number], 176, cm, 01/22/23 15:09:00 EDT, Height, 83.6, kg, 09/10/22 9:14:00 EDT, Dry Weight Start Date: 02/22/23 Status: Ordered Basaglar KwikPen 100 units/mL subcutaneous solution = 40 units, Subcutaneous Infusion, Daily, # 45 mL, 1 Refills, Maintenance, 07/15/23 17:18:00 EDT, [facility][id number], Partial fill upon patient request if the [...] 06/23/23 9:14:00 EDT, Route to Pharmacy Electronically, [facility][id number], Partial fill upon patient request if the prescription is for a schedule II opi... Start Date: 06/23/23 Status: Ordered Lyrica 100 mg oral capsule 1 capsule = 100 mg, By Mouth, 2 times a day, # 180 capsule, 1 Refills, Maintenance, 02/17/23 22:48:00 EST, Capsule, [facility] #[id number], 176, cm, 01/22/23 15:09:00 EDT, Height, 83.6, kg, 09/10/22 9:14:00 EDT, Dry Weight Start Date: 02/17/23 Status: Ordered metoprolol 50 mg oral tablet 50 mg, 1, tablet, By Mouth, 2 times a day, # 180 tablet, Refills 1, Tot. Refills 1, Maintenance, 07/28/19 16:25:00 EDT, Route to Pharmacy Electronically, [facility][id number], 176, cm, 07/14/19 9:19:00 EDT, Height Start Date: 07/28/19 Stop Date: 01/24/20 Status: Ordered omeprazole 40 mg oral enteric coated capsule TAKE 1 CAPSULE BY MOUTH DAILY Start Date: 03/02/22 Status: Ordered Pen [place], 32 G x 4 mm BD Ultra [...] 1 Refills, Maintenance, 07/23/23 21:15:00 EDT, Solution, [facility] #[id number], Partial fill upon patient request if the prescription is for a schedule II opioid... 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 Confirmed Active CAD; s/p CABG; [facility] Confirmed 11/09/08 Active Dilated cardiomyopathy Confirmed 11/09/08 Active Dyspepsia Confirmed 11/09/08 Active Family history of cancer of colon Confirmed 11/09/08 Active Functional abdominal pain syndrome Confirmed 11/09/08 Active Gastroesophageal reflux disease Confirmed 11/09/08 Active Hiatal hernia Confirmed Active Hyperlipidemia Confirmed 11/09/08 Active HYPERTENSION Confirmed 11/09/08 Active Low back pain; [facility] Confirmed Active Chronic knee pain Confirmed Active Type II diabetes mellitus, well controlled Confirmed Active Social History Social History Type Response Smoking Status Never (less than 100 in lifetime) entered on: 12/30/18 Sex Patient Care team information Care Team Personnel Name: Antwan Ramirez MD Position: [facility] Physician - Primary Care Member Role: PCP Address: Address: [address] [place] [address]- Care Team Related Persons Name: SCOTT WEIR Address: [address] [place] [address] Name: AUSTIN GUAJARDO Address: [address] [place] [address]
--- OUTSIDE RECORDS SUMMARY | 2024-02-18 14:41 | XMS_ITS | Continuity of Care Document ---
Author Organization [facility] Address [address] [place] [address]- Care Team Providers Care Internal Medicine Specialist Name Role Phone Fadumo RUSSELL, Britney Daniel Primary Care Physic nicola Encounter [facility] Date(s): 12/01/22 - 12/31/22 [facility] [address] [place] [address]- [place] Allergies, Adverse Reactions, Alerts Substance Reaction Severity Status naproxen Active Immunizations Given and Recorded Vaccine Date Status Refusal Reason SARS-CoV-2 mRNA (pqxruxl-nfkx-rmgfy) vax 1 07/28/21 Given SARS-CoV-2 (COVID-19) mRNA [...] H1N1, inactive(oldterm) 5 03/25/09 Given 1Result Comment: [facility] [place]: [id number] 2Result Comment: [facility]: [id number] 3Result Comment: [facility]: [id number] 4Result Comment: Flu High Dose [facility] [id number] 5Admin Note: SANOFI-PASTEUR VIS 09/25/2008 Medications aspirin 81 mg oral delayed release tablet 81 mg, 1, tablet, By Mouth, Daily, # 30 tablet, Refills 0, Maintenance, 10/10/18 10:08:15 EDT Start Date: 10/10/18 Status: Ordered atorvastatin 80 mg oral tablet 1 tablet, By Mouth, Daily, # 90 tablet, 1 Refills, Maintenance, 09/02/22 13:05:00 EDT, [facility] #[id number], 176, cm, 07/30/22 9:38:00 EDT, Height, 83.1, kg, 07/10/21 8:54:00 EDT, Dry Weight Start Date: 09/02/22 Status: Ordered azelastine 137 mcg/inh (0.1%) nasal spray 2 sprays, Nares, Both, Daily, PRN Other Allergies, # 30 mL, 1 Refills, Maintenance, 10/02/20 10:16:00 EDT, [place], [facility] #[id number], Partial fill upon patient request if the [...] Refills, Maintenance, 08/26/22 16:59:00 EDT, REC Powder, [facility] #[id number]... Start Date: 08/26/22 Status: Ordered Lantus Solostar Pen 100 units/mL subcutaneous solution = 34 units, Subcutaneous Injection, Daily at bedtime, # 15 mL, 1 Refills, Maintenance, 10/15/22 15:46:00 EDT, Solution, [facility] #[id number], 176, cm, 07/30/22 9:38:00 EDT, Height, 83.6, kg, 09/10/22 9:14:00 EDT, Dry Weight Start Date: 10/15/22 Status: Ordered lisinopril 2.5 mg oral tablet 1, tablet, By Mouth, Daily, # 90 tablet, Refills 0, Tot. Refills 0, Maintenance, 10/16/22 9:14:00 EDT, Route to Pharmacy Electronically, [facility] #[id number], 176, cm, 07/30/22 9:38:00 EDT, Height, 83.6, kg, 09/10/22 9:14:00 EDT, Dry Weight Start Date: 10/16/22 Status: Ordered Lyrica 100 mg oral capsule 1 capsule = 100 mg, By Mouth, 2 times a day, # 56 capsule, 0 Refills, Maintenance, 12/15/22 9:16:00EDT, Capsule, [facility] #[id number], 176, cm, 07/30/22 9:38:00 EDT, Height, 83.6, kg, 09/10/22 9:14:00 EDT, Dry Weight Start Date: 12/15/22 Stop Date: 01/12/23 Status: Ordered metoprolol 50 mg oral tablet 50 mg, 1, tablet, By Mouth, 2 times a day, # 180 tablet, Refills 1, Tot. Refills 1, Maintenance, 07/28/19 16:25:00 EDT, Route to Pharmacy Electronically, [facility] #[id number], 176, cm, 07/14/19 9:19:00 EDT, Height Start Date: 07/28/19 Stop Date: 01/24/20 Status: Ordered omeprazole 40 mg oral enteric coated capsule TAKE 1 CAPSULE BY MOUTH DAILY Start Date: 03/02/22 Status: Ordered PEG-3350 with Electrolytes (Eqv-NuLYTELY) oral powder for reconstitution See Instructions, as directed, # 1 each, 0 Refills, Maintenance, 06/02/21 12:52:00 EST, [facility] #[id number], ok to sub for any gallon prep, as directed, 176, cm, 06/02/21 10:53:00 EST, Height, 83.6, kg, 07/01/20 11:06:00 EDT, Dry Weight Start Date: 06/02/21 Status: Ordered Pen [place], 31 G x 5 mm BD Ultra Fine III See Instructions, # 1 box, Refills 11, Tot. Refills 11, Maintenance, Use to inject insulin daily for DM2, E11.9, 10/14/18 12:32:54 EDT, Compound Start Date: 10/14/18 Status: Ordered Pen [place], 31 G x 8 mm BD Ultra [...] mL, 1 Refills, Maintenance, 06/30/22 11:06:00 EDT, [facility] #[id number], 176, cm, 03/02/22 13:43:00 EST, Height, 83.1, kg, 07/10/21 8:54:00 EDT, Dry Weight Start Date: 06/30/22 Status: Ordered Problem List Condition Confirmation Course Effective Dates Status H ealth Status Informant ABDOMINAL PAIN Confirmed 11/09/08 Active Anemia Confirmed Active Atherosclerosis Confirmed Active Robles's esophagus Confirmed Active CAD - Coronary artery disease Confirmed 11/09/08 Active Chronic pain syndrome Confirmed 11/09/08 Active Atherosclerotic heart disease of [place] coronary artery without angina pectoris Confirmed Active [...] Primary Care Member Role: PCP Address: Address: [address] [place] [address]- Care Team Related Persons Name: SCOTT WEIR Address: [address] [place] [address] Name: AUSTIN GUAJARDO Address: [address] [place] [address]
--- OUTSIDE RECORDS SUMMARY | 2024-02-18 14:42 | XMS_ITS | Continuity of Care Document ---
Author Organization [facility] Address [address] [place] [address]- Care Team Providers Care Manager Diabetes Name Role Phone Antwan Ramirez MD Primary Care Physician [phone] Encounter [facility] Date(s): 09/24/23 - 10/24/23 [facility] [address] [place], [place] [address] Allergies, Adverse Reactions, Alerts Substance Reaction Severity Status naproxen Active Immunizations Given and Recorded Vaccine Date Status Refusal Reason SARS-CoV-2(COVID-19)mRNA-LNP vac([id number]) 01/28/23 Recorded influenza virus vaccine, inactivated 1 [...] vaccine, inactivated 01/03/13 Ryan rded SARS-CoV-2 mRNA (kmzsahq-dpit-jfbct) vax 4 07/28/21 Given SARS-CoV-2 (COVID-19) mRNA [...] H1N1, inactive(oldterm) 6 03/25/09 Given 1Result Comment: [facility] [id number] 2Result Comment: [facility]: [id number] 3Result Comment: Flu High Dose [facility] [id number] 4Result Comment: [facility]: [id number] 5Result Comment: [facility]: [id number] 6Admin Note: SANOFI-PASTEUR VIS 09/25/2008 Medications aspirin 81 mg oral delayed release tablet 81 mg, 1, tablet, By Mouth, Daily, # 30 tablet, Refills 0, Maintenance, 10/10/18 10:08:15 EDT Start Date: 10/10/18 Status: Ordered atorvastatin 80 mg oral tablet 1 tablet, By Mouth, Daily, # 90 tablet, 1 Refills, Maintenance, 02/22/23 19:45:00 EST, [facility] #[id number], 176, cm, 01/22/23 15:09:00 EDT, Height, 83.6, kg, 09/10/22 9:14:00 EDT, Dry Weight Start Date: 02/22/23 Status: Ordered B 100 Complex oral tablet 1 tablet, By Mouth, Daily, # 100 tablet, 3 Refills, Maintenance, 09/22/23 12:13:00 EDT, Tablet, [facility] #[id number], Partial fill upon patient request if the prescription is for a schedule IIopioid drug., 1 tablet By Mouth Daily, 176, cm, ... Start Date: 09/22/23 Status: Ordered Basaglar KwikPen 100 units/mL subcutaneous solution = 40 units, Subcutaneous Infusion, Daily, # 45 mL, 1 Refills, Maintenance, 07/15/23 17:18:00 EDT, [facility] #[id number], Partial fill upon patient request if the [...] 09/28/23 15:12:00 EDT, Route to Pharmacy Electronically, [facility] #[id number], Partial fill upon patientrequest if the prescription is for a schedule II op... Start Date: 09/28/23 Status: Ordered Lyrica 100 mg oral capsule 1 capsule = 100 mg, By Mouth, 2 times a day, # 180 capsule, 1 Refills, Maintenance, 08/30/23 13:09:00 EDT, Capsule, [facility] #[id number], 176, cm, 06/23/23 9:08:00 EDT, Height, 83.6, [...] 07/28/19 16:25:00 EDT, [id number], 176, cm, 07/14/19 9:19:00 EDT, Height Start Date: 07/28/19 Stop Date: 01/24/20 Status: Ordered [place] Subcutaneous Infusion, 0 Refills, Maintenance, 09/22/23 12:03:00 EDT, Partial fill upon patient request if the prescription is for a schedule II opioid drug. Start Date: 09/22/23 Status: Ordered omeprazole 40 mg oral enteric coated capsule TAKE 1 CAPSULE BY MOUTH DAILY Start Date: 03/02/22 Status: Ordered Pen [place], 32 G x 4 mm BD Ultra [...] EGD 2021 Confirmed Active CAD; s/p CABG; [facility] Confirmed 11/09/08 Active Dilated cardiomyopathy Confirmed 11/09/08 Active Dyspepsia Confirmed 11/09/08 Active Family history of cancer of colon Confirmed 11/09/08 Active Functional abdominal pain syndrome Confirmed 11/09/08 Active Gastroesophageal reflux disease Confirmed 11/09/08 Active Hiatal hernia Confirmed Active Hyperlipidemia Confirmed 11/09/08 Active HYPERTENSION Confirmed 11/09/08 Active Low back pain; [facility] Confirmed Active Chronic knee pain Confirmed Active Diabetes mellitus, type II; Dr Aguilar Confirmed Active Social History Social History Type Response Smoking Status Never (less than 100 in lifetime) entered on: 12/30/18 Sex Patient Care team information Care Team Personnel Name: Antwan Ramirez MD Position: [facility] Physician - Primary Care Member Role: PCP Address: Address: [address] [place] [address]- Care Team Related Persons Name: SCOTT WEIR Address: home [address] [place] [address] Name: AUSTIN GUAJARDO Address: [address] [place] [address]
--- OUTSIDE RECORDS SUMMARY | 2024-02-18 14:42 | XMS_ITS | Continuity of Care Document ---
Author Organization [facility] Address [address] [place] [address]- Care Team Providers Care Replenishment Specialist Name Role Phone Fadumo RUSSELL, Britney Daniel Primary Care Physic nicola [facility]counter [facility] Date(s): 11/25/22 - 12/25/22 [facility] [address] [place] [address]- [place] Allergies, Adverse Reactions, Alerts Substance Reaction Severity Status naproxen Active Immunizations Given and Recorded Vaccine Date Status Refusal Reason SARS-CoV-2 mRNA (ybpjegi-unct-edtpi) vax 1 07/28/21 Given SARS-CoV-2 (COVID-19) mRNA [...] H1N1, inactive(oldterm) 5 03/25/09 Given 1Result Comment: [facility]: [id number] 2Result Comment: [facility]: [id number] 3Result Comment: [facility]: [id number] 4Result Comment: Flu High Dose [facility] [id number] 5Admin Note: SANOFI-PASTEUR VIS 09/25/2008 Medications aspirin 81 mg oral delayed release tablet 81 mg, 1, tablet, By Mouth, Daily, # 30 tablet, Refills 0, Maintenance, 10/10/18 10:08:15 EDT Start Date: 10/10/18 Status: Ordered atorvastatin 80 mg oral tablet 1 tablet, By Mouth, Daily, # 90 tablet, 1 Refills, Maintenance, 09/02/22 13:05:00 EDT, [facility] #[id number], 176, cm, 07/30/22 9:38:00 EDT, Height, 83.1, kg, 07/10/21 8:54:00 EDT, Dry Weight Start Date: 09/02/22 Status: Ordered azelastine 137 mcg/inh (0.1%) nasal spray 2 sprays, Nares, Both, Daily, PRN Other Allergies, # 30 mL, 1 Refills, Maintenance, 10/02/20 10:16:00 EDT, [place], [facility] #[id number], Partial fill upon patient request if the [...] Refills, Maintenance, 08/26/22 16:59:00 EDT, REC Powder, [facility] #[id number]... Start Date: 08/26/22 Status: Ordered Lantus Solostar Pen 100 units/mL subcutaneous solution = 34 units, Subcutaneous Injection, Daily at bedtime, # 15 mL, 1 Refills, Maintenance, 10/15/22 15:46:00 EDT, Solution, [facility] #[id number], 176, cm, 07/30/22 9:38:00 EDT, Height, 83.6, kg, 09/10/22 9:14:00 EDT, Dry Weight Start Date: 10/15/22 Status: Ordered lisinopril 2.5 mg oral tablet 1, tablet, By Mouth, Daily, # 90 tablet, Refills 0, Tot. Refills 0, Maintenance, 10/16/22 9:14:00 EDT, Route to Pharmacy Electronically, [facility] #[id number], 176, cm, 07/30/22 9:38:00 EDT, Height, 83.6, kg, 09/10/22 9:14:00 EDT, Dry Weight Start Date: 10/16/22 Status: Ordered Lyrica 100 mg oral capsule 1 capsule = 100 mg, By Mouth, 2 times a day, # 56 capsule, 0 Refills, Maintenance, 12/15/22 9:16:00EDT, Capsule, [facility] #[id number], 176, cm, 07/30/22 9:38:00 EDT, Height, 83.6, kg, 09/10/22 9:14:00 EDT, Dry Weight Start Date: 12/15/22 Stop Date: 01/12/23 Status: Ordered metoprolol 50 mg oral tablet 50 mg, 1, tablet, By Mouth, 2 times a day, # 180 tablet, Refills 1, Tot. Refills 1, Maintenance, 07/28/19 16:25:00 EDT, Route to Pharmacy Electronically, [facility] #[id number], 176, cm, 07/14/19 9:19:00 EDT, Height Start Date: 07/28/19 Stop Date: 01/24/20 Status: Ordered omeprazole 40 mg oral enteric coated capsule TAKE 1 CAPSULE BY MOUTH DAILY Start Date: 03/02/22 Status: Ordered PEG-3350 with Electrolytes (Eqv-NuLYTELY) oral powder for reconstitution See Instructions, as directed, # 1 each, 0 Refills, Maintenance, 06/02/21 12:52:00 EST, [facility] #[id number], ok to sub for any gallon prep, as directed, 176, cm, 06/02/21 10:53:00 EST, Height, 83.6, kg, 07/01/20 11:06:00 EDT, Dry Weight Start Date: 06/02/21 Status: Ordered Pen [place], 31 G x 5 mm BD Ultra Fine III See Instructions, # 1 box, Refills 11, Tot. Refills 11, Maintenance, Use to inject insulin daily for DM2, E11.9, 10/14/18 12:32:54 EDT, Compound Start Date: 10/14/18 Status: Ordered Pen [place], 31 G x 8 mm BD Ultra [...] mL, 1 Refills, Maintenance, 06/30/22 11:06:00 EDT, [facility] #[id number], 176, cm, 03/02/22 13:43:00 EST, Height, 83.1, kg, 07/10/21 8:54:00 EDT, Dry Weight Start Date: 06/30/22 Status: Ordered Problem List Condition Confirmation Course Effective Dates Status H ealth Status Informant ABDOMINAL PAIN Confirmed 11/09/08 Active Anemia Confirmed Active Atherosclerosis Confirmed Active Robles's esophagus Confirmed Active CAD - Coronary artery disease Confirmed 11/09/08 Active Chronic pain syndrome Confirmed 11/09/08 Active Atherosclerotic heart disease of [place] coronary artery without angina pectoris Confirmed Active [...] Primary Care Member Role: PCP Address: Address: [address] [place] [address]- Care Team Related Persons Name: SCOTT WEIR Address: home [address] [place] [address] Name: AUSTIN GUAJARDO Address: [address] [place] [address]
--- OUTSIDE RECORDS SUMMARY | 2024-02-18 14:42 | XMS_ITS | Continuity of Care Document ---
Author Organization [facility] Address [address] [place] [address]- Care Team Providers Care Keg Header Name Role Phone Fadumo RUSSELL, Britney Daniel Primary Care Physic nicola [facility]counter [facility] Date(s): 11/24/22 - 12/24/22 [facility] [address] [place] [address]- [place] Allergies, Adverse Reactions, Alerts Substance Reaction Severity Status naproxen Active Immunizations Given and Recorded Vaccine Date Status Refusal Reason SARS-CoV-2 mRNA (wpxcghk-dsoh-pfysx) vax 1 07/28/21 Given SARS-CoV-2 (COVID-19) mRNA [...] inactive(oldterm) 5 03/25/09 Given 1Result Comment: [facility]: [id number] 2Result Comment: [facility]: [id number] 3Result Comment: [facility]: [id number] 4Result Comment: Flu High Dose [facility] [id number] 5Admin Note: SANOFI-PASTEUR VIS 09/25/2008 Medications aspirin 81 mg oral delayed release tablet 81 mg, 1, tablet, By Mouth, Daily, # 30 tablet, Refills 0, Maintenance, 10/10/18 10:08:15 EDT Start Date: 10/10/18 Status: Ordered atorvastatin 80 mg oral tablet 1 tablet, By Mouth, Daily, # 90 tablet, 1 Refills, Maintenance, 09/02/22 13:05:00 EDT, [facility] #[id number], 176, cm, 07/30/22 9:38:00 EDT, Height, 83.1, kg, 07/10/21 8:54:00 EDT, Dry Weight Start Date: 09/02/22 Status: Ordered azelastine 137 mcg/inh (0.1%) nasal spray 2 sprays, Nares, Both, Daily, PRN Other Allergies, # 30 mL, 1 Refills, Maintenance, 10/02/20 10:16:00 EDT, [place], [facility] #[id number], Partial fill upon patient request if the [...] Refills, Maintenance, 08/26/22 16:59:00 EDT, REC Powder, [facility] #[id number]... Start Date: 08/26/22 Status: Ordered Lantus Solostar Pen 100 units/mL subcutaneous solution = 34 units, Subcutaneous Injection, Daily at bedtime, # 15 mL, 1 Refills, Maintenance, 10/15/22 15:46:00 EDT, Solution, [facility] #[id number], 176, cm, 07/30/22 9:38:00 EDT, Height, 83.6, kg, 09/10/22 9:14:00 EDT, Dry Weight Start Date: 10/15/22 Status: Ordered lisinopril 2.5 mg oral tablet 1, tablet, By Mouth, Daily, # 90 tablet, Refills 0, Tot. Refills 0, Maintenance, 10/16/22 9:14:00 EDT, Route to Pharmacy Electronically, [facility] #[id number], 176, cm, 07/30/22 9:38:00 EDT, Height, 83.6, kg, 09/10/22 9:14:00 EDT, Dry Weight Start Date: 10/16/22 Status: Ordered Lyrica 100 mg oral capsule 1 capsule = 100 mg, By Mouth, 2 times a day, # 56 capsule, 0 Refills, Maintenance, 12/15/22 9:16:00EDT, Capsule, [facility] #[id number], 176, cm, 07/30/22 9:38:00 EDT, Height, 83.6, kg, 09/10/22 9:14:00 EDT, Dry Weight Start Date: 12/15/22 Stop Date: 01/12/23 Status: Ordered metoprolol 50 mg oral tablet 50 mg, 1, tablet, By Mouth, 2 times a day, # 180 tablet, Refills 1, Tot. Refills 1, Maintenance, 07/28/19 16:25:00 EDT, Route to Pharmacy Electronically, [facility] #[id number], 176, cm, 07/14/19 9:19:00 EDT, Height Start Date: 07/28/19 Stop Date: 01/24/20 Status: Ordered omeprazole 40 mg oral enteric coated capsule TAKE 1 CAPSULE BY MOUTH DAILY Start Date: 03/02/22 Status: Ordered PEG-3350 with Electrolytes (Eqv-NuLYTELY) oral powder for reconstitution See Instructions, as directed, # 1 each, 0 Refills, Maintenance, 06/02/21 12:52:00 EST, [facility] #[id number], ok to sub for any gallon prep, as directed, 176, cm, 06/02/21 10:53:00 EST, Height, 83.6, kg, 07/01/20 11:06:00 EDT, Dry Weight Start Date: 06/02/21 Status: Ordered Pen [place], 31 G x 5 mm BD Ultra Fine III See Instructions, # 1 box, Refills 11, Tot. Refills 11, Maintenance, Use to inject insulin daily for DM2, E11.9, 10/14/18 12:32:54 EDT, Compound Start Date: 10/14/18 Status: Ordered Pen [place], 31 G x 8 mm BD Ultra [...] mL, 1 Refills, Maintenance, 06/30/22 11:06:00 EDT, [facility] #[id number], 176, cm, 03/02/22 13:43:00 EST, Height, 83.1, kg, 07/10/21 8:54:00 EDT, Dry Weight Start Date: 06/30/22 Status: Ordered Problem List Condition Confirmation Course Effective Dates Status H ealth Status Informant ABDOMINAL PAIN Confirmed 11/09/08 Active Anemia Confirmed Active Atherosclerosis Confirmed Active Robles's esophagus Confirmed Active CAD - Coronary artery disease Confirmed 11/09/08 Active Chronic pain syndrome Confirmed 11/09/08 Active Atherosclerotic heart disease of [place] coronary artery without angina pectoris Confirmed Active [...] Primary Care Member Role: PCP Address: Address: [address] [place] [address]- Care Team Related Persons Name: SCOTT WEIR Address: [address] [place] [address] Name: AUSTIN GUAJARDO Address: [address] [place] [address]
== END 2024-02-17 11:20 | disposition home or self-care (01) ==
LOC: HO.PMCPRC 09:52
PROVIDERS: PCP Internal Medicine; Visit Provider Internal Medicine
DX: M25.561 Pain in right knee (principal)
CPT/HCPCS: 64555

== ENCOUNTER 2024-02-21 09:59 | Outpatient (AMB) | payer MEDICARE, MEDICAID, SELFPAY ==
--- NOTE | 2024-02-21 10:04 | MHC.OFFVIS ---
Vital Signs 02/21/24 10:06 Height 5 ft 10 in Weight 184 lb BMI 26.4 BP 164/71 H Blood Pressure Location Lt brachial Position Sitting Respiration 15 Pulse 81 Pulse Source Pulse Oximeter Pulse Oximetry (%) 98 Oxygen Delivery Method Room Air Intake Visit Reasons: s/p Sprint Allergies naproxen [From Naprosyn] Allergy (Verified 02/21/24 10:08) swelling Medication List - Last Reconciled 02/21/24 by Indigo Bermeo LPN aspirin (Adult Low Dose Aspirin) 81 mg PO DAILY atorvastatin 80 mg PO DAILY losartan 25 mg PO DAILY metformin 1,000 mg PO BID metoprolol tartrate 50 mg PO BID 90 days omeprazole 40 mg PO DAILY 90 days pen needle, diabetic As directed pen needle, diabetic As directed pregabalin 100 mg PO BID 30 days tirzepatide (Mounjaro) mg subcut walker Folding Front wheeled walker HPI HPI s/p Sprint: Details: 73-year-old male who presents today to the office for a status post sprint. The patient reports more than 70% relief following the procedure. He has significant leg pain relief. He has no difficulty taking care of the device and changing the dressing. He spends one hour in a car. He is able to walk, which he was unable to do in the past. Past procedures: 02/17/24: temporary right saphenous peripheral nerve stimulator: more than 70% relief. 04/22/23: Diagnostic Sacroiliac Joint Injection, Right: 50% relief. 04/12/23: Injection Trigger Point Multi: % relief. 04/12/23: Right GTB injection under ultrasound guidance: % relief. 02/07/21: Pectoralis plane block, ultrasound guided: No significant relief. 10/08/21: Right adductor canal saphenous nerve block, ultrasound-guided: 50 % relief. [facility] Medical History Environmental allergies Osteoarthritis of right knee Deformity of right hand Diabetes mellitus Barretts esophagus Hyperlipidemia Diabetes Chronic chest pain Hypertension Surgical History H/O right inguinal hernia repair Status post total knee replacement, left History of esophagogastroduodenoscopy (EGD) History of hand surgery History of surgery History of lumbar fusion S/P CABG (coronary artery bypass graft) H/O neck surgery Hx of CABG (~2017) Family History Father Diabetes Hypertension Mother Diabetes Hypertension Son No problems noted. Son No problems noted. Son No problems noted. Daughter No problems noted. Daughter No problems noted. 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) Do you presently have visiting nurse or other home services: No Alcohol intake: former Comment: new ice packs placed Patient Tobacco Use Status: Never used Tobacco service: No Current occupational status: disabled Current occupation: rt handed Cognitive needs: No Hearing needs: No Vision needs: No Review of Systems Const All systems reviewed & are unremarkable except as noted in HPI and below Physical Exam Vital Signs: Last Vital Signs Pulse 81 02/21/24 10:06 Resp 15 02/21/24 10:06 BP 164/71 H 02/21/24 10:06 Pulse Ox 98 02/21/24 10:06 Oxygen Delivery Method Room Air 02/21/24 10:06 BMI result Body Mass Index 26.4 General: Appears afebrile. Alert and oriented. Mood and affect appropriate. Follows and participates in conversation appropriately. Respiratory effort is unlabored. Able to transition from sit to stand unassisted. Ambulates with bilaterally normal heel strike and toe off. Lead?insertion?site?was?clean,?dry?and?intact. Results Reviewed Results Reviewed: No imaging is available for review. Assessment & Plan Assessment & Plan (1) Right knee pain: Code(s): M25.561 - Pain in right knee Category: Medical (2) Postoperative stiffness of total knee replacement: Code(s): T84.89XA - Other specified complication of internal orthopedic prosthetic devices, implants and grafts, initial encounter; M25.669 - Stiffness of unspecified knee, not elsewhere classified; Z96.659 - Presence of unspecified artificial knee joint Category: Medical (3) Status post total right knee replacement: Code(s): Z96.651 - Presence of right artificial knee joint Category: Surgical Plan He will continue with the device. He will follow up in seven weeks for removal of the device. Follow up as needed with Ellen. Scribed for Dr. Grimaldo by Eliu Colon, certified medical records coder, on 02/21/2024. I, Dr. Grimaldo, have personally reviewed and agree with the information entered by the scribe. Coding Level of Care Code Est Pt Level 3 (32330) Diagnoses Right knee pain M25.561 Postoperative stiffness of total knee replacement T84.89XA; M25.669; Z96.659 Status post total right knee replacement Z96.651
[2024-02-21 10:06] VITALS: BP 164/71; PULSE 81; RESP 15; O2SAT 98; BMI 26.4
== END 2024-02-21 10:25 | disposition home or self-care (01) ==
PROVIDERS: PCP Internal Medicine; Visit Provider Internal Medicine
DX: M25.561 Pain in right knee (principal); T84.89XA Other specified complication of internal orthopedic prosthetic devices, implants and grafts, initial encounter; M25.669 Stiffness of unspecified knee, not elsewhere classified; Z96.659 Presence of unspecified artificial knee joint; Z96.651 Presence of right artificial knee joint
CPT/HCPCS: 99024

== ENCOUNTER → 2024-02-21 09:59 | Outpatient (BNVA) | payer MEDICARE, MEDICAID, SELFPAY | PROVIDERS: PCP Internal Medicine; Visit Provider Internal Medicine | DX: M25.561 Pain in right knee (principal); M25.669 Stiffness of unspecified knee, not elsewhere classified; T84.89XA Other specified complication of internal orthopedic prosthetic devices, implants and grafts, initial encounter; Z96.651 Presence of right artificial knee joint; Z96.82 Presence of neurostimulator | CPT/HCPCS: 99212 ==

== ENCOUNTER 2024-04-12 09:33 | Outpatient (AMB) | payer MEDICARE, MEDICAID, SELFPAY ==
--- NOTE | 2024-04-12 09:33 | A.OFFVIS_ITS ---
Vital Signs 04/12/24 09:35 Height 5 ft 10 in Weight 184 lb BMI 26.4 BP 127/66 Blood Pressure Location Lt brachial Position Sitting Respiration 16 Pulse 64 Pulse Source Pulse Oximeter Pulse Oximetry (%) 98 Oxygen Delivery Method Room Air Intake Visit Reasons: Sprint removal Allergies naproxen [From Naprosyn] Allergy (Verified 04/12/24 09:36) swelling Medication List - Last Reconciled 04/12/24 by Indigo Bermeo LPN aspirin (Adult Low Dose Aspirin) 81 mg PO DAILY atorvastatin 80 mg PO DAILY losartan 25 mg PO DAILY metformin 1,000 mg PO BID metoprolol tartrate 50 mg PO BID 90 days omeprazole 40 mg PO DAILY 90 days pen needle, diabetic As directed pen needle, diabetic As directed pregabalin 100 mg PO BID 30 days tirzepatide (Mounjaro) mg subcut walker Folding Front wheeled walker HPI HPI Sprint removal: Details: Omar is status post 2 months of temporary saphenous nerve stimulation of the right side. He reports about 50% relief with relief of tension and pain in the distal lateral aspect of his thigh. He continues to have some toyin and infrapatellar pain on the medial aspect and we will consider a permanent nerve stimulator implant for that if it remains bothersome in the future. Today his primary concern is low back pain. History is notable for prior lumbar fusion surgery with hardware placement. He is concerned about hardware malfunction. He has also not had any treatments for his post-laminectomy syndrome. On exam today: Appears afebrile. Alert and oriented. Mood and affect appropriate. Follows and participates in conversation appropriately. Respiratory effort is unlabored. Able to transition from sit to stand unassisted. Ambulates with bilaterally normal heel strike and toe off. Able to stand and walk on toes and heels. Lead removed with tip intact. [facility] Medical History Environmental allergies Osteoarthritis of right knee Deformity of right hand Diabetes mellitus Barretts esophagus Hyperlipidemia Diabetes Chronic chest pain Hypertension Surgical History H/O right inguinal hernia repair Status post total knee replacement, left History of esophagogastroduodenoscopy (EGD) History of hand surgery History of surgery History of lumbar fusion S/P CABG (coronary artery bypass graft) H/O neck surgery Hx of CABG (~2017) Family History Father Diabetes Hypertension Mother Diabetes Hypertension Son No problems noted. Son No problems noted. Son No problems noted. Daughter No problems noted. Daughter No problems noted. 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) Do you presently have visiting nurse or other home services: No Alcohol intake: former Comment: new ice packs placed Patient Tobacco Use Status: Never used Tobacco service: No Current occupational status: disabled Current occupation: rt handed Cognitive needs: No Hearing needs: No Vision needs: No Physical Exam Vital Signs: Last Vital Signs Pulse 64 04/12/24 09:35 Resp 16 04/12/24 09:35 BP 127/66 04/12/24 09:35 Pulse Ox 98 04/12/24 09:35 Oxygen Delivery Method Room Air 04/12/24 09:35 BMI result Body Mass Index 26.4 Assessment & Plan Assessment & Plan (1) Postlaminectomy syndrome: Code(s): M96.1 - Postlaminectomy syndrome, not elsewhere classified Category: Medical (2) Chronic knee pain after total replacement of right knee joint: Code(s): M25.561 - Pain in right knee; G89.29 - Other chronic pain; Z96.651 - Presence of right artificial knee joint Category: Medical Plan Discussed permanent nerve stimulation implant for infrapatellar saphenous nerve for his post arthroplasty knee pain that has only partially responded to temporary saphenous nerve stimulation. He will think about this and let us know if he would like to proceed in the future. For his post-laminectomy syndrome, discussed CT of the lumbar spine to rule out hardware malfunction. Once we have reviewed the images, we will proceed with a trial of lumbar spinal cord stimulation with a [place] scientific device. I placed a referral for behavioral health clearance. Patient will receive a phone call from both radiology as well as [facility] point for CT and behavioral clearance respectively. Orders: Orders CT lumbar spine wo IV con Today M96.1 - Postlaminectomy syndrome, not elsewhere classified Coding Level of Care Code Est Pt Level 4 (31232) Diagnoses Postlaminectomy syndrome M96.1 Chronic knee pain after total replacement of right knee joint M25.561; G89.29; Z96.651
[2024-04-12 09:35] VITALS: BP 127/66; PULSE 64; RESP 16; O2SAT 98; BMI 26.4
== END 2024-04-12 09:57 | disposition home or self-care (01) ==
PROVIDERS: PCP Internal Medicine; Visit Provider Internal Medicine
DX: M96.1 Postlaminectomy syndrome, not elsewhere classified (principal); M25.561 Pain in right knee; G89.29 Other chronic pain; Z96.651 Presence of right artificial knee joint
CPT/HCPCS: 99214

== ENCOUNTER → 2024-04-12 09:33 | Outpatient (BNVA) | payer MEDICARE, MEDICAID, SELFPAY | PROVIDERS: PCP Internal Medicine; Visit Provider Internal Medicine | DX: M96.1 Postlaminectomy syndrome, not elsewhere classified (principal); M25.561 Pain in right knee; G89.29 Other chronic pain; Z96.651 Presence of right artificial knee joint | CPT/HCPCS: 99212 ==

== ENCOUNTER → 2024-05-03 14:17 | Outpatient (BNV) | payer MEDICARE, MEDICAID, SELFPAY | PROVIDERS: PCP Internal Medicine; Visit Provider Radiology Diagnostic Radiology | DX: M96.1 Postlaminectomy syndrome, not elsewhere classified (principal) | CPT/HCPCS: 72131 ==

== ENCOUNTER 2024-05-08 11:59 | Outpatient (AMB) ==
--- NOTE | 2024-05-08 12:05 | MHC.OFFVIS ---
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 Required: No Allergies naproxen [From Naprosyn] Allergy (Verified 05/08/24 12:09) swelling Medication List - Last Reconciled 05/08/24 by Indigo Bermeo LPN aspirin (Adult Low Dose Aspirin) 81 mg PO DAILY atorvastatin 80 mg PO DAILY losartan 25 mg PO DAILY metformin 1,000 mg PO BID metoprolol tartrate 50 mg PO BID 90 days omeprazole 40 mg PO DAILY 90 days pen needle, diabetic As directed pen needle, diabetic As directed pregabalin 100 mg PO BID 30 days tirzepatide (Mounjaro) mg subcut walker Folding Front wheeled walker HPI HPI Discuss Ct Scan: Details: History of Present Illness The patient is a 73-year-old male presenting with evaluation and management of chronic back pain. His persistent back pain extends from the lower back and radiates down the right leg. This condition has a chronic trajectory and is associated with hardware placement in the spine. 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 He has previously undergone back injections but has not completed a necessary psychological evaluation due to inactive phone services. This evaluation is crucial for proceeding with a lumbar spinal cord stimulator. Despite the incomplete assessment, the patient's chronic pain substantially interferes with daily activities, highlighting the need for efficient pain management. Pain Description - Onset: Chronic duration - Quality: Radiating pain - Primary Location: Lower back - Radiation: Right leg - Exacerbating Factors: Undefined - Relieving Factors: Previous pain injections - Interference: Daily activities and overall quality of life Physical Exam Results - CT scan: Right L4 foraminal narrowing confirmed. Pain Management - Affect: Pain is significantly impacting the patient's quality of life. - Analgesia: Previous spinal injections; use of spinal cord stimulator discussed. - Adverse Effects: Not explicitly mentioned. - Activities of Daily Living: Pain significantly interferes with daily functioning. - Aberrant Drug Related Behaviors: None reported. [facility] Medical History Environmental allergies Osteoarthritis of right knee Deformity of right hand Diabetes mellitus Barretts esophagus Hyperlipidemia Diabetes Chronic chest pain Hypertension Surgical History H/O right inguinal hernia repair Status post total knee replacement, left History of esophagogastroduodenoscopy (EGD) History of hand surgery History of surgery History of lumbar fusion S/P CABG (coronary artery bypass graft) H/O neck surgery Hx of CABG (~2017) Family History Father Diabetes Hypertension Mother Diabetes Hypertension Son No problems noted. Son No problems noted. Son No problems noted. Daughter No problems noted. Daughter No problems noted. 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 ( disabled) Do you presently have visiting nurse or other home services: No Alcohol intake: former Comment: new ice packs placed Patient Tobacco Use Status: Never used Tobacco service: No Current occupational status: disabled Current occupation: rt handed Cognitive needs: No Hearing needs: No Vision needs: No Physical Exam Vital Signs: Last Vital Signs Pulse 71 05/08/24 12:06 Resp 16 05/08/24 12:06 BP 143/68 H 05/08/24 12:06 Pulse Ox 99 05/08/24 12:06 Oxygen Delivery Method Room Air 05/08/24 12:06 BMI result Body Mass Index 26.4 Results Reviewed Results Reviewed: CT scan Showed hardware in appropriate position. Neural foraminal narrowing noted at right L4 with effacement of the thecal sac. Assessment & Plan Assessment & Plan (1) Postlaminectomy syndrome: Code(s): M96.1 - Postlaminectomy syndrome, not elsewhere classified Category: Medical (2) Lumbar radiculopathy, right: Code(s): M54.16 - Radiculopathy, lumbar region Category: Medical Plan Plan The treatment strategy will involve performing a right transforaminal epidural steroid injection to address radicular pain resulting from L4 foraminal stenosis. In conjunction, efforts will be made to facilitate the completion of the psychological evaluation for potential spinal cord stimulator placement, assisted by the office in coordinating the appointment. The patient's difficulties with completing the assessment from home due to technological constraints will be addressed in-clinic. Patient was informed and verbally consented to the use of an ambient scribe for clinic note documentation during this visit. 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 We reviewed the management options, including the upcoming right transforaminal epidural steroid injection, which is intended to provide symptomatic relief while the psychological evaluation process is completed. The necessity of this evaluation for the spinal cord stimulator trial was emphasized. The patient expressed understanding of the plan. I assured him that our learning and development officer, Giovanna, would assist in scheduling the assessment necessary for future treatment considerations. Patient Instructions - Await contact from the learning and development officer for scheduling the psychological evaluation. - Prepare for the right epidural steroid injection procedure and follow any pre-procedure instructions provided. - Monitor symptoms and report any significant changes or worsening to the office. - Continue current pain management practices as discussed. Coding Level of Care Code Est Pt Level 4 (00236) Diagnoses Postlaminectomy syndrome M96.1 Lumbar radiculopathy, right M54.16
[2024-05-08 12:06] VITALS: BP 143/68; PULSE 71; RESP 16; O2SAT 99; BMI 26.4
== END 2024-05-08 12:42 | disposition home or self-care (01) ==
DX: M96.1 Postlaminectomy syndrome, not elsewhere classified (principal); M54.16 Radiculopathy, lumbar region
CPT/HCPCS: 99214

== ENCOUNTER → 2024-05-08 11:59 | Outpatient (BNVA) | payer MEDICARE, MEDICAID, SELFPAY | PROVIDERS: PCP Internal Medicine; Visit Provider Internal Medicine | DX: M96.1 Postlaminectomy syndrome, not elsewhere classified (principal); M54.16 Radiculopathy, lumbar region | CPT/HCPCS: 99212 ==

== ENCOUNTER 2024-05-25 06:41 | Outpatient (REF) | payer MEDICARE, MEDICAID, SELFPAY ==
--- OUTSIDE RECORDS SUMMARY | 2024-05-25 06:45 | XMS_ITS | Clinical Summary ---
Author Organization [address] [place] [address] [place] [id number] Phone Care Team Providers Care Engraver [employer] Name Role Phone Antwan Ramirez MD Primary Care Provider [phone] Allergies Active Allergy Reactions Criticality Noted Date Comments Naproxen 08/27/2021 Medications lidocaine (LIDODERM) 5 % patch Place 1 Patch onto the skin every 24 hours for 28 days. Apply for no more than 12 hours in any 24 hour period. 07/13/2023 Active diclofenac (VOLTAREN) 1 % topical gel 03/17/2023 Active baclofen (LIORESAL) 10 mg tablet Take 10 mg by mouth 3 times daily. Active clotrimazole (LOTRIMIN) 1 % cream Active lisinopriL (PRINIVIL,ZESTRI L) 2.5 mg tablet Take 2.5 mg by mouth daily. Active pregabalin (LYRICA) 100 mg capsule Take 100 mg by mouth 2 times daily. Active metFORMIN (GLUCOPHAGE) 500 mg tablet Take 500 mg by mouth 2 times daily (with meals). Active OMEPRAZOLE ORAL Take by mouth. Active METOPROLOL SUCCINATE ORAL Take by mouth. Active atorvastatin calcium (LIPITOR ORAL) Take by mouth. Active aspirin 81 mg EC tablet Take 81 mg by mouth daily. Active insulin glargine,hum.rec .anlog (INSULIN GLARGINE SUBQ) Inject into the skin. Active dulaglutide (Trulicity) 1.5 mg/0.5 mL pen injector injection Active tirzepatide (MOUNJARO SUBQ) Inject under the skin. Active Active Problems Problem Noted Date Diagnosed Date Coronary artery disease 07/27/2022 Overview (01/03/2024): Required CABG per Dr. Sydni He note Diabetes mellitus type 2, controlled, with compl ications 07/27/2022 Esophageal reflux 07/27/2022 Essential hypertension 07/27/2022 Hyperlipidemia 07/27/2022 PAD (peripheral artery disease) 07/27/2022 Varicose veins of leg with swelling, bilateral 0 07/27/2022 Dupuytren contracture 10/03/2020 Encounters Date Type Department Care Team Description 04/10/2024 Telephone Vascular Surgery - [place] [address] [place] [address] Dyan Crespo PA Order for Arterial US (Revision Needed) 04/04/2024 1:45 PM EST Office Visit Orthopedic Surgery - [place] [address] [place] [address] Arvin Aguilar, DPM Hallux rigidus of right foot (Primary Dx); Hallux rigidus of left foot; Acquired hammer toe of right foot; Hammer toe of left foot; Diabetic mononeuropathy simplex (CMS/HCC); Dermatophytosis of nail from Last 3 Months Surgical History Surgery Date Site/Laterality Comments LEG SURGERY Right PROCEDURE: HISTORICAL LEG SURGERY BACK SURGERY PROCEDURE: HISTORICAL BACK SURGERY HERNIA REPAIR 10/03/2019 Right PROCEDURE: LAPAROSCOPY, INGUINAL HERNIA REPAIR; [facility] Right PROCEDURE: HISTORICAL HAND SURGERY; COMMENT: fasciectomy of right palm and small finger for dupytrens contracture with Dr. Troy Medical History Medical History Date Comments Diabetes mellitus type 2, co ntrolled, with complications (CMS/HCC) DX:Diabetes mellitus type 2, controlled, with complications (HCC) Hyperlipidemia DX:Hyperlipidemi a Esophageal reflux DX:Esophageal reflux Essential hypertension DX:Essent ial hypertension Coronary artery disease DX:Coron amber artery disease; COMMENT: Required CABG per Dr. Sydni He note Social History Tobacco Use Types Packs/Day Years Used Date Smoking Tobacco: Never Smokeless Tobacco: Never Tobacco Cessation:Counseling Given: Not Answered Alcohol Use Standard Drinks/Week Comments No 0 (1 standard drink = 0.6 oz pur e alcohol) Sex and Gender Information Value Date Recorded Sex Assigned at Not on file Legal Sex Male 5:43 AM EST Gender Identity Not on file Sexual Orientation Not on file Obstetrics History Last Filed Vital Signs Vital Sign Reading Time Taken Comments Blood Pressure 127/68 02/11/2024 1:53 PM EST Pulse 66 02/11/2024 1:53 PM EST Temperature - - Respiratory Rate - - Oxygen Saturation - - Inhaled Oxygen Concentration - - Weight 83.5 kg (184 lb) 04/04/2024 1:32 PM EST Height 177.8 cm (5' 10 ) 04/04/2024 1:32 PM EST Body Mass Index 26.4 04/04/2024 1:32 PM EST Plan of Treatment Upcoming Encounters Date Type Department Care Team (Late st Contact Info) Description 07/03/2024 1:45 PM EDT Office Visit Orthopedic Surgery [facility] [address] [phone] Arvin Aguilar DPM [address] [address] 12/05/2024 12:45 PM EDT Ancillary Procedure [facility] [address] [phone] 12/11/2024 12:45 PM EDT Ancillary Procedure [facility] [place] [address] [address] [phone] 02/12/2025 2:00 PM EST Office Visit Vascular Surgery [facility] [address] [facility] [address] [place] [address] Lux Malik MD 300 [facility] [address] [place] [address] Health Maintenance Due Date Last Done Comments Diabetes: Annual Foot Exam 09/08/1961 Diabetes: Annual Retina Eye Exam 09/08/1961 Hepatitis A Vaccines (1 of 2 - Risk 2-dose series) 09/08/1970 RSV Immunization Patients 60+ Years Old (1 - Risk 60-74 years 1-dose series) 2011 Diabetes: Annual GFR (Glomerular Filtration Rate) 12/14/2018 12/14/2017 Cholesterol Screening (Lipid Panel) 03/07/2022 Colorectal Cancer Screening: Colonoscopy 03/07/2022 Depression Screening 03/07/2022 Falls Risk Assessment 03/07/2022 Hepatitis C Screening 03/07/2022 Medicare Annual Wellness Visit 03/07/2022 Social Influencers of Health Screening 03/07/2022 Diabetes: Annual Urine Albumin-Creatinine Ratio (uACR) 04/27/2023 Diabetes: Blood Sugar Control Test (HGBA1C) 04/27/2023 12/14/2017 Hypertension/CHF/CAD Annual BMP Blood Test 05/13/2023 12/14/2017 COVID-19 Vaccine ( season) 2023 01/28/2023, 07/28/2021, 02/03/2021, Additional history exists DTaP,Tdap,and Td Vaccines (2 - Td or Tdap) 02/06/2024 02/05/2014 Pneumococcal Vaccine: 50+ Years Completed 11/12/2016, 12/25/2014 Hepatitis B Vaccines Completed 03/21/2018, 11/12/2016, 11/12/2016, Additional history exists Zoster Vaccines Completed 03/21/2018, 02/26, 03/14/2017 Influenza Vaccine Completed 12/31/2023, , 02/03/2021, Additional history exists HIB Vaccines Aged Out No longer eligi ble based on patient's age to complete this topic HPV Vaccines Aged Out No longer eligi ble based on patient's age to complete this topic IPV Vaccines Aged Out No longer eligi ble based on patient's age to complete this topic MMR Vaccines Aged Out No longer eligi ble based on patient's age to complete this topic Meningococcal ACWY Vaccine Aged Out N o longer eligible based on patient's age to complete this topic Meningococcal B Vacine Aged Out No lo nger eligible based on patient's age to complete this topic RSV Immunization Patients Under 20 months Aged Out No longer eligible based on patient's age to complete this topic Varicella Vaccines Aged Out No longer eligible based on patient's age to complete this topic Insurance MEDICAID - [place] MEDICARE Care Teams Engraver Rubber Relationship Specialty [place] [address] [place] [id number] PCP - General 07/14/23
--- OUTSIDE RECORDS SUMMARY | 2024-05-25 06:45 | XMS_ITS | Continuity of Care Document ---
Author Organization [facility] [address] [place] [address] Phone [phone] Care Team Providers Care Stage Electrician Name Role Phone Antwan Ramirez M.D. Care Team Information Recei dominga [phone] Problems Active Problems Provider Date Anemia Aramis Garza M.D. Onset: 0 09/08/2023 Robles's esophagus Aramis Garza M.D. Onse t: 09/08/2023 Coronary artery bypass graft Aramis Garza M.D. Onset: 09/08/2023 Hyperlipidemia Aramis Garza M.D. Onset: 0 09/08/2023 Type 2 diabetes mellitus Aramis Garza M.D. Onset: 09/08/2023 Essential hypertension Aramis Garza M.D. O nset: 09/08/2023 Gastroesophageal reflux disease Aramis howe M.D. Onset: 09/08/2023 Social History Type Date Description Comments Sex Unknown Tobacco Use Start: Unknown Never Smoked Cigarettes ETOH Use Denies alcohol use Allergies and adverse reactions Active Allergies Criticality Reaction Severity Comments Date Naproxen Unable to assess criticality 09/08/2023 Medications Active Medications SIG Qnty Indications Order ing Provider Date Mounjaro7.5mg/0.5ML Solution Pen-Inject 1 injection every week as directed 6ml Aramis Garza M.D. 12/08/2023 Metformin HCL [id number] Tablets ER 24HR take 2 tablets by mouth twice a day 180tabs Aramis Garza M.D. 09/22/2023 Freestyle Soraida 3/Sensor/Glucose Monitoring Wfugfq1Cezltv Misc as directed 3units Aramis Garza M.D. 09/08/2023 Freestyle Soraida 3/Keyport/Glucose Monitoring Evebxl2Vivhwl Device use with sensors to check blood sugar dx:e11.9 1units Aramis Garza M.D. 09/08/2023 Basaglar [id number]/ML Solution Pen-Inject 30 Units Subcutaneous In Evening Antwan Ramirez M.D. [id number] Capsules Take 1 Capsule By Mouth Twice Daily Antwan Ramirez M.D. Atorvastatin Wbztdlt19lk Tablets Take 1 Tablet By Mouth Every Day Britney Henriquez M.D. [id number] Capsules DR Take 1 Capsule By Mouth Daily Rain Reese Metoprolol [id number] Tablets Take 1 Tablet By Mouth Twice Daily Rain Reese History Medications Metformin HCL ER (Mod)1000mg Tablets ER 24HR Take 1 Tablet By Mouth Twice Daily 180tabs Aramis Garza M.D. 09/22/2023 - 09/22/2023 Metformin HCL ER (Mod)500mg Tablets ER 24HR Take 2 Tablets By Mouth Twice Daily 360tabs Aramis Garza M.D. 09/21/2023 - 09/21/2023 Metformin HCL ER (Osm)1000mg Tablets ER 24HR Take 1 Tablet By Mouth Twice Daily 180tabs Aramis Garza M.D. 09/21/2023 - 09/22/2023 Ynjllofp1ys/0.5ML Solution Pen-Inject 1 injection every week as directed 6ml Aramis Garza M.D. 09/08/2023 - 12/08/2023 Vital Signs Date Vital Result Comment 12/08/2023 2:10pm BP Systolic 120 mmHg BP Diastolic 80 mmHg Heart Rate 72 /min Height 70 inches 5'10 Weight 182.38 lb BMI (Body Mass Index) 26.2 kg/m2 Results Test Acquired Date Facility Test Result [facility] [place] [facility] test finding 12/08/2023 Inhouse Glucose Fingerstick 155 Hemoglobin A1c 7.8% Laboratory test finding 10/04/2023 Inhouse Glucose Fingerstick 91 Albumin/Creatini ne Ratio, Random Urine 09/24/2023 [facility] Creatinine, Urine 109.8 mg/dL Not Estab. Albumin, Urine 16.0 ug/mL Not Es tab. Alb/Creat Ratio 15 mg/gcreat 0-29 1 Laboratory test finding 09/08/2023 Inhouse Glucose Fingerstick 160 Hemoglobin A1c 8.9% 1 Normal: 0 - 29 Moderately increased: 30 - 300 Severely increased: >300 Procedures Date Code Description Status 03/14/2024 NSHOWOFF No Show Office Visit Complet ed Medical Devices Description No Information Available Encounters Type Date Location Provider Dx Diagnosis Office Visit 12/08/2023 2:15p Main Office Aramis Garza M.D. E11.9 Type 2 diabetes mellitus without complications E11.40 Type 2 diabetes mechelle itus with diabetic neuropathy, unsp Assessments Date Code Description Provider 12/08/2023 E11.9 Type 2 diabetes mellitus without complications Aramis Garza M.D. 12/08/2023 E11.40 Diabetic peripheral neuropat hy Aramis Garza M.D. Plan of Treatment Future Appointment(s):* 06/08/2024 8:45 am - Aramis Garza M.D. at Main Office 10/04/2023 - Aramis Garza M.D.* E11.8 Complication due to diabetes mellitus Functional Status Description No Information Available Mental Status Description No Information Available Referrals Description No Information Available
--- OUTSIDE RECORDS SUMMARY | 2024-05-25 06:46 | XMS_ITS | Data Portability ---
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 Plan of Treatment Reminders Order Date Submit Date Provider Last Modified By Organization Details Last Modified Time Details Appointments None recorded. Lab None recorded. Referral sleep medicine referral 2017 018 [facility], [address] [place] [address], [address], 8 10:02:31 stem frazer & immunolog ist referral [address] [facility] [address] [facility], [facility] [address], [place], [address], 8 10:11:57 Procedures None recorded. Surgeries None recorded. Imaging CT, sinuses, w/o contrast 2017 018 [facility], [address] [facility] [address], [place], [address], 8 10:42:49 polysomno gram 2017 018 [facility] (Sleep Study), [address] [place] [address], [address], 8 13:07:30 Medication Orders Augmentin 875 mg-125 mg tablet 2017 018 [facility], [address] [place], [place], [id number], 8 15:43:58 Atrovent 0.03 % nasal spray 2017 018 [facility], [address], [place], [place], [id number], 8 08:31:52 Patient TargetsNo targets recorded. Patient InstructionsNo instructions recorded. Reason for Referral [employer] Ref erral for Allergic rhinitis Referring Physician: Durga Longo Otolaryngology, Encounter Date: 03/31/2017 Referring Physician: Durga Longo Otolaryngology, Encounter Date: 05/14/2017 Results Created Date Observation Date Name Description Value Unit Range Abnormal Flag Note LastModifiedBy Organization Detail LastModifiedTime 05/07/19 18 04/21/2017 polys omnog nelida No observ ation record ed. [address] (Sleep Study) [address] [place] [address], [address], 05/07/2017 18:27:28 05/25/19 18 05/20/2017 CT, sinus es, w/o contr ast No observ ation record ed. [address] [facility] [address] [address], [place], [address], 05/28/2017 10:23:16 Result Notes None recorded. Procedures Surgical History Date Name Laterality Status Provider Name and Address Organization Details Recorded Time 03/31/19 18 Nasal Endoscopy ([address]) completed Durga Longo MD [address] [address], [place], [address], [facility] 03/31/2017 08:16:11 Imaging Results Imaging Date Name Status LastModified by Organization Details LastModified Time 04/21/2017 polysomnogram completed [address] (Sleep Study) [address] [place], [address], 05/07/2017 18:27:28 05/20/2017 CT, sinuses, w/o contrast completed [address] [facility] [address] [facility] [address], [place], [address], 05/28/2017 10:23:16 Procedure Notes None recorded. Medical Equipment None Reported. Allergies No known drug allergies Medications Name Sig Start Date Stop Date Status Note LastModified by Organization Details LastModified Time budesonide 32 mcg/actuatio n nasal spray USE TWO SPRAYS IN EACH NOSTRIL ONCE DAILY active Not Available Not Available N ot Available Augmentin 875 mg-125 mg tablet Take 1 tablet every 12 hours by oral route for 10 days. 2017 active Not Available Not Available Not Avai lable atorvastatin 80 mg tablet active Not Available Not Available Not Available ibuprofen 800 mg tablet active Not Available Not Available Not Available metoprolol succinate ER 50 mg tablet,exten ded release 24 hr active Not Available Not Available Not Available glipizide 10 mg tablet active Not Available Not Available No t Available Alcohol Pads active Not Available Not Available Not Available Lantus U-100 Insulin 100 unit/mL subcutaneous solution INJECT TWENTY UNITS UNDER THE SKIN AT BEDTIME active Not Available Not Available No t Available omeprazole 40 mg capsule,kathie yed release active Not Available Not Available Not Available tramadol 50 mg tablet active Not Available Not Available No t Available carvedilol 3.125 mg tablet active Not Available Not Available Not Available baclofen 20 mg tablet TAKE ONE TABLET BY MOUTH AT BEDTIME active Not Available Not Available No t Available ketorolac 0.5 % eye drops active Not Available Not Available Not Available hydromorphon e 2 mg tablet active Not Available Not Available Not Available prednisolone acetate 1 % eye drops,suspen zan active Not Available Not Available Not Available baclofen 10 mg tablet active Not Available Not Available No t Available metformin 1,000 mg tablet active Not Available Not Available Not Available losartan 25 mg tablet active Not Available Not Available No t Available aspirin 81 mg chewable tablet CHEW ONE TABLET BY MOUTH IN THE MORNING active Not Available Not Available Not Available lisinopril 5 mg tablet active Not Available Not Available No t Available lisinopril 10 mg-hydrochlo rothiazide 12.5 mg tablet active Not Available Not Available Not Available pioglitazone 30 mg tablet active Not Available Not Available Not Available ketoconazole 2 % topical cream active Not Available Not Available Not Available fluticasone propionate 50 mcg/actuatio n nasal spray,suspen zan active Not Available Not Available Not Available dicyclomine 10 mg capsule active Not Available Not Available Not Available ipratropium bromide 21 mcg (0.03 %) nasal spray [place] 2 sprays twice a day by intranasal route for 30 days. active Not Available Not Available No t Available diazepam 5 mg tablet active Not Available Not Available No t Available cyclobenzapr ine 5 mg tablet active Not Available Not Available Not Available moxifloxacin 0.5 % eye drops active Not Available Not Available Not Available Sure Comfort Insulin Syringe 0.3 mL 31 gauge x 5/16 active Not Available Not Available Not Available lactulose 10 gram/15 mL oral solution active Not Available Not Available Not Available Lyrica 100 mg capsule active Not Available Not Available N ot Available Januvia 100 mg tablet active Not Available Not Available No t Available Systane Gel 0.4 %-0.3 % eye drops INSTILL ONE DROP FOUR TIMES DAILY FOR 10 MONTHS active Not Available Not Available No t Available Artificial Tears (petrolatum/ mineral oil) 83 %-15 % eye ointment APPLY SMALL AMOUNT INSIDE OF EACH EYES WHILE IN BED BEFORE SLEEP active Not Available Not Available No t Available Brilinta 90 mg tablet active Not Available Not Available No t Available Comfort EZ Insulin Syringe 1 mL 31 gauge x 5/16 active Not Available Not Available Not Available Vitals Date Recorded Body height Body mass index (BMI) Body weight Provider Name and Address Organization Details Last Updated DateTime 03/31/2017 177.8 cm 29 kg/m2 36575.66 g Saima Faith [facility] 03/31/2017 08:01:54 Date Recorded Body height Body mass index (BMI) Body weight Provider Name and Address Organization Details Last Updated DateTime 05/14/2017 177.8 cm 29 kg/m2 99941.66 g Genovevamahad Garcias [facility] 05/14/2017 09:33:56 Date Recorded Body height Body mass index (BMI) Body weight Provider Name and Address Organization Details Last Updated DateTime 06/14/2017 177.8 cm 29 kg/m2 57943.66 g Desi Redmond [facility] 06/14/2017 14:15:28 Date Recorded Body height Body mass index (BMI) Body weight Provider Name and Address Organization Details Last Updated DateTime 07/15/2017 177.8 cm 29 kg/m2 41175.66 g Desi Redmond [place] [facility] 07/15/2017 09:55:17 Date Recorded Body height Body mass index (BMI) Body weight Provider Name and Address Organization Details Last Updated DateTime 10/14/2017 177.8 cm 29 kg/m2 30035.66 g Chelsi Gonzalesa [facility] 10/14/2017 10:04:07 Social History Question Answer Notes LastModified by Organizat ion Details LastModified Time Tobacco Smoking Status Never Smoker Saima Faith chinyere [facility] 03/31/2017 08:02:08 What Is Your Level Of Alcohol Consumption? None Information not available 03/31/2017 What Is Your Level Of Caffeine Consumption? None Information not available 03/31/2017 What Was The Date Of Your Most Recent Tobacco Screening? 10/14/2017 Information n ot available 10/21/2018 How Much Tobacco Do You Smoke? No Information not available 03/31/2017 Sex: Unknown Functional Status None recorded. Mental Status None recorded. Family History Nothing Reported. Medical History Condition Response Allergies/Hayfever N Acid reflux (GERD) Y Heart Conditions N Liver Disease/Jaundice N Emphysema N Migraines N Thyroid Problems N Glaucoma Y Depression N HIV/Sexually Transmitted Disease N Anemia N Heart Attack (NM) N N Diabetes Y Bleeding Disorder N Hearing Loss N Arthritis N Cancer N Stroke N Asthma N Sleep Disorder N Hypertension Y Speech Delay N Kidney Disease N Past Encounters Encounter ID Performer Location Encounter Start Date Encounter Closed Date Diagnosis/Indication Diagnosis SNOMED-CT Code Diagnosis ICD10 Code Diagnosis Note [id number] Durga Longo MD Main Office [address] [place] [address] [address] [place] [address] 03/31/2017 07:39:03 03/31/2017 08:36:24 Allergic rhinitis 09523567 J30.1 - PCP sent here with runny nose for many years- Continues all year round- No allergy testing- Clear drainage- No nasal obstructio n- Frequent sneezing- Tried Flonase without improvemen t- Not worse with eating- No sinus infections - Discussed environmen ralph control/al lergen avoidance, OTC medication s and nasal steroid therapy. - Consider a formal allergy evaluation . Deviated nasal septum 12 4608437 J34.2 - Discussed treatment options for their nasal obstructio n including continued medical/al lergy therapy as well as surgical options. - Patient is a good candidate for surgical repair of their septum if they wish to improve their nasal obstructiv e symptoms. - Patient will consider this option for the future. Hypertroph y of nasal turbinates 86703180 J34.3 Good candidate for radiofrequ ency ablation to improve obstructiv e symptoms. Vasomotor rhinitis 06939 03 J30.0 - Complaints of persistent rhinorrhea c/w vasomotor component to his allergic rhinitis - Will trial a course of Atrovent to see if it improves - Explained drying effect of this spray and option to change frequency from qd, bid to qid Snoring 20936665 R06.83 - Snoring with witnessed apnea, headaches, has EDS; Frequent awakening- Concerned about possibilit y of MIRNA. - Recommend a PSG to further diagnose and identify severity of MIRNA. - Discussed conservati ve measures of weight loss, exercise, EtOH avoidance and sleep positionin g measure to help with obstructiv e symptoms during sleep. - F/u with me after PSG results available. Heart disease 65436988 I 51.9 - PMH s/p CABG, DM Diabetes mellitus 563122 09 E11.9 [id number] Durga Longo MD Main Office [address] [facility],[address] [place] [address] 05/14/2017 09:19:41 05/14/2017 09:56:51 Allergic rhinitis 77687003 J30.1 - Frequent sneezing- Tried Flonase without improvemen t- Discussed environmen ralph control/al lergen avoidance, OTC medication s and nasal steroid therapy. - 04/2017 Allergy testing NEENT negative Vasomotor rhinitis 00163 03 J30.0 - PCP sent here with runny nose for many years- Continues all year round- No allergy testing- Clear drainage- No nasal obstructio n- Complaints of persistent rhinorrhea c/w vasomotor component to his allergic rhinitis - No improvemen t with Atrovent - Explained drying effect of this spray and option to change frequency from qd, bid to qid Deviated nasal septum 12 0401092 J34.2 - Discussed treatment options for their nasal obstructio n including continued medical/al lergy therapy as well as surgical options. - Patient is a good candidate for surgical repair of their septum if they wish to improve their nasal obstructiv e symptoms. - Patient will consider this option for the future. Hypertroph y of nasal turbinates 08356818 J34.3 Good candidate for radiofrequ ency ablation to improve obstructiv e symptoms. Snoring 10398037 R06.83 - Discussed conservati ve measures of weight loss, exercise, EtOH avoidance and sleep positionin g measure to help with obstructiv e symptoms during sleep. Heart disease 30848787 I 51.9 - PMH s/p CABG, DM Diabetes mellitus 933741 09 E11.9 Obstructiv e sleep apnea syndrome 07090791 G47.33 - Snoring with witnessed apnea, headaches, has EDS; Frequent awakening- 03/2017 PSG [facility] AHI 15, RDI 31, rosie sat 82%; Mild MIRNA and significan t SDB with high RDI; CPAP Trial and nasal patency- Reviewed PSG results which reveal mild MIRNA. - Reviewed risks of untreated mild MIRNA including increased risk of HTN, cardiovasc ular disease and stroke. - Discussed conservati ve measures of weight loss, exercise, EtOH avoidance and sleep positionin g measure to help treat MIRNA. - We also discussed CPAP titration and a sleep medicine consultati on. - If patient is refractory to medical and CPAP therapy, we reviewed options for oral appliance (mandibula r anterior positionin g device) and nasal surgical options. Chronic ma xillary sinusitis 26153027 J32.0 J32.2 - Does have yellow drainage, h/o sinus problems in the past, facial pain at times x many months - Evaluate presence and extent of sinusitis with CT scan sinuses - If symptomati c, will treat medically with oral antibiotic s, nasal steroid therapy and nasal saline irrigation s/Netipot - Surgical considerat ion for symptomati c chronic sinusitis refractory to medical therapy [id number] Durga Longo MD Main Office [address] [facility],[address] [place] [address] 06/14/2017 14:14:12 06/14/2017 15:05:02 Obstructive sleep apnea syndrome 04798277 G47.33 - Snoring with witnessed apnea, headaches, has EDS; Frequent awakening- 03/2017 PSG [facility] AHI 15, RDI 31, rosie sat 82%; Mild MIRNA and significan t SDB with high RDI; CPAP Trial and nasal patency- Reviewed PSG results which reveal mild MIRNA. - Reviewed risks of untreated mild MIRNA including increased risk of HTN, cardiovasc ular disease and stroke. - Discussed conservati ve measures of weight loss, exercise, EtOH avoidance and sleep positionin g measure to help treat MIRNA. - We also discussed CPAP titration and a sleep medicine consultati on. - If patient is refractory to medical and CPAP therapy, we reviewed options for oral appliance (mandibula r anterior positionin g device) and nasal surgical options. Snoring 60613013 R06.83 - Discussed conservati ve measures of weight loss, exercise, EtOH avoidance and sleep positionin g measure to help with obstructiv e symptoms during sleep. Chronic ma xillary sinusitis 16068331 J32.0 J32.2 - Does have yellow drainage, h/o sinus problems in the past, facial pain at times x many months - 04/2017 CT sinus NEENT mild to mod inflammati on of ethmoid and frontal sinuses; Mild MT maxillary sinuses. NSD. - If symptomati c, will treat medically with oral antibiotic s, nasal steroid therapy and nasal saline irrigation s/Netipot- Because still symptomati c, will treat with Augmentin x 10 days and continue nasal steroid - Surgical considerat ion for symptomati c chronic sinusitis refractory to medical therapy Allergic rhinitis 768041 04 J30.1 - Frequent sneezing- Tried Flonase without improvemen t- Discussed environmen ralph control/al lergen avoidance, OTC medication s and nasal steroid therapy. - 04/2017 Allergy testing NEENT negative Vasomotor rhinitis 67044 03 J30.0 - PCP sent here with runny nose for many years- Continues all year round- No allergy testing- Clear drainage- No nasal obstructio n- Complaints of persistent rhinorrhea c/w vasomotor component to his allergic rhinitis - No improvemen t with Atrovent - Explained drying effect of this spray and option to change frequency from qd, bid to qid Deviated nasal septum 12 1121795 J34.2 - Discussed treatment options for their nasal obstructio n including continued medical/al lergy therapy as well as surgical options. - Patient is a good candidate for surgical repair of their septum if they wish to improve their nasal obstructiv e symptoms. - Patient will consider this option for the future. Hypertroph y of nasal turbinates 27899432 J34.3 Good candidate for radiofrequ ency ablation to improve obstructiv e symptoms. Heart disease 73571957 I 51.9 - PMH s/p CABG, DM Diabetes mellitus 279231 09 E11.9 [id number] Durga Longo MD Main Office [address] [place] [address] 07/15/2017 09:51:37 07/15/2017 10:19:43 Obstructive sleep apnea syndrome 58350186 G47.33 - Snoring with witnessed apnea, headaches, has EDS; Frequent awakening- 03/2017 PSG [facility] AHI 15, RDI 31, rosie sat 82%; Mild MIRNA and significan t SDB with high RDI; CPAP Trial and nasal patency- Reviewed PSG results which reveal mild MIRNA. - Reviewed risks of untreated mild MIRNA including increased risk of HTN, cardiovasc ular disease and stroke. - Discussed conservati ve measures of weight loss, exercise, EtOH avoidance and sleep positionin g measure to help treat MIRNA. - We also discussed CPAP titration and a sleep medicine consultati on - scheduled in July - If patient is refractory to medical and CPAP therapy, we reviewed options for oral appliance (mandibula r anterior positionin g device) and nasal surgical options. Snoring 58390389 R06.83 - Discussed conservati ve measures of weight loss, exercise, EtOH avoidance and sleep positionin g measure to help with obstructiv e symptoms during sleep. Chronic ma xillary sinusitis 03297894 J32.0 J32.2 - Does have yellow drainage, h/o sinus problems in the past, facial pain at times x many months - 04/2017 CT sinus NEENT mild to mod inflammati on of ethmoid and frontal sinuses; Mild MT maxillary sinuses. NSD. - If symptomati c, will treat medically with oral antibiotic s, nasal steroid therapy and nasal saline irrigation s/Netipot- Because still symptomati c, will treat with Augmentin x 10 days and continue nasal steroid - Surgical considerat ion for symptomati c chronic sinusitis refractory to medical therapy- Will see if headaches improve with MIRNA treatment - if they persist, will consider if symptoms persist or unable to tolerate CPAP Allergic rhinitis 716092 04 J30.1 - Frequent sneezing- Tried Flonase without improvemen t- Discussed environmen ralph control/al lergen avoidance, OTC medication s and nasal steroid therapy. - 04/2017 Allergy testing NEENT negative Vasomotor rhinitis 55956 03 J30.0 - PCP sent here with runny nose for many years- Continues all year round- No allergy testing- Clear drainage- No nasal obstructio n- Complaints of persistent rhinorrhea c/w vasomotor component to his allergic rhinitis - No improvemen t with Atrovent - Explained drying effect of this spray and option to change frequency from qd, bid to qid Deviated nasal septum 12 4866663 J34.2 - Discussed treatment options for their nasal obstructio n including continued medical/al lergy therapy as well as surgical options. - Patient is a good candidate for surgical repair of their septum if they wish to improve their nasal obstructiv e symptoms. - Patient will consider this option for the future. Hypertroph y of nasal turbinates 80124428 J34.3 Good candidate for radiofrequ ency ablation to improve obstructiv e symptoms. Heart disease 65198762 I 51.9 - PMH s/p CABG, DM Diabetes mellitus 804991 09 E11.9 [id number] Durga Longo MD Main Office [address] [facility],[address] [place] [address] 10/14/2017 10:03:08 10/14/2017 10:32:43 Obstructive sleep apnea syndrome 40068111 G47.33 - Snoring with witnessed apnea, headaches, has EDS; Frequent awakening- 03/2017 PSG [facility] AHI 15, RDI 31, rosie sat 82%; Mild MIRNA and significan t SDB with high RDI; CPAP Trial and nasal patency- Reviewed PSG results which reveal mild MIRNA. - Reviewed risks of untreated mild MIRNA including increased risk of HTN, cardiovasc ular disease and stroke. - Discussed conservati ve measures of weight loss, exercise, EtOH avoidance and sleep positionin g measure to help treat MIRNA. - We also discussed CPAP titration and a sleep medicine consultati on - scheduled in July - If patient is refractory to medical and CPAP therapy, we reviewed options for oral appliance (mandibula r anterior positionin g device) and nasal surgical options. Snoring 44651492 R06.83 - Discussed conservati ve measures of weight loss, exercise, EtOH avoidance and sleep positionin g measure to help with obstructiv e symptoms during sleep. Chronic ma xillary sinusitis 88776723 J32.0 J32.2 - Does have yellow drainage, h/o sinus problems in the past, facial pain at times x many months - 04/2017 CT sinus NEENT mild to mod inflammati on of ethmoid and frontal sinuses; Mild MT maxillary sinuses. NSD. - If symptomati c, will treat medically with oral antibiotic s, nasal steroid therapy and nasal saline irrigation s/Netipot- Because still symptomati c, will treat with Augmentin x 10 days and continue nasal steroid - Surgical considerat ion for symptomati c chronic sinusitis refractory to medical therapy- Will see if headaches improve with MIRNA treatment - if they persist, will consider if symptoms persist or unable to tolerate CPAP Allergic rhinitis 344858 04 J30.1 - Frequent sneezing- Tried Flonase without improvemen t- Discussed environmen ralph control/al lergen avoidance, OTC medication s and nasal steroid therapy. - 04/2017 Allergy testing NEENT negative Vasomotor rhinitis 21377 03 J30.0 - PCP sent here with runny nose for many years- Continues all year round- No allergy testing- Clear drainage- No nasal obstructio n- Complaints of persistent rhinorrhea c/w vasomotor component to his allergic rhinitis - No improvemen t with Atrovent - Explained drying effect of this spray and option to change frequency from qd, bid to qid Deviated nasal septum 12 6611794 J34.2 - Discussed treatment options for their nasal obstructio n including continued medical/al lergy therapy as well as surgical options. - Patient is a good candidate for surgical repair of their septum if they wish to improve their nasal obstructiv e symptoms. - Patient will consider this option for the future. Hypertroph y of nasal turbinates 08983667 J34.3 Good candidate for radiofrequ ency ablation to improve obstructiv e symptoms. Heart disease 96633075 I 51.9 - PMH s/p CABG, DM Diabetes mellitus 815483 09 E11.9 Health Concerns Section Related Observation LastModified by Organization Detai ls LastModified Time None Recorded Concern Status LastModified by Organization Details LastModified Time None Recorded Advance Directives Directive None Recorded Payers Encounter Date Sequence Insurance Name Policy Number Policy Rosas Covered Member ID Rosas Member ID Guarantor Name 03/31/2017 2 [place] [employer] Omar Pitts [id number] Omar Pitts 03/31/2017 2 [place] [facility] Omar Pitts [id number] Oamr Pitts 05/14/2017 2 MEDICARE B-[place]: [facility] Omar Carlosgo [id number] Omar Ramosiago 05/14/2017 2 [place] Omar Carlosgo [id number] Omar Hong 06/14/2017 2 MEDICARE B-[place]: [facility] Omar Hong [id number] Omar Hong 06/14/2017 2 [place] Omar Carlosgo [id number] Omar Hong 07/15/2017 2 [place]ARE B-[place]: [facility] Omar Hong [id number] Omar Hong 07/15/2017 2 [place] [facility] Omar Carlosgo [id number] Omar Hong 10/14/2017 2 [place] [facility] Omar Ramosiago [id number] Omar Hong 10/14/2017 1 [place]: [facility] Omar Carlosgo [id number] Omar Pitts Notes Date Note Type Note Provider Name a wa Address Organization Details Recorded Time 03/31/2017 text/html - PCP sent here with runny nose for many years- Continues all year round- No allergy testing- Clear drainage- No nasal obstruction- Frequent sneezing- Tried Flonase without improvement- Not worse with eating- No sinus infections- Snoring with witnessed apnea, headaches, has EDS; Frequent awakening- PMH s/p CABG, DM Durga Longo MD [address] [place] [address] [address], [place], [address], [facility] 03/31/2017 08:19:10 05/14/2017 text/html - PCP sent here with runny nose for many years- Continues all year round- No allergy testing- Clear drainage- No nasal obstruction- Frequent sneezing- Tried Flonase without improvement- Not worse with eating- Snoring with witnessed apnea, headaches, has EDS; Frequent awakening- PMH s/p ZELALEM DM- 03/2017 [facility] AHI 15, RDI 31, rosie sat 82%; Mild MIRNA and significant SDB with high RDI; CPAP Trial and nasal patency- 04/2017 Allergy testing NEENT negative- No help with nasal spray- Does have yellow drainage, h/o sinus problems in the past, facial pain at times Durga Longo MD [address] [address], [place], [address], [facility] 05/14/2017 11:38:01 06/14/2017 text/html - PCP sent here with runny nose for many years- Continues all year round- No allergy testing- Clear drainage- No nasal obstruction- Frequent sneezing- Tried Flonase without improvement- Not worse with eating- Snoring with witnessed apnea, headaches, has EDS; Frequent awakening- PMH s/p CABG, DM- 03/2017 [facility] AHI 15, RDI 31, rosie sat 82%; Mild MIRNA and significant SDB with high RDI; CPAP Trial and nasal patency- 04/2017 Allergy testing NEENT negative- No help with nasal spray- Does have yellow drainage, h/o sinus problems in the past, facial pain at times- 04/2017 CT sinus NEENT mild to mod inflammation of ethmoid and frontal sinuses; Mild MT maxillary sinuses. NSD. Durga Longo MD [address] [facility] [address], [place], [address], [facility] 06/14/2017 15:34:09 07/15/2017 text/html - PCP sent here with runny nose for many years- Continues all year round- No allergy testing- Clear drainage- No nasal obstruction- Frequent sneezing- Tried Flonase without improvement- Not worse with eating- Snoring with witnessed apnea, headaches, has EDS; Frequent awakening- PMH s/p CABG, DM- 03/2017 [facility] AHI 15, RDI 31, rosie sat 82%; Mild MIRNA and significant SDB with high RDI; CPAP Trial and nasal patency- 04/2017 Allergy testing NEENT negative- No help with nasal spray- Does have yellow drainage, h/o sinus problems in the past, facial pain at times- 04/2017 CT sinus NEENT mild to mod inflammation of ethmoid and frontal sinuses; Mild MT maxillary sinuses. NSD.- SInce last visit: - No help with antibiotics- No more yellow drainage- Bifrontal headaches- Saw Neurology for headaches before- Has appt with Sleep Medicine in July Durga Longo MD [address] [address], [place], [address], [facility] 07/15/2017 10:19:12 10/14/2017 text/html - PCP sent here with runny nose for many years- Continues all year round- No allergy testing- Clear drainage- No nasal obstruction- Frequent sneezing- Tried Flonase without improvement- Not worse with eating- Snoring with witnessed apnea, headaches, has EDS; Frequent awakening- PMH s/p CABG, DM- 03/2017 [facility] AHI 15, RDI 31, rosie sat 82%; Mild MIRNA and significant SDB with high RDI; CPAP Trial and nasal patency- 04/2017 Allergy testing NEENT negative- No help with nasal spray- Does have yellow drainage, h/o sinus problems in the past, facial pain at times- 04/2017 CT sinus NEENT mild to mod inflammation of ethmoid and frontal sinuses; Mild MT maxillary sinuses. NSD.- SInce last visit:- Started using CPAP for his MIRNA- Has f/u with Sleep Medicine Dr. Portillo- Breathing is fine- Anterior clear drainage B - daily Durga Longo MD [address] [facility] [address], [place], [address], [facility] 10/14/2017 10:25:28
== END 2024-05-25 06:42 | disposition home or self-care (01) ==
LOC: CF 06:41
PROVIDERS: Visit Provider Internal Medicine
DX: Z13.89 Encounter for screening for other disorder (principal)

== ENCOUNTER 2024-06-15 06:07 | Outpatient (REF) | payer MEDICARE, MEDICAID, SELFPAY ==
--- NOTE | ~2024-06-15 | FL_ITS ---
EXAMINATION: FL GUIDANCE ONLY HISTORY: M54.16 - Radiculopathy, lumbar region COMPARISON: Correlation is made with a CT of the lumbar spine dated 05/03/2024. TECHNIQUE: Fluoroscopy time: 0.3 minutes. Cumulative Dose: 4.42 mGy. DAP: 0.315 mGym2 Images: 2. FINDINGS: AP and lateral fluoroscopic spot films of the lumbar spine demonstrate a needle at the L4-5 level. FL/FL guidance in treatment room IMPRESSION: Fluoroscopy during procedure. Please see procedure report for additional information. Electronically signed by: Tate Feliz MD 06/15/2024 02:39 PM EDT
== END 2024-06-15 06:08 | disposition home or self-care (01) ==
LOC: CF 06:07
PROVIDERS: Visit Provider Internal Medicine
DX: M54.16 Radiculopathy, lumbar region (principal)
CPT/HCPCS: 64483; J1100; J2003; Q9967

== ENCOUNTER 2024-06-15 09:36 | Outpatient (AMB) | payer MEDICARE, MEDICAID, SELFPAY ==
[2024-06-15 09:41] VITALS: BP 160/71; PULSE 73; RESP 16; O2SAT 97
--- NOTE | 2024-06-15 09:41 | A.OFFVIS_ITS ---
Vital Signs 06/15/24 09:41 06/15/24 10:25 BP 160/71 H 168/78 H Blood Pressure Location Lt brachial Lt brachial Position Sitting Sitting Respiration 16 16 Pulse 73 69 Pulse Source Pulse Oximeter Pulse Oximeter Pulse Oximetry (%) 97 97 Oxygen Delivery Method Room Air Room Air Intake Visit Reasons: Right L4 TFESI Accelerator Technician Required: No Allergies naproxen [From Naprosyn] Allergy (Verified 06/15/24 09:41) swelling Medication List - Last Reconciled 06/15/24 by Indigo Bermeo LPN aspirin (Adult Low Dose Aspirin) 81 mg PO DAILY atorvastatin 80 mg PO DAILY losartan 25 mg PO DAILY metformin 1,000 mg PO BID metoprolol tartrate 50 mg PO BID 90 days omeprazole 40 mg PO DAILY 90 days pen needle, diabetic As directed pen needle, diabetic As directed pregabalin 100 mg PO BID 30 days tirzepatide (Mounjaro) mg subcut walker Folding Front wheeled walker HPI HPI Right L4 TFESI: Details: Patient presents for scheduled procedure. Denies any recent cough, cold, infection, fever or other significant changes in medical history since last office visit. [facility] Medical History Environmental allergies Osteoarthritis of right knee Deformity of right hand Diabetes mellitus Barretts esophagus Hyperlipidemia Diabetes Chronic chest pain Hypertension Surgical History H/O right inguinal hernia repair Status post total knee replacement, left History of esophagogastroduodenoscopy (EGD) History of hand surgery History of surgery History of lumbar fusion S/P CABG (coronary artery bypass graft) H/O neck surgery Hx of CABG (~2017) Family History Father Diabetes Hypertension Mother Diabetes Hypertension Son No problems noted. Son No problems noted. Son No problems noted. Daughter No problems noted. Daughter No problems noted. 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) Do you presently have visiting nurse or other home services: No Alcohol intake: former Comment: new ice packs placed Patient Tobacco Use Status: Never used Tobacco service: No Current occupational status: disabled Current occupation: rt handed Cognitive needs: No Hearing needs: No Vision needs: No Physical Exam Vital Signs: Last Vital Signs Pulse 69 06/15/24 10:25 Resp 16 06/15/24 10:25 BP 168/78 H 06/15/24 10:25 Pulse Ox 97 06/15/24 10:25 Oxygen Delivery Method Room Air 06/15/24 10:25 Office Procedures Details: Transforaminal epidural steroid injection, Right L4 After obtaining written consent, pre-procedure blood pressure and heart rate were stable and recorded in the nursing record. The patient was placed in the prone position on the fluoroscopy table. The lumbosacral area was prepped with chloraprep, allowed to dry and draped in sterile fashion. Using fluoroscopy, the skin overlying our target was anesthetized with 0.5% lidocaine. A 22 gauge 3.5 inch spinal needle was advanced to the safe triangle in the upper pole of the right L4 foramen. No paresthesias were elicited with needle placement and aspiration was negative for blood and CSF. Correct needle position was confirmed with approximately 1 ml contrast dye (Omnipaque 180 mg/ml) injected under real-time fluoroscopy. No evidence of vascular or intrathecal uptake was seen and there was both epidural and peripheral spread of the contrast agent. 10 mg dexamethasone plus 1 ml containi ng 0.5% lidocaine was slowly injected. The needle was flushed and removed. The skin was cleansed and a sterile bandages were applied. The patient tolerated the procedure well and no complications were encountered. Following the procedure the patient's vital signs were stable. The patient was discharged home in good condition with post-procedural instructions. Time Out: Immediately prior to the procedure, the following was verbally confirmed that there is a signed consent form and that the correct patient, planned procedure, site and side are consistent with documentation and that necessary equipment and/or blood products are available prior to the start of the case. Complications: none EBL: <5 cc 97407 - Lumbar/Sacral Procedure code (CPT) selection complete Assessment & Plan Assessment & Plan (1) Lumbar radiculopathy, right: Code(s): M54.16 - Radiculopathy, lumbar region Category: Medical Plan Patient is status post right L4 TFESI. Patient tolerated procedure well and was discharged home in stable condition with discharge instructions. All questions were answered. We will follow-up via telephone or in clinic to assess response to therapy. A follow-up appointment was made during today's visit. Orders: Orders FL guidance in treatment room 06/15/24 M54.16 - Radiculopathy, lumbar region Coding Level of Care Code Procedure Only Diagnoses Lumbar radiculopathy, right M54.16 CPT Codes Transforaminal Epidural Steroid Inj - TESI 3: 11569 - Lumbar/Sacral ([id number])
[2024-06-15 10:25] VITALS: BP 168/78; PULSE 69; RESP 16; O2SAT 97
== END 2024-06-15 10:10 | disposition home or self-care (01) ==
LOC: HO.PMCPRC 09:36
PROVIDERS: PCP Internal Medicine; Visit Provider Internal Medicine
DX: M54.16 Radiculopathy, lumbar region (principal)
CPT/HCPCS: 64483

== ENCOUNTER 2024-07-14 09:27 | Outpatient (AMB) | payer MEDICARE, MEDICAID, SELFPAY ==
[2024-07-14 09:35] VITALS: BP 164/74; PULSE 61; RESP 16; O2SAT 99; BMI 26.4
--- NOTE | 2024-07-14 09:35 | MHC.OFFVIS ---
Vital Signs 07/14/24 09:35 Height 5 ft 10 in Weight 184 lb BMI 26.4 BP 164/74 H Blood Pressure Location Lt brachial Position Sitting Respiration 16 Pulse 61 Pulse Source Pulse Oximeter Pulse Oximetry (%) 99 Oxygen Delivery Method Room Air Intake Visit Reasons: s/p TFESI Car Coupler Required: No Allergies naproxen [From Naprosyn] Allergy (Verified 07/14/24 09:37) swelling Medication List - Last Reconciled 07/14/24 by Indigo Bermeo LPN aspirin (Adult Low Dose Aspirin) 81 mg PO DAILY atorvastatin 80 mg PO DAILY losartan 25 mg PO DAILY metformin 1,000 mg PO BID metoprolol tartrate 50 mg PO BID 90 days omeprazole 40 mg PO DAILY 90 days pen needle, diabetic As directed pen needle, diabetic As directed pregabalin 100 mg PO BID 30 days tirzepatide (Mounjaro) mg subcut walker Folding Front wheeled walker HPI HPI s/p TFESI: Details: History of Present Illness The patient is a 73-year-old male presenting with chronic back pain management. He has chronic lumbar radiculopathy and post-laminectomy syndrome. The patient reports previous transforaminal epidural steroid injections providing only two days of relief before his pain reverted to baseline. He experiences significant back discomfort and uses lidocaine patches for relief. The patient has previously undergone a laminectomy, resulting in post-laminectomy syndrome. He denies interest in spinal cord stimulation or implantable neuromodulation devices but is open to continuing with injections. Plans for trial of caudal epidural steroid injections are proposed as a future management step for his lumbar radiculopathy. Pain Description - Onset: Chronic back pain - Quality: Significant discomfort - Location: Back - Previous Treatments: Transforaminal epidural steroid injection ? 2 days of relief - Previous Treatments: Caudal epidural steroid injection ? Last received a long time ago - Relieving Factors: Lidocaine patches in the back - Aggravating Factors: Pain returning to baseline after initial treatment effect - Interference: Impacts quality of life, desires avoidance of implants Physical Exam - Appears afebrile. - Alert and oriented. - Mood and affect appropriate. - Follows and participates in conversation appropriately. - Respiratory effort is unlabored. - Able to transition from sit to stand unassisted, ambulated with discomfort. - Able to stand and walk on toes and heels. [facility] Medical History (Reviewed 03/19/23 @ 09:46 by Yadi Marie [facility]) Environmental allergies Osteoarthritis of right knee Deformity of right hand Diabetes mellitus Barretts esophagus Hyperlipidemia Diabetes Chronic chest pain Hypertension Surgical History (Reviewed 09/01/23 @ 14:54 by Cindy Lua [facility]) H/O right inguinal hernia repair Status post total knee replacement, left History of esophagogastroduodenoscopy (EGD) History of hand surgery History of surgery History of lumbar fusion S/P CABG (coronary artery bypass graft) H/O neck surgery Hx of CABG (~2017) Family History (Reviewed 09/01/23 @ 14:54 by Cindy Lua [facility]) Father Diabetes Hypertension Mother Diabetes Hypertension Son No problems noted. Son No problems noted. Son No problems noted. Daughter No problems noted. Daughter No problems noted. 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 ( disabled) Do you presently have visiting nurse or other home services: No Alcohol intake: former Comment: new ice packs placed Patient Tobacco Use Status: Never used Tobacco service: No Current occupational status: disabled Current occupation: rt handed Cognitive needs: No Hearing needs: No Vision needs: No Physical Exam Vital Signs: Last Vital Signs Pulse 61 07/14/24 09:35 Resp 16 07/14/24 09:35 BP 164/74 H 07/14/24 09:35 Pulse Ox 99 07/14/24 09:35 Oxygen Delivery Method Room Air 07/14/24 09:35 BMI result Body Mass Index 26.4 Assessment & Plan Assessment & Plan (1) Postlaminectomy syndrome: Code(s): M96.1 - Postlaminectomy syndrome, not elsewhere classified Category: Medical (2) Lumbar radiculopathy, right: Code(s): M54.16 - Radiculopathy, lumbar region Category: Medical Plan Pain Management - Analgesia: Pain relief experienced for two days post-transforaminal epidural steroid injection - Activities of Daily Living: Uses lidocaine patches; experiencing significant back pain that impacts daily activities - Aberrant Drug-Related Behaviors: None reported - Affect: Pain impacts quality of life; the patient expresses frustration with the recurrence of pain Plan - Plan to perform a caudal epidural steroid injection in August for lumbar radiculopathy not responsive to TFESI. - Continue use of lidocaine patches for relief. - Non-implantable intervention: no spinal cord stimulation or neuromodulation devices planned due to patient preference. Patient was informed and verbally consented to the use of an ambient scribe for clinic note documentation during this visit. Discussion Notes I discussed with the patient the chronic nature of his lumbar radiculopathy and post-laminectomy syndrome. We reviewed that while transforaminal epidural steroid injections provided temporary relief, the pain has returned to baseline. He expressed a preference for injections over any implantable devices, so we planned for a caudal epidural steroid injection in August, which may provide a longer duration of relief. I informed him about the procedure, its potential benefits, and the timeline for scheduling. We also discussed using lidocaine patches for interim pain relief. The patient understood the plan and consented to proceed with the outlined management strategy. Patient Instructions - Continue using lidocaine patches as needed for pain relief. - Attend the scheduled appointment for the caudal epidural steroid injection in August. - Monitor for any significant changes in pain and report if conditions worsen. - Follow up if there is a sudden increase in pain, or should any new symptoms arise. Coding Level of Care Code Est Pt Level 3 (03585) Diagnoses Postlaminectomy syndrome M96.1 Lumbar radiculopathy, right M54.16
--- OUTSIDE RECORDS SUMMARY | 2024-07-14 09:57 | XMS_ITS | Data Portability ---
Author Organization [facility] [place] [facility] Address [address] [place] [address] Care Team Providers Care Chief Ii Dispatcher Name Role Phone HUI SANCHEZ Primary Care Provider HUI SANCHEZ Referring Provider [phone] BRIGITTE TAVERA Primary Care Provider BRIGITTE TAVERA Referring Provider Assessment Encounter Date Assessment Date Assessment LastModified by Organization Details LastModified Time 07/25/2015 07/25/2015 ? ? ? Moderate right knee arthritis Not available 07/25/2015 14:16:52 09/05/2015 09/05/2015 moderate right knee arthritis Not available 09/05/2015 14:26:19 01/23/2016 01/23/2016 moderate right knee arthritis Not available 01/23/2016 14:55:28 04/16/2016 04/16/2016 moderate right knee arthritis Not available 04/16/2016 12:42:25 05/17/2018 05/17/2018 Moderate right knee arthritis Not available 05/17/2018 09:35:28 Plan of Treatment Reminders Order Date Submit Date Provider Last Modified By Organization Details Last Modified Time Details Appointments None recorded. Lab None recorded. Referral None recorded. Procedures None recorded. Surgeries None recorded. Imaging XR, knee, 3 view 2018 019 [email or web address] In-Office Order, Internal Use Only DO Not Attach Compendium DO Not Attach Compendium, Do Not Delete/merge, [id number] 10:54:32 XR, knee, 3 view 2016 017 gwoodsum In-Office Order, Internal Use Only DO Not Attach Compendium DO Not Attach Compendium, Do Not Delete/merge, [id number] 11:14:50 XR, pelvis, 1 or 2 view 2016 017 [email or web address] In-Office Order, Internal Use Only DO Not Attach Compendium DO Not Attach Compendium, Do Not Delete/merge, [id number] 11:14:50 Medication Orders methylpredn isolone acetate 40 mg/mL suspension for injection 2018 019 [email or web address] Not available 9 11:38:48 Depo-Medrol 40 mg/mL suspension for injection 2016 017 [email or web address] [facility], [address] [place], [place], [id number], 7 12:11:27 Depo-Medrol 40 mg/mL suspension for injection 2015 016 [facility], [address], [place], [place], [id number], 6 04:26:21 Monovisc 88 mg/4 mL intra-artic ular syringe 2015 016 [email or web address] Not available 6 14:37:31 Patient TargetsNo targets recorded. Patient Instructions Encounter Date Encounter Id Patient Instructions Last Modified By Organization Details Last Modified Time 07/25/2015 [id number] reviewed exam findings and discussed treatment options available.? ? ? Given his incomplete relief with the cortisone we proceeded with a viscous supplement injection today.? ? ? I would also enroll him in some outpatient therapy which I gave him a referral for today.? ? ? Follow-up with me in 6 weeks for reevaluation.if we are unable to adequately manage symptoms nonsurgically, the final option would be further consideration for joint replacement.? ? ? We will reassess things in 6 weeks.The patient is comfortable with this plan and all of their questions were answered at today's visit. [email or web address] Not available 07/25/2015 14:37:08 09/05/2015 [id number] reviewed exam findings and discussed management moving forward.he's done quite well with the injection and the therapy. ? ? ?I would continue to manage this issue symptomatically at this point from a functional standpoint he is doing quite well. ? ? ?Continue with therapy transitioning over to a home exercise program as he feels comfortable. ? ? ?Follow-up with me as needed depending on symptoms. ? ? ?He'll contact the office accordingly and he is aware of the treatment options available.The patient is comfortable with this plan and all of their questions were answered at today's visit. Not available 09/05/2015 14:26:19 01/23/2016 [id number] reviewed exam findings and again reviewed treatment options. Given the flareup of discomfort we elected to repeat the cortisone injection which has been helpful for him in the past.we again reviewed tthe natural history of knee arthritis and treatment options were reviewed. We will continue to manage this issue symptomatically. Follow-up with me as needed depending on symptoms. He'll contact the office accordingly and he is aware of the treatment options available for this issue.The patient is comfortable with this plan and all of their questions were answered at today's visit. Not available 01/23/2016 14:55:54 04/16/2016 [id number] reviewed exam an d x-ray findings. We again reviewed the natural history of knee arthritis and treatment options were reviewed.we elected to try a repeat cortisone injection today which she tolerated well. We will plan on follow-up in a month. Moving forward if we are unable to adequately manage symptoms with conservative care the final option would be further consideration for total knee arthroplasty. We spent a great deal of time in the office today clarifying that the goal of that operation would be relief of pain directly at the knee. It would have no effect on his back pain and hamstring pain. We will plan to reassess symptoms in a month after the injection today.The patient is comfortable with this plan and all of their questions were answered at today's visit. Not available 04/16/2016 12:43:48 05/17/2018 [id number] knee arthritis: care instructions Not available 05/17/2018 09:35:56 We reviewed exam and x-ray findings. Discussed management moving forward.X-ray of the right knee taken the office today shows no significant interval changes. He is moderate medial compartment arthritis and patellofemoral disease. Discussed the nature and natural history of knee arthritis. He does not wish to pursue surgical management at this time. Given his good response with cortisone the past elected to repeat this today. He tolerated this well. Continue with modified activities rest ice and Tylenol. A follow-up in the office on as-needed basis symptoms return or worsen in a significant way.The patient is comfortable with this plan and all of their questions were answered at today's visit. Not available 05/17/2018 09:36:29 Reason for Referral None Reported. Results Created Date Observation Date Name Description Value Unit Range Abnormal Flag Note LastModifiedBy Organization Detail LastModifiedTime Result Notes None recorded. Problems Name Problem SNOMED Code Status Onset Date Resolution Date Notes Provider Name and Address Organization Details Recorded Time Hip pain 19795438 Active Isma Kearney MD [address] [place] [address], [phone], [facility] 6 14:25:10 Greater trochanteric pain syndrome 2512593 Adri Kearney MD [address] [place] [address], [address], [facility] 6 14:25:10 Low back pain [id number] Adri Kearney MD [address] [place] [address], [phone], [facility] 6 14:25:10 Arthritis of knee [id number] Adri Kearney MD [address] [place] [address], [phone], [facility] 6 14:26:19 Problem Notes None recorded. Procedures Surgical History Date Name Laterality Status Provider Name and Address Organization Details Recorded Time 9 Knee CS Injection - Right completed Cristobal Hernandez [address] [place] [address], [phone], [facility] 05/17/2018 09:35:19 7 Knee CS Injection - Right completed Isma Kearney MD [address] [place], [address], [facility] 04/16/2016 12:42:17 6 Knee CS Injection - Right completed Isma Kearney MD [address] [place], [address], [facility] 01/23/2016 14:55:23 6 Visco Injection - Right completed Isma Kearney MD [address] [place] [address], [phone], [facility] 07/25/2015 14:16:52 6 Knee CS Injection - Right completed Cristobal Hernandez [address] [place] [address], [phone], [facility] 07/11/2015 14:50:46 4 Troch Bursitis Injection LEFT - ONE completed Cristobal Hernandez [address] [place] [address], [phone], [facility] 03/13/2014 10:32:37 4 Orthopedic Surgery completed Linda Gunter [facility] 03/13/2014 09:37:28 Imaging Results None recorded. Procedure Notes None recorded. Medical Equipment None Reported. Allergies No known drug allergies Medications Name Sig Start Date Stop Date Status Note LastModified by Organization Details LastModified Time cyclobenzapr ine 10 mg tablet active Not Available Not Available Not Available atorvastatin 40 mg tablet active Not Available Not Available Not Available atorvastatin 80 mg tablet active Not Available Not Available Not Available carvedilol 6.25 mg tablet active Not Available Not Available Not Available gabapentin 600 mg tablet active Not Available Not Available Not Available carvedilol 12.5 mg tablet active Not Available Not Available Not Available lisinopril 20 mg-hydrochlo rothiazide 12.5 mg tablet TK ONE T PO QAM active Not Available Not Available No t Available azithromycin 250 mg tablet active Not Available Not Available Not Available metoprolol succinate ER 50 mg tablet,exten ded release 24 hr active Not Available Not Available Not Available clarithromyc in 500 mg tablet active Not Available Not Available Not Available FreeStyle Lancets 28 gauge TEST BID active Not Available Not Available Not Available glipizide 10 mg tablet TK 1 T PO BID active Not Available Not Available No t Available Alcohol Pads active Not Available Not Available Not Available gabapentin 400 mg capsule active Not Available Not Available Not Available naproxen 250 mg tablet active Not Available Not Available No t Available Lantus U-100 Insulin 100 unit/mL subcutaneous solution active Not Available Not Available Not Available metronidazol e 500 mg tablet active Not Available Not Available Not Available lidocaine HCl 2 % mucosal jelly active Not Available Not Available Not Available ciprofloxaci n 500 mg tablet active Not Available Not Available Not Available omeprazole 40 mg capsule,kathie yed release active Not Available Not Available Not Available aspirin 81 mg tablet,delay ed release TK 1 T PO QAM active Not Available Not Available No t Available tramadol 50 mg tablet active Not Available Not Available No t Available carvedilol 3.125 mg tablet active Not Available Not Available Not Available baclofen 20 mg tablet TAKE ONE TABLET BY MOUTH AT BEDTIME active Not Available Not Available No t Available oxycodone-ac etaminophen 5 mg-325 mg tablet active Not Available Not Available Not Available aspirin 325 mg tablet,delay ed release TAKE 1 TABLET EVERY DAY active Not Available Not Available No t Available baclofen 10 mg tablet active Not Available Not Available No t Available benzonatate 100 mg capsule TK ONE C PO TID active Not Available Not Available No t Available methylpredni solone acetate 40 mg/mL suspension for injection Take 2 mL by injection route. 2018 active Not Available Not Available Not Avai lable metformin 1,000 mg tablet TK 1 T PO BID active Not Available Not Available No t Available nitroglyceri n 0.4 mg sublingual tablet active Not Available Not Available Not Available docusate sodium 100 mg capsule TAKE ONE CAPSULE TWICE A DAY NEEDED CONSTIPATIO N active Not Available Not Available No t Available gabapentin 300 mg capsule active Not Available Not Available Not Available omeprazole 20 mg capsule,kathie yed release active Not Available Not Available Not Available aspirin 81 mg chewable tablet CHEW ONE TABLET BY MOUTH IN THE MORNING active Not Available Not Available Not Available morphine ER 15 mg tablet,exten ded release active Not Available Not Available Not Available diclofenac sodium 50 mg tablet,delay ed release active Not Available Not Available N ot Available lorazepam 1 mg tablet active Not Available Not Available No t Available lisinopril 10 mg-hydrochlo rothiazide 12.5 mg tablet active Not Available Not Available Not Available polyethylene glycol 3350 17 gram/dose oral powder active Not Available Not Available Not Available insulin syringe U-100 with needle 1 mL 30 gauge x 7/16 active Not Available Not Available Not Available methylpredni solone 4 mg tablets in a dose pack active Not Available Not Available No t Available pioglitazone 30 mg tablet TK 1 T PO QAM active Not Available Not Available No t Available ketoconazole 2 % topical cream active Not Available Not Available Not Available fluticasone propionate 50 mcg/actuatio n nasal spray,suspen zan active Not Available Not Available Not Available diazepam 5 mg tablet active Not Available Not Available No t Available tobramycin 0.3 %-dexamethas one 0.1 % eye drops,suspen zan active Not Available Not Available Not Available oxycodone 5 mg tablet active Not Available Not Available No t Available Ultra Comfort Insulin Syringe 1 mL 30 gauge x 5/16 active Not Available Not Available Not Available cyclobenzapr ine 5 mg tablet active Not Available Not Available Not Available Sure Comfort Insulin Syringe 0.3 mL 31 gauge x 5/16 active Not Available Not Available Not Available Lyrica 75 mg capsule active Not Available Not Available Not Available Lyrica 100 mg capsule TAKE ONE CAPSULE BY MOUTH THREE TIMES DAILY FOR NEUROPATHIC PAIN active Not Available Not Available No t Available metformin active Not Available Not Sharyn ilable Not Available gabapentin active Not Available Not Av ailable Not Available Actos active Not Available Not Availa ble Not Available Januvia 100 mg tablet active Not Available Not Available No t Available FreeStyle Lite Strips CHECK BLOOD GLUCOSE BID UTD active Not Available Not Available No t Available FeroSul 325 mg (65 mg iron) tablet TAKE ONE TABLET BY MOUTH TWICE DAILY active Not Available Not Available No t Available FreeStyle Nesmith Lite kit U UTD active Not Available Not Available Not Available oxycodone 20 mg tablet active Not Available Not Available [...] No t Available Brilinta 90 mg tablet TAKE ONE TABLET BY MOUTH TWICE DAILY active Not Available Not Available No t Available Comfort EZ Insulin Syringe 1 mL 31 gauge x 5/16 active Not Available Not Available Not Available Monovisc 88 mg/4 mL intra-articu lar syringe 2015 active Not Available Not Available Not Avai lable Trulicity 1.5 mg/0.5 mL subcutaneous pen injector active Not Available Not Available Not Available Trulicity 0.75 mg/0.5 mL subcutaneous pen injector INJECT 0.5 ML UNDER THE SKIN ONCE WEEKLY active Not Available Not Available Not Available Shingrix (PF) 50 mcg/0.5 mL intramuscula r suspension, kit active Not Available Not Available Not Available Vitals Date Recorded Body height Body mass index (BMI) Body weight Provider Name and Address Organization Details Last Updated DateTime 05/17/2018 180.34 cm 29 kg/m2 02802.21 g Cat Good [facility] 05/17/2018 09:01:30 Date Recorded Body mass index (BMI) Body height Body weight Provider Name and Address Organization Details Last Updated DateTime 07/25/2015 29 kg/m2 180.34 cm 66805.04762 g Tyler Cerrato [facility] 07/25/2015 14:00:17 Date Recorded Pain severity - 0-10 verbal numeric rating [Score] - Reported Provider Name and Address Organization Details Last Updated DateTime 07/25/2015 8 Not Available [facility] 8 05:50:39 Date Recorded Pain severity - 0-10 verbal numeric rating [Score] - Reported Provider Name and Address Organization Details Last Updated DateTime 09/05/2015 3 Not Available [facility] 8 05:50:47 Date Recorded Body weight Body mass index (BMI) Body height Provider Name and Address Organization Details Last Updated DateTime 09/05/2015 38165.88328 g 29 kg/m2 180.34 cm Shyla Means [facility] 09/05/2015 14:04:21 Date Recorded Body height Body weight Body mass index (BMI) Provider Name and Address Organization Details Last Updated DateTime 01/23/2016 180.34 cm 98882.21 g 29 kg/m2 Lyric Arevalo [facility] 01/23/2016 14:15:05 Date Recorded Pain severity - 0-10 verbal numeric rating [Score] - Reported Provider Name and Address Organization Details Last Updated DateTime 01/23/2016 6 Not Available [facility] 8 05:51:13 Social History Question Answer Notes LastModified by Organizat ion Details LastModified Time Tobacco Smoking Status Never Smoker Linda whitlock [place] - [facility] 03/13/2014 09:36:37 What Is Your Level Of Alcohol Consumption? None Information not available 01/23/2016 Auto Related Injury? No Information not available 01/23/2016 Are You Currently Employed? No [email or web address] Information not available 03/13/2014 What Was The Date Of Your Most Recent Tobacco Screening? 05/17/2018 Information n ot available 10/21/2018 How Much Tobacco Do You Smoke? No Information not available 01/23/2016 Work Related Injury? No Information not available 01/23/2016 Sex: Unknown Functional Status None recorded. Mental Status None recorded. Family History Relationship Description Onset Age of this Age Resolved Age Notes LastModified by Organization Details LastModified Time Mother Diabetes mellitus [email or web address] Not available 2015 14:25:34 Mother Hypertensive disorder [email or web address] Not available 2015 14:25:34 Medical History Condition Response Hereditary Defects N Coronary Artery Disease N Gout N Tremors/Seizures/Dizziness/Epilepsy N Excessive Thirst/Fatigue N Lung Disease N Blood Clots N Fever, Chills, Headaches N Pacemaker N Heart Disease/Problems N Breathing Problems N Heart Attack ([place]) N Sexually Transmitted Diseases N Bleeding Disorder/Tendencies or Anemia N Stomach Ulcers N Diabetes Y Skin Problems/Rash/Boils N Depression/Psychiatric Problems N Arthritis Y Tuberculosis N Cancer N Stroke N Eye Problems Y Leg or Foot Ulcers N HIV/AIDS N Chest Pain/Heart Attack/Arrhythmia N Stomach Problems/Reflux/GERD N Urinary Pain/Frequency/Retention N Hepatitis N Rheumatoid Arthritis N Hypertension/High Blood Pressure Y Osteoporosis N Kidney Disease N Past Encounters Encounter ID Performer Location Encounter Start Date Encounter Closed Date Diagnosis/Indication Diagnosis SNOMED-CT Code Diagnosis ICD10 Code Diagnosis Note [id number] [facility] [address] [address] 03/13/2014 09:00:31 03/13/2014 10:23:54 Hip pain 54881435 Greater tr ochanteric pain syndrome 9768954 [id number] [address] [address] 04/26/2014 10:27:27 04/26/2014 11:03:09 Greater trochanteric pain syndrome 8140499 Hip pain 93017059 Low back pain 528438403 [id number] Cristobal Hernandez [facility] [place] [address] [address] 07/11/2015 13:30:13 07/11/2015 14:13:28 Arthritis of knee 016267925 M17.11 [id number] [facility] OFF[facility] [place] [address] [address] 07/25/2015 13:52:53 07/25/2015 14:38:30 Arthritis of knee 863985689 M17.11 [id number] Arlene [facility] OFF[facility] [place] [address] [address] 09/05/2015 13:56:05 09/05/2015 14:33:41 Arthritis of knee 380551150 M17.11 [id number] Isma Kearney MD OFFICE-N. [facility] ot a [address] [address] 01/23/2016 14:00:01 01/23/2016 14:59:28 Arthritis of knee 678200061 M17.11 [id number] Isma Kearney MD OFFICE-N. [facility] ot a [address] [address] 04/16/2016 10:06:25 04/16/2016 11:14:50 Pain in limb 18027210 M79.609 Hip pain 63816928 M25.55 9 Knee pain 13091246 M25.5 61 Arthritis of knee 445098 002 M17.11 [id number] Cristobal Hernandez [address] [address] 05/17/2018 08:23:37 05/17/2018 10:54:32 Pain in limb 99028597 M79.609 Osteoarthr itis of knee 445885798 M17.11 Health Concerns Section Related Observation LastModified by Organization Detai ls LastModified Time None Recorded Concern Status LastModified by Organization Details LastModified Time None Recorded Advance Directives Directive None Recorded Payers Encounter Date Sequence Insurance Name Policy Number Policy Rosas Covered Member ID Rosas Member ID Guarantor Name 07/25/2015 2 [place] [facility] Omar Pitts [id number] Omar Pitts 07/25/2015 1 [place] B[place] [facility] Omar Pitts [id number] Omar Pitts 09/05/2015 2 [place] [facility] Omar Pitts [id number] Omar Pitts 09/05/2015 1 [place] [facility] Omar Pitts [id number] Omar Pitts 01/23/2016 2 [place] [facility] Omar Pitts [id number] Omar Pitts 01/23/2016 1 [place] [facility] Omar Pitts [id number] Omar Pitts 04/16/2016 2 [place] [facility] Omar Pitts [id number] Omar Pitts 04/16/2016 1 [place] [facility] Omar Pitts [id number] Omar Pitts 05/17/2018 2 [place] [facility] Omar Pitts [id number] Omar Pitts 05/17/2018 1 [place] [facility] Omar Pitts [id number] Omar Pitts Notes Date Note Type Note Provider Name and Address Organization Details Recorded Time 07/25/2015 text/html HPI Omar returns today for follow-up of his right knee. We first saw him for the right knee about 2 weeks ago. He had a cortisone injection at that visit. Some mild relief with the injection but nothing significant. He continues to have pain throughout the right knee region. X-rays had previously revealed some moderate arthritis. No other treatment thus far.? Shyla Means [facility] 07/25/2015 14:37:44 09/05/2015 text/html HPI Omar returns today for follow-up of his right knee. He had a monovisc injection 6 weeks ago. He found this quite helpful. He also has been in physical therapy which has been helping. Pain has improved significantly. Functionally doing reasonably well at this point.? Isma Kearney MD [address] [place] [address], [address], [facility] 09/05/2015 14:26:39 01/23/2016 text/html Omar returns today once again for his right knee. He has known moderate right knee arthritis. I last saw him for this about 5 months ago. He's done well previously with injections. He had some type of tendon surgery in [place] it looks like perhaps the right hamstring and reports that he was in a brace for 6 weeks. He is in therapy for this but has had continued and increased right knee pain since the surgery. No new injury or significant change otherwise. Pain is fairly diffuse around the right knee. Isma Kearney MD [address] [place] [address], [phone], [facility] 01/23/2016 14:56:20 04/16/2016 text/html Omar returns again today for his right knee arthritis. I last saw him for this about 2-1/2 months ago. He's had injections previously including Visco supplementation injections and cortisone. Unfortunately he continues to have right knee pain. He also is complaining of some back and hamstring pain but primary issue he reports that the pain diffusely around the right knee. Isma Kearney MD [address] [place] [address], [address], [facility] 04/16/2016 12:43:51 05/17/2018 text/html Omar returns once again for his right knee. He was last seen in the office a couple of years ago. We have managed him for moderate knee arthritis. He has had both cortisone and Visco supplementation. He has had better luck with cortisone. Recently symptoms have returned in the right knee. No new injury and change in his symptoms otherwise. 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 He is now off the Plavix but taking baby aspirin. Overall no other change in his medical status. He does not wish to pursue surgical management at this time for the knee arthritis. He would like to try another cortisone injection today. No updated x-rays. Cristobal Hernandez [address] [place] [address], [place], [address], [facility] 05/17/2018 09:36:48
--- OUTSIDE RECORDS SUMMARY | 2024-07-14 09:57 | XMS_ITS | Clinical Summary ---
Author Organization [address] [place] [address] [place] [id number] Phone Care Team Providers Care Vascular Ultrasound Technologist Name Role Phone Antwan Ramirez MD Primary Care Provider [phone] Allergies Active Allergy Reactions Criticality Noted Date Comments Lactose Nausea And Vomiting Low 11/29/2013 Naproxen 08/27/2021 Medications lidocaine (LIDODERM) 5 % patch Place 1 Patch onto the skin every 24 hours for 28 days. Apply for no more than 12 hours in any 24 hour period. 4 Active diclofenac (VOLTAREN) 1 % topical gel 3 Active baclofen (LIORESAL) 10 mg tablet Take 10 mg by mouth 3 times daily. Active clotrimazole (LOTRIMIN) 1 % cream Active lisinopriL (PRINIVIL,ZESTR IL) 2.5 mg tablet Take 2.5 mg by [...] 81 mg by mouth daily. Active insulin glargine,hum.re c.anlog (INSULIN GLARGINE SUBQ) Inject into the skin. Active dulaglutide (Trulicity) 1.5 mg/0.5 mL pen injector injection Active tirzepatide (MOUNJARO SUBQ) Inject under the skin. Active diclofenac (Voltaren Arthritis Pain) 1 % topical gel Apply 4 g topically 2 (two) times a day. 240 g 1 5 09/02/19 25 Active Active Problems Problem Noted Date Diagnosed Date Coronary artery disease 07/27/2022 Overview (01/03/2024): Required CABG per Dr. Sydni He note Diabetes mellitus type 2, co ntrolled, with complications ([facility] V24, [facility] V28) 07/27/2022 Esophageal reflux 07/27/2022 Essential hypertension 07/27/2022 Hyperlipidemia 07/27/2022 PAD (peripheral artery disease) ([facility] V24) Varicose veins of leg with swelling, bilateral 0 07/27/2022 Dupuytren contracture 10/03/2020 Encounters Date Type Department Care Team Description 07/03/2024 1:45 PM EDT Office Visit Orthopedic Surgery - [address] [address] Arvin Aguilar, DPM Hallux rigidus of right foot (Primary Dx); Acquired hammer toe of right foot; Hallux rigidus of left foot; Hammer toe of left foot; Diabetic mononeuropathy simplex ([facility] V24, [facility] V28); Dermatophytosis of nail from Last 3 Months Surgical History Surgery Date Site/Laterality Comments LEG SURGERY Right PROCEDURE: HISTORICAL LEG SURGERY BACK SURGERY PROCEDURE: HISTORICAL BACK SURGERY HERNIA REPAIR 10/03/2019 Right PROCEDURE: LAPAROSCOPY, INGUINAL HERNIA REPAIR; [facility] Right PROCEDURE: HISTORICAL HAND SURGERY; COMMENT: fasciectomy of right palm and small finger for dupytrens contracture with Dr. Troy Medical History Medical History Date Comments Diabetes mellitus type 2, co ntrolled, with complications ([facility] V24, [facility] V28) DX:Diabetes mellitus type 2, controlled, with complications ([facility]) Hyperlipidemia DX:Hyperlipidemi a Esophageal reflux DX:Esophageal reflux [...] Care Team (Late st Contact Info) Description 10/04/2024 1:30 PM EDT Office Visit Orthopedic Surgery [facility] 250 [address] [facility] [address] [place] [address] Arvin Aguilar DPM [address] [address] 12/05/2024 12:45 PM EDT Ancillary Procedure [facility] Cardiology [place] [address] [address] 12/11/2024 12:45 PM EDT Ancillary Procedure [facility] Cardiology [place] [address] [phone] 02/12/2025 2:00 PM EST Office Visit Vascular Surgery [facility] 300 [facility] [address] [place] [address] Lux Malik MD [address] [facility] [address] [place] [address] Health Maintenance Due Date Last Done Comments Diabetes: Annual Foot Exam 09/08/1961 Diabetes: Annual Retina Eye Exam 09/08/1961 Hepatitis A Vaccines (1 of 2 - Risk 2-dose series) 09/08/1970 RSV Immunization Adult Patients (1 - Risk 60-74 years 1-dose series) [...] age to complete this topic Meningococcal B Vaccine Aged Out No l onger eligible based on patient's age to complete this topic RSV Immunization Patients Under 20 months Aged Out No longer eligible based on patient's age to complete this topic Varicella Vaccines Aged Out No longer eligible based on patient's age to complete this topic Insurance MEDICAID - [place] MEDICARE Care Teams Vascular Ultrasound Technologist Relationship Specialty Start Date End Date Antwan Ramirez MD [address] [place] [id number] PCP - General 07/14/23
--- OUTSIDE RECORDS SUMMARY | 2024-07-14 09:57 | XMS_ITS | Continuity of Care Document ---
Author Organization [facility] [address] [facility] [address] [place] [address] Phone [phone] Care Team Providers Care Pantry Cook Name Role Phone Antwan Ramirez M.D. Care Team Information Recei dominga [phone] Problems Active Problems Provider Date Anemia Aramis [...] SIG Qnty Indications Order ing Provider Date Insulin Glargine-[id number]/ ML Solution inject 30 units daily 10ml Aramis Garza M.D. 06/21/2024 Mounjaro7.5mg/0.5ML Solution Pen-Inject 1 injection every week as directed 6ml Aramis Garza M.D. 12/08/2023 Metformin HCL FT586ib Tablets ER 24HR take 2 tablets by mouth twice a day 180tabs Aramis Garza M.D. 09/22/2023 Freestyle Soraida 3/Sensor/Glucose Monitoring Fmpiwk9Ejxtox [facility] [place] directed 3unmaria esther Garza M.D. 09/08/2023 Freestyle Soraida 3/[place]/Glucose Monitoring Arkerr0Ulpmqf Device use with sensors to check blood sugar dx:e11.9 1unmaria esther Garza M.D. 09/08/2023 Cycnunhwzd027qg Capsules Take 1 Capsule By Mouth Twice Daily Antwan Ramirez M.D. Atorvastatin Kkwyzbf05wq Tablets Take 1 Tablet By Mouth Every Day Britney Henriquez M.D. Llrzmvprsr81vd Capsules DR Take 1 Capsule By Mouth Daily Rain Reese Metoprolol Kggazilw52md Tablets Take 1 Tablet By Mouth Twice [...] 180tabs Aramis Garza M.D. 09/21/2023 - 09/22/2023 Johnjkdd6qp/0.5ML Solution Pen-Inject 1 injection every week as directed 6ml Aramis Garza M.D. 09/08/2023 - 12/08/2023 Vital Signs Date Vital Result Comment 06/08/2024 8:29am BP Systolic 110 mmHg BP Diastolic 80 mmHg Heart Rate 72 /min Height 70 inches 5'10 Weight 186.38 lb BMI (Body Mass Index) 26.7 kg/m2 Results Test Acquired Date Facility Test Result H/L Range N ote Glucose Fingerstick 06/08/2024 Inhouse Glucose Fingerstick 99 Hemoglobin A1c 06/08/2024 Inhouse Hemoglobin A1c 7.5% Glucose Fingerstick 12/08/2023 Inhouse Glucose Fingerstick 155 Hemoglobin A1c 12/08/2023 Inhouse Hemoglobin A1c 7.8% Glucose Fingerstick 10/04/2023 Inhouse Glucose Fingerstick 91 Albumin/Creatinin e Ratio, Random Urine 09/24/2023 [facility] Creatinine, Urine 109.8 mg/dL Not Estab. Albumin, Urine 16.0 ug/mL Not Es tab. Alb/Creat Ratio 15 mg/gcreat 0-29 1 Glucose Fingerstick 09/08/2023 Inhouse Glucose Fingerstick 160 Hemoglobin A1c 09/08/2023 Inhouse Hemoglobin A1c 8.9% 1 Normal: 0 - 29 Moderately increased: 30 - 300 Severely increased: >300 Procedures Date Code Description Status 03/14/2024 NSHOWOFF No Show Office Visit Complet ed Medical Devices Description No Information Available Encounters Type Date Location Provider Dx Diagnosis Office Visit 06/08/2024 8:45a Main Office Aramis Garza M.D. E11.8 Type 2 diabetes mellitus with unspecified complications E11.40 Type 2 diabetes mechelle itus with diabetic neuropathy, unsp Assessments Date Code Description Provider 06/08/2024 E11.8 Complication due to diabetes mellitus Aramis Garza M.D. 06/08/2024 E11.40 Diabetic peripheral neuropat hy Aramis Garza M.D. Plan of Treatment Future Appointment(s):* 09/14/2024 10:45 am - Aramis Garza M.D. at Main Office 10/04/2023 - Aramis Garza M.D.* E11.8 Complication due to diabetes mellitus Functional Status Description No Information Available Mental Status Description No Information Available Referrals Description No Information Available
--- OUTSIDE RECORDS SUMMARY | 2024-07-14 09:57 | XMS_ITS | Data Portability ---
Author Organization [facility]- Address [address] [place] [address] Care Team Providers Care Paymaster Of Purses Name Role Phone HUI SANCHEZ Primary Care Provider Assessment No assessment recorded. Plan of Treatment Reminders Order Date Submit Date Provider Last Modified By Organization Details Last Modified Time Details Appointments None recorded. Lab None recorded. Referral sleep medicine referral 2017 018 [facility], [address] [place] [address], [address], 8 10:02:31 magnetic doctor & immunolog ist referral [address] [facility] [address] [facility], [facility] [address], [place], [address], 8 10:11:57 Procedures None recorded. Surgeries None recorded. Imaging CT, sinuses, w/o contrast 2017 018 [facility], [address] [facility], [facility] [address], [place], [address], 8 10:42:49 polysomno gram 2017 018 [facility] (Sleep Study), [address] [place] [address], [address], 8 13:07:30 Medication Orders Augmentin 875 mg-125 mg tablet 2017 018 [facility], [address] [place], [place], [id number], 8 15:43:58 Atrovent 0.03 % nasal spray 2017 018 [facility], [address], [place], [id number], 8 08:31:52 Patient TargetsNo targets recorded. Patient InstructionsNo instructions recorded. 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 [address] (Sleep Study) [address] [place] [address], [address], 05/07/2017 18:27:28 05/25/19 18 05/20/2017 CT, sinus es, w/o contr ast No observ ation record ed. [address] [facility] [address] [address], [place], [address], 05/28/2017 10:23:16 Result Notes None recorded. Procedures Surgical History Date Name Laterality Status Provider Name and Address Organization Details Recorded Time 03/31/19 18 Nasal Endoscopy (68260) completed Durga Longo MD [address] [address], [place], [address], [facility] 03/31/2017 08:16:11 Imaging Results Imaging Date Name Status LastModified by Organization Details LastModified Time 04/21/2017 polysomnogram completed [address] (Sleep Study) [address] [place], [address], 05/07/2017 18:27:28 05/20/2017 CT, sinuses, w/o contrast completed [address] [facility] [address] [facility] [address], [place], [address], 05/28/2017 10:23:16 Procedure Notes None recorded. Medical [...] bromide 21 mcg (0.03 %) nasal spray [place] 2 sprays twice a day by intranasal [...] Updated DateTime 03/31/2017 177.8 cm 29 kg/m2 70931.66 g Saima Faith [facility] 03/31/2017 08:01:54 Date Recorded Body height Body mass index (BMI) Body weight Provider Name and Address Organization Details Last Updated DateTime 05/14/2017 177.8 cm 29 kg/m2 83394.66 g Genovevamahad Garcias [facility] 05/14/2017 09:33:56 Date Recorded Body height Body mass index (BMI) Body weight Provider Name and Address Organization Details Last Updated DateTime 06/14/2017 177.8 cm 29 kg/m2 58953.66 g Desi Redmond [facility] 06/14/2017 14:15:28 Date Recorded Body height Body mass index (BMI) Body weight Provider Name and Address Organization Details Last Updated DateTime 07/15/2017 177.8 cm 29 kg/m2 09958.66 g Desi Redmond [place] [facility] 07/15/2017 09:55:17 Date Recorded Body height Body mass index (BMI) Body weight Provider Name and Address Organization Details Last Updated DateTime 10/14/2017 177.8 cm 29 kg/m2 88499.66 g Chelsi Gonzalesa [facility] 10/14/2017 10:04:07 Social History Question Answer Notes LastModified by Organizat ion Details LastModified Time Tobacco Smoking Status Never Smoker Saima Faith chinyere [facility] 03/31/2017 08:02:08 What Is Your Level Of [...] Transmitted Disease N Anemia N Heart Attack (DE) N N Diabetes Y Bleeding Disorder N Hearing Loss N Arthritis N Cancer N Stroke N Asthma N Sleep Disorder N Hypertension Y Speech Delay N Kidney Disease N Past Encounters Encounter ID Performer Location Encounter Start Date Encounter Closed Date Diagnosis/Indication Diagnosis SNOMED-CT Code Diagnosis ICD10 Code Diagnosis Note [id number] Durga Longo MD Main Office [address] [place] [address] [address] [place] [address] 03/31/2017 07:39:03 03/31/2017 08:36:24 Allergic rhinitis 01930728 J30.1 - PCP sent here with runny nose for many years- Continues all year round- No allergy testing- Clear drainage- No nasal obstructio n- Frequent sneezing- Tried Flonase without improvemen t- Not worse with eating- No sinus infections - Discussed environmen ralph control/al lergen avoidance, OTC medication s and nasal steroid therapy. - Consider a formal allergy evaluation . Deviated nasal septum 12 1955278 J34.2 - Discussed treatment options for their nasal obstructio n including continued medical/al lergy therapy as well as surgical options. - Patient is a good candidate for surgical repair of their septum if they wish to improve their nasal obstructiv e symptoms. - Patient will consider this option for the future. Hypertroph y of nasal turbinates 06996025 J34.3 Good candidate for radiofrequ ency ablation to improve obstructiv e symptoms. Vasomotor rhinitis 14161 03 J30.0 - Complaints of persistent rhinorrhea c/w vasomotor component to his allergic rhinitis - Will trial a course of Atrovent to see if it improves - Explained drying effect of this spray and option to change frequency from qd, bid to qid Snoring 67819026 R06.83 - Snoring with witnessed apnea, headaches, has EDS; Frequent awakening- Concerned about possibilit y of MIRNA. - Recommend a PSG to further diagnose and identify severity of MIRNA. - Discussed conservati ve measures of weight loss, exercise, EtOH avoidance and sleep positionin g measure to help with obstructiv e symptoms during sleep. - F/u with me after PSG results available. Heart disease 12361286 I 51.9 - PMH s/p CABG, DM Diabetes mellitus 187187 09 E11.9 [id number] Durga Longo MD Main Office [address] [facility],[address] [place] [address] 05/14/2017 09:19:41 05/14/2017 09:56:51 Allergic rhinitis 40292204 J30.1 - Frequent sneezing- Tried Flonase without improvemen t- Discussed environmen ralph control/al lergen avoidance, OTC medication s and nasal steroid therapy. - 04/2017 Allergy testing NEENT negative Vasomotor rhinitis 96544 03 J30.0 - PCP sent here with runny nose for many years- Continues all year round- No allergy testing- Clear drainage- No nasal obstructio n- Complaints of persistent rhinorrhea c/w vasomotor component to his allergic rhinitis - No improvemen t with Atrovent - Explained drying effect of this spray and option to change frequency from qd, bid to qid Deviated nasal septum 12 6134803 J34.2 - Discussed treatment options for their nasal obstructio n including continued medical/al lergy therapy as well as surgical options. - Patient is a good candidate for surgical repair of their septum if they wish to improve their nasal obstructiv e symptoms. - Patient will consider this option for the future. Hypertroph y of nasal turbinates 78540600 J34.3 Good candidate for radiofrequ ency ablation to improve obstructiv e symptoms. Snoring 37661833 R06.83 - Discussed conservati ve measures of weight loss, exercise, EtOH avoidance and sleep positionin g measure to help with obstructiv e symptoms during sleep. Heart disease 67715927 I 51.9 - PMH s/p CABG, DM Diabetes mellitus 804831 09 E11.9 Obstructiv e sleep apnea syndrome 58917056 G47.33 - Snoring with witnessed apnea, headaches, [...] nasal surgical options. Chronic ma xillary sinusitis 25605406 J32.0 J32.2 - Does have yellow drainage, h/o sinus problems in the past, facial pain at times x many months - Evaluate presence and extent of sinusitis with CT scan sinuses - If symptomati c, will treat medically with oral antibiotic s, nasal steroid therapy and nasal saline irrigation s/Netipot - Surgical considerat ion for symptomati c chronic sinusitis refractory to medical therapy [id number] Durga Longo MD Main Office [address] [facility],[address] [place] [address] 06/14/2017 14:14:12 06/14/2017 15:05:02 Obstructive sleep apnea syndrome 22757085 G47.33 - Snoring with witnessed apnea, headaches, [...] g device) and nasal surgical options. Snoring 17404329 R06.83 - Discussed conservati ve measures of weight loss, exercise, EtOH avoidance and sleep positionin g measure to help with obstructiv e symptoms during sleep. Chronic ma xillary sinusitis 26401276 J32.0 J32.2 - Does have yellow drainage, [...] sinusitis refractory to medical therapy Allergic rhinitis 438028 04 J30.1 - Frequent sneezing- Tried Flonase without improvemen t- Discussed environmen ralph control/al lergen avoidance, OTC medication s and nasal steroid therapy. - 04/2017 Allergy testing NEENT negative Vasomotor rhinitis 56200 03 J30.0 - PCP sent here with runny nose for many years- Continues all year round- No allergy testing- Clear drainage- No nasal obstructio n- Complaints of persistent rhinorrhea c/w vasomotor component to his allergic rhinitis - No improvemen t with Atrovent - Explained drying effect of this spray and option to change frequency from qd, bid to qid Deviated nasal septum 12 8966243 J34.2 - Discussed treatment options for their nasal obstructio n including continued medical/al lergy therapy as well as surgical options. - Patient is a good candidate for surgical repair of their septum if they wish to improve their nasal obstructiv e symptoms. - Patient will consider this option for the future. Hypertroph y of nasal turbinates 44464964 J34.3 Good candidate for radiofrequ ency ablation to improve obstructiv e symptoms. Heart disease 44933884 I 51.9 - PMH s/p CABG, DM Diabetes mellitus 288053 09 E11.9 [id number] Durga Longo MD Main Office [address] [place] [address] 07/15/2017 09:51:37 07/15/2017 10:19:43 Obstructive sleep apnea syndrome 64979605 G47.33 - Snoring with witnessed apnea, headaches, has EDS; Frequent awakening- 03/2017 PSG [facility] AHI 15, RDI 31, rosie sat 82%; [...] g device) and nasal surgical options. Snoring 09855558 R06.83 - Discussed conservati ve measures of weight loss, exercise, EtOH avoidance and sleep positionin g measure to help with obstructiv e symptoms during sleep. Chronic ma xillary sinusitis 14377172 J32.0 J32.2 - Does have yellow drainage, [...] or unable to tolerate CPAP Allergic rhinitis 841962 04 J30.1 - Frequent sneezing- Tried Flonase without improvemen t- Discussed environmen ralph control/al lergen avoidance, OTC medication s and nasal steroid therapy. - 04/2017 Allergy testing NEENT negative Vasomotor rhinitis 46254 03 J30.0 - PCP sent here with runny nose for many years- Continues all year round- No allergy testing- Clear drainage- No nasal obstructio n- Complaints of persistent rhinorrhea c/w vasomotor component to his allergic rhinitis - No improvemen t with Atrovent - Explained drying effect of this spray and option to change frequency from qd, bid to qid Deviated nasal septum 12 4788637 J34.2 - Discussed treatment options for their nasal obstructio n including continued medical/al lergy therapy as well as surgical options. - Patient is a good candidate for surgical repair of their septum if they wish to improve their nasal obstructiv e symptoms. - Patient will consider this option for the future. Hypertroph y of nasal turbinates 47400606 J34.3 Good candidate for radiofrequ ency ablation to improve obstructiv e symptoms. Heart disease 55296352 I 51.9 - PMH s/p CABG, DM Diabetes mellitus 156234 09 E11.9 [id number] Durga Longo MD Main Office [address] [facility],[address] [place] [address] 10/14/2017 10:03:08 10/14/2017 10:32:43 Obstructive sleep apnea syndrome 49136703 G47.33 - Snoring with witnessed apnea, headaches, [...] g device) and nasal surgical options. Snoring 24289130 R06.83 - Discussed conservati ve measures of weight loss, exercise, EtOH avoidance and sleep positionin g measure to help with obstructiv e symptoms during sleep. Chronic ma xillary sinusitis 25360156 J32.0 J32.2 - Does have yellow drainage, [...] or unable to tolerate CPAP Allergic rhinitis 310084 04 J30.1 - Frequent sneezing- Tried Flonase without improvemen t- Discussed environmen ralph control/al lergen avoidance, OTC medication s and nasal steroid therapy. - 04/2017 Allergy testing NEENT negative Vasomotor rhinitis 69550 03 J30.0 - PCP sent here with runny nose for many years- Continues all year round- No allergy testing- Clear drainage- No nasal obstructio n- Complaints of persistent rhinorrhea c/w vasomotor component to his allergic rhinitis - No improvemen t with Atrovent - Explained drying effect of this spray and option to change frequency from qd, bid to qid Deviated nasal septum 12 0002661 J34.2 - Discussed treatment options for their nasal obstructio n including continued medical/al lergy therapy as well as surgical options. - Patient is a good candidate for surgical repair of their septum if they wish to improve their nasal obstructiv e symptoms. - Patient will consider this option for the future. Hypertroph y of nasal turbinates 80013238 J34.3 Good candidate for radiofrequ ency ablation to improve obstructiv e symptoms. Heart disease 78049478 I 51.9 - PMH s/p CABG, DM Diabetes mellitus 539574 09 E11.9 Health Concerns Section Related Observation LastModified by Organization Detai ls LastModified Time None Recorded Concern Status LastModified by Organization Details LastModified Time None Recorded Advance Directives Directive None Recorded Payers Encounter Date Sequence Insurance Name Policy Number Policy Rosas Covered Member ID Rosas Member ID Guarantor Name 03/31/2017 2 [place] [employer] Omar Pitts [id number] Omar Pitts 03/31/2017 2 [place] [facility] Omar Pitts [id number] Omar Pitts 05/14/2017 2 [place] [facility] Omar Carlosgo [id number] Omar Ramosiago 05/14/2017 2 [place] Carlosgo [id number] Omar Hong 06/14/2017 2 [place] [facility] Omar Hong [id number] Omar Hong 06/14/2017 2 [place] Omar Carlosgo [id number] Omar Hong 07/15/2017 2 [place] [facility] Omar Hong [id number] Omar Hong 07/15/2017 2 [place] [facility] Omar Carlosgo [id number] Omar Hong 10/14/2017 2 [place] [facility] Omar Ramosiago [id number] Omar Hong 10/14/2017 1 [place] [facility] Omar Carlosgo [id number] Omar Pitts Notes Date Note Type Note [...] PMH s/p CABG, DM Durga Longo MD [address] [place] [address] [address], [place], [address], [facility] 03/31/2017 08:19:10 05/14/2017 text/html [...] pain at times Durga Longo MD [address] [address], [place], [address], [facility] 05/14/2017 11:38:01 06/14/2017 text/html [...] maxillary sinuses. NSD. Durga Longo MD [address] [facility] [address], [place], [address], [facility] 06/14/2017 15:34:09 07/15/2017 text/html [...] Medicine in July Durga Longo MD [address] [address], [place], [address], [facility] 07/15/2017 10:19:12 10/14/2017 text/html [...] B - daily Durga Longo MD [address] [facility] [address], [place], [address], [facility] 10/14/2017 10:25:28
== END 2024-07-14 09:47 | disposition home or self-care (01) ==
PROVIDERS: PCP Internal Medicine; Visit Provider Internal Medicine
DX: M96.1 Postlaminectomy syndrome, not elsewhere classified (principal); M54.16 Radiculopathy, lumbar region
CPT/HCPCS: 99213

== ENCOUNTER → 2024-07-14 09:27 | Outpatient (BNVA) | payer MEDICARE, MEDICAID, SELFPAY | PROVIDERS: PCP Internal Medicine; Visit Provider Internal Medicine | DX: M96.1 Postlaminectomy syndrome, not elsewhere classified (principal); M54.16 Radiculopathy, lumbar region | CPT/HCPCS: 99212 ==

== ENCOUNTER 2024-07-20 11:11 | Inpatient (IN) | payer MEDICARE, MEDICAID, SELFPAY ==
--- NOTE | ~2024-07-20 | US_ITS ---
CLINICAL HISTORY: RUQ pain US abdomen limited. COMPARISON: CT abdomen and pelvis dated 07/20/24 at 15:00 EDT Technique: Real time sonographic imaging, including color-flow imaging, was performed by the supervisory training specialist. Multiple business development representative static images were saved for review. FINDINGS: Pancreas is obscured by overlying bowel gas. The liver has normal echotexture. The main portal vein is antegrade. The gallbladder is normal in size. No cholelithiasis or sludge identified. There is a negative sonographic Peace's sign. Gallbladder wall: 2-3 mm, normal. Common bile duct: 3 mm, normal. Right kidney: Cortical medullary differentiation is maintained. No calculus or focal parenchymal abnormality identified. No hydronephrosis. Right kidney length: 11.2 cm No free intraperitoneal fluid identified. IMPRESSION: 1. No acute findings. No evidence of cholecystitis. No evidence of right renal obstruction. This document has been electronically signed by: Ramon Limon MD on 07/20/2024 17:11:08
--- NOTE | ~2024-07-20 | CT_ITS ---
EXAMINATION: CT ABDOMEN AND PELVIS WITH CONTRAST CLINICAL INFORMATION: Abdominal pain. COMPARISON: None available. TECHNIQUE: Multidetector volumetric images were obtained from the superior aspect of the liver through the pubic symphysis following administration 85 mL of Omnipaque 350 intravenous contrast. Sagittal and coronal reformatted images were obtained on the technologist's workstation. Oral contrast: No This CT examination was performed using dose optimization techniques as appropriate, variously including the following: *Automated exposure control *Adjustment of mA and/or kV according to patient size (this includes techniques or standardized protocols for targeted exams where dose is matched to indication/reason for exam; i.e. extremities or head) *Use of iterative reconstruction technique DLP: 433 mGy centimeter. FINDINGS: LUNG BASES: No acute airspace disease. LIVER, GALLBLADDER, AND BILIARY TREE: Liver measures 17 cm. Decreased enhancement pattern of the parenchyma. Punctate calcification, left hepatic lobe. Portal veins, hepatic veins and intrahepatic portion of the IVC are patent. Trace of pericholecystic fluid/gallbladder wall edema. No intrahepatic or extrahepatic biliary ductal dilatation. PANCREAS: No focal lesion. No peripancreatic fluid collection. No main pancreatic ductal dilatation. SPLEEN: 9 cm. No focal lesion. ADRENAL GLANDS: No nodular lesions. KIDNEYS AND URETERS: No hydronephrosis. No gross nephrolithiasis. Bilateral renal cortical thinning. No gross renal mass. BLADDER: Fluid-filled. GASTROINTESTINAL TRACT: Appendix is normal. Abundant stool, large intestine. No intestinal obstruction pattern. Gas and fluid-filled mildly prominent small bowel loops with questionable air-fluid levels involving the jejunal loops. There is a questionable wall thickening in a segmental ileal loop. No pneumoperitoneum. No ascites. No peripheral enhancing fluid collection, peritoneal cavity. ABDOMINAL WALL: Postsurgical changes in the lateral canals. Small tiny fat-containing umbilical hernia. LYMPH NODES: Prominent mesenteric. VASCULAR: Calcified plaques throughout the abdominal aorta wall and iliac arteries the mesenteric arteries the origin of the main renal arteries. No aneurysm or dissection, abdominal aorta. Calcified plaques in the descending thoracic aorta. Calcified plaques in the coronary arteries. PELVIC VISCERA: Not enlarged prostate gland with questionable post surgical changes. OSSEOUS STRUCTURES: Status post posterior lumbosacral fusion L3 S1 with transpedicular screws at L3, L5-S1 and status post intervertebral disc spacers from L3-4 to L5-S1. Grade 1 retrolisthesis L2-3. Sternal wires. Degenerative changes in the sacroiliac joints. Sclerosis in the right ischium. CT/CT abdomen pelvis w IV con IMPRESSION: Concerning partial/intermittent mid to distal small bowel obstruction. Gallbladder wall edema. Differential diagnostic considerations include acute on chronic acalculous cholecystitis versus hypoproteinemia among other etiologies. Fleischner guidelines were followed. Electronically signed by: Bryan Masters MD 07/20/2024 03:29 PM EDT
--- NOTE | ~2024-07-20 | XR_ITS ---
EXAMINATION: XR CHEST CLINICAL INFORMATION: cough COMPARISON: CT angiogram of the chest 05/04/2022. TECHNIQUE: 2 views of the chest were obtained. FINDINGS: The cardiac, hilar, and mediastinal contours are normal. Prior median sternotomy and CABG. Aortic mural calcification. Monitoring device overlying the right midlung. The lungs are clear bilaterally. There is no pneumothorax or pleural effusion. There is no focal osseous or soft tissue abnormality. XR/XR chest 2V IMPRESSION: No active pulmonary disease. Electronically signed by: Parker Silveira MD 07/20/2024 12:21 PM EDT
[2024-07-20 11:31] VITALS: BP 128/67; PULSE 78; RESP 16; TEMP 36.6; O2SAT 100; BMI 25.4
--- NOTE | 2024-07-20 11:31 | ED.ABDPAIN ---
HPI - Abdominal Pain General Chief Complaint: Abdominal Pain Stated Complaint: Lower Abd Pain, Diarrhea Time Seen by Provider: 07/20/24 13:48 Source: patient Limitations: no limitations History of Present Illness HPI narrative: 73-year-old male with past medical history of diabetes presenting for abdominal pain and diarrhea. Patient states his symptoms began Wednesday and I persisted throughout the week. He is endorsing diffuse abdominal pain, nonbloody diarrhea. He denies nausea, vomiting, fevers, chills. Related Data Home Medications ?Medication ?Instructions ?Recorded ?Confirmed pen needle, diabetic 31 gauge x #1,200 ea 09/18/20 07/14/2408/11 aspirin 81 mg tablet,delayed 81 mg PO DAILY 08/18/22 07/14/24 release (Adult Low Dose Aspirin) losartan 25 mg tablet 25 mg PO DAILY 01/28/24 07/14/24 diclofenac sodium 1 % topical gel 4 g topical BID 07/20/24 07/20/24 tirzepatide 7.5 mg/0.5 mL 7.5 mg subcut QWEEK 07/20/24 subcutaneous pen injector (Danielle) Previous Rx's ?Medication ?Instructions ?Recorded atorvastatin 80 mg tablet 80 mg PO DAILY #90 tabs 05/23/20 walker #1 ea 02/23/21 metformin 1,000 mg tablet 1,000 mg PO BID #180 tabs 07/16/22 pregabalin 100 mg capsule 100 mg PO BID 30 days #60 caps 09/14/22 pen needle, diabetic 31 gauge x #50 ea 07/13/2306/11 metoprolol tartrate 50 mg tablet 50 mg PO BID 90 days #180 tabs 04/24/24 omeprazole 40 mg capsule,delayed 40 mg PO DAILY 90 days #90 caps 07/20/24 release Allergies Allergy/AdvReac Type Severity Reaction Status Date / Time naproxen [From Naprosyn] Allergy swelling Verified 07/20/24 11:33 Review of Systems Review of Systems Yes all other systems are reviewed and are negative [facility] Past Medical History Medical History Environmental allergies Osteoarthritis of right knee Deformity of right hand Diabetes mellitus Barretts esophagus Hyperlipidemia Diabetes Chronic chest pain Hypertension Surgical History H/O right inguinal hernia repair Status post total knee replacement, left History of esophagogastroduodenoscopy (EGD) History of hand surgery History of surgery History of lumbar fusion S/P CABG (coronary artery bypass graft) H/O neck surgery Hx of CABG (~2017) Family History Family History Father Diabetes Hypertension Mother Diabetes Hypertension Son No problems noted. Son No problems noted. Son No problems noted. Daughter No problems noted. Daughter No problems noted. Social History Social History Household Members: Spouse and Family Housing: Apartment Are you a primary child care team lead to a significant other at home: Yes ( disabled) Do you presently have visiting nurse or other home services: No Alcohol intake: former Comment: new ice packs placed Patient Tobacco Use Status: Never used Tobacco Smoked in Last 30 Days: No Use of substances other than those prescribed or required for medical reasons: No Advance Directives: No Advance Directives Information Provided: Yes Do you have a plan to hurt others: No Plan service: No Current occupational status: disabled Current occupation: rt handed Cognitive needs: No Hearing needs: No Vision needs: No Physical Exam ED Vital Signs: Vital Signs - 24 hr 07/20/24 11:31 07/20/24 15:23 Temperature 97.8 F 97.7 F Pulse Rate 78 69 Respiratory Rate 16 16 Blood Pressure 128/67 162/77 H Pulse Oximetry 100 100 Oxygen Delivery Method Room Air Room Air BMI result Body Mass Index 25.4 Well-appearing elderly male in no acute distress Normal speech and cognition Unlabored breathing clear lung sharpe Normal S1-S2 regular rhythm Abdomen is soft, nondistended with diffuse tenderness to palpation Course Course Course Narrative: This is a Rapid Medical Exam performed in triage by Jamaica Harding PA-C. Full HPI, ROS and PE to be performed by primary ED provider. 73 yo M w/PMHx CAD, diabetes, HLD, HTN presenting to the ED c/o lower abd pain, V/D, BAIN & cough x 4 days. denies nausea, dysuria/hematuria PE: Abdomen is soft and nontender, nontoxic appearing Plan: Labs, UA, viral testing, CXR Medical Decision Making Medical Decision Making MDM Narrative: 73-year-old male presents for abdominal pain and diarrhea - I am concerned for the following; gastroenteritis, biliary disease, colitis/enteritis, bowel obstruction - labs and imaging studies ordered My independent interpretation of labs and imaging: -normal creatinine, electrolytes within normal limits, mildly elevated LFTs -no white count, stable H&H, normal lactic acid -EKG showed normal sinus rhythm, normal QTC and no ST elevations -lead dilated loops of bowel on CT scan being read as partial/intermittent small-bowel obstruction and gallbladder wall edema Ultrasound ordered I spoke with Dr. Hamilton who is currently on-call for surgery and he states he will come evaluate patient; evaluated patient and recommended admission to medicine Patient admitted Lab Data 07/20/24 13:09 07/20/24 13:09 Labs: Lab Results 07/20/24 07/20/24 Range/Units 13:09 16:05 WBC 3.3 L (4.8-10.8) X10*3/uL RBC 4.47 L (4.60-5.80) X10*6/uL Hgb 13.1 L (14.0-18.0) g/dl Hct 38.6 L (42.0-52.0) % MCV 86.4 (80.0-98.0) fL MCH 29.3 (27.0-33.0) pg MCHC 33.9 (31.0-36.0) g/dl RDW 14.7 (11.0-16.0) % Plt Count 124 L D (160-400) X10*3/uL MPV 11.5 (9.4-12.4) fL Immature Gran % (Auto) 0.0 (0.0-0.4) % Neut % (Auto) 44.8 L (45-73) % Lymph % (Auto) 28.8 (20-40) % [place] % (Auto) 26.1 H (2-11) % Eos % (Auto) 0.3 (0-4) % Baso % (Auto) 0.0 (0-2) % Lymph # (Auto) 1.0 L (1.2-4.9) X10*3/uL [place] # (Auto) 0.9 (0.1-1.2) X10*3/uL Eos # (Auto) 0.0 (0.0-0.4) X10*3/uL Baso # (Auto) 0.0 (0.0-0.2) X10*3/uL Abs Immat Gran (auto) 0.00 (0.00-0.03) X10*3/uL Absolute Neuts (auto) 1.5 L (2.0-8.3) x10*3/uL Absolute Nucleated RBC 0.000 (0.0-0.012) X10*3/uL Nucleated RBC % (auto) 0.0 (0.0-0.2) /100WBC Smear Tech's Comments VERIFIED Sodium 137 (135-145) mmol/L Potassium 4.0 (3.3-5.1) mmol/L Chloride 107 (96-108) mmol/L Carbon Dioxide 22 (22-29) mmol/L Anion Gap 12 (12-20) BUN 28 H (9-16) mg/dL Creatinine 1.00 (0.5-1.4) mg/dL Estim Creat Clear Calc 68.9 Estimated GFR > 60 Random Glucose 99 (60-115) mg/dL Lactic Acid 0.7 (0.5-2.0) mmol/L Calcium 8.7 D (8.4-10.2) mg/dL Magnesium 1.9 (1.6-2.6) mg/dL Total Bilirubin 0.4 (0.0-1.0) mg/dL Direct Bilirubin 0.2 (0.0-0.5) mg/dL AST 61 H (5-37) U/L ALT 42 H (0-40) U/L Alkaline Phosphatase 54 (39-117) U/L Total Protein 6.5 (6.5-8.0) g/dL Albumin 4.0 (3.5-5.0) g/dL Lipase 50 (8-78) U/L Influenza Type A (PCR) NEGATIVE (Negative) Influenza Type B (PCR) NEGATIVE (Negative) RSV RNA Qual (PCR) NEGATIVE (Negative) SARS-CoV-2 RNA (RT-PCR) NEGATIVE (Negative) Medications Administered Discontinued Medications Generic Name Dose Route Start Last Admin Trade Name Freq PRN Reason Stop Dose Admin Sodium Chloride 1,000 mls @ 999 mls/hr 07/20/24 16:15 07/20/24 16:18 Ns IV 07/20/24 17:15 999 mls/hr .Q1H1M LYNNE Administration Iohexol 100 ml 07/20/24 15:05 07/20/24 15:05 Iohexol 350 Mg/Ml 100 Ml Infus..Btl IV 07/20/24 15:06 85 ml ONCE ONE Administration Morphine Sulfate 4 mg 07/20/24 16:05 07/20/24 16:17 Morphine Sulfate 4 Mg/Ml Cartridge IVPUSH 07/20/24 16:06 4 mg ONCE ONE Administration Protocol Discharge Plan Discharge Clinical Impression: Abdominal pain Qualifiers: Abdominal location: generalized Qualified Code(s): R10.84 - Generalized abdominal pain Diarrhea Qualifiers: Diarrhea type: unspecified type Qualified Code(s): R19.7 - Diarrhea, unspecified Patient Disposition: Admitted As Inpatient
[2024-07-20 13:31] LABS: Alanine Aminotransferase 42 U/L (0-40); Alkaline Phosphatase 54 U/L (39-117); Anion Gap 12 (12-20); Aspartate Amino Transferase 61 U/L (5-37); Bilirubin Direct 0.2 mg/dL (0.0-0.5); Bilirubin Total 0.4 mg/dL (0.0-1.0); Blood Urea Nitrogen 28 mg/dL (9-16); Calcium 8.7 mg/dL (8.4-10.2); Carbon Dioxide 22 mmol/L (22-29); Chloride 107 mmol/L (96-108); Creatinine Clr Calc Pharmacy 68.9; Estimated Glomerular Filt Rate > 60; Glucose Random 99 mg/dL (60-115); Lipase 50 U/L (8-78); Magnesium 1.9 mg/dL (1.6-2.6); Sodium 137 mmol/L (135-145); Total Protein 6.5 g/dL (6.5-8.0)
[2024-07-20 13:35] LABS: Eosinophils Percent Auto 0.3 % (0-4); Hematocrit 38.6 % (42.0-52.0); Hemoglobin 13.1 g/dl (14.0-18.0); Lymphocytes Percent Auto 28.8 % (20-40); MANUAL DIFF FLAG SCAN; Mean Corpuscular HGB Conc 33.9 g/dl (31.0-36.0); Mean Corpuscular Hemoglobin 29.3 pg (27.0-33.0); Mean Corpuscular Volume 86.4 fL (80.0-98.0); Mean Platelet Volume 11.5 fL (9.4-12.4); Monocytes Absolute Auto 0.9 X10*3/uL (0.1-1.2); Monocytes Percent Auto 26.1 % (2-11); Neutrophils Absolute Auto 1.5 x10*3/uL (2.0-8.3); Neutrophils Percent Auto 44.8 % (45-73); Platelet Count 124 X10*3/uL (160-400); Red Blood Count 4.47 X10*6/uL (4.60-5.80); Red Cell Distribution Width 14.7 % (11.0-16.0); SCAN SMEAR FLAG 1; White Blood Count 3.3 X10*3/uL (4.8-10.8)
--- NOTE | 2024-07-20 13:36 | PC.NURSE ---
pt is alert and oriented, skin appropriate for ethnicity, respirations even and unlabored, pt reports since Wednesday having all over abd pain with diarrhea and a headache, pt denies vomiting, bowel sounds in all 4 quadrants-hyperactive, abd soft but slightly lender in left upper and right lower quadrants
[2024-07-20 13:57] LABS: Influenza A PCR NEGATIVE (Negative); Influenza B PCR NEGATIVE (Negative); Resp Syncy Virus RNA Qual PCR NEGATIVE (Negative); SARS COV2 PCR INHOUSE NEGATIVE (Negative)
[2024-07-20 14:05] LABS: SLIDE REVIEW VERIFIED
--- NOTE | 2024-07-20 14:21 | ECG_ITS ---
Test Reason : ABD PAIN Blood Pressure : */* mmHG Vent. Rate : 64 BPM Atrial Rate : 64 BPM P-R Int : 186 ms QRS Dur : 100 ms QT Int : 390 ms P-R-T Axes : 12 16 49 degrees QTcB Int : 402 ms Normal sinus rhythm Minimal voltage criteria for LVH, may be normal variant ( [place] product ) Borderline ECG When compared with ECG of 28-Jan-2021 10:47, No significant change was found Referred By: Bhavesh Shah Electronically Signed By: LUCY CAMEJO
[2024-07-20] MEDS: iohexoL 350 MG/ML 100 ML INFUS..BTL IV (15:05)
[2024-07-20 15:23] VITALS: BP 162/77; PULSE 69; RESP 16; TEMP 36.5; O2SAT 100
[2024-07-20] MEDS: Morphine Sulfate 4 MG/ML CARTRIDGE IVPUSH (16:17)
[2024-07-20] MEDS: 0.9 % Sodium Chloride 1,000 ML 999 ML IV (16:18)
[2024-07-20 16:31] LABS: Lactic Acid 0.7 mmol/L (0.5-2.0)
--- OUTSIDE RECORDS SUMMARY | 2024-07-20 16:37 | XMS_ITS | Clinical Summary ---
Author Organization [address] [place] [address] [place] [address] Phone Care Team Providers Care Paradichlorobenzene Tender Name Role Phone Antwan Ramirez MD Primary Care Provider [phone] Allergies Active Allergy Reactions Criticality Noted Date [...] mellitus type 2, co ntrolled, with complications ([facility] V24, [facility] V28) 07/27/2022 Esophageal reflux 07/27/2022 Essential hypertension 07/27/2022 Hyperlipidemia 07/27/2022 PAD (peripheral artery disease) ([facility] V24) Varicose veins of leg with swelling, bilateral 0 07/27/2022 Dupuytren contracture 10/03/2020 Encounters Date Type Department Care Team Description 07/03/2024 1:45 PM EDT Office Visit Orthopedic Surgery - [address] [address] Arvin Aguilar, DPM Hallux rigidus of right foot (Primary Dx); Acquired hammer toe of right foot; Hallux rigidus of left foot; Hammer toe of left foot; Diabetic mononeuropathy simplex ([facility] V24, [facility] V28); Dermatophytosis of nail from Last 3 Months Surgical History Surgery Date Site/Laterality Comments LEG SURGERY Right PROCEDURE: HISTORICAL LEG SURGERY BACK SURGERY PROCEDURE: HISTORICAL BACK SURGERY HERNIA REPAIR 10/03/2019 Right PROCEDURE: LAPAROSCOPY, INGUINAL HERNIA REPAIR; [facility]/23/2020 Right PROCEDURE: HISTORICAL HAND SURGERY; COMMENT: fasciectomy of right palm and small finger for dupytrens contracture with Dr. Troy Medical History Medical History Date Comments Diabetes mellitus type 2, co ntrolled, with complications ([facility] V24, [facility] V28) DX:Diabetes mellitus type 2, controlled, with complications ([facility]) Hyperlipidemia DX:Hyperlipidemi a Esophageal reflux DX:Esophageal reflux [...] 1:30 PM EDT Office Visit Orthopedic Surgery [facility] 250 175 [facility] 250 [place] [address] Arvin Aguilar DPM [address] [address] 12/05/2024 12:45 PM EDT Ancillary Procedure [facility] [place] [address] [address] 12/11/2024 12:45 PM EDT Ancillary Procedure [facility] [place] [address] [address] 02/12/2025 2:00 PM EST Office Visit Vascular Surgery [facility] 300 [facility] [address] [place] [address] Lux Malik MD 300 [facility] [address] [place] [address] Health Maintenance Due Date Last Done Comments [...] Insurance MEDICAID - [place] MEDICARE Care Teams Paradichlorobenzene Tender Relationship Specialty Start Date End Date Antwan Ramirez MD [address] [place] [id number] PCP - General 07/14/23
--- OUTSIDE RECORDS SUMMARY | 2024-07-20 16:37 | XMS_ITS | Data Portability ---
Author Organization [facility] [place] [facility] Address [address] [place] [address] Care Team Providers Care Senior Analyst Developer Name Role Phone HUI SANCHEZ Primary Care Provider HUI SANCHEZ Referring Provider BRIGITTE TAVERA Primary Care Provider [phone] BRIGITTE TAVERA Referring Provider Assessment Encounter Date [...] DO Not Attach Compendium, Do Not Delete/merge, [id number] 10:54:32 XR, knee, 3 view 2016 017 gwoodsum In-Office Order, Internal Use Only DO Not Attach Compendium DO Not Attach Compendium, Do Not Delete/merge, [id number] 7 11:14:50 XR, pelvis, 1 or 2 view 2016 017 gwoodsum In-Office Order, Internal Use Only DO Not Attach Compendium DO Not Attach Compendium, Do Not Delete/merge, [id number] 7 11:14:50 Medication Orders methylpredn isolone acetate 40 mg/mL suspension for injection 2018 019 ydaylor Not available 9 11:38:48 Depo-Medrol 40 mg/mL suspension for injection 2016 017 [email or web address] [facility], [address] [place], [place], [id number], 7 12:11:27 Depo-Medrol 40 mg/mL suspension for injection 2015 016 [facility], [address], [place], [place], [id number], 6 04:26:21 Monovisc 88 mg/4 mL intra-artic ular syringe 2015 016 [email or web address] Not available 6 14:37:31 Patient TargetsNo targets recorded. Patient Instructions Encounter Date Encounter Id Patient Instructions Last Modified By Organization Details Last Modified Time 07/25/2015 [id number] reviewed exam findings and discussed treatment options [...] visit. ydaylor Not available 07/25/2015 14:37:08 09/05/2015 [id number] reviewed exam findings and discussed management moving [...] today's visit. Not available 09/05/2015 14:26:19 01/23/2016 [id number] reviewed exam findings and again reviewed treatment [...] today's visit. Not available 01/23/2016 14:55:54 04/16/2016 [id number] reviewed exam an d x-ray findings. We [...] today's visit. Not available 04/16/2016 12:43:48 05/17/2018 [id number] knee arthritis: care instructions Not available 05/17/2018 [...] Address Organization Details Recorded Time Hip pain [id number] Active Isma Kearney MD [address] [place] [address], [address], [facility] 6 14:25:10 Greater trochanteric pain syndrome [id number] Adri Kearney MD [address] [place] [address], [address], [facility] 6 14:25:10 Low back pain [id number] Adri Kearney MD [address] [place] [address], [address], [facility] 6 14:25:10 Arthritis of knee [id number] Adri Kearney MD [address] [place] [address], [address], [facility] 6 14:26:19 Problem Notes None recorded. Procedures Surgical History Date Name Laterality Status Provider Name and Address Organization Details Recorded Time 9 Knee CS Injection - Right completed Cristobal Hernandez [address] [place] [address], [address], [facility] 05/17/2018 09:35:19 7 Knee CS Injection - Right completed Isma Kearney MD [address] [place], [address], [facility] 04/16/2016 12:42:17 6 Knee CS Injection - Right completed Isma Kearney MD [address] [place], [address], [facility] 01/23/2016 14:55:23 6 Visco Injection - Right completed Isma Kearney MD [address] [place] [address], [address], [facility] 07/25/2015 14:16:52 6 Knee CS Injection - Right completed Cristobal Hernandez [address] [place] [address], [address], [facility] 07/11/2015 14:50:46 4 Troch Bursitis Injection LEFT - ONE completed Cristobal Hernandez [address] [place] [address], [address], [facility] 03/13/2014 10:32:37 4 Orthopedic Surgery completed Linda Gunter [facility] 03/13/2014 09:37:28 Imaging Results None [...] Available Not Available No t Available FreeStyle Moody Lite kit U UTD active Not Available [...] Updated DateTime 05/17/2018 180.34 cm 29 kg/m2 69620.21 g Cat Good [facility] 05/17/2018 09:01:30 Date Recorded Body mass index (BMI) Body height Body weight Provider Name and Address Organization Details Last Updated DateTime 07/25/2015 29 kg/m2 180.34 cm 46404.81396 g Tyler Cerrato [facility] 07/25/2015 14:00:17 Date Recorded Pain severity - 0-10 verbal numeric rating [Score] - Reported Provider Name and Address Organization Details Last Updated DateTime 07/25/2015 8 Not Available [facility] 8 05:50:39 Date Recorded Pain severity - 0-10 verbal numeric rating [Score] - Reported Provider Name and Address Organization Details Last Updated DateTime 09/05/2015 3 Not Available [facility] 8 05:50:47 Date Recorded Body weight Body mass index (BMI) Body height Provider Name and Address Organization Details Last Updated DateTime 09/05/2015 49189.67502 g 29 kg/m2 180.34 cm Shyla Means [facility] 09/05/2015 14:04:21 Date Recorded Body height Body weight Body mass index (BMI) Provider Name and Address Organization Details Last Updated DateTime 01/23/2016 180.34 cm 08884.21 g 29 kg/m2 Lyric Arevalo [facility] 01/23/2016 14:15:05 Date Recorded Pain severity - 0-10 verbal numeric rating [Score] - Reported Provider Name and Address Organization Details Last Updated DateTime 01/23/2016 6 Not Available [facility] 8 05:51:13 Social History Question Answer Notes LastModified by Organizat ion Details LastModified Time Tobacco Smoking Status Never Smoker Linda whitlock [place] - [facility] 03/13/2014 09:36:37 What Is Your Level [...] Disease/Problems N Breathing Problems N Heart Attack ([place]) N Sexually Transmitted Diseases N Bleeding Disorder/Tendencies or Anemia N Stomach Ulcers N Diabetes Y Skin Problems/Rash/Boils N Depression/Psychiatric Problems N Arthritis Y Tuberculosis N Cancer N Stroke N Eye Problems Y Leg or Foot Ulcers N HIV/AIDS N Chest Pain/Heart Attack/Arrhythmia N Urinary Pain/Frequency/Retention N Stomach Problems/Reflux/GERD N Hepatitis N Rheumatoid Arthritis N Hypertension/High Blood Pressure Y Osteoporosis N Kidney Disease N Past Encounters Encounter ID Performer Location Encounter Start Date Encounter Closed Date Diagnosis/Indication Diagnosis SNOMED-CT Code Diagnosis ICD10 Code Diagnosis Note [id number] [facility] [address] [address] 03/13/2014 09:00:31 03/13/2014 10:23:54 Hip pain 90664996 Greater tr ochanteric pain syndrome [id number] [facility] [address] [address] 04/26/2014 10:27:27 04/26/2014 11:03:09 Greater trochanteric pain syndrome 2853965 Hip pain 39550765 Low back pain [id number] Cristobal Hernandez [facility] ot a [address] [address] 07/11/2015 13:30:13 07/11/2015 14:13:28 Arthritis of knee 615404113 M17.11 [id number] [facility] OFFICE[facility]N. [facility] ot a [address] [address] 07/25/2015 13:52:53 07/25/2015 14:38:30 Arthritis of knee 527974046 M17.11 [id number] [facility] a [address] [address] 09/05/2015 13:56:05 09/05/2015 14:33:41 Arthritis of knee 184336999 M17.11 [id number] Isma Kearney MD OFFICE-N. [facility] ot a [address] [address] 01/23/2016 14:00:01 01/23/2016 14:59:28 Arthritis of knee 329334292 M17.11 [id number] Isma Kearney MD OFFICE-N. [facility] ot a [address] [address] 04/16/2016 10:06:25 04/16/2016 11:14:50 Pain in limb 64324420 M79.609 Hip pain 62698241 M25.55 9 Knee pain 83064152 M25.5 61 Arthritis of knee 912660 002 M17.11 [id number] Cristobal Hernandez [address] [address] 05/17/2018 08:23:37 05/17/2018 10:54:32 Pain in limb 61437931 M79.609 Osteoarthr itis of knee 693512351 M17.11 Health Concerns Section Related Observation LastModified by Organization Detai ls LastModified Time None Recorded Concern Status LastModified by Organization Details LastModified Time None Recorded Advance Directives Directive None Recorded Payers Encounter Date Sequence Insurance Name Policy Number Policy Rosas Covered Member ID Rosas Member ID Guarantor Name 07/25/2015 2 [place] [facility] Omar Pitts [id number] Omar Pitts 07/25/2015 1 [place] [facility] Omar Pitts [id number] Omar Pitts 09/05/2015 2 [place] [facility] Omar Pitts [id number] Omar Pitts 09/05/2015 1 [place] [facility] Omar Pitts [id number] Omar Pitts 01/23/2016 2 [place] [facility] Omar Pitts [id number] Omar Pitts 01/23/2016 1 [place] [facility] Omar Pitts [id number] Omar Pitts 04/16/2016 2 [place] [facility] Omar Pitts [id number] Omar Pitts 04/16/2016 1 [place] [facility] Omar Pitts [id number] Omar Pitts 05/17/2018 2 [place] [facility] Omar Pitts [id number] Omar Pitts 05/17/2018 1 [place] [facility] Omar Pitts [id number] Omar Pitts Notes Date Note Type Note [...] other treatment thus far.? Shyla Means [facility] 07/25/2015 14:37:44 09/05/2015 text/html HPI Omar returns today for follow-up of his right knee. He had a monovisc injection 6 weeks ago. He found this quite helpful. He also has been in physical therapy which has been helping. Pain has improved significantly. Functionally doing reasonably well at this point.? Isma Kearney MD [address] [place] [address], [address], [facility] 09/05/2015 14:26:39 01/23/2016 text/html Omar returns today once again for his right knee. He has known moderate right knee arthritis. I last saw him for this about 5 months ago. He's done well previously with injections. He had some type of tendon surgery in [place] it looks like perhaps the right hamstring and reports that he was in a brace for 6 weeks. He is in therapy for this but has had continued and increased right knee pain since the surgery. No new injury or significant change otherwise. Pain is fairly diffuse around the right knee. Isma Kearney MD [address] [place] [address], [address], [facility] 01/23/2016 14:56:20 04/16/2016 text/html [...] around the right knee. Isma Kearney MD [address] [place] [address], [address], [facility] 04/16/2016 12:43:51 05/17/2018 text/html [...] injection today. No updated x-rays. Cristobal Hernandez [address] [place] [address], [place], [address], [facility] 05/17/2018 09:36:48
--- OUTSIDE RECORDS SUMMARY | 2024-07-20 16:37 | XMS_ITS | Continuity of Care Document ---
Author Organization [facility] [address] [facility] [address] [place] [address] Phone [phone] Care Team Providers Care Bioinformatician Name Role Phone Antwan Ramirez M.D. Care Team Information Recei dominga [phone] Problems Active Problems Provider Date Anemia Aramis [...] Qnty Indications Order ing Provider Date Insulin Glargine-Axvi045Mwku/ ML Solution inject 30 units daily 10ml Aramis Garza M.D. 06/21/2024 Mounjaro7.5mg/0.5ML Solution Pen-Inject 1 injection every week as directed 6ml Aramis Garza M.D. 12/08/2023 Metformin HCL QF723ry Tablets ER 24HR take 2 tablets by mouth twice a day 180tabs Aramis Garza M.D. 09/22/2023 Freestyle Soraida 3/Sensor/Glucose Monitoring Fynpva5Svonwg [facility] as directed 3unmaria esther Garza M.D. 09/08/2023 Freestyle Soraida 3/[place]/Glucose Monitoring Dgudvr9Yinjbd Device use with sensors to check blood sugar dx:e11.9 1unmaria sether Garza M.D. 09/08/2023 Cpnwjvvhhw878fk Capsules Take 1 Capsule By Mouth Twice Daily Antwan Ramirez M.D. Atorvastatin Gdfrpmo06tm Tablets Take 1 Tablet By Mouth Every Day Britney Henriquez M.D. Hsvixxlsez90uj Capsules DR Take 1 Capsule By Mouth Daily Rain Reese Metoprolol Nirwawag11uv Tablets Take 1 Tablet By Mouth Twice [...] 180tabs Aramis Garza M.D. 09/21/2023 - 09/22/2023 Aftusjza6eh/0.5ML Solution Pen-Inject 1 injection every week as [...]
--- NOTE | 2024-07-20 16:55 | P.CONGS_ITS ---
History of Present Illness Consult details Consult date: 07/20/24 Narrative: 73-year-old male referred for abdominal pain He has describes having diffuse abdominal pain since about 4 days ago. He says that since then, he was had multiple episodes of diarrhea describes as very watery stools several times a day. This has nonbloody. He denies any nausea or vomiting. He is passing flatus. In view of the persistence of his diarrhea and abdominal pain, he came to the emergency room today He denies any fever He denies any abdominal surgeries in the past. He says that he has had a cardiac surgery before. Review of Systems 2 Constitutional: Constitutional: Denies chills and Denies fever(s) Cardiovascular: Cardiovascular: Denies chest pain, Denies dyspnea and Denies dyspnea on exertion Respiratory: Respiratory: Denies cough, Denies dyspnea and Denies dyspnea on exertion Gastrointestinal: Gastrointestinal: Denies hematochezia and Denies change in bowel habits Genitourinary: Genitourinary: Denies hematuria and Denies difficulty urinating Musculoskeletal: Musculoskeletal: Denies back pain and Denies limited range of motion Neurologic: Denies focal weakness and Denies convulsions Psychiatric: Psychiatric: Denies depression and Denies mood swings PMFSH Past Medical History Medical History Environmental allergies Osteoarthritis of right knee Deformity of right hand Diabetes mellitus Barretts esophagus Hyperlipidemia Diabetes Chronic chest pain Hypertension Family History Family History Father Diabetes Hypertension Mother Diabetes Hypertension Son No problems noted. Son No problems noted. Son No problems noted. Daughter No problems noted. Daughter No problems noted. 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 ( disabled) Do you presently have visiting nurse or other home services: No Alcohol intake: former Comment: new ice packs placed Patient Tobacco Use Status: Never used Tobacco service: No Current occupational status: disabled Current occupation: rt handed Cognitive needs: No Hearing needs: No Vision needs: No Meds Allergies Allergy/AdvReac Type Severity Reaction Status Date / Time naproxen [From Naprosyn] Allergy swelling Verified 07/20/24 11:33 Active Medications: Current Medications Sodium Chloride (Ns) 1,000 mls @ 999 mls/hr IV .Q1H1M LYNNE Stop: 07/20/24 17:15 Last Admin: 07/20/24 16:18 Dose: 999 mls/hr Home Medications ?Medication ?Instructions ?Recorded ?Confirmed ?Last Taken ?Type pen needle, diabetic 31 gauge x #1,200 ea 09/18/20 07/14/24 Unknown History 08/11 aspirin 81 mg tablet,delayed 81 mg PO DAILY 08/18/22 07/20/24 07/19/24 History release (Adult Low Dose Aspirin) losartan 25 mg tablet 25 mg PO DAILY 01/28/24 07/20/24 07/19/24 History diclofenac sodium 1 % topical gel 4 g topical BID PRN Pain 07/20/24 07/20/24 Unknown History insulin glargine 100 unit/mL (3 40 unit subcut DAILY 07/20/24 07/20/24 07/19/24 History mL) subcutaneous pen (Basaglar KwikPen U-100 Insulin) metformin 500 mg tablet,extended 500 mg PO BID 07/20/24 07/20/24 07/19/24 History release 24 hr omeprazole 40 mg capsule,delayed 40 mg PO DAILY@0630 07/20/24 07/20/24 07/19/24 History release tirzepatide 7.5 mg/0.5 mL 7.5 mg subcut FR 07/20/24 07/20/24 07/14/24 History subcutaneous pen injector (Danielle) Physical Exam 2 Vital Signs: Vital Signs: Last Vital Signs Temp 97.7 F 07/20/24 15:23 Pulse 69 07/20/24 15:23 Resp 16 07/20/24 15:23 BP 162/77 H 07/20/24 15:23 Pulse Ox 100 07/20/24 15:23 O2 Del Method Room Air 07/20/24 15:23 BMI result Body Mass Index 25.4 Const: General: comfortable and no acute distress O rientation/consciousness: patient oriented x3 Neck: Neck: Yes no lymphadenopathy Resp: Auscultation: clear to auscultation bilaterally Cardio: Rhythm: regular rhythm GI: Other: Mild diffuse abdominal tenderness with no guarding or rebound, no Peace's sign Palpation (GI): Soft to palpation, Tenderness to palpation present (GI) and no guarding Neuro: General: patient oriented x3 Results Labs 07/21/24 05:23 07/21/24 05:23 Labs: Abnormal lab results 07/20/24 Range/Units 13:09 WBC 3.3 L (4.8-10.8) X10*3/uL RBC 4.47 L (4.60-5.80) X10*6/uL Hgb 13.1 L (14.0-18.0) g/dl Hct 38.6 L (42.0-52.0) % Plt Count 124 L D (160-400) X10*3/uL Neut % (Auto) 44.8 L (45-73) % Bennett % (Auto) 26.1 H (2-11) % Lymph # (Auto) 1.0 L (1.2-4.9) X10*3/uL Absolute Neuts (auto) 1.5 L (2.0-8.3) x10*3/uL BUN 28 H (9-16) mg/dL AST 61 H (5-37) U/L ALT 42 H (0-40) U/L Short CBC 07/20/24 Range/Units 13:09 WBC 3.3 L (4.8-10.8) X10*3/uL Hgb 13.1 L (14.0-18.0) g/dl Hct 38.6 L (42.0-52.0) % Plt Count 124 L D (160-400) X10*3/uL BMP 07/20/24 13:09 Sodium 137 Potassium 4.0 Chloride 107 Carbon Dioxide 22 BUN 28 H Creatinine 1.00 Calcium 8.7 D Liver Function 07/20/24 Range/Units 13:09 Total Bilirubin 0.4 (0.0-1.0) mg/dL Direct Bilirubin 0.2 (0.0-0.5) mg/dL AST 61 H (5-37) U/L ALT 42 H (0-40) U/L Alkaline Phosphatase 54 (39-117) U/L Albumin 4.0 (3.5-5.0) g/dL All other labs normal. Assessment and Plan (1) Abdominal pain: Qualifiers: Abdominal location: generalized Qualified Code(s): R10.84 - Generalized abdominal pain Status: Resolved He has had diffuse abdominal pain and diarrhea for about 4 days now. He is passing flatus as well. He denies nausea or vomiting. I have reviewed his CAT scan images. This shows some gas and fluid-filled mildly prominent small bowel loops involving the jejunum with a short area with wall thickening. This does not appear to be obstructed. This seems to be suggestive of some form of enteritis. His gallbladder wall smelling thickened but there were no inflammatory changes. Overall exam does not suggest acute cholecystitis His clinical picture is suggestive more of enteritis. His exam is very benign. He has no leukocytosis I recommend IV fluids for now and observation. He may be worked up for C diff and any other etiology of his diarrhea I will follow along for serial exams. It does not seem that he will require surgical intervention at this point. I have discussed the above with the ER staff. Procedures Date of Service Date of Service: 07/27/24
--- NOTE | 2024-07-20 17:14 | PM.IMHP ---
History of Present Illness Date of Service: 07/20/24 Attending physician on admission: Merlin Mason Chief Complaint: Abd pain and diarrhea Pt is a 73-year-old male with a PMH significant for?CAD s/p CABG (2017), HTN, [id number] type 2 diabetes, peripheral neuropathy, and GERD who presents to the ED with?abdominal pain and profuse non-bloody diarrhea x3 days. Pt reports symptoms stated Wednesday with diffuse abd pain, subjective fever and chills, and intractable diarrhea. States was going every 5 to 10 minutes up until last night. Diarrhea subsided by this morning and pt decided to drink a cup of coffee, which worsened his abd pain and prompted his visit to the ED. No N/V. Is passing flatus. Has had reduced p.o. intake and lost 9 pounds since symptom onset. No chest pain/pressure, or palpitations. Denies SOB, difficulty breathing, or cough. In the ED pt was hypertensive up to 160/77, vitals otherwise stable and WNL. Labs were significant for leukopenia 3.3, platelets 124, AST 61, and ALT 42. No significant electrolyte abnormalities. Renal function WNL. Tested negative for flu, COVID, RSV. CXR showed no active pulmonary disease. CT?of abdomen/pelvis concerning for partial/intermittent mid to distal small-bowel obstruction. Also showed gallbladder wall edema. RUQ abdominal ultrasound negative for acute findings. No evidence of cholecystitis. ED clinician reached out to general surgery who reviewed imaging and thought pt was experiencing gastroenteritis rather than SBO or cholecystitis. EKG demonstrated normal sinus rhythm without evidence of ST elevations or depressions. Pt was treated in the ED with morphine and IVF. Pt is admitted to the hospital for treatment and further evaluation of intractable abd pain and diarrhea in the setting of likely enteritis. Review of Systems Review of Systems: Negative except for that which is stated in the HPI. [facility] Medical History Environmental allergies Osteoarthritis of right knee Deformity of right hand Diabetes mellitus Barretts esophagus Hyperlipidemia Diabetes Chronic chest pain Hypertension Family History Father Diabetes Hypertension Mother Diabetes Hypertension Son No problems noted. Son No problems noted. Son No problems noted. Daughter No problems noted. Daughter No problems noted. 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 If so, by whom?: No Do you feel safe in your current relationship?: Yes Is there a partner from a previous relationship who is making you feel unsafe now?: No Are you made to feel afraid or neglected: No Advance Directives: No Advance Directives Information Provided: Yes Do you have a plan to hurt others: No Plan Recently lost weight without trying: No Eating poorly because of decreased appetite: No Nutrition Risks: No Nutritional Risk service: No Current occupational status: disabled Current occupation: rt handed Cognitive needs: No Hearing needs: No Vision needs: No Meds Allergies Allergy/AdvReac Type Severity Reaction Status Date / Time naproxen [From Naprosyn] Allergy swelling Verified 07/20/24 11:33 Active Medications: Current Medications Sodium Chloride (Ns) 1,000 mls @ 999 mls/hr IV .Q1H1M LYNNE Stop: 07/20/24 17:15 Last Admin: 07/20/24 16:18 Dose: 999 mls/hr Home Medications ?Medication ?Instructions ?Recorded ?Confirmed ?Last Taken ?Type pen needle, diabetic 31 gauge x #1,200 ea 09/18/20 07/14/24 Unknown History 08/11 aspirin 81 mg tablet,delayed 81 mg PO DAILY 08/18/22 07/20/24 07/19/24 History release (Adult Low Dose Aspirin) losartan 25 mg tablet 25 mg PO DAILY 11/04/2107/20/24 07/19/24 History diclofenac sodium 1 % topical gel 4 g topical BID PRN Pain 07/20/24 07/20/24 Unknown History insulin glargine 100 unit/mL (3 40 unit subcut DAILY 07/20/24 07/20/24 07/19/24 History mL) subcutaneous pen (Basaglar KwikPen U-100 Insulin) metformin 500 mg tablet,extended 500 mg PO BID 07/20/24 07/20/24 07/19/24 History release 24 hr omeprazole 40 mg capsule,delayed 40 mg PO DAILY@0630 07/20/24 07/20/24 07/19/24 History release tirzepatide 7.5 mg/0.5 mL 7.5 mg subcut FR 07/20/24 07/20/24 07/14/24 History subcutaneous pen injector (Danielle) Physical Exam Vital Signs and Narrative: Vital Signs: Last Vital Signs Temp 97.7 F 07/20/24 15:23 Pulse 69 07/20/24 15:23 Resp 16 07/20/24 15:23 BP 162/77 H 07/20/24 15:23 Pulse Ox 100 07/20/24 15:23 O2 Del Method Room Air 07/20/24 15:23 BMI result Body Mass Index 25.4 General: AOx3, no acute distress. Overall looks comfortable, sitting on side of bed. Resp: CTA bilaterally CVS: S1, S2, RRR GI: Mild central abd pain without rebounding. +BS, soft, no distention. Negative Peace's sign Skin: Warm, dry Neuro: Cranial nerves II-XII grossly intact bilaterally. Motor grossly intact bilaterally Extremities: No edema Psych: Appropriate affect Results Labs 07/20/24 13:09 07/20/24 13:09 Labs: Laboratory Results - last 24 hr 07/20/24 07/20/24 13:09 16:05 MCV 86.4 MCH 29.3 MCHC 33.9 RDW 14.7 Plt Count 124 L D MPV 11.5 Immature Gran % (Auto) 0.0 Neut % (Auto) 44.8 L Lymph % (Auto) 28.8 Lane % (Auto) 26.1 H Eos % (Auto) 0.3 Baso % (Auto) 0.0 Lymph # (Auto) 1.[address] # (Auto) 0.9 Eos # (Auto) 0.0 Baso # (Auto) 0.0 Abs Immat Gran (auto) 0.00 Absolute Neuts (auto) 1.5 L Absolute Nucleated RBC 0.000 Nucleated RBC % (auto) 0.0 Smear Tech's Comments VERIFIED Anion Gap 12 Estim Creat Clear Calc 68.9 Estimated GFR > 60 Random Glucose 99 Lactic Acid 0.7 Calcium 8.7 D Magnesium 1.9 Total Bilirubin 0.4 Direct Bilirubin 0.2 AST 61 H ALT 42 H Alkaline Phosphatase 54 Total Protein 6.5 Albumin 4.0 Lipase 50 Influenza Type A (PCR) NEGATIVE Influenza Type B (PCR) NEGATIVE RSV RNA Qual (PCR) NEGATIVE SARS-CoV-2 RNA (RT-PCR) NEGATIVE Imaging Radiologist's Impressions: Impressions Chest X-Ray 07/20/24 11:34 IMPRESSION: No active pulmonary disease. Electronically signed by: Parker Silveira MD 07/20/2024 12:21 PM EDT RP Abdomen/Pelvis CT 07/20/24 14:11 IMPRESSION: Concerning partial/intermittent mid to distal small bowel obstruction. Gallbladder wall edema. Differential diagnostic considerations include acute on chronic acalculous cholecystitis versus hypoproteinemia among other etiologies. Fleischner guidelines were followed. Electronically signed by: Bryan Masters MD 07/20/2024 03:29 PM EDT RP Assessment and Plan (1) Abdominal pain: Qualifiers: Abdominal location: generalized Qualified Code(s): R10.84 - Generalized abdominal pain Status: Acute (2) Enteritis: Status: Acute Plan Pt is a 73-year-old male with a PMH significant for?CAD s/p CABG (2017), HTN, [id number] type 2 diabetes, peripheral neuropathy, and GERD who presents to the ED with?abdominal pain and profuse diarrhea x3 days. Pt is admitted to the hospital for treatment and further evaluation of intractable abd pain and diarrhea in the setting of likely enteritis. Abdominal pain Diffuse abd pain, initial intractable diarrhea x3 days, last episode of diarrhea last night CT concerning for SBO and gallbladder wall edema; RUQ US negative Seen and evaluated by general surgery who thought enteritis much more likely than SBO Will treat with IVF, bowel rest, anti-emetics, and analgesics NPO for now, advance as tolerated General surgery consult Check GI and panel and CDiff if diarrhea returns Given that pt is afebrile and has no leukocytosis, no indication for empiric abx at this time CAD Continue aspirin and statin Insulin-dependent type 2 diabetes SSI, lantus Hold metformin Diabetic diet once no longer NPO HTN Continue losartan, metoprolol GERD Continue omeprazole Full Code Attending:?Dr. Mason DVT Prophylaxis: Lovenox Pt will require a hospitalization of at least two nights for treatment of?intractable abdominal pain and diarrhea in the setting of likely enteritis. Given pt's inability to tolerate p.o., pt will need to be treated with IVF as well as IV anagelics and anti-emetics as necessary. Quality Stroke Does the patient have a stroke diagnosis?: No VTE Prior VTE?: No VTE Risk Level:: Medical - moderate - high VTE Device Contraindication: Treatment Not Indicated VTE Drug Contraindication: N/A - Med Ordered
[2024-07-20 17:33] LABS: Glucose, Whole Blood 58 mg/dL (60-115)
[2024-07-20 17:34] VITALS: BP 186/86; PULSE 69; RESP 16; TEMP 36.4; O2SAT 99
[2024-07-20] MEDS: Enoxaparin Sodium 40 MG/0.4 ML SYRINGE SUBCUT (17:41)
[2024-07-20] MEDS: Dextrose 50 % 25 GM/50 ML SYRINGE IVPUSH (17:41)
[2024-07-20 18:26] LABS: Glucose, Whole Blood 152 mg/dL (60-115)
--- NOTE | 2024-07-20 19:05 | PHA.MEDREC ---
Addendum entered by Mohan Courtney RP 07/20/24 19:19: MED REC CHECKED BY [facility] Original Note: Pharmacy Consult ? Medication Reconciliation Pharmacy has completed the medication reconciliation. Spoke to patient to confirm med list. patient confirmed Basaglar 35 units daily, Mounjaro 7.5 mg every Wednesday, last dose 07/14/24. Patient states he takes Metformin 500 mg bid not 1,00 mg bid claims has.
[2024-07-20 19:11] LABS: Appearance Urine Clear; Color Urine Yellow; Glucose Urine UA 250 mg/dL (Negative); Leukocyte Esterase Urine Negative (Negative); Nitrite Urine Negative (Negative); PH 5.5 (5.0-9.0); Specific Gravity - Urine >= 1.030 (1.005-1.025); Urine Blood Negative (Negative); Urine Ketones Negative (Negative); Urine Protein Trace mg/dL (Neg-Trace)
[2024-07-20] MEDS: Lactated Ringers 1,000 ML 100 ML IVCONT (19:49)
[2024-07-20 20:00] VITALS: BP 182/77; PULSE 60; RESP 18; TEMP 36.6; O2SAT 100
[2024-07-20 20:59] LABS: Glucose, Whole Blood 78 mg/dL (60-115)
[2024-07-20] MEDS: Metoprolol Tartrate 50 MG TABLET PO (21:04)
[2024-07-20] MEDS: Pregabalin 100 MG CAPSULE PO (21:04)
[2024-07-21] VITALS: BP 144/70; PULSE 62; RESP 18; TEMP 36.6; O2SAT 99
[2024-07-21 02:07] LABS: Glucose, Whole Blood 70 mg/dL (60-115)
[2024-07-21 02:39] LABS: Glucose, Whole Blood 89 mg/dL (60-115)
[2024-07-21 04:00] VITALS: BP 137/65; PULSE 67; RESP 16; TEMP 36.4; O2SAT 98
[2024-07-21 06:10] LABS: Hematocrit 35.8 % (42.0-52.0); Hemoglobin 12.3 g/dl (14.0-18.0); Mean Corpuscular HGB Conc 34.4 g/dl (31.0-36.0); Mean Corpuscular Hemoglobin 29.4 pg (27.0-33.0); Mean Corpuscular Volume 85.4 fL (80.0-98.0); Mean Platelet Volume 10.8 fL (9.4-12.4); Platelet Count 122 X10*3/uL (160-400); Red Blood Count 4.19 X10*6/uL (4.60-5.80); Red Cell Distribution Width 14.7 % (11.0-16.0); White Blood Count 3.2 X10*3/uL (4.8-10.8)
[2024-07-21 06:21] LABS: Alanine Aminotransferase 34 U/L (0-40); Albumin Level 3.4 g/dL (3.5-5.0); Alkaline Phosphatase 49 U/L (39-117); Anion Gap 11 (12-20); Aspartate Amino Transferase 47 U/L (5-37); Bilirubin Total 0.4 mg/dL (0.0-1.0); Blood Urea Nitrogen 17 mg/dL (9-16); Calcium 8.3 mg/dL (8.4-10.2); Carbon Dioxide 24 mmol/L (22-29); Chloride 108 mmol/L (96-108); Creatinine Clr Calc Pharmacy 78.3; Estimated Glomerular Filt Rate > 60; Glucose Random 135 mg/dL (60-115); Potassium 4.1 mmol/L (3.3-5.1); Sodium 139 mmol/L (135-145); Total Protein 5.6 g/dL (6.5-8.0)
[2024-07-21 07:21] LABS: Glucose, Whole Blood 94 mg/dL (60-115)
[2024-07-21] MEDS: 0.9 % Sodium Chloride Flush 3 ML SYRINGE IVFLUSH (07:56)
[2024-07-21] MEDS: Metoprolol Tartrate 50 MG TABLET PO (07:56)
[2024-07-21] MEDS: Losartan Potassium 25 MG TABLET PO (07:56)
[2024-07-21] MEDS: Pregabalin 100 MG CAPSULE PO (07:56)
[2024-07-21] MEDS: Aspirin Enteric Coated 81 MG TABLET.DR PO (07:56)
[2024-07-21 08:00] VITALS: BP 137/68; PULSE 62; RESP 16; TEMP 36.4; O2SAT 99
--- NOTE | 2024-07-21 08:35 | PM.PNGS ---
Subjective Subjective Date of Service: 07/21/24 Interval history: Feels much better Diarrhea resolved No abdominal pain Wants to eat Physical Exam Vital Signs: Vital Signs: Last Vital Signs Temp 97.6 F 07/21/24 08:00 Pulse 62 07/21/24 08:00 Resp 16 07/21/24 08:00 BP 137/68 07/21/24 08:00 Pulse Ox 99 07/21/24 08:00 O2 Del Method Room Air 07/21/24 08:00 BMI result Body Mass Index 25.4 Const: General: comfortable and no acute distress Resp: Effort & Inspection: normal respiratory effort Cardio: Rate: regular rate GI: Palpation (GI): Soft to palpation, not firm, nontender and no guarding Objective Data Active Medications Acetaminophen (Acetaminophen 325 Mg Tablet) 650 mg PO Q6H PRN PRN Reason: Pain, Mild 1-3,fever,headache Aspirin (Aspirin Enteric Coated 81 Mg Tablet.) 81 mg PO DAILY [facility] Last Admin: 07/21/24 07:56 Dose: 81 mg Documented By: PACO Atorvastatin Calcium (Atorvastatin Calcium 80 Mg Tablet) 80 mg PO DAILY [facility] Last Admin: 07/21/24 07:59 Dose: Not Given Documented By: PACO Non-Admin Reason: takes at night Calcium Carbonate (Calcium Carbonate 750 Mg Tab.Chew) 750 mg PO Q4H PRN PRN Reason: Heartburn Dextrose (Dextrose 50 % 25 Gm/50 Ml Syringe) 25 gm IVPUSH Q15M PRN; Protocol PRN Reason: per Hypoglycemia Standing Ord. Last Admin: 07/20/24 17:41 Dose: 25 gm Documented By: FRANCIS Enoxaparin Sodium (Enoxaparin Sodium 40 Mg/0.4 Ml Syringe) 40 mg SUBCUT Q24H [facility] Last Admin: 07/20/24 17:41 Dose: 40 mg Documented By: FRANCIS Glucose (Glucose Gel 15 Gm Gel..Gram.) 15 gm PO Q15M PRN; Protocol PRN Reason: per Hypoglycemia Standing Ord. Insulin Human Lispro (Insulin Lispro 100 Unit/Ml 3 Ml Vial) 0 unit SUBCUT QIDACHS [facility]; Protocol Last Admin: 07/21/24 07:40 Dose: Not Given Documented By: PACO Non-Admin Reason: No Insulin Coverage Losartan Potassium (Losartan Potassium 25 Mg Tablet) 25 mg PO DAILY [facility]; Protocol Last Admin: 07/21/24 07:56 Dose: 25 mg Documented By: PACO Magnesium Hydroxide (Milk Of Magnesia 30 Ml Oral.Susp) 30 ml PO DAILY PRN PRN Reason: Constipation Melatonin (Melatonin 3 Mg Tablet) 6 mg PO BEDTIME PRN PRN Reason: Insomnia Metoprolol Tartrate (Metoprolol Tartrate 50 Mg Tablet) 50 mg PO BID [facility]; Protocol Last Admin: 07/21/24 07:56 Dose: 50 mg Documented By: PACO Morphine Sulfate (Morphine Sulfate 4 Mg/Ml Cartridge) 4 mg IVPUSH Q4H PRN; Protocol PRN Reason: Pain, Severe (Pain Scale 7-10) Omeprazole (Omeprazole 40 Mg Capsule.Dr) 40 mg PO DAILY@0630 [facility] Last Admin: 07/21/24 07:59 Dose: Not Given Documented By: PACO Non-Admin Reason: takes in evening Ondansetron HCl (Ondansetron Hcl 4 Mg/2 Ml Vial) 4 mg IVPUSH Q8H PRN PRN Reason: Nausea and Vomiting Pregabalin (Pregabalin 100 Mg Capsule) 100 mg PO BID [facility] Last Admin: 07/21/24 07:56 Dose: 100 mg Documented By: PACO Sodium Chloride (0.9 % Sodium Chloride Flush 3 Ml Syringe) 3 ml IVFLUSH QSHIFT [facility] Last Admin: 07/21/24 07:56 Dose: 3 ml Documented By: PACO Labs 07/21/24 05:23 07/21/24 05:23 Labs: Laboratory Results - last 24 hr 07/20/24 07/20/24 07/20/24 13:09 16:05 17:29 MCV 86.4 MCH 29.3 MCHC 33.9 RDW 14.7 Plt Count 124 L D MPV 11.5 Immature Gran % (Auto) 0.0 Neut % (Auto) 44.8 L Lymph % (Auto) 28.8 [place] % (Auto) 26.1 H Eos % (Auto) 0.3 Baso % (Auto) 0.0 Lymph # (Auto) 1.0 L [place] # (Auto) 0.9 Eos # (Auto) 0.0 Baso # (Auto) 0.0 Abs Immat Gran (auto) 0.00 Absolute Neuts (auto) 1.5 L Absolute Nucleated RBC 0.000 Nucleated RBC % (auto) 0.0 Smear Tech's Comments VERIFIED Anion Gap 12 Estim Creat Clear Calc 68.9 Estimated GFR > 60 POC Glucose 58 L* Random Glucose 99 Lactic Acid 0.7 Calcium 8.7 D Magnesium 1.9 Total Bilirubin 0.4 Direct Bilirubin 0.2 AST 61 H ALT 42 H Alkaline Phosphatase 54 Total Protein 6.5 Albumin 4.0 Lipase 50 Urine Color Urine Appearance Urine pH Ur Specific [place] Urine Protein Urine Glucose (UA) Urine Ketones Urine Blood Urine Nitrite Ur Leukocyte Esterase Influenza Type A (PCR) NEGATIVE Influenza Type B (PCR) NEGATIVE RSV RNA Qual (PCR) NEGATIVE SARS-CoV-2 RNA (RT-PCR) NEGATIVE 07/20/24 07/20/24 07/20/24 18:23 18:45 20:56 MCV MCH MCHC RDW Plt Count MPV Immature Gran % (Auto) Neut % (Auto) Lymph % (Auto) [place] % (Auto) Eos % (Auto) Baso % (Auto) Lymph # (Auto) [place] # (Auto) Eos # (Auto) Baso # (Auto) Abs Immat Gran (auto) Absolute Neuts (auto) Absolute Nucleated RBC Nucleated RBC % (auto) Smear Tech's Comments Anion Gap Estim Creat Clear Calc Estimated GFR POC Glucose 152 H 78 Random Glucose Lactic Acid Calcium Magnesium Total Bilirubin Direct Bilirubin AST ALT Alkaline Phosphatase Total Protein Albumin Lipase Urine Color Yellow Urine Appearance Clear Urine pH 5.5 Ur Specific [place] >= 1.030 H Urine Protein Trace Urine Glucose (UA) 250 H Urine Ketones Negative Urine Blood Negative Urine Nitrite Negative Ur Leukocyte Esterase Negative Influenza Type A (PCR) Influenza Type B (PCR) RSV RNA Qual (PCR) SARS-CoV-2 RNA (RT-PCR) 07/21/24 07/21/24 07/21/24 02:02 02:34 05:23 MCV 85.4 MCH 29.4 MCHC 34.4 RDW 14.7 Plt Count 122 L MPV 10.8 Immature Gran % (Auto) Neut % (Auto) Lymph % (Auto) [place] % (Auto) Eos % (Auto) Baso % (Auto) Lymph # (Auto) [place] # (Auto) Eos # (Auto) Baso # (Auto) Abs Immat Gran (auto) Absolute Neuts (auto) Absolute Nucleated RBC 0.000 Nucleated RBC % (auto) 0.0 Smear Tech's Comments Anion Gap 11 L Estim Creat Clear Calc 78.3 Estimated GFR > 60 POC Glucose 70 89 Random Glucose 135 H Lactic Acid Calcium 8.3 L Magnesium Total Bilirubin 0.4 Direct Bilirubin AST 47 H ALT 34 Alkaline Phosphatase 49 Total Protein 5.6 L Albumin 3.4 L Lipase Urine Color Urine Appearance Urine pH Ur Specific [place] Urine Protein Urine Glucose (UA) Urine Ketones Urine Blood Urine Nitrite Ur Leukocyte Esterase Influenza Type A (PCR) Influenza Type B (PCR) RSV RNA Qual (PCR) SARS-CoV-2 RNA (RT-PCR) 07/21/24 07:18 MCV MCH MCHC RDW Plt Count MPV Immature Gran % (Auto) Neut % (Auto) Lymph % (Auto) [place] % (Auto) Eos % (Auto) Baso % (Auto) Lymph # (Auto) [place] # (Auto) Eos # (Auto) Baso # (Auto) Abs Immat Gran (auto) Absolute Neuts (auto) Absolute Nucleated RBC Nucleated RBC % (auto) Smear Tech's Comments Anion Gap Estim Creat Clear Calc Estimated GFR POC Glucose 94 Random Glucose Lactic Acid Calcium Magnesium Total Bilirubin Direct Bilirubin AST ALT Alkaline Phosphatase Total Protein Albumin Lipase Urine Color Urine Appearance Urine pH Ur Specific [place] Urine Protein Urine Glucose (UA) Urine Ketones Urine Blood Urine Nitrite Ur Leukocyte Esterase Influenza Type A (PCR) Influenza Type B (PCR) RSV RNA Qual (PCR) SARS-CoV-2 RNA (RT-PCR) Procedures Date of Service Date of Service: 07/21/24 Progress Note: A&P Assessment and plan (1) Abdominal pain: Status: Acute Assessment and Plan: Abdominal pain and diarrhea have resolved Overall clinical picture suggestive of some form of enteritis Diet as tolerated Exam very benign Patient looks well Okay to PA home once tolerating diet Time Spent With Patient Time: Total time managing care of this patient today ____ minutes. Quality Stroke Does the patient have a stroke diagnosis?: No VTE Prior VTE?: No VTE Risk Level:: Medical - moderate - high VTE Device Contraindication: Treatment Not Indicated VTE Drug Contraindication: N/A - Med Ordered
--- NOTE | 2024-07-21 09:07 | P.PNIM_ITS ---
Subjective Subjective Date of Service: 07/21/24 Interval History: abd pain improved, wants to try solids Physical Exam 2 Vital Signs: Vital Signs: Last Vital Signs Temp 97.6 F 07/21/24 08:00 Pulse 62 07/21/24 08:00 Resp 16 07/21/24 08:00 BP 137/68 07/21/24 08:00 Pulse Ox 99 07/21/24 08:00 O2 Del Method Room Air 07/21/24 08:00 BMI result Body Mass Index 25.4 General: AO X 3, no acute distress Resp: CTA bilateral, no accessory muscles used CVS: S1,S2,RRR GI: soft, non tender, non distended Neuro: motor grossly intact, alert Psych: appropriate affect, appropriate insight Objective Data Active Medications Acetaminophen (Acetaminophen 325 Mg Tablet) 650 mg PO Q6H PRN PRN Reason: Pain, Mild 1-3,fever,headache Aspirin (Aspirin Enteric Coated 81 Mg Tablet.) 81 mg PO DAILY COUNTS INCLUDE 234 BEDS AT THE [facility] Last Admin: 07/21/24 07:56 Dose: 81 mg Documented By: PACO Atorvastatin Calcium (Atorvastatin Calcium 80 Mg Tablet) 80 mg PO DAILY COUNTS INCLUDE 234 BEDS AT THE [facility] Last Admin: 07/21/24 07:59 Dose: Not Given Documented By: PACO Non-Admin Reason: takes at night Calcium Carbonate (Calcium Carbonate 750 Mg Tab.Chew) 750 mg PO Q4H PRN PRN Reason: Heartburn Dextrose (Dextrose 50 % 25 Gm/50 Ml Syringe) 25 gm IVPUSH Q15M PRN; Protocol PRN Reason: per Hypoglycemia Standing Ord. Last Admin: 07/20/24 17:41 Dose: 25 gm Documented By: FRANCIS Enoxaparin Sodium (Enoxaparin Sodium 40 Mg/0.4 Ml Syringe) 40 mg SUBCUT Q24H COUNTS INCLUDE 234 BEDS AT THE [facility] Last Admin: 07/20/24 17:41 Dose: 40 mg Documented By: FRANCIS Glucose (Glucose Gel 15 Gm Gel..Gram.) 15 gm PO Q15M PRN; Protocol PRN Reason: per Hypoglycemia Standing Ord. Insulin Human Lispro (Insulin Lispro 100 Unit/Ml 3 Ml Vial) 0 unit SUBCUT QIDACHS COUNTS INCLUDE 234 BEDS AT THE [facility]; Protocol Last Admin: 07/21/24 07:40 Dose: Not Given Documented By: PACO Non-Admin Reason: No Insulin Coverage Losartan Potassium (Losartan Potassium 25 Mg Tablet) 25 mg PO DAILY COUNTS INCLUDE 234 BEDS AT THE [facility]; Protocol Last Admin: 07/21/24 07:56 Dose: 25 mg Documented By: PACO Magnesium Hydroxide (Milk Of Magnesia 30 Ml Oral.Susp) 30 ml PO DAILY PRN PRN Reason: Constipation Melatonin (Melatonin 3 Mg Tablet) 6 mg PO BEDTIME PRN PRN Reason: Insomnia Metoprolol Tartrate (Metoprolol Tartrate 50 Mg Tablet) 50 mg PO BID COUNTS INCLUDE 234 BEDS AT THE [facility]; Protocol Last Admin: 07/21/24 07:56 Dose: 50 mg Documented By: PACO Morphine Sulfate (Morphine Sulfate 4 Mg/Ml Cartridge) 4 mg IVPUSH Q4H PRN; Protocol PRN Reason: Pain, Severe (Pain Scale 7-10) Omeprazole (Omeprazole 40 Mg Capsule.Dr) 40 mg PO DAILY@0630 COUNTS INCLUDE 234 BEDS AT THE [facility] Last Admin: 07/21/24 07:59 Dose: Not Given Documented By: PACO Non-Admin Reason: takes in evening Ondansetron HCl (Ondansetron Hcl 4 Mg/2 Ml Vial) 4 mg IVPUSH Q8H PRN PRN Reason: Nausea and Vomiting Pregabalin (Pregabalin 100 Mg Capsule) 100 mg PO BID COUNTS INCLUDE 234 BEDS AT THE [facility] Last Admin: 07/21/24 07:56 Dose: 100 mg Documented By: PACO Sodium Chloride (0.9 % Sodium Chloride Flush 3 Ml Syringe) 3 ml IVFLUSH QSHIFT COUNTS INCLUDE 234 BEDS AT THE [facility] Last Admin: 07/21/24 07:56 Dose: 3 ml Documented By: PACO Labs 07/21/24 05:23 07/21/24 05:23 Labs: Laboratory Results - last 24 hr 07/20/24 07/20/24 07/20/24 13:09 16:05 17:29 MCV 86.4 MCH 29.3 MCHC 33.9 RDW 14.7 Plt Count 124 L D MPV 11.5 Immature Gran % (Auto) 0.0 Neut % (Auto) 44.8 L Lymph % (Auto) 28.8 [place] % (Auto) 26.1 H Eos % (Auto) 0.3 Baso % (Auto) 0.0 Lymph # (Auto) 1.0 L [place] # (Auto) 0.9 Eos # (Auto) 0.0 Baso # (Auto) 0.0 Abs Immat Gran (auto) 0.00 Absolute Neuts (auto) 1.5 L Absolute Nucleated RBC 0.000 Nucleated RBC % (auto) 0.0 Smear Tech's Comments VERIFIED Anion Gap 12 Estim Creat Clear Calc 68.9 Estimated GFR > 60 POC Glucose 58 L* Random Glucose 99 Lactic Acid 0.7 Calcium 8.7 D Magnesium 1.9 Total Bilirubin 0.4 Direct Bilirubin 0.2 AST 61 H ALT 42 H Alkaline Phosphatase 54 Total Protein 6.5 Albumin 4.0 Lipase 50 Urine Color Urine Appearance Urine pH Ur Specific [place] Urine Protein Urine Glucose (UA) Urine Ketones Urine Blood Urine Nitrite Ur Leukocyte Esterase Influenza Type A (PCR) NEGATIVE Influenza Type B (PCR) NEGATIVE RSV RNA Qual (PCR) NEGATIVE SARS-CoV-2 RNA (RT-PCR) NEGATIVE 07/20/24 07/20/24 07/20/24 18:23 18:45 20:56 MCV MCH MCHC RDW Plt Count MPV Immature Gran % (Auto) Neut % (Auto) Lymph % (Auto) [place] % (Auto) Eos % (Auto) Baso % (Auto) Lymph # (Auto) [place] # (Auto) Eos # (Auto) Baso # (Auto) Abs Immat Gran (auto) Absolute Neuts (auto) Absolute Nucleated RBC Nucleated RBC % (auto) Smear Tech's Comments Anion Gap Estim Creat Clear Calc Estimated GFR POC Glucose 152 H 78 Random Glucose Lactic Acid Calcium Magnesium Total Bilirubin Direct Bilirubin AST ALT Alkaline Phosphatase Total Protein Albumin Lipase Urine Color Yellow Urine Appearance Clear Urine pH 5.5 Ur Specific [place] >= 1.030 H Urine Protein Trace Urine Glucose (UA) 250 H Urine Ketones Negative Urine Blood Negative Urine Nitrite Negative Ur Leukocyte Esterase Negative Influenza Type A (PCR) Influenza Type B (PCR) RSV RNA Qual (PCR) SARS-CoV-2 RNA (RT-PCR) 07/21/24 07/21/24 07/21/24 02:02 02:34 05:23 MCV 85.4 MCH 29.4 MCHC 34.4 RDW 14.7 Plt Count 122 L MPV 10.8 Immature Gran % (Auto) Neut % (Auto) Lymph % (Auto) [place] % (Auto) Eos % (Auto) Baso % (Auto) Lymph # (Auto) [place] # (Auto) Eos # (Auto) Baso # (Auto) Abs Immat Gran (auto) Absolute Neuts (auto) Absolute Nucleated RBC 0.000 Nucleated RBC % (auto) 0.0 Smear Tech's Comments Anion Gap 11 L Estim Creat Clear Calc 78.3 Estimated GFR > 60 POC Glucose 70 89 Random Glucose 135 H Lactic Acid Calcium 8.3 L Magnesium Total Bilirubin 0.4 Direct Bilirubin AST 47 H ALT 34 Alkaline Phosphatase 49 Total Protein 5.6 L Albumin 3.4 L Lipase Urine Color Urine Appearance Urine pH Ur Specific [place] Urine Protein Urine Glucose (UA) Urine Ketones Urine Blood Urine Nitrite Ur Leukocyte Esterase Influenza Type A (PCR) Influenza Type B (PCR) RSV RNA Qual (PCR) SARS-CoV-2 RNA (RT-PCR) 07/21/24 07:18 MCV MCH MCHC RDW Plt Count MPV Immature Gran % (Auto) Neut % (Auto) Lymph % (Auto) [place] % (Auto) Eos % (Auto) Baso % (Auto) Lymph # (Auto) [place] # (Auto) Eos # (Auto) Baso # (Auto) Abs Immat Gran (auto) Absolute Neuts (auto) Absolute Nucleated RBC Nucleated RBC % (auto) Smear Tech's Comments Anion Gap Estim Creat Clear Calc Estimated GFR POC Glucose 94 Random Glucose Lactic Acid Calcium Magnesium Total Bilirubin Direct Bilirubin AST ALT Alkaline Phosphatase Total Protein Albumin Lipase Urine Color Urine Appearance Urine pH Ur Specific [place] Urine Protein Urine Glucose (UA) Urine Ketones Urine Blood Urine Nitrite Ur Leukocyte Esterase Influenza Type A (PCR) Influenza Type B (PCR) RSV RNA Qual (PCR) SARS-CoV-2 RNA (RT-PCR) Assessment and Plan (1) Enteritis: Status: Acute Plan 73M PMH CAD s/p CABG, htn, dm, peripheral neuropathy presented with abdominal pain and diarrhea gastroenteritis improving, wants to try solids follow up stool studies if diarrhea recurs cad asa, statin dm insulin htn losartan, metoprolol dvt prophylaxis - lovenox full code reason for continued hospitalization:awatiing po tolerance Quality Stroke Does the patient have a stroke diagnosis?: No VTE Prior VTE?: No VTE Risk Level:: Medical - moderate - high VTE Device Contraindication: Treatment Not Indicated VTE Drug Contraindication: N/A - Med Ordered
--- NOTE | 2024-07-21 11:42 | MHC.CM.PN ---
PT LIVES WITH AND DGTER HAS OWN RIDFE HO E IS INDEPENDENT DC PLAN HOME NO SERVICES
[2024-07-21 11:54] VITALS: BP 153/68; PULSE 64; RESP 16; TEMP 36; O2SAT 99
[2024-07-21 11:56] LABS: Glucose, Whole Blood 175 mg/dL (60-115)
[2024-07-21] MEDS: Insulin Lispro 100 UNIT/ML 3 ML VIAL SUBCUT (12:22)
--- NOTE | 2024-07-21 13:17 | PM.DS ---
DS: Providers Provider Date of Service: 07/21/24 Date of admission: 07/20/24 17:14 Date of discharge: 07/21/24 Primary care physician: Antwan Ramirez MD DS: Diagnosis Discharge Diagnosis (1) Enteritis: Status: Acute DS: Summary Hospital Course Hospital Course: from initial hpi: 73-year-old male with a PMH significant for?CAD s/p CABG (2017), HTN, [id number] type 2 diabetes, peripheral neuropathy, and GERD who presents to the ED with?abdominal pain and profuse non-bloody diarrhea x3 days. Pt reports symptoms stated Wednesday with diffuse abd pain, subjective fever and chills, and intractable diarrhea. States was going every 5 to 10 minutes up until last night. Diarrhea subsided by this morning and pt decided to drink a cup of coffee, which worsened his abd pain and prompted his visit to the ED. No N/V. Is passing flatus. Has had reduced p.o. intake and lost 9 pounds since symptom onset. No chest pain/pressure, or palpitations. Denies SOB, difficulty breathing, or cough. In the ED pt was hypertensive up to 160/77, vitals otherwise stable and WNL. Labs were significant for leukopenia 3.3, platelets 124, AST 61, and ALT 42. No significant electrolyte abnormalities. Renal function WNL. Tested negative for flu, COVID, RSV. CXR showed no active pulmonary disease. CT?of abdomen/pelvis concerning for partial/intermittent mid to distal small-bowel obstruction. Also showed gallbladder wall edema. RUQ abdominal ultrasound negative for acute findings. No evidence of cholecystitis. ED clinician reached out to general surgery who reviewed imaging and thought pt was experiencing gastroenteritis rather than SBO or cholecystitis. EKG demonstrated normal sinus rhythm without evidence of ST elevations or depressions. Pt was treated in the ED with morphine and IVF. Pt is admitted to the hospital for treatment and further evaluation of intractable abd pain and diarrhea in the setting of likely enteritis. hospital course: Patient was admitted for gastroenteritis. He was treated symptomatically and symptoms resolved. Was advanced to solid diet and tolerated well. For coronary artery disease was continued on aspirin statin. For diabetes continued on insulin. For hypertension continued on losartan metoprolol. Patient is feeling better will be discharged home. Time Attestation Discharge Coordination Time (in mins): 35 Quality: Safe Use of Opioids Does Pt have an Active Cancer Diagnosis on the Problem List?: No Quality: Stroke Does the patient have a stroke diagnosis?: No Physical Exam Vital Signs: Vital Signs: Last Vital Signs Temp 96.8 F 07/21/24 11:54 Pulse 64 07/21/24 11:54 Resp 16 07/21/24 11:54 BP 153/68 H 07/21/24 11:54 Pulse Ox 99 07/21/24 11:54 O2 Del Method Room Air 07/21/24 11:54 BMI result Body Mass Index 25.4 General: AO X 3, no acute distress Resp: CTA bilateral, no accessory muscles used CVS: S1,S2,RRR GI: soft, non tender, non distended Neuro: motor grossly intact, alert Psych: appropriate affect, appropriate insight DS: Data Data Completed and Pending Labs on day of discharge: Laboratory Results - last 24 hr 07/20/24 07/20/24 07/20/24 13:09 16:05 17:29 WBC 3.3 L RBC 4.47 L Hgb 13.1 L Hct 38.6 L MCV 86.4 MCH 29.3 MCHC 33.9 RDW 14.7 Plt Count 124 L D MPV 11.5 Immature Gran % (Auto) 0.0 Neut % (Auto) 44.8 L Lymph % (Auto) 28.8 [place] % (Auto) 26.1 H Eos % (Auto) 0.3 Baso % (Auto) 0.0 Lymph # (Auto) 1.0 L [place] # (Auto) 0.9 Eos # (Auto) 0.0 Baso # (Auto) 0.0 Abs Immat Gran (auto) 0.00 Absolute Neuts (auto) 1.5 L Absolute Nucleated RBC 0.000 Nucleated RBC % (auto) 0.0 Smear Tech's Comments VERIFIED Sodium 137 Potassium 4.0 Chloride 107 Carbon Dioxide 22 Anion Gap 12 BUN 28 H Creatinine 1.00 Estim Creat Clear Calc 68.9 Estimated GFR > 60 POC Glucose 58 L* Random Glucose 99 Lactic Acid 0.7 Calcium 8.7 D Magnesium 1.9 Total Bilirubin 0.4 Direct Bilirubin 0.2 AST 61 H ALT 42 H Alkaline Phosphatase 54 Total Protein 6.5 Albumin 4.0 Lipase 50 Urine Color Urine Appearance Urine pH Ur Specific [place] Urine Protein Urine Glucose (UA) Urine Ketones Urine Blood Urine Nitrite Ur Leukocyte Esterase Influenza Type A (PCR) NEGATIVE Influenza Type B (PCR) NEGATIVE RSV RNA Qual (PCR) NEGATIVE SARS-CoV-2 RNA (RT-PCR) NEGATIVE 07/20/24 07/20/24 07/20/24 18:23 18:45 20:56 WBC RBC Hgb Hct MCV MCH MCHC RDW Plt Count MPV Immature Gran % (Auto) Neut % (Auto) Lymph % (Auto) [place] % (Auto) Eos % (Auto) Baso % (Auto) Lymph # (Auto) [place] # (Auto) Eos # (Auto) Baso # (Auto) Abs Immat Gran (auto) Absolute Neuts (auto) Absolute Nucleated RBC Nucleated RBC % (auto) Smear Tech's Comments Sodium Potassium Chloride Carbon Dioxide Anion Gap BUN Creatinine Estim Creat Clear Calc Estimated GFR POC Glucose 152 H 78 Random Glucose Lactic Acid Calcium Magnesium Total Bilirubin Direct Bilirubin AST ALT Alkaline Phosphatase Total Protein Albumin Lipase Urine Color Yellow Urine Appearance Clear Urine pH 5.5 Ur Specific [place] >= 1.030 H Urine Protein Trace Urine Glucose (UA) 250 H Urine Ketones Negative Urine Blood Negative Urine Nitrite Negative Ur Leukocyte Esterase Negative Influenza Type A (PCR) Influenza Type B (PCR) RSV RNA Qual (PCR) SARS-CoV-2 RNA (RT-PCR) 07/21/24 07/21/24 07/21/24 02:02 02:34 05:23 WBC 3.2 L RBC 4.19 L Hgb 12.3 L Hct 35.8 L MCV 85.4 MCH 29.4 MCHC 34.4 RDW 14.7 Plt Count 122 L MPV 10.8 Immature Gran % (Auto) Neut % (Auto) Lymph % (Auto) [place] % (Auto) Eos % (Auto) Baso % (Auto) Lymph # (Auto) [place] # (Auto) Eos # (Auto) Baso # (Auto) Abs Immat Gran (auto) Absolute Neuts (auto) Absolute Nucleated RBC 0.000 Nucleated RBC % (auto) 0.0 Smear Tech's Comments Sodium 139 Potassium 4.1 Chloride 108 Carbon Dioxide 24 Anion Gap 11 L BUN 17 H Creatinine 0.88 Estim Creat Clear Calc 78.3 Estimated GFR > 60 POC Glucose 70 89 Random Glucose 135 H Lactic Acid Calcium 8.3 L Magnesium Total Bilirubin 0.4 Direct Bilirubin AST 47 H ALT 34 Alkaline Phosphatase 49 Total Protein 5.6 L Albumin 3.4 L Lipase Urine Color Urine Appearance Urine pH Ur Specific [place] Urine Protein Urine Glucose (UA) Urine Ketones Urine Blood Urine Nitrite Ur Leukocyte Esterase Influenza Type A (PCR) Influenza Type B (PCR) RSV RNA Qual (PCR) SARS-CoV-2 RNA (RT-PCR) 07/21/24 07/21/24 07:18 11:53 WBC RBC Hgb Hct MCV MCH MCHC RDW Plt Count MPV Immature Gran % (Auto) Neut % (Auto) Lymph % (Auto) [place] % (Auto) Eos % (Auto) Baso % (Auto) Lymph # (Auto) [place] # (Auto) Eos # (Auto) Baso # (Auto) Abs Immat Gran (auto) Absolute Neuts (auto) Absolute Nucleated RBC Nucleated RBC % (auto) Smear Tech's Comments Sodium Potassium Chloride Carbon Dioxide Anion Gap BUN Creatinine Estim Creat Clear Calc Estimated GFR POC Glucose 94 175 H Random Glucose Lactic Acid Calcium Magnesium Total Bilirubin Direct Bilirubin AST ALT Alkaline Phosphatase Total Protein Albumin Lipase Urine Color Urine Appearance Urine pH Ur Specific [place] Urine Protein Urine Glucose (UA) Urine Ketones Urine Blood Urine Nitrite Ur Leukocyte Esterase Influenza Type A (PCR) Influenza Type B (PCR) RSV RNA Qual (PCR) SARS-CoV-2 RNA (RT-PCR) Discharge Plan Discharge Anticipated Discharge Date/Time: 07/21/24 13:15 Patient Disposition: Home, Self-Care Discharge Diagnosis: enteritis Referrals: Antwan Ramirez MD [Primary Care Provider] - 1 Week Discharge Medications: Continued atorvastatin 80 mg tablet 80 mg PO DAILY Qty: 90 1RF (DME) walker Misc See Rx Instructions .MEDSUPPLY Qty: 1 0RF Rx Instructions: Folding Front wheeled walker pregabalin 100 mg capsule 100 mg PO BID 30 Days Qty: 60 0RF (DME) pen needle, diabetic 31 gauge x 3/16 needle See Rx Instructions subcut .MEDSUPPLY Qty: 50 11RF Rx Instructions: As directed metoprolol tartrate 50 mg tablet 50 mg PO BID 90 Days Qty: 180 1RF diclofenac sodium 1 % gel 4 g topical BID PRN (Reason: Pain) Mounjaro 7.5 mg/0.5 mL pen injector 7.5 mg subcut FR metformin 500 mg tablet extended release 24 hr 500 mg PO BID insulin glargine [Basaglar KwikPen U-100 Insulin] 100 unit/mL (3 mL) insulin pen 40 unit subcut DAILY omeprazole 40 mg capsule,delayed release(DR/EC) 40 mg PO DAILY@0630 aspirin [Adult Low Dose Aspirin] 81 mg tablet,delayed release (DR/EC) 81 mg PO DAILY (DME) pen needle, diabetic 31 gauge x 5/16 needle See Rx Instructions subcut .MEDSUPPLY Qty: 1200 Rx Instructions: As directed losartan 25 mg tablet 25 mg PO DAILY Discharge Orders: Discharge Order (Routine); Ordered 07/21/24 Ordered By: Merlin Mason Diet: Advance to usual diet Activity on Discharge: As tolerated Stand Alone Forms: Patient Portal Discharge page Print Language: Khmer Care Plan Goals: recovery Health Concerns: enteritis Plan of Treatment: resolved Assessment: see above
--- NOTE | 2024-07-21 13:28 | MHC.CM.PN ---
pt dcd home self care
== END 2024-07-21 13:46 | disposition home or self-care (01) | DRG 392 ==
LOC: HO.ED 16:42 → HO.EDOVER 17:23 → HO.S3 19:14
PROVIDERS: Physician Assistant; Admitting Provider Student in an Organized Health Care Education/Training Program; Emergency Provider Student in an Organized Health Care Education/Training Program; PCP Internal Medicine; Visit Provider Internal Medicine
DX: K52.9 Noninfective gastroenteritis and colitis, unspecified (principal); I25.10 Atherosclerotic heart disease of native coronary artery without angina pectoris; E78.5 Hyperlipidemia, unspecified; I10 Essential (primary) hypertension; E11.42 Type 2 diabetes mellitus with diabetic polyneuropathy; K21.9 Gastro-esophageal reflux disease without esophagitis; Z20.822 Contact with and (suspected) exposure to COVID-19; Z95.1 Presence of aortocoronary bypass graft; Z79.4 Long term (current) use of insulin; Z79.82 Long term (current) use of aspirin; Z79.84 Long term (current) use of oral hypoglycemic drugs; Z79.899 Other long term (current) drug therapy
CPT/HCPCS: 0241U; 36415; 71046; 74177; 76705; 80048; 80053; 80076; 81003; 82947; 83605; 83690; 83735; 85025; 85027; 93005; 99285; J1650; J2270; J7120; Q9967

== ENCOUNTER → 2024-07-20 11:34 | Outpatient (BNV) | payer MEDICARE, MEDICAID, SELFPAY | PROVIDERS: PCP Internal Medicine; Visit Provider Radiology Diagnostic Radiology | DX: R10.9 Unspecified abdominal pain (principal); R05.9 Cough, unspecified; R10.11 Right upper quadrant pain | CPT/HCPCS: 71046 ==

== ENCOUNTER → 2024-07-20 14:21 | Outpatient (BNV) | payer MEDICARE, MEDICAID, SELFPAY | PROVIDERS: Emergency Provider Student in an Organized Health Care Education/Training Program; PCP Internal Medicine; Visit Provider Internal Medicine | DX: R10.9 Unspecified abdominal pain (principal) | CPT/HCPCS: 93010 ==

== ENCOUNTER → 2024-07-20 17:14 | Outpatient (BNV) | payer MEDICARE, MEDICAID, SELFPAY | PROVIDERS: Admitting Provider Student in an Organized Health Care Education/Training Program; Emergency Provider Student in an Organized Health Care Education/Training Program; PCP Internal Medicine; Visit Provider Student in an Organized Health Care Education/Training Program | DX: R10.84 Generalized abdominal pain (principal); K52.9 Noninfective gastroenteritis and colitis, unspecified | CPT/HCPCS: 99223; 99239 ==

== ENCOUNTER → 2024-07-20 17:14 | Outpatient (BNV) | payer MEDICARE, MEDICAID, SELFPAY | PROVIDERS: Admitting Provider Student in an Organized Health Care Education/Training Program; Emergency Provider Student in an Organized Health Care Education/Training Program; PCP Internal Medicine; Visit Provider Surgery | DX: R10.84 Generalized abdominal pain (principal) | CPT/HCPCS: 99231 ==

== ENCOUNTER 2024-08-09 13:30 | Outpatient (AMB) | payer MEDICARE, MEDICAID, SELFPAY ==
--- OUTSIDE RECORDS SUMMARY | 2024-08-09 13:37 | XMS_ITS | Data Portability ---
Author Organization [facility] [place] [facility] Address [address] [place] [address] Care Team Providers Care Garment Supervisor Name Role Phone HUI SANCHEZ Primary Care Provider HUI SANCHEZ Referring Provider [phone] BRIGITTE TAVERA Primary Care Provider [phone] BRIGITTE TAVERA Referring Provider [phone] Assessment Encounter Date Assessment Date Assessment LastModified [...] DO Not Attach Compendium, Do Not Delete/merge, 92318 9 10:54:32 XR, knee, 3 view 2016 017 gwoodsum In-Office Order, Internal Use Only DO Not Attach Compendium DO Not Attach Compendium, Do Not Delete/merge, 78093 7 11:14:50 XR, pelvis, 1 or 2 view 2016 017 gwoodsum In-Office Order, Internal Use Only DO Not Attach Compendium DO Not Attach Compendium, Do Not Delete/merge, 50433 7 11:14:50 Medication Orders methylpredn isolone acetate 40 mg/mL suspension for injection 2018 019 [email or web address] Not available 9 11:38:48 Depo-Medrol 40 mg/mL suspension for injection 2016 017 [email or web address] [facility], [address] [place], [id number], 7 12:11:27 Depo-Medrol 40 mg/mL suspension for injection 2015 016 [facility], [address], [place], [place], [id number], 6 04:26:21 Monovisc 88 mg/4 mL intra-artic ular syringe 2015 016 [email or web address] Not available 6 14:37:31 Patient TargetsNo targets recorded. Patient Instructions Encounter Date Encounter Id Patient Instructions Last Modified By Organization Details Last Modified Time 07/25/2015 [id number] reviewed exam findings and discussed treatment options [...] visit. [email or web address] Not available 07/25/2015 14:37:08 09/05/2015 [id number] reviewed exam findings and discussed management moving [...] today's visit. Not available 09/05/2015 14:26:19 01/23/2016 [id number] reviewed exam findings and again reviewed treatment [...] today's visit. Not available 01/23/2016 14:55:54 04/16/2016 [id number] reviewed exam an d x-ray findings. We [...] today's visit. Not available 04/16/2016 12:43:48 05/17/2018 [id number] knee arthritis: care instructions Not available 05/17/2018 [...] Name and Address Organization Details Recorded Time Pain of hip region [id number] Adri Kearney MD [address] [place] [address], [address], [facility] 6 14:25:10 Greater trochanteric pain syndrome [id number] Adri Kearney MD [address] [place] [address], [address], [facility] 6 14:25:10 Low back pain [id number] Adri Kearney MD [address] [place] [address], [address], [facility] 6 14:25:10 Arthritis of knee [id number] Adri Kearney MD [address] [place] [address], [address], [facility] 6 14:26:19 Problem Notes None recorded. Procedures Surgical History Date Name Laterality Status Provider Name and Address Organization Details Recorded Time 9 Knee CS Injection - Right completed Cristobal Hernandez [address] [place] [address], [address], [facility] 05/17/2018 09:35:19 7 Knee CS Injection - Right completed Isma Kearney MD [address] [place], [address], [facility] 04/16/2016 12:42:17 6 Knee CS Injection - Right completed Isma Kearney MD [address] [place], [address], [facility] 01/23/2016 14:55:23 6 Visco Injection - Right completed Isma Kearney MD [address] [place] [address], [address], [facility] 07/25/2015 14:16:52 6 Knee CS Injection - Right completed Cristobal Hernandez [address] [place] [address], [address], [facility] 07/11/2015 14:50:46 4 Troch Bursitis Injection LEFT - ONE completed Cristobal Hernandez [address] [place] [address], [phone], [facility] 03/13/2014 10:32:37 4 Orthopedic Surgery completed Linda [facility] 03/13/2014 09:37:28 Imaging Results None [...] Available Not Available No t Available FreeStyle Yancey Lite kit U UTD active Not Available [...] Updated DateTime 05/17/2018 180.34 cm 29 kg/m2 41241.21 g [facility] 05/17/2018 09:01:30 Date Recorded Body mass index (BMI) Body height Body weight Provider Name and Address Organization Details Last Updated DateTime 07/25/2015 29 kg/m2 180.34 cm 39615.36805 g Tyler [facility] 07/25/2015 14:00:17 Date Recorded Pain severity - 0-10 verbal numeric rating [Score] - Reported Provider Name and Address Organization Details Last Updated DateTime 07/25/2015 8 Not Available [facility] 8 05:50:39 Date Recorded Pain severity - 0-10 verbal numeric rating [Score] - Reported Provider Name and Address Organization Details Last Updated DateTime 09/05/2015 3 Not Available [facility] 8 05:50:47 Date Recorded Body weight Body mass index (BMI) Body height Provider Name and Address Organization Details Last Updated DateTime 09/05/2015 70764.93310 g 29 kg/m2 180.34 cm Shyla [facility] 09/05/2015 14:04:21 Date Recorded Body height Body weight Body mass index (BMI) Provider Name and Address Organization Details Last Updated DateTime 01/23/2016 180.34 cm 38284.21 g 29 kg/m2 Lyric [facility] 01/23/2016 14:15:05 Date Recorded Pain severity - 0-10 verbal numeric rating [Score] - Reported Provider Name and Address Organization Details Last Updated DateTime 01/23/2016 6 Not Available [facility] 8 05:51:13 Social History Question Answer Notes LastModified by Organizat ion Details LastModified Time Tobacco Smoking Status Never Smoker Linda whitlock [place] - [facility] 03/13/2014 09:36:37 Auto Related Injury? No Information not available 01/23/2016 What Was The Date Of Your Most Recent Tobacco Screening? 05/17/2018 Information n ot available 10/21/2018 How Much Tobacco Do You Smoke? No Information not available 01/23/2016 Work Related Injury? No Information not available 01/23/2016 Sex: Unknown Functional Status Question Answer Note LastModified by Organization D etails LastModified Time What is your level of alcohol consumption? 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 Family History Relationship Description Onset Age of this Age Resolved Age Notes LastModified by Organization Details LastModified Time Mother Diabetes mellitus [email or web address] Not available 2015 14:25:34 Mother Hypertensive disorder [email or web address] Not available 2015 14:25:34 Medical History Condition Response Coronary Artery Disease N Hereditary Defects N Gout N Tremors/Seizures/Dizziness/Epilepsy N Excessive Thirst/Fatigue N Lung Disease N Blood Clots N Fever, Chills, Headaches N Pacemaker N Heart Disease/Problems N Breathing Problems N Heart Attack ([place]) N Sexually Transmitted Diseases N Bleeding Disorder/Tendencies or Anemia N Stomach Ulcers N Diabetes Y Skin Problems/Rash/Boils N Depression/Psychiatric Problems N Arthritis Y Tuberculosis N Cancer N Eye Problems Y Stroke N Leg or Foot Ulcers N HIV/AIDS N Chest Pain/Heart Attack/Arrhythmia N Stomach Problems/Reflux/GERD N Urinary Pain/Frequency/Retention N Hepatitis N Rheumatoid Arthritis N Hypertension/High Blood Pressure Y Osteoporosis N Kidney Disease N Past Encounters Encounter ID Performer Location Encounter Start Date Encounter Closed Date Diagnosis/Indication Diagnosis SNOMED-CT Code Diagnosis ICD10 Code Diagnosis Note [id number] Isma Kearney MD OFFICE-N. [facility] [place] [phone] 7 03/13/2014 09:00:31 03/13/2014 10:23:54 Pain of hip region [id number] Greater tr ochanteric pain syndrome [id number] Cristobal Hernandez OFFICE-N. [facility] a [address] [address] 04/26/2014 10:27:27 04/26/2014 11:03:09 Greater trochanteric pain syndrome 2891526 Pain of hip region 69682011 Low back pain [id number] Cristobal Hernandez OFFICE-N. [facility] a [address] [address] 07/11/2015 13:30:13 07/11/2015 14:13:28 Arthritis of knee 281273872 M17.11 [id number] Isma Kearney MD OFFICE-N. [facility] a [address] [address] 07/25/2015 13:52:53 07/25/2015 14:38:30 Arthritis of knee 028293237 M17.11 [id number] Isma Kearney MD OFFICE-N. [facility] a [address] [address] 09/05/2015 13:56:05 09/05/2015 14:33:41 Arthritis of knee 975666085 M17.11 [id number] Isma Kearney MD OFFICE-N. [facility] a [address] [address] 01/23/2016 14:00:01 01/23/2016 14:59:28 Arthritis of knee 234385945 M17.11 [id number] Isma Kearney MD OFFICE-N. [facility] a [address] [address] 04/16/2016 10:06:25 04/16/2016 11:14:50 Pain in limb 44956611 M79.609 Pain of hip region 01368 002 M25.559 Knee pain 98451159 M25.5 61 Arthritis of knee 133227 002 M17.11 [id number] Cristobal Hernandez [facility] [address] [place] [address] 05/17/2018 08:23:37 05/17/2018 10:54:32 Pain in limb 22625892 M79.609 Osteoarthr itis of knee 024405959 M17.11 Health Concerns Section Related Observation LastModified by Organization Detai ls LastModified Time None Recorded Concern Status LastModified by Organization Details LastModified Time None Recorded Advance Directives Directive None Recorded Payers Insurance Date Sequence Insurance Name Policy Number Policy Rosas Covered Member ID Rosas Member ID Guarantor Name 05/17/2018 2 [place] [facility] Omar Pitts [id number] Omar Carlosgo 05/17/2018 1 [place] B[place]: [employer] Omar Pitts [id number] Omar Ramosiago 05/17/2018 [place] - SPECIALITY CLAIMS (MEDICARE DME REGION A) Omar Ramosiago [id number] Omar Carlosgo Notes Date Note Type Note Provider Name [...] arthritis. No other treatment thus far.? Shyla whitlock [place] - [facility] 07/25/2015 14:37:44 09/05/2015 text/html HPI Omar returns today for follow-up of his right knee. He had a monovisc injection 6 weeks ago. He found this quite helpful. He also has been in physical therapy which has been helping. Pain has improved significantly. Functionally doing reasonably well at this point.? Isma Kearney MD [address] [place] [address], [address], [facility] 09/05/2015 14:26:39 01/23/2016 text/html Omar returns today once again for his right knee. He has known moderate right knee arthritis. I last saw him for this about 5 months ago. He's done well previously with injections. He had some type of tendon surgery in [place] it looks like perhaps the right hamstring and reports that he was in a brace for 6 weeks. He is in therapy for this but has had continued and increased right knee pain since the surgery. No new injury or significant change otherwise. Pain is fairly diffuse around the right knee. Isma Kearney MD [address] [place] [address], [address], [facility] 01/23/2016 14:56:20 04/16/2016 text/html Omar returns [...] around the right knee. Isma Kearney MD [address] [place] [address], [address], [facility] 04/16/2016 12:43:51 05/17/2018 text/html Omar returns [...] injection today. No updated x-rays. Cristobal Hernandez [address] [place], [address], [facility] 05/17/2018 09:36:48
--- OUTSIDE RECORDS SUMMARY | 2024-08-09 13:37 | XMS_ITS | Clinical Summary ---
Author Organization [address] [place] [address] [place] [address] Phone Care Team Providers Care Tow Motor Driver Name Role Phone Antwan Ramirez MD Primary Care Provider [phone] Allergies Active Allergy Reactions Criticality Noted Date [...] Overview (01/03/2024): Required CABG per Dr. Sydni eH note Diabetes mellitus type 2, co ntrolled, with complications ([facility] V24, [facility] V28) 07/27/2022 Esophageal reflux 07/27/2022 Essential hypertension 07/27/2022 Hyperlipidemia 07/27/2022 PAD (peripheral artery disease) ([facility] V24) Varicose veins of leg with swelling, bilateral 0 07/27/2022 Dupuytren contracture 10/03/2020 Encounters Date Type Department Care Team Description 07/03/2024 1:45 PM EDT Office Visit Orthopedic Surgery - [address] [address] Arvin Aguilar, DPM Hallux rigidus of right foot (Primary Dx); Acquired hammer toe of right foot; Hallux rigidus of left foot; Hammer toe of left foot; Diabetic mononeuropathy simplex ([facility] V24, [facility] V28); Dermatophytosis of nail from Last 3 Months Surgical History Surgery Date Site/Laterality Comments LEG SURGERY Right PROCEDURE: HISTORICAL LEG SURGERY BACK SURGERY PROCEDURE: HISTORICAL BACK SURGERY HERNIA REPAIR 10/03/2019 Right PROCEDURE: LAPAROSCOPY, INGUINAL HERNIA REPAIR; [facility] Right PROCEDURE: HISTORICAL HAND SURGERY; COMMENT: fasciectomy of right palm and small finger for dupytrens contracture with Dr. Troy Medical History Medical History Date Comments Diabetes mellitus type 2, co ntrolled, with complications ([facility] V24, [facility] V28) DX:Diabetes mellitus type 2, controlled, with complications ([facility]) Hyperlipidemia DX:Hyperlipidemi a Esophageal reflux DX:Esophageal reflux [...] Orthopedic Surgery [facility] [address] [facility] [address] [place] [address] Arvin Aguilar DPM [address] [address] 12/05/2024 12:45 PM EDT Ancillary Procedure [facility] [place] [address] [address] 12/11/2024 12:45 PM EDT Ancillary Procedure [facility] [place] [address] [address] 02/12/2025 2:00 PM EST Office Visit Vascular Surgery [facility] 300 [facility] [address] [place] [address] Lux Malik MD 300 [facility] [address] [place] [address] Health Maintenance Due Date Last Done Comments [...] Insurance MEDICAID - [place] MEDICARE Care Teams Tow Motor Driver Relationship Specialty Start Date End Date Antwan Ramirez MD [address] [place] [address] PCP - General 07/14/23
--- OUTSIDE RECORDS SUMMARY | 2024-08-09 13:37 | XMS_ITS | Continuity of Care Document ---
Author Organization [facility] [address] [facility] [address] [place] [address] Phone [phone] Care Team Providers Care Bad Work Gatherer Name Role Phone Antwan Ramirez M.D. Care Team Information Recei dominga [phone] Problems Active Problems Provider Date Anemia Aramis [...] Qnty Indications Order ing Provider Date Insulin Glargine-Ssdk284Pldp/ ML Solution inject 30 units daily 10ml Aramis Garza M.D. 06/21/2024 Mounjaro7.5mg/0.5ML Solution Pen-Inject 1 injection every week as directed 6ml Aramis Garza M.D. 12/08/2023 Metformin HCL CL937sp Tablets ER 24HR take 2 tablets by mouth twice a day 180tabs Aramis Garza M.D. 09/22/2023 Freestyle Soraida 3/Sensor/Glucose Monitoring Feayld2Vvlaas [facility] as directed 3unmaria esther Garza M.D. 09/08/2023 Freestyle Soraida 3/[place]/Glucose Monitoring Rthibe3Mfsbnw Device use with sensors to check blood sugar dx:e11.9 1unmaria esther Garza M.D. 09/08/2023 Wkfxckgenm045fu Capsules Take 1 Capsule By Mouth Twice Daily Antwan Ramirez M.D. Atorvastatin Rcwqfju43qr Tablets Take 1 Tablet By Mouth Every Day Britney Henriquez M.D. Mcekbtwxwf23el Capsules DR Take 1 Capsule By Mouth Daily Rain Reese Metoprolol Jfqqbkau03dp Tablets Take 1 Tablet By Mouth Twice [...] 180tabs Aramis Garza M.D. 09/21/2023 - 09/22/2023 Jjayqycx7bm/0.5ML Solution Pen-Inject 1 injection every week as [...]
--- OUTSIDE RECORDS SUMMARY | 2024-08-09 13:37 | XMS_ITS | Data Portability ---
Author Organization [facility]- Address [address] [place] [address] Care Team Providers Care Staff Occupational Therapist Name Role Phone HUI SANCHEZ Primary Care Provider [phone] Assessment No assessment recorded. Plan of Treatment Reminders Order Date Submit Date Provider Last Modified By Organization Details Last Modified Time Details Appointments None recorded. Lab None recorded. 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 [address], [place], [address], 8 10:11:57 Procedures None recorded. Surgeries None recorded. Imaging CT, sinuses, w/o contrast 2017 018 [facility], [address] [facility], [facility] [address], [place], [address], 8 10:42:49 polysomno gram 2017 018 [facility] (Sleep Study), [address] [place] [address], [address], 8 13:07:30 Medication Orders Augmentin 875 mg-125 mg tablet 2017 018 [facility], [address] [place], [place], [id number], 8 15:43:58 Atrovent 0.03 % nasal spray 2017 018 [facility], [address], [place], [place], [id number], 8 08:31:52 Patient TargetsNo targets recorded. Patient InstructionsNo instructions recorded. 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 [address] (Sleep Study) [address] [place] [address], [address], 05/07/2017 18:27:28 05/25/19 18 05/20/2017 CT, sinus es, w/o contr ast No observ ation record ed. [address] [facility] [address] [address], [place], [address], 05/28/2017 10:23:16 Result Notes None recorded. Procedures Surgical History Date Name Laterality Status Provider Name and Address Organization Details Recorded Time 03/31/19 18 Nasal Endoscopy (18689) completed Durga Longo MD [address] [address], [place], [address], [facility] 03/31/2017 08:16:11 Imaging Results Imaging Date Name Status LastModified by Organization Details LastModified Time 04/21/2017 polysomnogram completed [address] (Sleep Study) [address] [place], [address], 05/07/2017 18:27:28 05/20/2017 CT, sinuses, w/o contrast completed [address] [facility] [address] [facility] [address], [place], [address], 05/28/2017 10:23:16 Procedure Notes None recorded. Medical [...] bromide 21 mcg (0.03 %) nasal spray [place] 2 sprays twice a day by intranasal [...] Updated DateTime 03/31/2017 177.8 cm 29 kg/m2 10733.66 g Saima Faith [facility] 03/31/2017 08:01:54 Date Recorded Body height Body mass index (BMI) Body weight Provider Name and Address Organization Details Last Updated DateTime 05/14/2017 177.8 cm 29 kg/m2 97312.66 g Genovevamahad Garcias [facility] 05/14/2017 09:33:56 Date Recorded Body height Body mass index (BMI) Body weight Provider Name and Address Organization Details Last Updated DateTime 06/14/2017 177.8 cm 29 kg/m2 99946.66 g Desi Redmond [facility] 06/14/2017 14:15:28 Date Recorded Body height Body mass index (BMI) Body weight Provider Name and Address Organization Details Last Updated DateTime 07/15/2017 177.8 cm 29 kg/m2 97828.66 g Desi Redmond [place] [facility] 07/15/2017 09:55:17 Date Recorded Body height Body mass index (BMI) Body weight Provider Name and Address Organization Details Last Updated DateTime 10/14/2017 177.8 cm 29 kg/m2 22477.66 g Chelsi Zapata [facility] 10/14/2017 10:04:07 Social History Question Answer Notes LastModified by Organizat ion Details LastModified Time Tobacco Smoking Status Never Smoker Saima Faith chinyere [facility] 03/31/2017 08:02:08 What Is Your Level Of Caffeine Consumption? None Information not available 03/31/2017 What Was The Date Of Your Most Recent Tobacco Screening? 10/14/2017 Information n ot available 10/21/2018 How Much Tobacco Do You Smoke? No Information not available 03/31/2017 Sex: Unknown Functional Status Question Answer Note LastModified by Organization D etails LastModified Time What is your level of alcohol consumption? None Information not available 03/31/2017 Mental Status None recorded. Family History Nothing Reported. Medical History Condition Response Allergies/Hayfever N Acid reflux (GERD) Y Heart Conditions N Liver Disease/Jaundice N Emphysema N Migraines N Thyroid Problems N Glaucoma Y Depression N HIV/Sexually Transmitted Disease N Anemia N Heart Attack (OK) N N Diabetes Y Bleeding Disorder N Hearing Loss N Arthritis N Cancer N Stroke N Asthma N Sleep Disorder N Hypertension Y Speech Delay N Kidney Disease N Past Encounters Encounter ID Performer Location Encounter Start Date Encounter Closed Date Diagnosis/Indication Diagnosis SNOMED-CT Code Diagnosis ICD10 Code Diagnosis Note [id number] Durga Longo MD Main Office [address] [place] [address] [address] [place] [address] 03/31/2017 07:39:03 03/31/2017 08:36:24 Allergic rhinitis 74210320 J30.1 - PCP sent here with runny nose for many years- Continues all year round- No allergy testing- Clear drainage- No nasal obstructio n- Frequent sneezing- Tried Flonase without improvemen t- Not worse with eating- No sinus infections - Discussed environmen ralph control/al lergen avoidance, OTC medication s and nasal steroid therapy. - Consider a formal allergy evaluation . Deviated nasal septum 12 0910700 J34.2 - Discussed treatment options for their nasal obstructio n including continued medical/al lergy therapy as well as surgical options. - Patient is a good candidate for surgical repair of their septum if they wish to improve their nasal obstructiv e symptoms. - Patient will consider this option for the future. Hypertroph y of nasal turbinates 29205740 J34.3 Good candidate for radiofrequ ency ablation to improve obstructiv e symptoms. Vasomotor rhinitis 92859 03 J30.0 - Complaints of persistent rhinorrhea c/w vasomotor component to his allergic rhinitis - Will trial a course of Atrovent to see if it improves - Explained drying effect of this spray and option to change frequency from qd, bid to qid Snoring 34880906 R06.83 - Snoring with witnessed apnea, headaches, has EDS; Frequent awakening- Concerned about possibilit y of MIRNA. - Recommend a PSG to further diagnose and identify severity of MIRNA. - Discussed conservati ve measures of weight loss, exercise, EtOH avoidance and sleep positionin g measure to help with obstructiv e symptoms during sleep. - F/u with me after PSG results available. Heart disease 14148749 I 51.9 - PMH s/p CABG, DM Diabetes mellitus 525620 09 E11.9 [id number] Durga Longo MD Main Office [address] [facility],[address] [place] [address] 05/14/2017 09:19:41 05/14/2017 09:56:51 Allergic rhinitis 02356832 J30.1 - Frequent sneezing- Tried Flonase without improvemen t- Discussed environmen ralph control/al lergen avoidance, OTC medication s and nasal steroid therapy. - 04/2017 Allergy testing NEENT negative Vasomotor rhinitis 46267 03 J30.0 - PCP sent here with runny nose for many years- Continues all year round- No allergy testing- Clear drainage- No nasal obstructio n- Complaints of persistent rhinorrhea c/w vasomotor component to his allergic rhinitis - No improvemen t with Atrovent - Explained drying effect of this spray and option to change frequency from qd, bid to qid Deviated nasal septum 12 7461478 J34.2 - Discussed treatment options for their nasal obstructio n including continued medical/al lergy therapy as well as surgical options. - Patient is a good candidate for surgical repair of their septum if they wish to improve their nasal obstructiv e symptoms. - Patient will consider this option for the future. Hypertroph y of nasal turbinates 34548003 J34.3 Good candidate for radiofrequ ency ablation to improve obstructiv e symptoms. Snoring 55902399 R06.83 - Discussed conservati ve measures of weight loss, exercise, EtOH avoidance and sleep positionin g measure to help with obstructiv e symptoms during sleep. Heart disease 63247070 I 51.9 - PMH s/p CABG, DM Diabetes mellitus 338344 09 E11.9 Obstructiv e sleep apnea syndrome 90040473 G47.33 - Snoring with witnessed apnea, headaches, [...] nasal surgical options. Chronic ma xillary sinusitis 49808525 J32.0 J32.2 - Does have yellow drainage, h/o sinus problems in the past, facial pain at times x many months - Evaluate presence and extent of sinusitis with CT scan sinuses - If symptomati c, will treat medically with oral antibiotic s, nasal steroid therapy and nasal saline irrigation s/Netipot - Surgical considerat ion for symptomati c chronic sinusitis refractory to medical therapy [id number] Durga Longo MD Main Office [address] [facility],[address] [place] [address] 06/14/2017 14:14:12 06/14/2017 15:05:02 Obstructive sleep apnea syndrome 77726683 G47.33 - Snoring with witnessed apnea, headaches, [...] g device) and nasal surgical options. Snoring 31804164 R06.83 - Discussed conservati ve measures of weight loss, exercise, EtOH avoidance and sleep positionin g measure to help with obstructiv e symptoms during sleep. Chronic ma xillary sinusitis 54215946 J32.0 J32.2 - Does have yellow drainage, [...] sinusitis refractory to medical therapy Allergic rhinitis 247383 04 J30.1 - Frequent sneezing- Tried Flonase without improvemen t- Discussed environmen ralph control/al lergen avoidance, OTC medication s and nasal steroid therapy. - 04/2017 Allergy testing NEENT negative Vasomotor rhinitis 10204 03 J30.0 - PCP sent here with runny nose for many years- Continues all year round- No allergy testing- Clear drainage- No nasal obstructio n- Complaints of persistent rhinorrhea c/w vasomotor component to his allergic rhinitis - No improvemen t with Atrovent - Explained drying effect of this spray and option to change frequency from qd, bid to qid Deviated nasal septum 12 7197650 J34.2 - Discussed treatment options for their nasal obstructio n including continued medical/al lergy therapy as well as surgical options. - Patient is a good candidate for surgical repair of their septum if they wish to improve their nasal obstructiv e symptoms. - Patient will consider this option for the future. Hypertroph y of nasal turbinates 93166952 J34.3 Good candidate for radiofrequ ency ablation to improve obstructiv e symptoms. Heart disease 88164843 I 51.9 - PMH s/p CABG, DM Diabetes mellitus 279194 09 E11.9 [id number] Durga Longo MD Main Office [address] [place] [address] 07/15/2017 09:51:37 07/15/2017 10:19:43 Obstructive sleep apnea syndrome 07178646 G47.33 - Snoring with witnessed apnea, headaches, [...] g device) and nasal surgical options. Snoring 37096458 R06.83 - Discussed conservati ve measures of weight loss, exercise, EtOH avoidance and sleep positionin g measure to help with obstructiv e symptoms during sleep. Chronic ma xillary sinusitis 65994775 J32.0 J32.2 - Does have yellow drainage, [...] or unable to tolerate CPAP Allergic rhinitis 162167 04 J30.1 - Frequent sneezing- Tried Flonase without improvemen t- Discussed environmen ralph control/al lergen avoidance, OTC medication s and nasal steroid therapy. - 04/2017 Allergy testing NEENT negative Vasomotor rhinitis 09047 03 J30.0 - PCP sent here with runny nose for many years- Continues all year round- No allergy testing- Clear drainage- No nasal obstructio n- Complaints of persistent rhinorrhea c/w vasomotor component to his allergic rhinitis - No improvemen t with Atrovent - Explained drying effect of this spray and option to change frequency from qd, bid to qid Deviated nasal septum 12 6099132 J34.2 - Discussed treatment options for their nasal obstructio n including continued medical/al lergy therapy as well as surgical options. - Patient is a good candidate for surgical repair of their septum if they wish to improve their nasal obstructiv e symptoms. - Patient will consider this option for the future. Hypertroph y of nasal turbinates 54369900 J34.3 Good candidate for radiofrequ ency ablation to improve obstructiv e symptoms. Heart disease 52377659 I 51.9 - PMH s/p CABG, DM Diabetes mellitus 712581 09 E11.9 [id number] Durga Longo MD Main Office [address] [facility],[address] [place] [address] 10/14/2017 10:03:08 10/14/2017 10:32:43 Obstructive sleep apnea syndrome 71858023 G47.33 - Snoring with witnessed apnea, headaches, [...] g device) and nasal surgical options. Snoring 66562323 R06.83 - Discussed conservati ve measures of weight loss, exercise, EtOH avoidance and sleep positionin g measure to help with obstructiv e symptoms during sleep. Chronic ma xillary sinusitis 00646856 J32.0 J32.2 - Does have yellow drainage, [...] or unable to tolerate CPAP Allergic rhinitis 882587 04 J30.1 - Frequent sneezing- Tried Flonase without improvemen t- Discussed environmen ralph control/al lergen avoidance, OTC medication s and nasal steroid therapy. - 04/2017 Allergy testing NEENT negative Vasomotor rhinitis 41842 03 J30.0 - PCP sent here with runny nose for many years- Continues all year round- No allergy testing- Clear drainage- No nasal obstructio n- Complaints of persistent rhinorrhea c/w vasomotor component to his allergic rhinitis - No improvemen t with Atrovent - Explained drying effect of this spray and option to change frequency from qd, bid to qid Deviated nasal septum 12 0033362 J34.2 - Discussed treatment options for their nasal obstructio n including continued medical/al lergy therapy as well as surgical options. - Patient is a good candidate for surgical repair of their septum if they wish to improve their nasal obstructiv e symptoms. - Patient will consider this option for the future. Hypertroph y of nasal turbinates 77559382 J34.3 Good candidate for radiofrequ ency ablation to improve obstructiv e symptoms. Heart disease 41772592 I 51.9 - PMH s/p CABG, DM Diabetes mellitus 880467 09 E11.9 Health Concerns Section Related Observation LastModified by Organization Detai ls LastModified Time None Recorded Concern Status LastModified by Organization Details LastModified Time None Recorded Advance Directives Directive None Recorded Payers Encounter Date Sequence Insurance Name Policy Number Policy Rosas Covered Member ID Rosas Member ID Guarantor Name 03/31/2017 2 [place] [employer] Omar Pitts [id number] Omar Pitts 03/31/2017 2 [place] Omar Pitts [id number] Omar Hong 05/14/2017 2 [place] [facility] Omar Carlosgo [id number] Omar Hong 05/14/2017 2 [place] Omar Carlosgo [id number] Omar Hong 06/14/2017 2 [place] [facility] Omar Hong [id number] Omar Hong 06/14/2017 2 [place] Omar Hong [id number] Omar Hong 07/15/2017 2 [place] [facility] Omar Carlosgo [id number] Omar Hong 07/15/2017 2 [place] Omar Ramosiago [id number] Omar Hong 10/14/2017 2 [place] Omar Ramosiago [id number] Omar Hong 10/14/2017 1 [place] [facility] Omar Carlosgo [id number] Omar Pitts Notes Date Note Type Note Provider Name a nd Address Organization Details Recorded Time 03/31/2017 text/html - PCP sent here with runny nose for many years- Continues all year round- No allergy testing- Clear drainage- No nasal obstruction- Frequent sneezing- Tried Flonase without improvement- Not worse with eating- No sinus infections- Snoring with witnessed apnea, headaches, has EDS; Frequent awakening- PMH s/p CABG, DM Durga Longo MD [address] [place] [address], [place], [address], [facility] 03/31/2017 08:19:10 05/14/2017 text/html - PCP sent here with runny nose for many years- Continues all year round- No allergy testing- Clear drainage- No nasal obstruction- Frequent sneezing- Tried Flonase without improvement- Not worse with eating- Snoring with witnessed apnea, headaches, has EDS; Frequent awakening- PMH s/p [place], DM- 03/2017 PSG [facility] A[facility] 15, RDI 31, rosie sat 82%; Mild MIRNA and significant SDB with high RDI; CPAP Trial and nasal patency- 04/2017 Allergy testing NEENT negative- No help with nasal spray- Does have yellow drainage, h/o sinus problems in the past, facial pain at times Durga Longo MD [address] [address], [place], [address], [facility] 05/14/2017 11:38:01 06/14/2017 text/html - PCP [...] maxillary sinuses. NSD. Durga Longo MD [address] [address], [place], [address], [facility] 06/14/2017 15:34:09 07/15/2017 text/html - PCP [...] Medicine in July Durga Longo MD [address] [place], [address], [facility] 07/15/2017 10:19:12 10/14/2017 text/html - PCP [...] B - daily Durga Longo MD [address] [facility] [address], [place], [address], [facility] 10/14/2017 10:25:28
[2024-08-09 14:11] VITALS: BP 110/60; PULSE 62; BMI 26.1
--- NOTE | 2024-08-09 14:11 | MHC.OFFVIS ---
Vital Signs 08/09/24 14:11 Height 5 ft 10 in Weight 182 lb 1.629 oz BMI 26.1 BP 110/60 Blood Pressure Location Lt brachial Position Sitting Pulse 62 Pulse Source Pulse Oximeter Intake Visit Reasons: 6 mth f/up Intake Note: 6mth f/up Student Services Coordinator Required: No Accompanied by: Self / Same As Patient Allergies naproxen [From Naprosyn] Allergy (Verified 07/20/24 11:33) swelling Medication List - Last Reconciled 08/09/24 by Jarvis Brown MD aspirin (Adult Low Dose Aspirin) 81 mg PO DAILY atorvastatin 80 mg PO DAILY diclofenac sodium 1% 4 grams topical BID PRN insulin glargine (Basaglar KwikPen U-100 Insulin) 40 units subcut DAILY losartan 25 mg PO DAILY metformin ER 500 mg PO BID metoprolol tartrate 50 mg PO BID 90 days omeprazole 40 mg PO DAILY@0630 pen needle, diabetic As directed pen needle, diabetic As directed pregabalin 100 mg PO BID 30 days tirzepatide (Mounjaro) 7.5 mg subcut FR walker Folding Front wheeled walker HPI Comments Details: Pleasant 73-year-old gentleman here for follow-up. He has history of bypass surgery. He has chronic chest wall pain which was present before bypass surgery and is persistent after surgery. Continues to have sharp left-sided chest pain. This is worse with lying on left or right-sided. He is again complaining of chest pain. I have reassured him that this is noncardiac chest pain. He was referred to pain management and had local injections done but this did not improve the pain. His echocardiogram has shown an aortic root dilatation. He was referred for CTA of the chest which showed dilated sinus of Valsalva 4.2 cm. 09/01/23: he returns for follow-up. He has been depressed because his son unfortunately had a stroke at age 44 and is under care in hospital in [place]. He has chronic chest pains as before. He also gets some headaches with bending forward. It appears he has chronic sinusitis 02/02/2024: He is here for follow-up. He continues to have left-sided chest pain. He also had knee surgery and continues to have knee pain. Seems quite frustrated by pain in the knee and ability to walk. He has echocardiography has shown moderate aortic root dilatation. This is something to monitor for now. Blood pressure is well controlled. 08/09/24: Here for follow-up. He continues to get left-sided chest pain as before. This is a persistent pain which is 247 and does not get better with any maneuvers. Once again he was reassured that pattern is not consistent with anginal pain and this is noncardiac in origin. FORMERLY [facility] Medical History Environmental allergies Osteoarthritis of right knee Deformity of right hand Diabetes mellitus Barretts esophagus Hyperlipidemia Diabetes Chronic chest pain Hypertension Surgical History H/O right inguinal hernia repair Status post total knee replacement, left History of esophagogastroduodenoscopy (EGD) History of hand surgery History of surgery History of lumbar fusion S/P CABG (coronary artery bypass graft) H/O neck surgery Hx of CABG (~2017) Family History Father Diabetes Hypertension Mother Diabetes Hypertension Son No problems noted. Son No problems noted. Son No problems noted. Daughter No problems noted. Daughter No problems noted. 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) Do you presently have visiting nurse or other home services: No Alcohol intake: former Comment: new ice packs placed Patient Tobacco Use Status: Never used Tobacco service: No Current occupational status: disabled Current occupation: rt handed Cognitive needs: No Hearing needs: No Vision needs: No Review of Systems Const Denies chills, Denies fatigue, Denies fever(s), Denies frequent falls, Denies weakness, Denies weight gain and Denies weight loss ENT Denies dizziness Card Denies chest pain, Denies leg edema, Denies lightheadedness, Denies palpitations, Denies dyspnea and Denies dyspnea on exertion Resp Denies cough, Denies dyspnea and Denies dyspnea on exertion GI Denies hematochezia Musc Denies abnormal gait, Denies muscle weakness, Denies numbness, Denies radiating pain into limb and Denies tingling Neuro Denies abnormal gait, Denies dizziness, Denies frequent falls, Denies numbness, Denies tingling and Denies weakness Endo Denies fatigue and Denies palpitations Physical Exam Vital Signs: Last Vital Signs Pulse 62 08/09/24 14:11 BP 110/60 08/09/24 14:11 BMI result Body Mass Index 26.1 GENERAL APPEARANCE: in no acute distress. NECK/THYROID: no carotid bruit, no jugular venous distention. SKIN: no suspicious lesions, warm and dry. HEART: no murmurs, regular rate and rhythm, S1, S2 normal. LUNGS: clear to auscultation bilaterally. ABDOMEN: normal, bowel sounds present, soft, nontender, nondistended. EXTREMITIES: no clubbing, cyanosis, or edema. PERIPHERAL PULSES: equal. NEUROLOGIC: nonfocal, alert and oriented. PSYCH: mood/affect full range. Assessment & Plan Assessment & Plan (1) Non-cardiac chest pain: Code(s): R07.89 - Other chest pain Category: Medical (2) Hypertension: Comment: Blood pressure control is good Code(s): I10 - Essential (primary) hypertension Category: Medical Qualifiers: Hypertension type: renovascular hypertension Qualified Code(s): I15.0 - Renovascular hypertension (3) CAD (coronary artery disease): Code(s): I25.10 - Atherosclerotic heart disease of [place] coronary artery without angina pectoris Category: Medical (4) S/P CABG (coronary artery bypass graft): Code(s): Z95.1 - Presence of aortocoronary bypass graft Category: Surgical Plan 73-year-old gentleman presenting for follow-up. He has been history of bypass surgery and chronic chest wall pain ongoing since surgery. This is present 24 x 7 and has not change in pattern over the last many years. He had knee surgery and apparently is getting pain in the knee with decreased range of motion. He appears to be somewhat frustrated by that. From cardiovascular point of view he has been stable. He has known aortic root dilatation at 4.59 cm in the past. His last echocardiogram was in 2022. We will repeat an echo on him to reassess the aortic root for any enlargement. Blood pressure well controlled. Clinically stable and will see us back in 6 months. Thank you for allowing me to participate in the care of your patient. Please feel free to contact me if you have any questions. Orders: Orders CA echo transthoracic complete Today I77.810 - Thoracic aortic ectasia Coding Level of Care Code Est Pt Level 4 (81210) Diagnoses Non-cardiac chest pain R07.89 Renovascular hypertension I15.0 Hypertension type: renovascular hypertension CAD (coronary artery disease) I25.10 S/P CABG (coronary artery bypass graft) Z95.1
== END 2024-08-09 14:35 | disposition home or self-care (01) ==
LOC: HO.HCS 13:31
PROVIDERS: PCP Internal Medicine; Visit Provider Internal Medicine Cardiovascular Disease
DX: R07.89 Other chest pain (principal); I15.0 Renovascular hypertension; I25.10 Atherosclerotic heart disease of native coronary artery without angina pectoris; Z95.1 Presence of aortocoronary bypass graft
CPT/HCPCS: 99214

== ENCOUNTER → 2024-08-09 13:30 | Outpatient (BNVA) | payer MEDICARE, MEDICAID, SELFPAY | PROVIDERS: PCP Internal Medicine; Visit Provider Internal Medicine Cardiovascular Disease | DX: I25.10 Atherosclerotic heart disease of native coronary artery without angina pectoris (principal); I15.0 Renovascular hypertension; R07.89 Other chest pain; Z95.1 Presence of aortocoronary bypass graft | CPT/HCPCS: 99212 ==

== ENCOUNTER 2024-09-07 06:18 | Outpatient (REF) | payer MEDICARE, MEDICAID, SELFPAY ==
--- NOTE | ~2024-09-07 | FL_ITS ---
EXAMINATION: FL GUIDANCE ONLY HISTORY: M96.1 - Postlaminectomy syndrome, not elsewhere classified COMPARISON: None available. TECHNIQUE: Fluoroscopy time: 0.3 minutes. Cumulative Dose: 4.74 mGy. DAP: 0.0336 mGym2 Images: 2. FINDINGS: AP and lateral fluoroscopic spot films of the sacrum demonstrate a needle and contrast material in place. FL/FL guidance in treatment room IMPRESSION: Fluoroscopy during procedure. Please see procedure report for additional information. Electronically signed by: Tate Feliz MD 09/08/2024 07:00 AM EDT
--- OUTSIDE RECORDS SUMMARY | 2024-09-07 06:21 | XMS_ITS | Data Portability ---
Author Organization [facility] [place] [employer] [facility] Address [address] [place] [address] Care Team Providers Care Bleacher Lard Name Role Phone HUI SANCHEZ Primary Care Provider HUI SANCHEZ Referring Provider [phone] BRIGITTE TAVERA Primary Care Provider BRIGITTE TAVERA Referring Provider [phone] Assessment Encounter Date Assessment Date Assessment LastModified by Organization Details LastModified Time 07/25/2015 07/25/2015 Moderate right knee arthritis Not available 07/25/2015 [...] DO Not Attach Compendium, Do Not Delete/merge, [id number] 9 10:54:32 XR, knee, 3 view 2016 017 [email or web address] In-Office Order, Internal Use Only DO Not Attach Compendium DO Not Attach Compendium, Do Not Delete/merge, [id number] 7 11:14:50 XR, pelvis, 1 or 2 view 2016 017 gwoodsum In-Office Order, Internal Use Only DO Not Attach Compendium DO Not Attach Compendium, Do Not Delete/merge, [id number] 7 11:14:50 Medication Orders methylpredn isolone acetate 40 mg/mL suspension for injection 2018 019 [email or web address] Not available 9 11:38:48 Depo-Medrol 40 mg/mL suspension for injection 2016 017 [email or web address] [facility] [address], [place], [id number], 7 12:11:27 Depo-Medrol 40 mg/mL suspension for injection 2015 016 [facility] [address], [address], [place], [id number], 6 04:26:21 Monovisc 88 mg/4 mL intra-artic ular syringe 2015 016 [email or web address] Not available 6 14:37:31 Patient TargetsNo targets recorded. Patient Instructions Encounter Date Encounter Id Patient Instructions Last Modified By Organization Details Last Modified Time 07/25/2015 [id number] reviewed exam findings and discussed treatment options available. Given his incomplete relief with the cortisone we proceeded with a viscous supplement injection today. I would also enroll him in some outpatient therapy which I gave him a referral for today. Follow-up with me in 6 weeks for reevaluation.if we are unable to adequately manage symptoms nonsurgically, the final option would be further consideration for joint replacement. We will reassess things in 6 weeks.The patient is comfortable with this plan and all of their questions were answered at today's visit. [email or web address] Not available 07/25/2015 14:37:08 09/05/2015 [id number] reviewed exam findings and discussed management moving forward.he's done quite well with the injection and the therapy. I would continue to manage this issue symptomatically at this point from a functional standpoint he is doing quite well. Continue with therapy transitioning over to a home exercise program as he feels comfortable. Follow-up with me as needed depending on symptoms. He'll contact the office accordingly and he is aware of the treatment options available.The patient is comfortable with this plan and all of their questions were answered at today's visit. Not available 09/05/2015 14:26:19 01/23/2016 [id number] reviewed exam findings and again reviewed treatment [...] today's visit. Not available 01/23/2016 14:55:54 04/16/2016 [id number] reviewed exam an d x-ray findings. We [...] today's visit. Not available 04/16/2016 12:43:48 05/17/2018 [id number] knee arthritis: care instructions Not available 05/17/2018 [...] Details Recorded Time Pain of hip region 45925686 Active Isma Kearney MD [address] [place] [address], [address], [facility] 6 14:25:10 Greater trochanteric pain syndrome 8777762 Active Isma Kearney MD [address] [place] [address], [address], [facility] 6 14:25:10 Low back pain 214496851 Active Isma Kearney MD [address] [place] [address], [address], [facility] 6 14:25:10 Arthritis of knee 429203032 Active Isma Kearney MD [address] [place] [address], [address], [facility] 6 14:26:19 Problem Notes None recorded. Procedures Surgical History Date Name Laterality Status Provider Name and Address Organization Details Recorded Time 9 Knee CS Injection - Right completed Cristobal Hernandez [address] [place] [address], [phone], [facility] 05/17/2018 09:35:19 7 Knee CS Injection - Right completed Isma Kearney MD [address] [place] [address], [address], [facility] 04/16/2016 12:42:17 6 Knee CS Injection - Right completed Isma Kearney MD [address] [place], [address], [facility] 01/23/2016 14:55:23 6 Visco Injection - Right completed Isma Kearney MD [address] [place], [address], [facility] 07/25/2015 14:16:52 6 Knee CS Injection - Right completed Cristobal Hernandez [address] [place] [address], [address], [facility] 07/11/2015 14:50:46 4 Troch Bursitis Injection LEFT - ONE completed Cristobal Hernandez [address] [place] [address], [address], [facility] 03/13/2014 10:32:37 4 Orthopedic Surgery completed Linda Gunter [facility] 03/13/2014 09:37:28 Imaging Results None [...] Available Not Available No t Available FreeStyle [place] Lite kit U UTD active Not Available [...] Updated DateTime 05/17/2018 180.34 cm 29 kg/m2 44789.21 g Cat Funk [facility] 05/17/2018 09:01:30 Date Recorded Body mass index (BMI) Body height Body weight Provider Name and Address Organization Details Last Updated DateTime 07/25/2015 29 kg/m2 180.34 cm 62579.85196 g Tyler Cerrato [facility] 07/25/2015 14:00:17 Date Recorded Body weight Body mass index (BMI) Body height Provider Name and Address Organization Details Last Updated DateTime 09/05/2015 34847.70297 g 29 kg/m2 180.34 cm Shyla Means [facility] 09/05/2015 14:04:21 Date Recorded Body height Body weight Body mass index (BMI) Provider Name and Address Organization Details Last Updated DateTime 01/23/2016 180.34 cm 23532.21 g 29 kg/m2 Lyric Arevalo [facility] 01/23/2016 14:15:05 Social History Question Answer Notes LastModified by Organizat ion Details LastModified Time Tobacco Smoking Status Never Smoker Linda whitlock [facility] 03/13/2014 09:36:37 Auto Related Injury? No [...] Disease/Problems N Breathing Problems N Heart Attack ([place]) N Sexually Transmitted Diseases N Bleeding Disorder/Tendencies [...] SNOMED-CT Code Diagnosis ICD10 Code Diagnosis Note [id number] Isma Kearney MD OFFICE-N. [facility] a [address] [address] 03/13/2014 09:00:31 03/13/2014 10:23:54 Pain of hip region 52387214 Greater tr ochanteric pain syndrome 5188908 [id number] Cristobal Hernandez OFFICE-N. [facility] ot a [address] [address] 04/26/2014 10:27:27 04/26/2014 11:03:09 Greater trochanteric pain syndrome 7614463 Pain of hip region 47036461 Low back pain 267933099 [id number] Cristobal Hernandez OFFICE-N. [facility] ot [place] [address] [place] [address] 07/11/2015 13:30:13 07/11/2015 14:13:28 Arthritis of knee 359328468 M17.11 [id number] Isma Kearney MD OFFICE-N. [facility] ot a [address] [address] 07/25/2015 13:52:53 07/25/2015 14:38:30 Arthritis of knee 598298275 M17.11 [id number] [facility] [address] [address] 09/05/2015 13:56:05 09/05/2015 14:33:41 Arthritis of knee 125674413 M17.11 [id number] Isma Kearney MD OFFICE-N. [facility] ot a [address] [address] 01/23/2016 14:00:01 01/23/2016 14:59:28 Arthritis of knee 917020636 M17.11 [id number] Isma Kearney MD OFFICE-N. [facility] ot a [address] [address] 04/16/2016 10:06:25 04/16/2016 11:14:50 Pain in limb 09482843 M79.609 Pain of hip region 40178 002 M25.559 Knee pain 63576253 M25.5 61 Arthritis of knee 059280 002 M17.11 [id number] Cristobal Belchreon [facility] [address] [place] [address] 05/17/2018 08:23:37 05/17/2018 10:54:32 Pain in limb 05678558 M79.609 Osteoarthr itis of knee 681612893 M17.11 Health Concerns Section Related Observation LastModified by Organization Detai ls LastModified Time None Recorded Concern Status LastModified by Organization Details LastModified Time None Recorded Advance Directives Directive None Recorded Payers Insurance Date Sequence Insurance Name Policy Number Policy Rosas Covered Member ID Rosas Member ID Guarantor Name 05/17/2018 2 [place] [facility] Omar Pitts [id number] Omar Pitts 05/17/2018 1 [place] [facility] Omar Pitts [id number] Omar Pitts 05/17/2018 [employer] - SPECIALITY CLAIMS (MEDICARE DME REGION A) Omar Pitts [id number] Omar Pitts Notes Date Note Type Note [...] some moderate arthritis. No other treatment thus far. Shyla whitlock [facility] 07/25/2015 14:37:44 09/05/2015 text/html HPI Omar returns today for follow-up of his right knee. He had a monovisc injection 6 weeks ago. He found this quite helpful. He also has been in physical therapy which has been helping. Pain has improved significantly. Functionally doing reasonably well at this point. Isma Kearney MD [address] [place] [address], [address], [facility] 09/05/2015 14:26:39 01/23/2016 text/html Omar returns today once again for his right knee. He has known moderate right knee arthritis. I last saw him for this about 5 months ago. He's done well previously with injections. He had some type of tendon surgery in [place] it looks like perhaps the right hamstring and reports that he was in a brace for 6 weeks. He is in therapy for this but has had continued and increased right knee pain since the surgery. No new injury or significant change otherwise. Pain is fairly diffuse around the right knee. Isma Kearney MD [address] [place] [address], [address], [facility] 01/23/2016 14:56:20 04/16/2016 text/html Omar [...] around the right knee. Isma Kearney MD [address] [place] [address], [address], [facility] 04/16/2016 12:43:51 05/17/2018 text/html Omar [...] today. No updated x-rays. Cristobal Hernandez [address] [place], [address], [facility] 05/17/2018 09:36:48
== END 2024-09-07 06:19 | disposition home or self-care (01) ==
LOC: CF 06:18
PROVIDERS: Visit Provider Internal Medicine
DX: M96.1 Postlaminectomy syndrome, not elsewhere classified (principal); M54.16 Radiculopathy, lumbar region
CPT/HCPCS: 62323; J2003; J3301; Q9967

== ENCOUNTER 2024-09-07 11:21 | Outpatient (AMB) | payer MEDICARE, MEDICAID, SELFPAY ==
--- NOTE | 2024-09-07 11:28 | A.OFFVIS_ITS ---
Vital Signs 09/07/24 11:34 09/07/24 12:52 BP 133/69 155/73 H Blood Pressure Location Lt brachial Lt brachial Position Sitting Sitting Respiration 16 16 Pulse 68 65 Pulse Source Pulse Oximeter Pulse Oximeter Pulse Oximetry (%) 99 99 Oxygen Delivery Method Room Air Room Air Intake Visit Reasons: Caudal ZAKIYA Allergies naproxen (From Naprosyn) Allergy (Verified 07/20/24 11:33) swelling HPI HPI Caudal ZAKIYA: Details: Patient presents for scheduled procedure. Denies any recent cough, cold, infection, fever or other significant changes in medical history since last office visit. [facility] Medical History Environmental allergies Osteoarthritis of right knee Deformity of right hand Diabetes mellitus Barretts esophagus Hyperlipidemia Diabetes Chronic chest pain Hypertension Surgical History H/O right inguinal hernia repair Status post total knee replacement, left History of esophagogastroduodenoscopy (EGD) History of hand surgery History of surgery History of lumbar fusion S/P CABG (coronary artery bypass graft) H/O neck surgery Hx of CABG (~2017) Family History Father Diabetes Hypertension Mother Diabetes Hypertension Son No problems noted. Son No problems noted. Son No problems noted. Daughter No problems noted. Daughter No problems noted. 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) Do you presently have visiting nurse or other home services: No Alcohol intake: former Comment: new ice packs placed Patient Tobacco Use Status: Never used Tobacco service: No Current occupational status: disabled Current occupation: rt handed Cognitive needs: No Hearing needs: No Vision needs: No Physical Exam Vital Signs: Last Vital Signs Pulse 65 09/07/24 12:52 Resp 16 09/07/24 12:52 BP 155/73 H 09/07/24 12:52 Pulse Ox 99 09/07/24 12:52 Oxygen Delivery Method Room Air 09/07/24 12:52 Office Procedures AMB Joint Injection/Aspiration Joint Injection/Aspiration Details: Caudal ZAKIYA with catheter After obtaining written consent, pre-procedure blood pressure and pulse were measured. Standard monitors were applied. The patient was placed in the prone position. The lumbosacral area was widely prepped with chloraprep and draped in sterile fashion. The skin overlying the target was anesthetized with 0.5% lidocaine. A 17 G needle was used to access the caudal epidural space using anatomic landmarks and x-ray guidance. We then threaded a catheter up to the L5/S1 level and injected contrast 1cc omnipaque 180 for verification of epidural spread. Following negative aspiration of heme or CSF, a mixture of 5 ml 0.5% lidocaine with 80 mg triamcinilone was injected with minimal pressure into the epidural space. The needle was removed, skin cleansed and a sterile bandage was applied. The patient tolerated the procedure well and no complications were encountered. Following the procedure the patient's vital signs were stable. The patient was discharged home in good condition with post-procedural instructions. Time Out: Immediately prior to the procedure, the following was verbally confirmed that there is a signed consent form and that the correct patient, planned procedure, site and side are consistent with documentation and that necessary equipment and/or blood products are available prior to the start of the case. Complications: none EBL: <5 cc Coding 46134 - Caudal/Lumbar Epidural/Interlaminar with fluoroscopy Procedure code (CPT) selection complete Assessment & Plan Assessment & Plan (1) Lumbar radiculopathy, right: Code(s): M54.16 - Radiculopathy, lumbar region Category: Medical Plan: Patient is status post caudal ZAKIYA with catheter. Patient tolerated procedure well and was discharged home in stable condition with discharge instructions. All questions were answered. We will follow-up via telephone or in clinic to assess response to therapy. A follow-up appointment was made during today's visit. Orders: Orders FL guidance in treatment room 09/07/24 M96.1 - Postlaminectomy syndrome, not elsewhere classified Coding Level of Care Code Procedure Only Diagnoses Lumbar radiculopathy, right M54.16 CPT Codes Coding - Joint 11: 98568 - Caudal/Lumbar Epidural/Interlaminar with fluoroscopy ([id number])
[2024-09-07 11:34] VITALS: BP 133/69; PULSE 68; RESP 16; O2SAT 99
[2024-09-07 12:52] VITALS: BP 155/73; PULSE 65; RESP 16; O2SAT 99
== END 2024-09-07 12:52 | disposition home or self-care (01) ==
LOC: HO.PMCPRC 11:21
PROVIDERS: PCP Internal Medicine; Visit Provider Internal Medicine
DX: M54.16 Radiculopathy, lumbar region (principal)
CPT/HCPCS: 62323

== ENCOUNTER → 2024-09-12 12:21 | Outpatient (REF) | payer MEDICARE, MEDICAID, SELFPAY ==
--- OUTSIDE RECORDS SUMMARY | 2024-09-12 13:59 | XMS_ITS | Data Portability ---
Author Organization [facility] [place] [facility] Address [address] [place] [address] Care Team Providers Care Digital Sales Assistant Name Role Phone HUI SANCHEZ Primary Care Provider [phone] HUI SANCHEZ Referring Provider BRIGITTE TAVERA Primary Care Provider BRIGITTE TAVERA [...] DO Not Attach Compendium, Do Not Delete/merge, [id number] 9 10:54:32 XR, knee, 3 view 2016 017 gwoodsum In-Office Order, Internal Use Only DO Not Attach Compendium DO Not Attach Compendium, Do Not Delete/merge, [id number] 7 11:14:50 XR, pelvis, 1 or 2 view 2016 017 gwoodsum In-Office Order, Internal Use Only DO Not Attach Compendium DO Not Attach Compendium, Do Not Delete/merge, [id number] 7 11:14:50 Medication Orders methylpredn isolone acetate 40 mg/mL suspension for injection 2018 019 ydaylor Not available 9 11:38:48 Depo-Medrol 40 mg/mL suspension for injection 2016 017 [email or web address] [facility] [address] [place], [place], [id number], 7 12:11:27 Depo-Medrol 40 mg/mL suspension for injection 2015 016 [facility] [address] [place], [place], [id number], 6 04:26:21 Monovisc 88 mg/4 mL intra-artic ular syringe 2015 016 [email or web address] Not available 6 14:37:31 Patient TargetsNo targets recorded. Patient Instructions Encounter Date Encounter Id Patient Instructions Last Modified By Organization Details Last Modified Time 07/25/2015 [id number] reviewed exam findings and discussed treatment options [...] visit. ydaylor Not available 07/25/2015 14:37:08 09/05/2015 [id number] reviewed exam findings and discussed management moving [...] today's visit. Not available 09/05/2015 14:26:19 01/23/2016 [id number] reviewed exam findings and again reviewed treatment [...] today's visit. Not available 01/23/2016 14:55:54 04/16/2016 [id number] reviewed exam an d x-ray findings. We [...] today's visit. Not available 04/16/2016 12:43:48 05/17/2018 [id number] knee arthritis: care instructions Not available 05/17/2018 [...] Details Recorded Time Pain of hip region 99157332 Active Isma Kearney MD [address] [place] [address], [phone], [facility] 6 14:25:10 Greater trochanteric pain syndrome 3833731 Active Isma Kearney MD [address] [place] [address], [phone], [facility] 6 14:25:10 Low back pain 883121480 Active Isma Kearney MD [address] [place] [address], [address], [facility] 6 14:25:10 Arthritis of knee 303471113 Active Isma Kearney MD [address] [place] [address], [phone], [facility] 6 14:26:19 Problem Notes None recorded. Procedures Surgical History Date Name Laterality Status Provider Name and Address Organization Details Recorded Time 9 Knee CS Injection - Right completed Cristobal Hernandez [address] [place] [address], [phone], [facility] 05/17/2018 09:35:19 7 Knee CS Injection - Right completed Isma Kearney MD [address] [place] [address], [phone], [facility] 04/16/2016 12:42:17 6 Knee CS Injection - Right completed Isma Kearney MD [address] [place], [address], [facility] 01/23/2016 14:55:23 6 Visco Injection - Right completed Isma Kearney MD [address] [place], [address], [facility] 07/25/2015 14:16:52 6 Knee CS Injection - Right completed Cristobal Hernandez [address] [place] [address], [phone], [facility] 07/11/2015 14:50:46 4 Troch Bursitis Injection LEFT - ONE completed Cristobal Hernandez [address] [place] [address], [phone], [facility] 03/13/2014 10:32:37 4 Orthopedic Surgery completed Linda Gunter [facility] 03/13/2014 09:37:28 Imaging Results None [...] Available Not Available No t Available FreeStyle [place] Lite kit U UTD active Not Available [...] Updated DateTime 05/17/2018 180.34 cm 29 kg/m2 69821.21 g Cat Funk [facility] 05/17/2018 09:01:30 Date Recorded Body mass index (BMI) Body height Body weight Provider Name and Address Organization Details Last Updated DateTime 07/25/2015 29 kg/m2 180.34 cm 01009.43923 g Tyler Cerrato [facility] 07/25/2015 14:00:17 Date Recorded Body weight Body mass index (BMI) Body height Provider Name and Address Organization Details Last Updated DateTime 09/05/2015 12248.51479 g 29 kg/m2 180.34 cm Shyla Means [facility] 09/05/2015 14:04:21 Date Recorded Body height Body weight Body mass index (BMI) Provider Name and Address Organization Details Last Updated DateTime 01/23/2016 180.34 cm 07904.21 g 29 kg/m2 Lyric Arevalo [facility] 01/23/2016 14:15:05 Social History Question Answer Notes LastModified by Organizat ion Details LastModified Time Tobacco Smoking Status Never Smoker Linda whitlock [facility] 03/13/2014 09:36:37 Auto Related Injury? [...] Disease/Problems N Breathing Problems N Heart Attack ([place]) N Sexually Transmitted Diseases N Bleeding Disorder/Tendencies [...] SNOMED-CT Code Diagnosis ICD10 Code Diagnosis Note [id number] Isma Kearney MD OFFICE-N. [facility] a [address] [address] 03/13/2014 09:00:31 03/13/2014 10:23:54 Pain of hip region 51664266 Greater tr ochanteric pain syndrome 9483803 53616 Cristobal Hernandez OFFICE-N. [facility] ot a [address] [address] 04/26/2014 10:27:27 04/26/2014 11:03:09 Greater trochanteric pain syndrome 7704421 Pain of hip region 43247688 Low back pain 100670192 [id number] Cristobal Hernandez OFFICE-N. [facility] ot [place] [address] [place] [address] 07/11/2015 13:30:13 07/11/2015 14:13:28 Arthritis of knee 517969676 M17.11 [id number] Isma Kearney MD OFFICE-N. [facility] ot a [address] [address] 07/25/2015 13:52:53 07/25/2015 14:38:30 Arthritis of knee 498670787 M17.11 [id number] Isma Kearney MD [facility] ot a [address] [address] 09/05/2015 13:56:05 09/05/2015 14:33:41 Arthritis of knee 411142195 M17.11 [id number] Isma Kearney MD OFFICE-N. [facility] ot a [address] [address] 01/23/2016 14:00:01 01/23/2016 14:59:28 Arthritis of knee 173624118 M17.11 [id number] Isma Kearney MD OFFICE-N. [facility] ot a [address] [address] 04/16/2016 10:06:25 04/16/2016 11:14:50 Pain in limb 44041731 M79.609 Pain of hip region 81066 002 M25.559 Knee pain 06948370 M25.5 61 Arthritis of knee 538336 002 M17.11 [id number] Cristobal Belcheron [facility] [address] [place] [address] 05/17/2018 08:23:37 05/17/2018 10:54:32 Pain in limb 75235121 M79.609 Osteoarthr itis of knee 909579062 M17.11 Health Concerns Section Related Observation LastModified by Organization Detai ls LastModified Time None Recorded Concern Status LastModified by Organization Details LastModified Time None Recorded Advance Directives Directive None Recorded Payers Insurance Date Sequence Insurance Name Policy Number Policy Rosas Covered Member ID Rosas Member ID Guarantor Name 05/17/2018 2 MED[place]ID-[place]: [facility] Omar Pitts [id number] Omar Pitts 05/17/2018 1 MEDICARE B-[place]: [facility] Omar Pitts [id number] Omar Pitts 05/17/2018 [employer] - SPECIALITY CLAIMS (MEDICARE DME REGION A) Omar Pitts [id number] Omar Pitts Notes Date Note Type Note [...] No other treatment thus far. Shyla whitlock [facility] 07/25/2015 14:37:44 09/05/2015 text/html HPI Omar returns today for follow-up of his right knee. He had a monovisc injection 6 weeks ago. He found this quite helpful. He also has been in physical therapy which has been helping. Pain has improved significantly. Functionally doing reasonably well at this point. Isma Kearney MD [address] [place] [address], [phone], [facility] 09/05/2015 14:26:39 01/23/2016 text/html Omar returns today once again for his right knee. He has known moderate right knee arthritis. I last saw him for this about 5 months ago. He's done well previously with injections. He had some type of tendon surgery in Normal it looks like perhaps the right hamstring and reports that he was in a brace for 6 weeks. He is in therapy for this but has had continued and increased right knee pain since the surgery. No new injury or significant change otherwise. Pain is fairly diffuse around the right knee. Isma Kearney MD [address] [place] [address], [address], [facility] 01/23/2016 14:56:20 04/16/2016 text/html [...] around the right knee. Isma Kearney MD [address] [place] [address], [address], [facility] 04/16/2016 12:43:51 05/17/2018 text/html [...] today. No updated x-rays. Cristobal Hernandez [address] [place], [address], [facility] 05/17/2018 09:36:48
== END ==
LOC: HO.CARD 12:21
PROVIDERS: PCP Internal Medicine; Visit Provider Internal Medicine Cardiovascular Disease
DX: I77.810 Thoracic aortic ectasia (principal)
CPT/HCPCS: 93306

== ENCOUNTER → 2024-09-12 12:24 | Outpatient (BNV) | payer MEDICARE, MEDICAID, SELFPAY | PROVIDERS: PCP Internal Medicine; Visit Provider Internal Medicine Cardiovascular Disease | DX: I77.810 Thoracic aortic ectasia (principal); I51.89 Other ill-defined heart diseases | CPT/HCPCS: 93306; 93356 ==

== ENCOUNTER 2025-02-05 12:58 | Outpatient (AMB) | payer MEDICARE, MEDICAID, SELFPAY ==
[2025-02-05 13:04] VITALS: BP 124/52; PULSE 81; BMI 25.6
--- NOTE | 2025-02-05 13:04 | MHC.OFFVIS ---
Vital Signs 02/05/25 13:04 Height 5 ft 10 in Weight 178 lb 2.136 oz BMI 25.6 BP 124/52 L Blood Pressure Location Rt brachial Position Sitting Pulse 81 Pulse Source Pulse Oximeter Intake Visit Reasons: 6 mth f/up Field Evidence Technician Required: Yes Field Evidence Technician Language: Corporate Compliance Director Name: carey adamson [id number] Allergies naproxen (From Naprosyn) Allergy (Verified 02/05/25 13:09) swelling Medication List - Last Reconciled 02/05/25 by Francine Vital NP-C aspirin (Adult Low Dose Aspirin) 81 mg PO DAILY atorvastatin 80 mg PO DAILY diclofenac sodium 1% 4 grams topical BID PRN insulin glargine (Basaglar KwikPen U-100 Insulin) 40 units subcut DAILY losartan 25 mg PO DAILY metformin ER 500 mg PO BID metoprolol tartrate 50 mg PO BID 90 days omeprazole 40 mg PO DAILY@0630 pen needle, diabetic As directed pen needle, diabetic As directed pregabalin 100 mg PO BID 30 days tirzepatide (Mounjaro) 7.5 mg subcut FR walker Folding Front wheeled walker HPI HPI 6 mth f/up: Details: Omar is a 74-year-old male with past medical history of hypertension, hyperlipidemia, diabetes, CAD with coronary artery bypass grafting, chronic chest wall pain, mildly dilated ascending aorta who presents for follow-up. Today he reports that he continues to have discomfort in the anterior chest wall. He notices it more when he lays down. He is vague on whether he is noticing any other types of discomfort. He was able to do his gardening and yd work this summer without significant difficulties. He has some issues with stair climbing due to knee pain. No shortness of breath, PND, orthopnea or edema. No lightheadedness, palpitations, presyncope, syncope. Taking meds as directed. Seems frustrated over chronic chest symptoms. [facility] Medical History Environmental allergies Osteoarthritis of right knee Deformity of right hand Diabetes mellitus Barretts esophagus Hyperlipidemia Diabetes Chronic chest pain Hypertension Surgical History H/O right inguinal hernia repair Status post total knee replacement, left History of esophagogastroduodenoscopy (EGD) History of hand surgery History of surgery History of lumbar fusion S/P CABG (coronary artery bypass graft) H/O neck surgery Hx of CABG (~2017) Family History Father Diabetes Hypertension Mother Diabetes Hypertension Son No problems noted. Son No problems noted. Son No problems noted. Daughter No problems noted. Daughter No problems noted. 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: Yes ( disabled) Do you presently have visiting nurse or other home services: No Alcohol intake: former Comment: new ice packs placed Patient Tobacco Use Status: Never used Tobacco service: No Current occupational status: disabled Current occupation: rt handed Cognitive needs: No Hearing needs: No Vision needs: No Review of Systems Const All systems reviewed & are unremarkable except as noted in HPI and below ENT Denies dizziness Card Reports chest pain, Reports chest pain at rest, Denies chest pain with activity, Denies rapid heart rate, Denies pedal edema, Denies edema, Denies leg edema, Denies lightheadedness, Denies palpitations, Denies dyspnea, Denies dyspnea on exertion and Denies orthopnea Resp Denies cough, Denies dyspnea and Denies dyspnea on exertion GI Denies hematochezia and Denies change in stool character Musc Reports abnormal gait (knee pains), Reports limited range of motion, Denies muscle cramps, Denies muscle weakness, Denies numbness, Denies radiating pain into limb, Denies stiffness and Denies tingling Neuro Reports abnormal gait (knee pains), Denies dizziness, Denies numbness and Denies tingling Endo Denies palpitations Physical Exam Vital Signs: Last Vital Signs Pulse 81 02/05/25 13:04 BP 124/52 L 02/05/25 13:04 BMI result Body Mass Index 25.6 Const General: cooperative, healthy appearing, comfortable and no acute distress Orientation/consciousness: patient oriented x3 Neck Neck: Yes normal visual inspection Resp Effort & Inspection: normal respiratory effort Auscultation: clear to auscultation bilaterally, no rales, no rhonchi and no wheezes Cardio Rate: regular rate Rhythm: regular rhythm Heart sounds: S1 normal heart sound present, S2 normal heart sound present, no gallops, no murmurs and no rubs Neuro General: patient oriented x3 Extrem General: Yes normal to inspection and No no pedal edema Psych Appearance: grossly normal Mental Status: mental status grossly normal Speech and movement: Normal speech and movement present Assessment & Plan Assessment & Plan (1) CAD (coronary artery disease): Code(s): I25.10 - Atherosclerotic heart disease of [place] coronary artery without angina pectoris Category: Medical Plan: CAD with coronary artery bypass grafting 2017. Will obtain further records from [facility] for our system. Chronic chest wall pain since that time. Currently no anginal sounding symptoms. Echocardiogram 09/12/2024 showing EF 50-55%, xece-gt-macytxmm decrease in the RV systolic function, sinus of Valsalva 4.63 cm, ascending aorta 4 cm. Continue risk factor modification. Continue aspirin indefinitely. Continue atorvastatin with ideal LDL goal less than 70. Continue metoprolol and losartan for good heart rate and blood pressure control. (2) S/P CABG (coronary artery bypass graft): Comment: 2016 Code(s): Z95.1 - Presence of aortocoronary bypass graft Category: Surgical Plan: As above (3) Chest pain of uncertain etiology: Code(s): R07.9 - Chest pain, unspecified Category: Medical Plan: Chronic left-sided chest wall discomfort without significant change since last visit. This pain has been reportedly present since his coronary artery bypass grafting. Discussed options for symptom control. (4) Cardiomyopathy: Code(s): I42.9 - Cardiomyopathy, unspecified Category: Medical Plan: Last echo showing EF 50-55%. No signs of heart failure on examination. Continue losartan and metoprolol for neurohormonal modulation. Signs and symptoms of heart failure reviewed with him. (5) Dilated aortic root: Code(s): I77.810 - Thoracic aortic ectasia Category: Medical Plan: Sinus of Valsalva 4.63 cm. Ascending aorta 4 cm. Blood pressure well controlled. On statin therapy. Will recheck echo 1 year from last. (6) Hypertension: Comment: Blood pressure control is good Code(s): I10 - Essential (primary) hypertension Category: Medical Qualifiers: Hypertension type: renovascular hypertension Qualified Code(s): I15.0 - Renovascular hypertension Plan: Blood pressure goal less than 130/80. Well controlled at this time. No med changes made. (7) Hyperlipidemia: Code(s): E78.5 - Hyperlipidemia, unspecified Category: Medical Qualifiers: Hyperlipidemia type: pure hypercholesterolemia Qualified Code(s): E78.00 - Pure hypercholesterolemia, unspecified Plan: [place] LDL goal less than 70. No recent lipids in our system. Last LDL 56 on 09/01/2022. Continue high-dose statin. Labs followed by his PCP. Plan Time spent on chart review, documentation, interview and assessment Coding Level of Care Code Est Pt Level 4 (79081) Complex EM visit Add On G2211 Diagnoses CAD (coronary artery disease) I25.10 S/P CABG (coronary artery bypass graft) Z95.1 Chest pain of uncertain etiology R07.9 Cardiomyopathy I42.9 Dilated aortic root I77.810 Renovascular hypertension I15.0 Hypertension type: renovascular hypertension Pure hypercholesterolemia E78.00 Hyperlipidemia type: pure hypercholesterolemia Time Spent (min) 28
--- OUTSIDE RECORDS SUMMARY | 2025-02-05 15:05 | XMS_ITS | Encounter Summary ---
Author Organization [facility] Address [address] [place] [id number] Phone Care Team Providers Care Telephone Clerks Supervisor Name Role Phone Zhang Ely MD Unavailable [phone] Fredy Ortiz MD Primary Care Provider Zhang Ely MD Unavailable [phone] Los Francisco MD Unavailable [phone] Taj Schrader MD Unavailable [phone] Courtney Park CNP Unavailable [phone] Taj Schrader MD Primary Care Provider Rain Reese MD Primary Care Provid er Simon Goodrich MD Unavailable [phone] Taj Schrader MD Primary Care Provider Zoila Wang PA-C Unavailable [phone] Unknown, Unknown Primary Care Provider Kulwant carter Encounter Details Date Type Department Care Team (Late st Contact Info) Description 07/20/2016 Procedure Pass [facility], [address], [address] [place] [address] Social History Tobacco Use Types Packs/Day Years Used Date Smoking Tobacco: Never Smokeless Tobacco: Never Alcohol Use Standard Drinks/Week Comments No 0 (1 standard drink = 0.6 oz pur e alcohol) Sex and Gender Information Value Date Recorded Sex Assigned at Not on file Legal Sex Male 5:57 PM EST Gender Identity Not on file Sexual Orientation Not on file documented as of this encounter Functional Status * Patient is deaf or has serious difficulty with hearing Answer Date of Assessment Author No 07/10/2016 1:01 PM Abbey Sterling CNP * 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, even when wearing glasses Answer Date of Assessment Author No 07/10/2016 1:01 PM Abbey Sterling CNP * Patient has serious difficulty walking or climbing stairs (5yr old or older) Answer Date of Assessment Author No 07/10/2016 1:01 PM Abbey Sterling CNP * Patient has serious difficulty dressing or bathing (5yr old or older) Answer Date of Assessment Author No 07/10/2016 1:01 PM Abbey Sterling CNP * Patient has serious difficulty doing errands alone such as visiting a doctor???s office or shopping, due to physical, mental, or emotional condition (15 years old or older) Answer Date of Assessment Author No 07/10/2016 9:11 AM Abbey Sterling CNP documented as of this encounter Mental Status * Patient has serious difficulty concentrating, remembering, or making decisions due to physical, mental, or emotional condition Answer Entry Date Author No 07/10/2016 1:01 PM Abbey Sterling CNP documented in this encounter Plan of Treatment Not on file documented as of this encounter Visit Diagnoses Not on filedocumented in this encounter Care Teams Telephone Clerks Supervisor Relationship Specialty Start Date End Date Fredy Ortiz MD [address] [place] [address] [email or web address] PCP - General Family Medicine 07/20/16 06/22/18 Taj Schrader MD [address] [place] [phone] PCP - General Family Medicine 06/23/18 10/29/19 Rain Reese MD [address] [place] [address] PCP - General Internal Medicine 10/30/19 11/08/19 Taj Schrader MD [address] [place] [phone] PCP - General Family Medicine 11/09/19 12/31/20 Unknown, Bautista, MD PCP - General 01/01/21 Zhang Ely MD [address] [place] [id number] [email or web address] 07/08/16 Zhang Ely MD [address] [place] [address] [email or web address] LMR Provider 04/28/18 Los Francisco MD [address] [place] [id number] [email or web address] Provider 04/28/18 Taj Schrader MD [address] [place] [phone] Historical LMR Provider 04/28/18 2 Courtney Park LIGHT FIXTURE SERVICER [address] [place] [address] Historical LMR Provider 04/28/18 Simon Goodrich MD [address] [place] [address] [email or web address] Gastroenterology 10/30/19 Zoila Wang PA-C [address] [place] [address] [email or web address] Physician Sales Driver Hematology 11/22/20 documented as of this encounter Additional Source Comments The information contained in this document represents components of the legal health record. It is not the complete legal health record.[facility]
--- OUTSIDE RECORDS SUMMARY | 2025-02-05 15:05 | XMS_ITS | Clinical Summary ---
Author Organization [facility] Address [address] [place] [address] Phone Care Team Providers Care Zoning Engineer Name Role Phone Zhang Ely MD Unavailable [phone] Zhang Ely MD Unavailable Courtney Park LUMBER SALVAGER Unavailable [phone] Simon Goodrich MD Unavailable [phone] Zoila Wang PA-C Unavailable [phone] Unknown, Unknown Primary Care Provider Kulwant carter Allergies Active Allergy Reactions Criticality Noted Date Comments Lactose Nausea And Vomiting Low 11/29/2013 Medications pregabalin (LYRICA) 75 MG capsule Take 75 mg by mouth 3 (three) times a day. Active aspirin 81 MG EC tablet Take 81 mg by mouth daily. Active insulin glargine (LANTUS) 100 unit/mL injection vial Inject 30 Units under the skin nightly. 10 mL 1 07/18/19 17 Active Additional Information Patient taking differently: 20 UnitsSubcutaneous Nightly, Reported on 08/31/2016 metoprolol succinate (TOPROL-XL) 50 MG 24 hr tablet Take 1 tablet (50 mg total) by mouth 2 (two) times a day. 120 tablet 2 07/18/19 17 Active metFORMIN (GLUCOPHAGE) 1000 MG tablet Take 1 tablet (1,000 mg total) by mouth 2 (two) times a day with meals. 60 tablet 1 07/18/19 17 Active atorvastatin (LIPITOR) 80 MG tablet Take 1 tablet (80 mg total) by mouth daily. 60 tablet 1 07/18/19 17 Active omeprazole (PRILOSEC) 40 MG capsule one tab PO BID, 30 minutes before breakfast and dinner 02/02/20 12 Active dulaglutide (TRULICITY) 0.75 mg/0.5 mL subcutaneous injection INJECT 0.5 ML UNDER THE SKIN ONCE WEEKLY #4, 28 days supply, Prescribed by HUI SANCHEZ, Filled 11/11/2017 11/12/19 18 Active ferrous sulfate 325 mg (65 mg [place] iron) EC tablet Take 1 tablet by mouth. 5 07/09/19 19 Active Active Problems Problem Noted Date Diagnosed Date Anemia 12/31/2020 Nocturnal leg cramps 12/31/2020 Chronic constipation 07/21/2018 Other chest pain 06/07/2018 Assessment & Plan (06/07/2018 2:20 PM EDT): Continues with atypical chest pain. Now with 2 kinds of chest pain. Rule out ischemia Rule out musculoskeletal abnormality Pharmacologic stress test and chest CT as above MIRNA (obstructive sleep apnea) 02/24/2017 Overview (07/21/2018): Question of MIRNA Robles's esophagus 02/24/2017 Neck pain 07/20/2016 Essential hypertension 07/13/2016 Assessment & Plan (07/21/2018 12:19 PM EDT): Well controlled Continue current medications BP Readings from Last 3 Encounters: 07/21/18 120/60 06/07/18 120/60 12/09/17 140/66 Assessment & Plan (06/07/2018 2:18 PM EDT): Blood pressure today 120/60 Well-controlled Continue current medication Assessment & Plan (07/17/2016 1:16 PM EDT): Monitor BPs at home as on less antihypertensive meds than prior to admission Mixed hyperlipidemia 07/13/2016 Assessment & Plan (07/21/2018 12:19 PM EDT): Lab Results Component Value Date CHOL 132 06/07/2018 HDL 75 06/07/2018 LDL 46 (L) 06/07/2018 TRIG 53 06/07/2018 LDLDIR 38 06/07/2018 Well controlled On adequate therapy Assessment & Plan (06/07/2018 2:18 PM EDT): No recent data Continue current medication Check labs today Assessment & Plan (07/17/2016 1:17 PM EDT): On appropriate high intensity statin for CAD. LFTs in stable range. Continue at discharge Diabetes 07/09/2016 Assessment & Plan (07/13/2016 11:27 AM EDT): Dr. Benitez is following. Assessment & Plan (07/11/2016 10:06 AM EDT): -Will contine actos and Lantus at hs -Continue to hold glucophage given 2 dye loads - TSH WNL - HgbA1C 7.9 Arteriosclerotic heart disease 07/08/2016 Assessment & Plan (07/21/2018 12:18 PM EDT): atypical chest pain continues S/P atherectomy and stenting of the ostial circumflex artery. The procedure was complicated by iatrogenic left main pseudoaneurysm. S/P 07/12/16 he underwent coronary artery bypass grafting (left internal mammary artery to left anterior descending artery, saphenous vein graft to first diagonal, saphenous vein graft to first obtuse marginal artery) with closure of the left main iatrogenic unroofing. Post op course was uncomplicated Suspect pain is ongoing post op chest wall pain and not ischemia Recent normal Lexiscan stress test and chest CT Ongoing management with Pain Clinic for chest wall pain Continue current medications Assessment & Plan (06/07/2018 2:17 PM EDT): atypical chest pain continues 2 kinds of pain S/P atherectomy and stenting of the ostial circumflex artery. The procedure was complicated by iatrogenic left main pseudoaneurysm. S/P 07/12/16 he underwent coronary artery bypass grafting (left internal mammary artery to left anterior descending artery, saphenous vein graft to first diagonal, saphenous vein graft to first obtuse marginal artery) with closure of the left main iatrogenic unroofing. Post op course was uncomplicated Suspect pain is ongoing post op chest wall pain and not ischemia Aspirin for life. Ongoing management with Pain Clinic for chest wall pain Pharmacologic stress test to rule out ischemia pharmacologic stress test to rule out ischemia Chest CT to rule out musculoskeletal abnormality as cause of ongoing chest pain Assessment & Plan (07/17/2016 1:14 PM EDT): S/p atherectomy LM/Ostial LCx, FABIO to ostial LCx Iatrogenic LMCA PSA noted post procedure S/p SHEETS-LAD, SVG-D1, SVG-OM1 Making good progress. TBB neg 2.1L. Wt down 3.2kg from yesterday, and now 5.9kg under admission wt. On aspirin, ticagrelor, metoprolol, atorvastatin 80mg, and furosemide Ambulating well. Ready for discharge. Agree with Card Surg that furosemide will not be continued at discharge. His Local pararescue manager is Dr. Zhang Ely. Assessment & Plan (07/11/2016 10:06 AM EDT): Coronary atherosclerosis of the [place] coronary moi ry 07/08/2016 Chronic lower back pain 11/29/2013 Overview (07/21/2018): 63 y.o. Male s/p L3-L4 laminectomy and L4-L5 facetectomy 05/24/13 w/o relief. Pt. Continues to c/o lower back pain radiating to the right hip into the leg and numbness in the foot. Pt. States he has done PT and 1 ZAKIYA after his surgery w/o relief. Pt. Being scheduled for 2 stages lumbar fusion. Polyp of colon 12/23/2012 Internal hemorrhoids 12/23/2012 Lactose intolerance 08/23/2012 Steatosis of liver 02/02/2012 Obstructive sleep apnea (adult) (pediatric) Neuropathy Overview (08/11/2018): Related to diabetes Hypertensive disorder Hyperlipidemia H/O five vessel coronary artery bypass Fatty liver Diabetes mellitus Depression Immunizations Immunization Administration Dates Next Due COVID-19 (Pre-01/18) Pfizer Vaccine, mRNA, PF 06/24/2020,06/03/2020 Hepatitis B Adult 03/21/2018,03/21/2018 Hepatitis B, unspecified formulation 11/12/2016, 01/24/2016 INFLUENZA, SPLIT VIRUS, TRIV ALENT W/ PRESERVATIVE IM 01/24/2016,12/25/2014,02/05/2014,01/03 Influenza High-Dose Quadriva lent Preservative Free IM 01/23/2020 Influenza High-Dose Trivalen t Preservative Free IM 12/30/2017,02/25/2017 Influenza, Unspecified Formulation 12/22/2010, Pneumococcal conjugate PCV13 12/25/2014 Pneumococcal polysaccharide PPSV23 11/12/2016 Tdap 02/05/2014 Zoster recombinant 03/21/2018,03/21/2018, 018 Family History Medical History Relation Comments Colon cancer Maternal Grandmother Relation Status Comments Maternal Grandmother Social History Tobacco Use Types Packs/Day Years Used Date Smoking Tobacco: Never Smokeless Tobacco: Never Alcohol Use Standard Drinks/Week Comments No 0 (1 standard drink = 0.6 oz pur e alcohol) Education Answer Date Recorded Are you interested in more education? Not on sergio e 07/25/2022 Are you concerned about learning? Not on file 07/25/2022 No 07/25/2022 No 07/25/2022 Digital Access Answer Date Recorded No 08/22/2022 No 08/22/2022 Reliable internet access at home? Not on file 08/22/2022 Device with a working camera? Not on file Sex and Gender Information Value Date Recorded Sex Assigned at Not on file Legal Sex Male 5:57 PM EST Gender Identity Not on file Sexual Orientation Not on file Last Filed Vital Signs Vital Sign Reading Time Taken Comments Blood Pressure 141/75 01/09/2021 3:40 PM EDT Pulse 64 01/09/2021 3:40 PM EDT Temperature 36.3 C (97.3 F) 01/09/2021 2:36 PM EDT Respiratory Rate 16 01/09/2021 3:40 PM EDT Oxygen Saturation 99% 01/09/2021 3:40 PM EDT Inhaled Oxygen Concentration 40% 07/12/2016 9 :00 PM EDT Weight 83.9 kg (185 lb) 10/24/2019 11:01 AM EDT Height 177.8 cm (5' 10 ) 10/24/2019 11:01 AM EDT Body Mass Index 26.54 10/24/2019 11:01 AM EDT Plan of Treatment Health Maintenance Due Date Last Done Comments BLOOD PRESSURE 1950 DEPRESSION SCREENING 1963 HEPATITIS C SCREENING 09/08/1969 COLOGUARD 09/08/1996 FIT TEST 09/08/1996 FOBT 09/08/1996 SIGMOIDOSCOPY 09/08/1996 VIRTUAL COLONOSCOPY 09/08/1996 RSV VACCINE (1 - Risk 50-74 years 1-dose series) 09/08/2001 DIABETIC EYE EXAM 07/09/2016 URINE MICROALBUMIN/CREATININE RATIO 07/09/2016 CREATININE LEVEL 07/21/2017 07/21/2016, , 07/16/2016, Additional history exists ZOSTER VACCINES (2 of 2) 05/16/2018 018, 03/21/2018, 03/14/2018 HEMOGLOBIN A1C 06/13/2018 12/14/2017, 07/09/2016 EGD 10/29/2022 10/30/2019 COLONOSCOPY 08/12/2023 08/11/2018 COLORECTAL CANCER SCREENING 08/12/2023 Adult Td,Tdap Booster 02/06/2024 02/05/2014 INFLUENZA VACCINE (#1) 2024 , 12/30/2017, 02/25/2017, Additional history exists COVID-19 VACCINE (3 - 2024- season) 2024 06/24/2020, 06/03/2020 PNEUMOCOCCAL VACCINES (50+ years) Completed 11/12/2016, 12/25/2014 SMOKING STATUS SCREENING (Once After 26 Yrs) Completed 10/30/2019 HEPATITIS A VACCINES Aged Out No long er eligible based on patient's age to complete this topic HIB VACCINES Aged Out No longer eligi ble based on patient's age to complete this topic IPV VACCINES Aged Out No longer eligi ble based on patient's age to complete this topic MENINGOCOCCAL VACCINES (ACWY) Aged Out No longer eligible based on patient's age to complete this topic MENINGOCOCCAL VACCINES (B) Aged Out N o longer eligible based on patient's age to complete this topic Medical Devices Implanted Type Area Canoe Maker Device Identifier Shelf Expiration Date Model / Serial / Lot Stent Drug Eluting Xience Alpine 3.5mm X18mm - [id number] Implanted:Qty: 1 on 07/09/2016 by Angelito España MD, MSc at [facility] Stent ENG VASCULAR 05/10/2019 [id number] / / [id number] Procedures Procedure Name Priority Date/Time Associated Diagnosis Comments COLONOSCOPY PROCDOC *DO NOT USE* Routine 08/11/2018 11:29 AM EDT Polyp of descending colon, unspecified type BASIC METABOLIC PANEL (BMP) STAT 07/21/2016 9:36 AM EDT HEMOGLOBIN A1C Routine 07/09/2016 4:30 AM EDT from Last 3 Months or Most Recently Relevant to Health Maintenance Results * COLONOSCOPY PROCDOC *DO NOT USE* (08/11/2018 11:29 AM EDT) Narrative Los Francisco MD - 08/11/2018 11:29 AM EDT Los Francisco MD 08/11/2018 11:32 AM [facility] End[facility] [place] Omar Pitts 1950 PROCEDURE: COLONOSCOPY WITH POLYPECTOMY USING COLD BIOPSY FORCEPS Procedure Date: 08/11/18 Prep Quality: Fair Indication: Omar Pitts is a 67 y.o. male who presents for screening colonoscopy . 2018 Colonoscopy poor bowel preparation FH grandmother with colon Ca . Anesthesia: Propofol per anesthesia Procedure: After discussion of risks, benefits, consequences and alternatives of the procedure and medication, and after reviewing the nursing evaluation, the patient was medicated as above. Digital rectal exam was performed and demonstrated no mass.The colonoscope was introduced and passed to the cecum , which was identified by inspection, palpation, and transillumination. The scope was then withdrawn. The cecum was photographed. Retroflexion of the endoscope in the rectum was performed. The patient tolerated the procedure well. Findings: One 0.2 cm descending colon polyp was removed with cold biopsy forceps. Internal hemorrhoids were noted. Impression: One Polyp as above Internal hemorrhoids Recommendations/Plan: Await pathology Repeat colonoscopy in 5 years time Los Francisco MD Gastroenterology & Hepatology [address] [place], [place] Office Office Los Francisco MD GI PROCEDURE ORDERAB LES Final Result * (ABNORMAL) Basic metabolic panel (07/21/2016 9:36 AM EDT) SODIUM 136 135 - 145 mmol/L [facility] POTASSIUM 3.9 3.4 - 5.0 mmol/L [facility] CHLORIDE 94(L) 98 - 108 mmol/L [facility] CO2 28 23 - 32 mmol/L [facility] BUN 20 8 - 25 mg/dL [facility] CREATININE 1.00 0.60 - 1.50 mg/dL [facility] GLUCOSE 202(H) 70 - 110 mg/dL [facility] CALCIUM 9.1 8.5 - 10.5 mg/dL [facility] EGFR >60 >60 mL/min/1. 73m2 [facility] Comment:The normal range for eGFR is >60 mL/min/1.73m2. ANION GAP 14 3 - 17 mmol/L [facility] Blood 07/21/2016 9:36 AM EDT 07/21/2016 10:04 AM EDT Result [facility] Marlen Constantino DECAL MAKER LAB BLOOD BKR ORDERABLES F inal Result [address] [address] * (ABNORMAL) Hemoglobin A1c (07/09/2016 4:30 AM EDT) HEMOGLOBIN A1C 7.9(H) 4.3 - 6.4 % [facility] CALC MEAN BLD GLUC 180 mg/dL [facility] Comment: There is no established normal range for the CMBG (Calculated Mean Blood Glucose). A hemoglobin A1c < 7% is the recommended target for most people with diabetes. The CMBG for an A1c of 7% is 154 mg/dL. The diagnostic hemoglobin A1c level for diabetes is greater than or equal to 6.5% which is a CMBG greater than or equal to 140 mg/dL. Blood 07/09/2016 4:30 AM EDT 07/09/2016 5:20 AM EDT Ashely Centeno LUMBER SALVAGER LAB BLOOD BKR ORDERABLES Fin al Result [facility] [address] [place] [address] from Last 3 Months or Most Recently Relevant to Health Maintenance Insurance MEDICARE PART A & [place] [facility] [place] Advance Directives For more information, please contact: [phone] (9AM - 5PM [place], Wednesday-Wednesday) Documents on File Type Date Recorded Patient Clinical Cytogeneticist Scientist Expl anation Healthcare Proxy 06/07/2018 11:49 AM Autumn d 07/10/16 * Full Code (Presumed) (Latest Code Status on File) Date Activated Date Inactivated Comments 07/12/2016 2:11 PM 07/17/2016 4:06 PM * Full Code (Presumed) Date Activated Date Inactivated Comments 07/08/2016 7:09 PM 07/12/2016 2:11 PM Care Teams Zoning Engineer Relationship Specialty Start Date End Date Unknown, Unknown, MD PCP - General 01/01/21 Zhang Ely MD [address] [place] [address] [email or web address] Cardiology 07/08/16 Zhang Ely MD [address] [place] [address] [email or web address] LMR Provider 04/28/18 Courtney Park, LUMBER SALVAGER [address] [place] [id number] Historical LMR Provider 04/28/18 Simon Goodrich MD [address] [place] [address] [email or web address] Provider Gastroenterology 10/30/19 Zoila Wang, JOE [address] [place] [address] [email or web address] Physician Grove Worker Hematology 11/22/20 Additional Source Comments The information contained in this document represents components of the legal health record. It is not the complete legal health record.[facility]
--- OUTSIDE RECORDS SUMMARY | 2025-02-05 15:05 | XMS_ITS | Continuity of Care Document ---
Author Organization [facility] [address] [place] [address] Phone [phone] Care Team Providers Care Scissors Sharpener Name Role Phone Antwan Ramirez M.D. Care Team Information Recei dominga [phone] Problems Active Problems Provider Date Anemia Aramis [...] Social History Type Date Description Comments Sex Male Sex Unknown Tobacco Use Start: Unknown Never Smoked Cigarettes ETOH Use Denies alcohol use Allergies and adverse reactions Active Allergies Criticality Reaction Severity Comments Date Naproxen Unable to assess criticality 09/08/2023 Medications Active Medications SIG Qnty Indications Order ing Provider Date Insulin Glargine-Ljbm355Ljan/ ML Solution Pen-Inject Inject 28 Units Under The Skin Once Daily AT Bedtime. 15units Aramis Garza M.D. 10/05/2024 Mounjaro7.5mg/0.5ML Solution Auto-Inject 1 injection every week as directed 6ml Aramis Garza M.D. 12/08/2023 Metformin HCL RY597qc Tablets ER 24HR take 2 tablets by mouth twice a day 360tabs Aramis Garza M.D. 09/22/2023 Freestyle Soraida 3/Sensor/Glucose Monitoring Qgdqez6Secwft Misc as directed 3units Aramis Garza M.D. 09/08/2023 Freestyle Soraida 3/[place]/Glucose Monitoring Ihiivu5Rpjvag Device use with sensors to check blood sugar dx:e11.9 1units Aramis Garza M.D. 09/08/2023 Tltpcpfvks309rx Capsules Take 1 Capsule By Mouth Twice Daily Antwan Ramirez M.D. Atorvastatin Lkvhwbf36xd Tablets Take 1 Tablet By Mouth Every Day Britney Henriquez M.D. Anrzutacty88sm Capsules DR Take 1 Capsule By Mouth Daily Dinesh Villasenor Rain Metoprolol Yfnigzix36jj Tablets Take 1 Tablet By Mouth Twice Daily [place], Rain Aspirin Adult Low Hgrn66ft Tablets DR 1 by mouth every day Unknown History Medications Lantus Nnndbwmc548Qebz/ML Solution Pen-Inject inject 34 units daily subcutaneously 60ml Aramis Garza M.D. 10/05/2024 - 10/05/2024 Basaglar Ysjuknq411Adji/ML Solution Pen-Inject inject 34 units daily subcutaneously 30ml Aramis Garza M.D. 10/05/2024 - 10/05/2024 Insulin Glargine Max Fqpgsbfk063Sksm/ML Solution Pen-Inject inject 30 units daily 30ml Aramis Garza M.D. 08/22/2024 - 08/22/2024 Insulin Degludec Honhthatj318Jagk/ML Solution Pen-Inject inject 34 units daily 27ml Aramis Garza M.D. 08/22/2024 - 10/05/2024 Insulin Glargine-Itpd467Uukl/ML Solution inject 30 units daily 10ml Aramis Garza M.D. 06/21/2024 - 08/22/2024 Vital Signs Date Vital Result Comment 01/31/2025 1:06pm BP Systolic 120 mmHg BP Diastolic 80 mmHg Heart Rate 72 /min Height 70 inches 5'10 Weight 184.00 lb BMI (Body Mass Index) 26.4 kg/m2 Results Test Acquired Date Facility Test Result H/L Range N ote Glucose Fingerstick 01/31/2025 Inhouse Glucose Fingerstick 101 Hemoglobin A1c 01/31/2025 Inhouse Hemoglobin A1c 7.2% Glucose Fingerstick 09/14/2024 Inhouse Glucose Fingerstick 484 Hemoglobin A1c 09/14/2024 Inhouse Hemoglobin A1c 8.4% Glucose Fingerstick 06/08/2024 Inhouse Glucose Fingerstick 99 [...] increased: >300 Procedures Date Code Description Status 01/31/2025 61839 Glucose Monitoring Interpeta tion And Report Completed 09/14/2024 11614 Glucose Monitoring Interpeta tion And Report Completed 03/14/2024 NSHOWOFF No Show Office Visit Complet ed Medical Devices Description No Information Available Encounters Type Date Location Provider Dx Diagnosis Office Visit 01/31/2025 1:15p Main Office Aramis Garza M.D. E11.40 Type 2 diabetes mellitus with diabetic neuropathy, unsp E11.8 Type 2 diabetes mechelle itus with unspecified complications Assessments Date Code Description Provider 01/31/2025 E11.40 Diabetic peripheral neuropat hy Aramis Garza M.D. 01/31/2025 E11.8 Complication due to diabetes mellitus Aramis Garza M.D. Plan of Treatment Future Appointment(s):* 05/30/2025 1:15 pm - Aramis Garza M.D. at Main Office 09/14/2024 - Aramis Garza M.D.* E11.8 Complication due to diabetes mellitus * E11.40 Diabetic peripheral neuropathy Functional Status Description No Information Available Mental Status Description No Information Available Referrals Description No Information Available
--- OUTSIDE RECORDS SUMMARY | 2025-02-05 15:05 | XMS_ITS | Encounter Summary ---
Author Organization [facility] Address [address] [place] [address] Phone Care Team Providers Care Harnessmaker Name Role Phone Zhang Ely MD Unavailable [phone] Zhang Ely MD Unavailable [phone] Los Francisco MD Unavailable [phone] Taj Schrader MD Unavailable [phone] Courtney Park ART EDUCATOR Unavailable Taj Schrader MD Primary Care Provider [phone] Rain Reese MD Primary Care Provid er Simon Goodrich MD Unavailable Taj Schrader MD Primary Care Provider [phone] Zoila Wang PA-C Unavailable Unknown, Unknown Primary Care Provider Kulwant carter Encounter Details Date Type Department Care Team (Late st Contact Info) Description 08/11/2018 Procedure Pass [facility] Physicians - Endoscopy - [place] [address] [place] [address] Social History Tobacco Use Types Packs/Day Years [...] of Assessment Author No 07/10/2016 1:01 PM EDT Abbey Ortiz CNP * 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, even when wearing glasses Answer Date of Assessment Author No 07/10/2016 1:01 PM EDAbbey Lala CNP * Patient has serious difficulty walking [...] on filedocumented in this encounter Care Teams Harnessmaker Relationship Specialty Start Date End Date Taj Schrader MD [address] [place] [phone] PCP - General Family Medicine 06/23/18 10/29/19 Rain Reese MD [address] [place] [address] PCP - General Internal Medicine 10/30/19 11/08/19 Taj Schrader MD [address] [place] [address] PCP - General Family Medicine 11/09/19 12/31/20 Unknown, Bautista, PCP - General 01/01/21 Zhang Ely MD [address] [place] [phone] [email or web address] [email or web address] 07/08/16 Zhang Ely MD [address] [place] [phone] [email or web address] LMR Provider 04/28/18 Los Francisco MD [address] [place] [phone] [email or web address] [email or web address] Provider 04/28/18 Taj Schrader MD [address] [place] [address] Historical LMR Provider 04/28/18 2 Courtney Park, ART EDUCATOR [address] [place] [phone] Historical LMR Provider 04/28/18 Simon Goodrich MD [address] [place] [address] [place] [address] [email or web address] [email or web address] Gastroenterology 10/30/19 Zoila Wang PA-C [address] [place] [address] [email or web address] Physician Surfacer Operator Hematology 11/22/20 documented as of this encounter Additional Source Comments The information contained in this document represents components of the legal health record. It is not the complete legal health record.[facility]
--- OUTSIDE RECORDS SUMMARY | 2025-02-05 15:05 | XMS_ITS | Encounter Summary ---
Author Organization [facility] Address [address] [place] [address] [place] [phone] Phone Care Team Providers Care Tire Retreader Name Role Phone Zhang Ely MD Unavailable [phone] Zhang Ely MD Unavailable [phone] Taj Schrader MD Unavailable [place] [facility] Unavailable [phone] Rain Reese MD Primary Care Provid er Simon Goodrich MD Unavailable [phone] Taj Schrader MD Primary Care Provider [phone] Zoila Wang PA-C Unavailable Unknown, Unknown Primary Care Provider Kulwant carter Encounter Details Date Type Department Care Team (Late st Contact Info) Description 10/30/2019 Procedure Pass [facility] - Endoscopy - [place] [address] [place] [id number] Social History Tobacco Use Types Packs/Day Years [...] 1:01 PM EDAbbey Lala CNP * 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, even when wearing glasses Answer Date of Assessment Author No 07/10/2016 1:01 PM EDT Abbey Ortiz CNP * Patient has serious difficulty walking or climbing stairs (5yr old or older) Answer Date of Assessment Author No 07/10/2016 1:01 PM EDT Abbey Ortiz CNP * Patient has serious difficulty dressing or bathing (5yr old or older) Answer Date of Assessment Author No 07/10/2016 1:01 PM EDAbbey Lala CNP * Patient has serious difficulty doing errands alone such as visiting a doctor???s office or shopping, due to physical, mental, or emotional condition (15 years old or older) Answer Date of Assessment Author No 07/10/2016 9:11 AM EDAbbey Lala CNP documented as of this encounter Mental Status * Patient has serious difficulty concentrating, remembering, or making decisions due to physical, mental, or emotional condition Answer Entry Date Author No 07/10/2016 1:01 PM Abbey Sterling CNP documented in this encounter Plan of Treatment Not on file documented as of this encounter Visit Diagnoses Not on filedocumented in this encounter Care Teams Tire Retreader Relationship Specialty Start Date End Date Rain Reese MD [address] [place] [phone] PCP - General Internal Medicine 10/30/19 11/08/19 Taj Schrader MD [address] [place] [phone] PCP - General Family Medicine 11/09/19 12/31/20 Unknown, Bautista, PCP - General 01/01/21 Zhang Ely MD [address] [place] [id number] [email or web address] 07/08/16 Zhang Ely MD [address] [place] [id number] [email or web address] Historical LMR Provider 04/28/18 Taj Schrader MD [address] [place] [phone] Historical LMR Provider 04/28/18 2 [place] CNP [address] [place] [id number] Historical LMR Provider 04/28/18 Simon Goodrich MD [address] [place] [phone] [email or web address] Consulting Provider Gastroenterology 10/30/19 Zoila Wang PA-C [address] [place] [phone] Physician Relocation Director Hematology 11/22/20 documented as of this encounter Additional Source Comments The information contained in this document represents components of the legal health record. It is not the complete legal health record.[facility]
--- OUTSIDE RECORDS SUMMARY | 2025-02-05 15:05 | XMS_ITS | Clinical Summary ---
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 Troy Infraware note Diabetes mellitus type 2, co ntrolled, with complications ([facility] V24, [facility] V28) 07/27/2022 Esophageal reflux 07/27/2022 Essential hypertension 07/27/2022 Hyperlipidemia 07/27/2022 PAD (peripheral artery disease) ([facility] V24) Varicose veins of leg with swelling, bilateral 0 07/27/2022 Dupuytren contracture 10/03/2020 Encounters Date Type Department Care Team Description 01/16/2025 1:30 PM EDT Office Visit Orthopedic Surgery [address] [phone] Arvin Aguilar, DPM Hallux rigidus of right foot (Primary Dx); Acquired hammer toe of right foot; Hallux rigidus of left foot; Hammer toe of left foot; Diabetic mononeuropathy simplex ([facility] V24, [facility] V28); Dermatophytosis of nail; Pain in toe of left foot; Pain in toe of right foot; Corns and callosities; Type II diabetes mellitus with peripheral circulatory disorder ([facility] V24, [facility] V28) [E11.51] 12/21/2024 2:15 PM EDT - 12/21/2024 9:17 PM EDT Emergency [facility] Emergency [address] [place] [phone] Disha Ness MD Enterocolitis (Primary Dx); Diarrhea of presumed infectious origin; Lower abdominal pain; Dehydration Discharge Disposition: Home or Self Care 12/11/2024 12:45 PM EDT Ancillary Procedure [facility] Cardiology [facility] [address] [phone] Varicose veins of leg with swelling, bilateral 12/05/2024 12:45 PM EDT Ancillary Procedure [facility] [address] [phone] PAD (peripheral artery disease) ([facility] V24) from Last 3 Months Surgical History Surgery Date Site/Laterality Comments LEG SURGERY Right PROCEDURE: HISTORICAL LEG SURGERY BACK SURGERY PROCEDURE: HISTORICAL BACK SURGERY HERNIA REPAIR 10/03/2019 Right PROCEDURE: LAPAROSCOPY, INGUINAL HERNIA REPAIR; COMMENT: Dr Rios[facility] HAND SURGERY 09/23/2020 Right PROCEDURE: HISTORICAL HAND SURGERY; COMMENT: fasciectomy of right palm and small finger for dupytrens contracture with Dr. Troy Medical History Medical History Date Comments Diabetes mellitus type 2, co ntrolled, with complications ([facility] V24, [facility] V28) DX:Diabetes mellitus type 2, controlled, with complications ([facility]) Hyperlipidemia DX:Hyperlipidemi a Esophageal reflux DX:Esophageal reflux Essential hypertension DX:Essent ial hypertension Coronary artery disease DX:Coron amber artery disease; COMMENT: Required CABG per Dr. Troy Infraware note Social History Tobacco Use Types Packs/Day [...] Sign Reading Time Taken Comments Blood Pressure 133/66 12/21/2024 7:55 PM EDT Pulse 71 12/21/2024 7:55 PM EDT Temperature 37 C (98.6 F) 12/21/2024 3:55 PM EDT Respiratory Rate 16 12/21/2024 7:55 PM EDT Oxygen Saturation 100% 12/21/2024 7:55 PM EDT Inhaled Oxygen Concentration - - Weight 77.1 kg (170 lb) 12/21/2024 11:51 AM EDT Height 177.8 cm (5' 10 ) 12/21/2024 11:51 AM EDT Body Mass Index 24.39 12/21/2024 11:51 AM EDT Plan of Treatment Upcoming Encounters Date Type Department Care Team (Late st Contact Info) Description 02/12/2025 2:00 PM EST Office Visit Vascular Surgery - [place] [address] [place] [phone] Lux Malik MD [address] [place] [phone] 04/18/2025 1:45 PM EST Office Visit Orthopedic Surgery - [place] [address] [phone] Arvin Aguilar DPM [address] [phone] Health Maintenance Due Date Last Done Comments Colorectal Cancer Screening: Colonoscopy 1950 Diabetes: Annual Foot Exam 09/08/1961 Diabetes: Annual Retina Eye Exam 09/08/1961 Hepatitis A Vaccines (1 of 2 - Risk 2-dose series) 09/08/1970 RSV Immunization Adult Patients (1 - Risk 50-74 years 1-dose series) 09/08/2001 Cholesterol Screening (Lipid Panel) 03/07/2022 Falls Risk Assessment 03/07/2022 Hepatitis C Screening 03/07/2022 Medicare Annual Wellness Visit 03/07/2022 Social Influencers of Health Screening 03/07/2022 Diabetes: Annual Urine Albumin-Creatinine Ratio (uACR) 04/27/2023 Diabetes: Blood Sugar Control Test (HGBA1C) 04/27/2023 12/14/2017 DTaP,Tdap,and Td Vaccines (2 - Td or Tdap) 02/06/2024 02/05/2014 Depression Screening 03/29/2024 COVID-19 Vaccine ( season) 2024 01/28/2023, 07/28/2021, 02/03/2021, Additional history exists Influenza Vaccine (#1) 2024 , 01/06/2023, 02/03/2021, Additional history exists Diabetes: Annual GFR (Glomerular Filtration Rate) 12/21/2025 12/21/2024, 12/14/2017 Hypertension/CHF/CAD Annual BMP Blood Test 12/21/2025 12/21/2024, 12/14/2017 Pneumococcal Vaccine: 50+ Years Completed 11/12/2016, 12/25/2014 Hepatitis B Vaccines Completed 03/21/2018, 11/12/2016, 11/12/2016, Additional history exists Zoster Vaccines Completed 03/21/2018, 02/26, 03/14/2017 HIB Vaccines Aged Out No longer eligi [...] on patient's age to complete this topic Procedures Procedure Name Priority Date/Time Associated Diagnosis Comments CT ABDOMEN PELVIS W CONTRAST STAT 12/21/2024 4:28 PM EDT HATHAWAY URINE CULTURE TUBE STAT 12/21/2024 3:50 PM EDT URINALYSIS WITH REFLEX MICROSCOPIC AND CULTURE STAT 12/21/2024 3:50 PM EDT URINALYSIS WITH REFLEX MICROSCOPIC AND CULTURE STAT 12/21/2024 3:50 PM EDT CBC WITH AUTO DIFFERENTIAL STAT 12/21/2024 12:10 PM EDT LIPASE STAT 12/21/2024 12:10 PM EDT MAGNESIUM STAT 12/21/2024 12:10 PM EDT COMPREHENSIVE METABOLIC PANEL STAT 12/21/2024 12:10 PM EDT CBC AND DIFFERENTIAL STAT 12/21/2024 12:10 PM EDT VAS US DUPLEX LOWER EXT VENOUS INSUFFICIENCY BILATERAL Routine 12/11/2024 1:05 PM EDT Varicose veins of leg with swelling, bilateral VAS US DUPLEX LOWER EXT ARTERIES BILAT WITH MISHA Routine 12/05/2024 1:21 PM EDT PAD (peripheral artery disease) ([facility] V24) from Last 3 Months Results * CT Abdomen Pelvis w Contrast (12/21/2024 4:28 PM EDT) Anatomical Region Laterality Modality Body Computed Tomogra phy 12/21/2024 4:50 PM EDT Impressions 12/21/2024 4:56 PM EDT 1. Findings could represent enterocolitis. 2. Circumferential thickening of the bladder is probably related to underdistention could be correlated for cystitis. -------- FINAL REPORT -------- Dictated By: Kimberli Carr Dictated Date: 12/21/2024 16:50 ET Assigned Physician: Kimberli Carr Reviewed and Electronically Signed By: Kimberli Carr Signed Date: 12/21/2024 16:56 ET Workstation ID: [id number] Transcribed By: Self Edit Transcribed Date: 12/21/2024 16:50 ET Narrative 12/21/2024 4:56 PM EDT PROCEDURE: CT ABDOMEN/PELVIS WITH CONTRAST INDICATION: Abdominal pain, acute, nonlocalized Diverticulitis, complication suspected diarrhea x 4 days TECHNIQUE: CT of the abdomen and pelvis following the intravenous administration of 90cc Isovue 370. Multiplanar reformats. The examination was performed utilizing dose reduction techniques. Total DLP 815 COMPARISON: No priors available. FINDINGS: LOWER THORAX: Lung bases are clear. HEPATOBILIARY: No focal liver lesions. No cholelithiasis or biliary duct dilatation. SPLEEN: No focal lesion. PANCREAS: No focal mass or ductal dilatation. ADRENALS: No nodules. KIDNEYS/URETERS: No hydronephrosis, stones, or solid mass. PELVIC ORGANS/BLADDER: Circumferential thickening of the bladder is probably related to underdistention could be correlated for cystitis. PERITONEUM / RETROPERITONEUM: Nonspecific nodes in the mesentery presumably reactive. VESSELS: Scattered atherosclerotic calcifications throughout the aorta and its major branches. No aneurysm. GI TRACT: There is thickening of the small bowel and colon BONES AND SOFT TISSUES: Degenerative changes. Posterior lumbar fusion. No acute fracture. Soft tissues are unremarkable. Procedure Note Kimberli Carr MD - 12/21/2024 PROCEDURE: CT ABDOMEN/PELVIS WITH CONTRAST INDICATION: Abdominal pain, acute, nonlocalized Diverticulitis, complication suspected diarrhea x 4 days TECHNIQUE: CT of the abdomen and pelvis following the intravenousadministration of 90cc Isovue 370. Multiplanar reformats. The examinationwas performed utilizing dose reduction techniques. Total DLP 815 COMPARISON: No priors available. FINDINGS: LOWER THORAX: Lung bases are clear. HEPATOBILIARY: No focal liver lesions. No cholelithiasis or biliary ductdilatation. SPLEEN: No focal lesion. PANCREAS: No focal mass or ductal dilatation. ADRENALS: No nodules. KIDNEYS/URETERS: No hydronephrosis, stones, or solid mass. PELVIC ORGANS/BLADDER: Circumferential thickening of the bladder isprobably related to underdistention could be correlated for cystitis. PERITONEUM / RETROPERITONEUM: Nonspecific nodes in the mesenterypresumably reactive. VESSELS: Scattered atherosclerotic calcifications throughout the aorta andits major branches. No aneurysm. GI TRACT: There is thickening of the small bowel and colon BONES AND SOFT TISSUES: Degenerative changes. Posterior lumbar fusion.No acute fracture. Soft tissues are unremarkable. IMPRESSION: 1. Findings could represent enterocolitis. 2. Circumferential thickening of the bladder is probably related tounderdistention could be correlated for cystitis. -------- FINAL REPORT -------- Dictated By: Kimberli Carr Dictated Date: 12/21/2024 16:50 ET Assigned Physician: Kimberli Carr Reviewed and Electronically Signed By: Kimberli Carr Signed Date: 12/21/2024 16:56 ET Workstation ID: [id number] Transcribed By: Self Edit Transcribed Date: 12/21/2024 16:50 ET Disha Ness MD [facility] CT PROCEDURES Final Result * (ABNORMAL) Urinalysis with reflex microscopic and culture (12/21/2024 3:50 PM EDT) Specific [place] Urine >=1.030 1.003 - 1.030 LAB URINALYSIS - AUTOMATED METHOD 12/21/2024 4:48 PM EDT [facility] pH, Urine 6.0 5.0 - 8.0 pH LAB URINALYSIS - AUTOMATED METHOD 12/21/2024 4:48 PM [facility] Leukocytes, Urine Negative Negative LAB URINALYSIS - AUTOMATED METHOD 12/21/2024 4:48 PM [facility] Nitrite, Urine Negative Negative LAB URINALYSIS - AUTOMATED METHOD 12/21/2024 4:48 PM [facility] Protein, Urine 100(A) <=Trace mg/dL LAB URINALYSIS - AUTOMATED METHOD 12/21/2024 4:48 PM [facility] Glucose, Urine Negative Negative mg/dL LAB URINALYSIS - AUTOMATED METHOD 12/21/2024 4:48 PM [facility] Ketones, Urine Trace(A) Negative mg/dL LAB URINALYSIS - AUTOMATED METHOD 12/21/2024 4:48 PM [facility] Urobilinogen , Urine 0.2 0.2 - 1.0 mg/dL LAB URINALYSIS - AUTOMATED METHOD 12/21/2024 4:48 PM [facility] Bilirubin, Urine Small(A) Negative LAB URINALYSIS - AUTOMATED METHOD 12/21/2024 4:48 PM [facility] Blood, Urine Negative Negative LAB URINALYSIS - AUTOMATED METHOD 12/21/2024 4:48 PM [facility] RBC, Urine 2 0 - 4 /HPF 12/21/2024 4:48 PM [facility] WBC, Urine 1 0 - 4 /HPF 12/21/2024 4:48 PM [facility] Squamous Epithelial, Urine 10 0 - 60 /LPF 12/21/2024 4:48 PM [facility] Bacteria, Urine Negative Negative /HPF 12/21/2024 4:48 PM [facility] Hyaline Casts, Urine 3 0 - 3 /LPF 12/21/2024 4:48 PM EDT [facility] Other Casts, Urine Rare Fine Granular casts. Rare RTE cast.Rare Coarse Granular casts. /LPF 12/21/2024 4:48 PM EDT [facility] Mucus, Urine Moderate None /HPF 12/21/2024 4:48 PM EDT [facility] Urine Urine specimen obtained by clean catch procedure / Unknown Non-blood Collection / Unknown 12/21/2024 3:50 PM EDT 12/21/2024 4:26 PM EDT us Disha Ness MD LAB URINE ORDERABLES Final Resul t Performing Organization Address [facility]/ZIP Co de Phone Number [facility] [address] [place] [address], [place] [phone] * [place] urine culture tube (12/21/2024 3:50 PM EDT) Extra Tube Hold for add-ons. 12/21/2024 6:01 PM EDT [facility] Comment:Auto resulted. Urine Urine specimen obtained by clean catch procedure / Unknown Non-blood Collection / Unknown 12/21/2024 3:50 PM EDT 12/21/2024 4:26 PM EDT us Disha Ness MD LAB URINE ORDERABLES Final Resul t Performing Organization Address [facility]/ZIP Co de Phone Number [facility] [address] [place] [address], [place] [phone] * (ABNORMAL) CBC auto differential (12/21/2024 12:10 PM EDT) WBC 5.3 4.8 - 10.8 K/[facility] LAB HEMETOLOGY METHOD 12/21/2024 1:34 PM EDT [facility] RBC 4.30(L) 4.50 - 5.50 M/[facility] LAB HEMETOLOGY METHOD 12/21/2024 1:34 PM EDT [facility] Hemoglobin 12.6(L) 13.5 - 17.5 g/dL LAB HEMETOLOGY METHOD 12/21/2024 1:34 PM [facility] Hematocrit 38.4(L) 42.0 - 54.0 % LAB [facility]EMETOLOGY [facility]24 [facility] MCV 89.3 79.0 - 98.0 FL LAB HEMETOLOGY METHOD 12/21/2024 1:[facility] MCH 29.3 27.0 - 32.0 pcg LAB HEMETOLOGY METHOD 12/21/2024 1:34 PM [facility] MCHC 32.8 32.0 - 37.0 g/dL LAB HEMETOLOGY METHOD 12/21/2024 1:34 PM [facility] RDW 14.6 11.0 - 15.0 % LAB HEMETOLOGY METHOD 12/21/2024 1:34 PM [facility] Platelets 182 130 - 400 K/mcL LAB HEMETOLOGY METHOD 12/21/2024 1:34 PM [facility] MPV 11.6(H) 7.0 - 11.0 FL LAB HEMETOLOGY METHOD [facility]24 [facility] NRBC 0.0 <1.0 % LAB HEMETOLOGY METHOD 12/21/2024 1:34 PM [facility] NRBC Absolute 0.00 <0.10 K/mcL LAB HEMETOLOGY METHOD [facility]/21[facility]2024 1:[facility] Neutrophils Relative 48.7 % LAB HEMETOLOGY METHOD 12/21[facility]2024 1:[facility] Lymphocytes Relative 27.2 % LAB HEMETOLOGY METHOD 12/21/2024 1:34 PM EDT [facility] Monocytes Relative 22.5 % LAB HEMETOLOGY METHOD 12/21/2024 1:34 PM EDT [facility] Eosinophils Relative 0.8 % LAB HEMETOLOGY METHOD [facility]24 [facility] Basophils Relative 0.4 % LAB HEMETOLOGY METHOD 12/21/2024 1:34 PM EDT [facility] Immature Granulocytes Relative 0.4 % LAB HEMETOLOGY METHOD 12/21/2024 1:34 PM EDT [facility] Neutrophils Absolute 2.60 1.50 - 7.00 K/mcL LAB HEMETOLOGY METHOD 12/21/2024 1:34 PM EDT [facility] Lymphocytes Absolute 1.45 1.00 - 5.00 K/mcL LAB HEMETOLOGY METHOD [facility]24 [facility] Monocytes Absolute 1.20(H) 0.20 - 1.00 K/mcL LAB HEMETOLOGY METHOD 12/21/2024 1:34 PM EDT [facility] Eosinophils Absolute 0.04 0.00 - 0.50 K/mcL LAB HEMETOLOGY METHOD 12/21/2024 1:34 PM [facility] Basophils Absolute 0.02 0.00 - 0.20 K/mcL LAB HEMETOLOGY METHOD 12/21/2024 1:34 PM T [facility] Immature Granulocytes Absolute 0.02 0.00 - 0.03 K/mcL LAB HEMETOLOGY METHOD 12/21/2024 1:34 PM [facility] Blood Venous blood specimen / Unknown Venipuncture / Unknown 12/21/2024 12:10 PM EDT 12/21/2024 1:25 PM EDT us Myron RIVERA LAB BLOOD ORDERABLES Final R esult Performing Organization Address City/[facility]/ZIP Co de Phone Number [facility] [address] [place] [address], [place] [phone] * (ABNORMAL) Magnesium (12/21/2024 12:10 PM EDT) Pathologist [facility] Magnesium 1.3(L) 1.9 - 2.6 mg/dL LAB CHEMISTRY METHOD 12/21/2024 1:53 PM EDT [facility] Blood Venous blood specimen / Unknown Venipuncture / Unknown 12/21/2024 12:10 PM EDT 12/21/2024 1:25 PM EDT Myron RIVERA LAB BLOOD ORDERABLES Final R esult Performing Organization Address [facility] Co de Phone Number [facility] [address] [place] [address], * Lipase (12/21/2024 12:10 PM EDT) [facility] Lipase 37 13 - 75 unit/L LAB CHEMISTRY METHOD 12/21/2024 1:53 PM EDT [facility] Blood Venous blood specimen / Unknown Venipuncture / Unknown 12/21/2024 12:10 PM EDT 12/21/2024 1:25 PM EDT Myron RIVERA LAB BLOOD ORDERABLES Final R esult Performing Organization Address [facility]/ZIP Co de Phone Number [facility] [address] [place] [address], [place] [phone] * (ABNORMAL) Comprehensive metabolic panel (12/21/2024 12:10 PM EDT) [facility] Sodium 140 133 - 145 mmol/L LAB CHEMISTRY METHOD 12/21/2024 1:53 PM EDT [facility] Potassium 3.9 3.5 - 5.5 mmol/L LAB CHEMISTRY METHOD 12/21/2024 1:53 PM [facility] Chloride 104 96 - 110 mmol/L LAB CHEMISTRY METHOD 12/21/2024 1:53 PM [facility] CO2 28 21 - 32 mmol/L LAB CHEMISTRY METHOD 12/21/2024 1:53 PM [facility] Anion Gap 8 3 - 11 LAB CHEMISTRY METHOD 12/21/2024 1:53 PM [facility] Glucose 133(H) 70 - 100 mg/dL LAB CHEMISTRY METHOD 12/21/2024 1:53 PM [facility] BUN 12 5 - 25 mg/dL LAB CHEMISTRY METHOD 12/21/2024 1:53 PM [facility] Creatinine 0.93 0.70 - 1.30 mg/dL LAB CHEMISTRY METHOD 12/21/2024 1:53 PM [facility] eGFR 87 >=60 mL/min/1. 73m2 LAB CHEMISTRY METHOD 12/21/2024 1:53 PM [facility] Comment:Calculation based on the Chronic Kidney Disease Epidemiology Collaboration (CKD-EPI) equation refit without adjustment for race. BUN/Creatinine Ratio 12.9 LAB CHEMISTRY METHOD 12/21/2024 1:53 PM [facility] Calcium 8.6 8.5 - 10.5 mg/dL LAB CHEMISTRY METHOD 12/21/2024 1:53 PM [facility] AST (SGOT) 15 10 - 42 unit/L LAB CHEMISTRY METHOD 12/21/2024 1:53 PM [facility] ALT (SGPT) 23 10 - 60 unit/L LAB CHEMISTRY METHOD 12/21/2024 1:53 PM [facility] Alkaline Phosphatase 64 42 - 121 unit/L LAB CHEMISTRY METHOD 12/21/2024 1:53 PM [facility] Total Protein 6.1 6.0 - 8.0 g/dL LAB CHEMISTRY METHOD 12/21/2024 1:53 PM EDT [facility] Albumin 3.4 3.2 - 5.0 g/dL LAB CHEMISTRY METHOD 12/21/2024 1:53 PM EDT [facility] Total Bilirubin 0.6 0.0 - 1.4 mg/dL LAB CHEMISTRY METHOD 12/21/2024 1:53 PM EDT [facility] Blood Venous blood specimen / Unknown Venipuncture / Unknown 12/21/2024 12:10 PM EDT 12/21/2024 1:25 PM EDT us Myron RIVERA LAB BLOOD ORDERABLES Final R esult [facility] [address] [place] [address], [place] [phone] * Vascular US duplex lower extremity venous insufficiency bilateral (12/11/2024 1:05 PM EDT) Left fem mid reflux 689 ms CV VAS LAB Left GSDC mayra 0.11 cm CV VAS LAB Left GSPC mayra 0.17 cm CV VAS LAB Left SFJ Diameter 0.61 cm CV VAS LAB Left SSMC mayra 0.10 cm CV VAS LAB Left SSPC mayra 0.16 cm CV VAS LAB Right GSDC mayra 0.22 cm CV VAS LAB Right GSPC mayra 0.10 cm CV VAS LAB Right SFJ Diameter 0.75 cm CV VAS LAB Right SSMC mayra 0.08 cm CV VAS LAB Right SSPC mayra 0.11 cm CV VAS LAB Anatomical Region Laterality Modality Vascular, Abdomen Ultrasound Narrative 12/11/2024 2:44 PM EDT RIGHT. 1. No evidence of deep vein thrombosis. 2. The saphenofemoral junction, common femoral, femoral, and popliteal veins are competent. 3. No superficial venous thrombosis. 4. No venous reflux noted in the saphenopopliteal junction or small saphenous vein. 5. No venous reflux noted in the greater saphenous vein. LEFT. 1. No evidence of deep vein thrombosis. 2. The saphenofemoral junction, common femoral, and popliteal veins are competent. The mid femoral vein had 0.7 seconds of reflux. 3. No superficial venous thrombosis. 4. No venous reflux noted in the saphenopopliteal junction or small saphenous vein. 5. No venous reflux noted in the greater saphenous vein. Of note patient has history of prior venous intervention. This is consistent with ultrasound findings. Right Venous Insufficiency Duplex The exam was performed with the patient in reverse Trendelenburg. No evidence of deep vein thrombosis in the common femoral, deep femoral, proximal femoral, mid femoral, distal femoral, popliteal, greater saphenous, small saphenous, posterior tibial and peroneal veins of the right leg. The vessels showed compressibility. Interrogation showed phasic and spontaneous Doppler signals. Left Venous Insufficiency Duplex The exam was performed with the patient in reverse trendelenburg. No evidence of deep vein thrombosis in the common femoral, deep femoral, proximal femoral, mid femoral, distal femoral, popliteal, greater saphenous, small saphenous, posterior tibial and peroneal veins of the left leg. The vessels showed compressibility. Interrogation showed phasic and spontaneous Doppler signals. us Dyan RIVERA CV VASCULAR PROCEDURES Final R esult * Vascular US duplex lower extremity arteries bilateral with MISHA (12/05/2024 1:21 PM EDT) Left Dist External Iliac PSV 99 cm/s CV [facility]AS LAB Left Prox External Iliac PSV 87 cm/s CV [facility] LAB Left AT dist sys PSV 65 cm/s CV [facility] LAB Left AT mid sys PSV 112 cm/s CV VAS LAB Left AT prox sys PSV 107 cm/s CV VAS LAB Left MACHINIST WOOD prox sys PSV 80 cm/s CV VAS LAB Left mid peroneal sys PSV 61 cm/s CV VAS LAB Left popliteal dist sys PSV 82 cm/s CV VAS LAB Left popliteal prox sys PSV 67 cm/s CV VAS LAB Left PT dist sys PSV 70 cm/s CV VAS LAB Left PT mid sys PSV 73 cm/s CV VAS LAB Left PT prox sys PSV 75 cm/s CV VAS LAB Left super femoral dist sys PSV 71 cm/s CV VAS LAB Left super femoral mid sys PSV 77 cm/s CV VAS LAB Left super femoral prox sys PSV 101 cm/s CV VAS LAB Right Dist External Iliac PSV 99 cm/s CV VAS LAB Right Prox External Iliac PSV 119 cm/s CV VAS LAB Right AT dist sys PSV 67 cm/s CV VAS LAB Right AT mid sys PSV 69 cm/s CV VAS LAB Right AT prox sys PSV 80 cm/s CV VAS LAB Right MACHINIST WOOD prox sys PSV 82 cm/s CV VAS LAB Right mid peroneal sys PSV 52 cm/s CV VAS LAB Right popliteal dist sys PSV 68 cm/s CV VAS LAB Right popliteal prox sys PSV 52 cm/s CV VAS LAB Right PT dist sys PSV 28 cm/s CV VAS LAB Right PT mid sys PSV 251 cm/s CV VAS LAB Right PT prox sys PSV 101 cm/s CV VAS LAB Right super femoral dist sys PSV 79 cm/s CV VAS LAB Right super femoral mid sys PSV 88 cm/s CV VAS LAB Right super femoral prox sys PSV 96 cm/s CV VAS LAB Right profunda sys PSV 65 cm/s CV VAS LAB Left profunda sys PSV 86 cm/s CV VAS LAB Anatomical Region Laterality Modality Vascular, Abdomen Ultrasound Narrative 12/07/2024 4:39 PM EDT Right: The MISHA could not be calculated due to noncompressible vessel. The toe brachial index could not be calculated as well. Normal pulse volume waveform at the right ankle. Normal amplitude PPG waveform in the digit. There is mild atherosclerotic palque in the right lower extremity arteries. There is severe (50-99%) stenosis of right mid posterior tibial artery. 3-vessel runoff is noted in the right calf. Left: The MISHA could not be calculated due to noncompressible vessel. The toe brachial index could not be calculated as well. Normal pulse volume waveform at the left ankle. Normal amplitude PPG waveform in the digit. There is calcific atherosclerotic palque in the left lower extremity arteries. There is no significant stenosis. 3-vessel runoff is noted in the left calf. Right MISHA Right BP not done due to sensor. Right PT, DP, and digit are noncompressible. Left MISHA Left BP= 135/65 Left DP and digit are noncompressible. Right Lower Arterial Duplex The distal external iliac artery has biphasic flow. The common femoral artery has biphasic flow. The profunda femoris artery has biphasic flow. The superficial femoral artery has biphasic flow. The popliteal artery has biphasic flow. The anterior tibial artery has biphasic flow. The posterior tibial artery has biphasic flow. The mid peroneal artery has biphasic flow. Left Lower Arterial Duplex The distal external iliac artery has triphasic flow. The common femoral artery has biphasic flow. The profunda femoris artery has biphasic flow. The proximal superficial femoral artery has biphasic flow. The mid superficial femoral artery has triphasic flow. The distal superficial femoral artery has biphasic flow. The proximal popliteal artery has biphasic flow. The distal popliteal artery has triphasic flow. The proximal anterior tibial artery has triphasic flow. The mid anterior tibial artery has biphasic flow. The distal anterior tibial artery has biphasic flow. The posterior tibial artery has biphasic flow. The mid peroneal artery has biphasic flow. Forming Mill Operator Details A hathaway scale, color and doppler analysis ultrasound was performed. During the study longitudinal views were obtained. Pulsed wave doppler was performed. 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
--- OUTSIDE RECORDS SUMMARY | 2025-02-05 15:05 | XMS_ITS | Encounter Summary ---
Author Organization [facility] Address [address] [place] [address] [place] [address] Phone Care Team Providers Care Knurling Machine Operator Name Role Phone Zhang Acuna MD Primary Care Provider [phone] Zhang Ely MD Unavailable [phone] Fredy Ortiz MD Primary Care Provider Zhang Ely MD Unavailable [phone] Los Francisco MD Unavailable + [phone] Taj Schrader MD Unavailable [phone] Courtney Park BLUEBERRY GROWER Unavailable [phone] Taj Schrader MD Primary Care Provider Rain Reese MD Primary Care Provid er Simon Goodrich MD Unavailable [phone] Taj Schrader MD Primary Care Provider Zoila Wang PA-C Unavailable [phone] Unknown, Unknown Primary Care Provider Kulwant carter Encounter Details Date Type Department Care Team (Late st Contact Info) Description 07/10/2016 Procedure Pass [facility], [place] [address] [facility], 2nd Floor, [address] [place] [address] Social History Tobacco Use Types Packs/Day Years [...] on filedocumented in this encounter Care Teams Knurling Machine Operator Relationship Specialty Start Date End Date Zhang Acuna MD [address] [place] [phone] [email or web address] PCP - General 04/21/13 07/19/16 Fredy Ortiz MD [address] [place] [address] [email or web address] PCP - General Family Medicine 07/20/16 06/22/18 Taj Schrader MD [address] [place] [address] PCP - General Family Medicine 06/23/18 10/29/19 Rain Reese MD [address] [place] [address] PCP - General Internal Medicine 10/30/19 11/08/19 Taj Schrader MD [address] [place] [phone] PCP - General Family Medicine 11/09/19 12/31/20 Unknown, Bautista, PCP - General 01/01/21 Zhang Ely MD [address] [place] [phone] [email or web address] Sales Management Assistant Cardiology 07/08/16 Zhang Ely MD [address] [place] [address] [email or web address] Historical LMR Provider 04/28/18 Los Francisco MD [address] [place] [address] [email or web address] Historical LMR Provider 04/28/18 Taj Schrader MD [address] [place] [phone] Historical LMR Provider 04/28/18 2 Courtney Park CNP [address] [place] [address] Historical LMR Provider 04/28/18 Simon Goodrich MD [address] [place] [address] [email or web address] U Consulting Provider Gastroenterology 10/30/19 Zoila Wang PA-C [address] [place] [address] Physician Commercial Painter Hematology 11/22/20 documented as of this encounter Additional Source Comments The information contained in this document represents components of the legal health record. It is not the complete legal health record.[facility]
--- OUTSIDE RECORDS SUMMARY | 2025-02-05 15:05 | XMS_ITS | Encounter Summary ---
Author Organization [facility] Address [address] [place] [address] [place] [address] Phone Care Team Providers Care Pulp Beater Name Role Phone Zhang Acuna MD Primary Care Provider [phone] Zhang Ely MD Unavailable [phone] Fredy Ortiz MD Primary Care Provider Zhang Ely MD Unavailable [phone] Los Francisco MD Unavailable + [phone] Taj Schrader MD Unavailable [phone] Courtney Park INDUSTRIAL ENGINEER Unavailable [phone] Taj Schrader MD Primary Care Provider Rain Reese MD Primary Care Provid er Simon Goodrich MD Unavailable [phone] Taj Schrader MD Primary Care Provider Zoila Wang PA-C Unavailable [phone] Unknown, Unknown Primary Care Provider Kulwant carter Encounter Details Date Type Department Care Team (Late st Contact Info) Description 07/09/2016 Procedure Pass [facility] Cardiac Divinity Teacher [address] [facility], [address], [address] [place] [address] Social History Tobacco Use Types Packs/Day Years [...] on file documented as of this encounter Plan of Treatment Not on file documented as of this encounter Visit Diagnoses Not on filedocumented in this encounter Care Teams Pulp Beater Relationship Specialty Start Date End Date Zhang Acuna MD [address] [address] [email or web address] PCP - General 04/21/13 07/19/16 Fredy Ortiz MD [address] [place] [address] [email or web address] PCP - General Family Medicine 07/20/16 06/22/18 Taj Schrader MD [address] [place] [address] PCP - General Family Medicine 06/23/18 10/29/19 Rain Reese MD [address] [place] [address] PCP - General Internal Medicine 10/30/19 11/08/19 Taj Schrader MD [address] [place] [address] PCP - General Family Medicine 11/09/19 12/31/20 Unknown, Bautista, PCP - General 01/01/21 Zhang Ely MD [address] [place] [phone] [email or web address] Cardiology 07/08/16 Zhang Ely MD [address] [place] [phone] [email or web address] Historical LMR Provider 04/28/18 Los Francisco MD [address] [place] [address] [email or web address] Historical LMR Provider 04/28/18 Taj Schrader MD [address] [place] [phone] Historical LMR Provider 04/28/18 Courtney Park, INDUSTRIAL ENGINEER [address] [place] [address] Historical LMR Provider 04/28/18 Simon Goodrich MD [address] [place] [phone] [email or web address] U Consulting Provider Gastroenterology 10/30/19 Zoila Wang PA-C [address] [place] [address] Physician Township Supervisor Hematology 11/22/20 documented as of this encounter Additional Source Comments The information contained in this document represents components of the legal health record. It is not the complete legal health record.[facility]
--- OUTSIDE RECORDS SUMMARY | 2025-02-05 15:05 | XMS_ITS | Encounter Summary ---
Author Organization [facility] Address [address] [place] [address] Phone Care Team Providers Care Seafood Farmer Name Role Phone Zhang Acuna MD Primary Care Provider Zhang Ely MD Unavailable [phone] Fredy Ortiz MD Primary Care Provider Zhang Ely MD Unavailable [phone] Los Francisco MD Unavailable + [phone] Taj Schrader MD Unavailable [phone] Courtney Park CAREER AGENT Unavailable [phone] Taj Schrader MD Primary Care Provider Rain Reese MD Primary Care Provid er Simon Goodrich MD Unavailable [phone] Taj Schrader MD Primary Care Provider Zoila Wang PA-C Unavailable [phone] Unknown, Unknown Primary Care Provider Kulwant carter Encounter Details Date Type Department Care Team (Late st Contact Info) Description 07/12/2016 Procedure Pass [facility] [address] [place] [address] Social History Tobacco Use Types Packs/Day Years [...] on filedocumented in this encounter Care Teams Seafood Farmer Relationship Specialty Start Date End Date Zhang Acuna MD [address] [place] [address] [email or web address] PCP - General 04/21/13 07/19/16 Fredy Ortiz MD [address] [place] [address] [email or web address] PCP - General Family Medicine 07/20/16 06/22/18 Taj Schrader MD [address] [place] [phone] PCP - General Family Medicine 06/23/18 10/29/19 Rain Reese MD [address] [place] [address] PCP - General Internal Medicine 10/30/19 11/08/19 Taj Schrader MD [address] [place] [phone] PCP - General Family Medicine 11/09/19 12/31/20 Unknown, Unknown, MD PCP - General 01/01/21 Zhang Ely MD [address] [place] [phone] [email or web address] Operator Cardiology 07/08/16 Zhang Ely MD [address] [place] [phone] [email or web address] Historical LMR Provider 04/28/18 Los Francisco MD [address] [place] [phone] [email or web address] Historical LMR Provider 04/28/18 Taj Schrader MD [address] [place] [phone] Historical LMR Provider 04/28/18 2 Courtney Park CNP [address] [place] [address] Historical LMR Provider 04/28/18 Simon Goodrich MD [address] [place] [address] [email or web address] U Consulting Provider Gastroenterology 10/30/19 Zoila Wang PA-C [address] [place] [address] Physician Mall Manager Hematology 11/22/20 documented as of this encounter Additional Source Comments The information contained in this document represents components of the legal health record. It is not the complete legal health record.[facility]
== END 2025-02-05 13:42 | disposition home or self-care (01) ==
LOC: HO.HCS 12:59
PROVIDERS: PCP Internal Medicine; Visit Provider Nurse Practitioner Family
DX: I25.10 Atherosclerotic heart disease of native coronary artery without angina pectoris (principal); Z95.1 Presence of aortocoronary bypass graft; R07.9 Chest pain, unspecified; I42.9 Cardiomyopathy, unspecified; I77.810 Thoracic aortic ectasia; I15.0 Renovascular hypertension; E78.00 Pure hypercholesterolemia, unspecified
CPT/HCPCS: 99214; G2211

== ENCOUNTER → 2025-02-05 12:58 | Outpatient (BNVA) | payer MEDICARE, MEDICAID, SELFPAY | PROVIDERS: PCP Internal Medicine; Visit Provider Nurse Practitioner Family | DX: R07.9 Chest pain, unspecified (principal); I25.10 Atherosclerotic heart disease of native coronary artery without angina pectoris; I15.0 Renovascular hypertension; I42.9 Cardiomyopathy, unspecified; I77.810 Thoracic aortic ectasia; E78.00 Pure hypercholesterolemia, unspecified; Z95.1 Presence of aortocoronary bypass graft | CPT/HCPCS: 99212 ==